=== PATIENT | female | born 1960 | race Caucasian/White ===

== ENCOUNTER → 2017-08-21 09:48 | Outpatient (CLI) | payer BC, SELFPAY ==
[2017-08-21 11:38] LABS: Anion Gap 13.3 mEq/L (5-15); Blood Urea Nitrogen 16 mg/dL (7-18); Carbon Dioxide 28 mmol/L (21.0-32.0); Chloride 107 mmol/L (98-107); Chol/HDL Ratio 2.9 (1-3.5); Cholesterol 149 mg/dL (140-200); Creatinine,Serum 0.76 mg/dL (0.55-1.02); Estimated Glomerular Filt Rate 78 ml/min (>60); Free T4 (Free Thyroxine) 1.05 ng/dl (0.76-1.46); GFR (African American) 95 ML/MIN (>60); Glucose 177 mg/dL (74-106); HDL Cholesterol 51 mg/dL (29-89); LDL Cholesterol 68 mg/dL (0-130); Potassium 4.3 mmoL/L (3.5-5.1); Sodium 144 mmol/L (136-145); Thyroid Stimulating Hormone 2.36 uIU/ml (0.358-3.740); Triglycerides 151 mg/dL (30-200); VLDL Cholesterol 30 mg/dL (0-40)
[2017-08-22 13:27] LABS: Alanine Aminotransferase 22 U/L (12-78); Albumin Level 4.3 gm/dL (3.4-5.0); Albumin/Globulin Ratio 1.3 (1.1-1.8); Alkaline Phosphatase 116 U/L (46-116); Aspartate Amino Transferase 17 U/L (15-37); Bilirubin,Total 0.6 mg/dL (0.2-1.0); Calcium 9.5 mg/dL (8.5-10.1); Globulin 3.4 gm/dl (1.3-3.2); T4 (Thyroxine) 9.4 ug/dl (4.7-13.3); Total Protein,Serum 7.7 gm/dL (6.4-8.2)
== END ==
PROVIDERS: Visit Provider Internal Medicine Endocrinology, Diabetes & Metabolism
DX: E11.65 Type 2 diabetes mellitus with hyperglycemia (principal); E03.8 Other specified hypothyroidism; I10 Essential (primary) hypertension
CPT/HCPCS: 36415; 80048; 80053; 80061; 84436; 84439; 84443

== ENCOUNTER → 2018-08-05 09:36 | Outpatient (CLI) | payer BC, SELFPAY ==
[2018-08-05 13:49] LABS: Basophils % 0.4 % (0.1-2.0); Eosinophils # 0.2 K/mm3 (0.0-0.4); Eosinophils % 2.2 % (0.1-12.0); Hemoglobin 12.9 g/dL (12.2-16.2); Lymphocytes # 1.4 K/mm3 (0.7-4.5); Lymphocytes % 20.2 % (10-50); Mean Corpuscular HGB Conc 33.9 g/dL (31.8-35.4); Mean Corpuscular Hemoglobin 30.5 pg (27.0-31.2); Mean Corpuscular Volume 90.1 fl (81-99); Mean Platelet Volume 9.8 fl (7.4-10.4); Monocytes # 0.4 K/mm3 (0.1-1.0); Monocytes % 5.8 % (1.7-9.3); Neutrophils % 71.6 % (37.0-80.0); Platelet Count 207 K/mm3 (142-424); Red Blood Count 4.22 M/mm3 (4.20-5.40); Red Cell Distribution Width 14.7 % (11.5-17.5); White Blood Count 7.1 K/mm3 (4.8-10.8)
[2018-08-05 14:09] LABS: Alanine Aminotransferase 27 U/L (12-78); Albumin Level 3.8 gm/dL (3.4-5.0); Albumin/Globulin Ratio 1.1 (1.1-1.8); Alkaline Phosphatase 113 U/L (46-116); Anion Gap 15.1 mEq/L (5-15); Aspartate Amino Transferase 19 U/L (15-37); Bilirubin,Total 0.7 mg/dL (0.2-1.0); Blood Urea Nitrogen 16 mg/dL (7-18); Calcium 9.1 mg/dL (8.5-10.1); Carbon Dioxide 27 mmol/L (21.0-32.0); Chloride 105 mmol/L (98-107); Chol/HDL Ratio 2.9 (1-3.5); Cholesterol 167 mg/dL (140-200); Creatinine,Serum 0.75 mg/dL (0.55-1.02); Estimated Glomerular Filt Rate 79 ml/min (>60); Free T4 (Free Thyroxine) 0.97 ng/dl (0.76-1.46); GFR (African American) 96 ML/MIN (>60); Globulin 3.4 gm/dl (1.3-3.2); Glucose 178 mg/dL (74-106); HDL Cholesterol 58 mg/dL (29-89); LDL Cholesterol 70 mg/dL (0-130); Potassium 4.1 mmoL/L (3.5-5.1); Sodium 143 mmol/L (136-145); Thyroid Stimulating Hormone 3.09 uIU/ml (0.358-3.740); Total Protein,Serum 7.2 gm/dL (6.4-8.2); Triglycerides 197 mg/dL (30-200); VLDL Cholesterol 39 mg/dL (0-40)
[2018-08-06 10:28] LABS: Creatinine, Urine 76.7 mg/dL (Not Estab.); Microalbumin, Urine 14.1 ug/mL (Not Estab.)
== END ==
PROVIDERS: PCP Physician Assistant; Visit Provider Internal Medicine Endocrinology, Diabetes & Metabolism
DX: E11.65 Type 2 diabetes mellitus with hyperglycemia (principal); E03.8 Other specified hypothyroidism; E78.00 Pure hypercholesterolemia, unspecified; I10 Essential (primary) hypertension
CPT/HCPCS: 36415; 80053; 80061; 82043; 82570; 84439; 84443; 85025

== ENCOUNTER → 2022-03-19 09:45 | Outpatient (CLI) | payer BC, SELFPAY ==
[2022-03-19 17:54] LABS: Basophils # 0.1 K/mm3 (0-0.2); Basophils % 0.7 % (0.1-2.0); Eosinophils # 0.1 K/mm3 (0.0-0.4); Eosinophils % 1.9 % (0.1-12.0); Hemoglobin 13.2 g/dL (12.2-16.2); Lymphocytes # 1.3 K/mm3 (0.7-4.5); Lymphocytes % 17.2 % (10-50); Mean Corpuscular HGB Conc 32.9 g/dL (31.8-35.4); Mean Corpuscular Hemoglobin 31.5 pg (27.0-31.2); Mean Corpuscular Volume 95.9 fl (81-99); Mean Platelet Volume 10.2 fl (7.4-10.4); Monocytes # 0.4 K/mm3 (0.1-1.0); Monocytes % 4.8 % (1.7-9.3); Neutrophils # 5.8 K/mm3 (1.8-7.8); Neutrophils % 75.4 % (37.0-80.0); Platelet Count 264 K/mm3 (142-424); Red Blood Count 4.18 M/mm3 (4.20-5.40); Red Cell Distribution Width 14.7 % (11.5-17.5); White Blood Count 7.6 K/mm3 (4.8-10.8)
[2022-03-19 17:58] LABS: Alanine Aminotransferase 21 U/L (12-78); Albumin Level 4.4 g/dl (3.5-5.0); Albumin/Globulin Ratio 1.7 (1.1-1.8); Alkaline Phosphatase 164 U/L (38-126); Aspartate Amino Transferase 30 U/L (14-36); Bilirubin,Total 0.9 mg/dl (0.2-1.3); Blood Urea Nitrogen 14 mg/dl (7-17); Calcium 9.4 mg/dl (8.4-10.2); Carbon Dioxide 29 mmol/L (22.0-30.0); Chloride 103 mmol/L (98-107); Chol/HDL Ratio 2.9 (1-3.5); Cholesterol 153 mg/dl (140-200); Estimated Glomerular Filt Rate 101 ml/min (>60); GFR (African American) 122 ML/MIN (>60); Globulin 2.6 g/dL (1.3-3.2); Glucose 155 mg/dl (74-100); HDL Cholesterol 52 mg/dl (40-60); Sodium 143 mmol/L (136-145); Triglycerides 132 mg/dl (30-150); VLDL Cholesterol 26 mg/dL (0-40)
[2022-03-19 18:09] LABS: Direct LDL Cholesterol 63.65 mg/dL (100-129)
[2022-03-19 18:22] LABS: Hemoglobin A1C 6.8 % (4.0-6.0)
[2022-03-19 18:29] LABS: Thyroid Stimulating Hormone 1.57 uIU/mL (0.465-4.68)
[2022-03-19 19:20] LABS: Anion Gap 15.2 mEq/L (5-15); Potassium 4.2 mmoL/L (3.5-5.1)
== END ==
PROVIDERS: PCP Family Medicine; Visit Provider Family Medicine
DX: E03.9 Hypothyroidism, unspecified (principal); E11.9 Type 2 diabetes mellitus without complications; I10 Essential (primary) hypertension; Z00.00 Encounter for general adult medical examination without abnormal findings; Z79.84 Long term (current) use of oral hypoglycemic drugs
CPT/HCPCS: 80053; 80061; 83036; 84443; 85025

== ENCOUNTER → 2023-03-24 17:30 | Outpatient (CLI) | payer BC, SELFPAY ==
[2023-03-24 18:23] LABS: Alanine Aminotransferase 26 U/L (12-78); Albumin Level 4.2 g/dl (3.5-5.0); Albumin/Globulin Ratio 1.4 (1.1-1.8); Alkaline Phosphatase 119 U/L (38-126); Anion Gap 17.6 mEq/L (5-15); Aspartate Amino Transferase 29 U/L (14-36); Bilirubin,Total 0.7 mg/dl (0.2-1.3); Blood Urea Nitrogen 14 mg/dl (7-17); Calcium 8.9 mg/dl (8.4-10.2); Carbon Dioxide 23 mmol/L (22.0-30.0); Chloride 105 mmol/L (98-107); Chol/HDL Ratio 2.7 (1-3.5); Cholesterol 144 mg/dl (140-200); Estimated Glomerular Filt Rate 101 ml/min (>60); GFR (African American) 122 ML/MIN (>60); Glucose 153 mg/dl (74-100); HDL Cholesterol 53 mg/dl (40-60); Potassium 3.6 mmoL/L (3.5-5.1); Sodium 142 mmol/L (136-145); Total Protein,Serum 7.2 g/dl (6.3-8.2); Triglycerides 132 mg/dl (30-150); VLDL Cholesterol 26 mg/dL (0-40)
[2023-03-24 18:34] LABS: Direct LDL Cholesterol 67.31 mg/dL (100-129)
[2023-03-24 18:40] LABS: Free T4 (Free Thyroxine) 1.34 ng/dl (0.78-2.19)
[2023-03-24 18:52] LABS: Thyroid Stimulating Hormone 1.67 uIU/mL (0.465-4.68)
== END ==
PROVIDERS: PCP Internal Medicine Endocrinology, Diabetes & Metabolism; Visit Provider Internal Medicine Endocrinology, Diabetes & Metabolism
DX: E11.65 Type 2 diabetes mellitus with hyperglycemia (principal); E11.59 Type 2 diabetes mellitus with other circulatory complications; E11.69 Type 2 diabetes mellitus with other specified complication; I15.2 Hypertension secondary to endocrine disorders; E78.5 Hyperlipidemia, unspecified; E03.9 Hypothyroidism, unspecified
CPT/HCPCS: 80053; 80061; 82043; 83036; 84439; 84443

== ENCOUNTER 2023-09-21 11:51 | Outpatient (CLI) | payer BC, SELFPAY ==
[2023-09-21 16:36] LABS: Alanine Aminotransferase 19 U/L (12-78); Albumin/Globulin Ratio 1.4 (1.1-1.8); Alkaline Phosphatase 120 U/L (38-126); Aspartate Amino Transferase 27 U/L (14-36); Basophils % 0.5 % (0.1-2.0); Blood Urea Nitrogen 12 mg/dl (7-17); Calcium 9.3 mg/dl (8.4-10.2); Carbon Dioxide 26 mmol/L (22.0-30.0); Chloride 109 mmol/L (98-107); Chol/HDL Ratio 2.6 (1-3.5); Cholesterol 141 mg/dl (140-200); Creatinine,Urine Random 92 mg/dL (Not Estab.); Direct LDL Cholesterol 66.31 mg/dL (100-129); Eosinophils # 0.2 K/mm3 (0.0-0.4); Eosinophils % 2.2 % (0.1-12.0); Estimated Glomerular Filt Rate 101 ml/min (>60); GFR (African American) 122 ML/MIN (>60); Globulin 2.8 g/dL (1.3-3.2); Glucose 133 mg/dl (74-100); HDL Cholesterol 55 mg/dl (40-60); Hematocrit 38.6 % (37.0-47.0); Hemoglobin 12.8 g/dL (12.2-16.2); Lymphocytes # 1.8 K/mm3 (0.7-4.5); Mean Corpuscular HGB Conc 33.2 g/dL (31.8-35.4); Mean Corpuscular Hemoglobin 31.2 pg (27.0-31.2); Mean Platelet Volume 10.6 fl (7.4-10.4); Microalbumin/Creatinine Ratio 12.3; Monocytes # 0.6 K/mm3 (0.1-1.0); Monocytes % 8.6 % (1.7-9.3); Neutrophils # 4.4 K/mm3 (1.8-7.8); Neutrophils % 63.7 % (37.0-80.0); Platelet Count 206 K/mm3 (142-424); Red Blood Count 4.11 M/mm3 (4.20-5.40); Sodium 142 mmol/L (136-145); Total Protein,Serum 6.8 g/dl (6.3-8.2); Triglycerides 124 mg/dl (30-150); VLDL Cholesterol 25 mg/dL (0-40)
[2023-09-21 16:53] LABS: Thyroid Stimulating Hormone 2.31 uIU/mL (0.465-4.68)
[2023-09-21 17:07] LABS: Hemoglobin A1C 6.4 % (4.0-6.0)
== END 2023-09-21 23:59 | disposition home or self-care (01) ==
LOC: LAB.DROPOF 09-22 11:52
PROVIDERS: PCP Family Medicine; Visit Provider Family Medicine
DX: E11.9 Type 2 diabetes mellitus without complications (principal); E03.9 Hypothyroidism, unspecified; E78.5 Hyperlipidemia, unspecified; Z79.84 Long term (current) use of oral hypoglycemic drugs
CPT/HCPCS: 80053; 80061; 82043; 82570; 83036; 84439; 84443; 84481; 85025

== ENCOUNTER 2023-12-04 08:15 | Outpatient (CLI) | payer BC, SELFPAY ==
--- NOTE | 2023-12-04 08:15 | US_ITS ---
PROCEDURE: US TRANSVAGINAL CLINICAL INDICATION: abdominal bloating, swelling COMPARISON: No exams were available for comparison FINDINGS: Transvaginal sonographic images of the pelvis were obtained. UTERUS: 6.3cm x 5cmx 3.4cm midline with a combined endometrial thickness of 7.1mm. There is a 1.5 cm nabothian cyst in the cervix. There is a fibroid in the uterus measuring 2.3 cm x 2.4 cm x 2.5 cm LEFT OVARY: Not visualized RIGHT OVARY: Not visualized There a large mass in the right adnexa that has both solid and cystic components. It measures 14.8 cm x 12.7 cm Both ovaries are not visualized. There is a moderate amount of fluid in the cul-de-sac. IMPRESSION: 1. Midline uterus normal in shape and size. 2. The ovaries were not seen. 3. There is a large multi cystic and solid mass in the right adnexa that measures at least 14.8 cm in size. 4. The computer builder noted that it was a difficult exam secondary to the large amount of fluid in the pelvis. 5. Concerning for ovarian carcinoma with ascites. A CT scan might be able to better delineate the size of this large mass. 6. Suggest a gynecologic oncology consult. Dictated by: Michael Hamilton MD 12/05/2023 10:14 Michael Hamilton MD in [place] 12/05/2023 10:14
--- NOTE | 2023-12-04 08:15 | US_ITS ---
FINAL REPORT CLINICAL HISTORY: possible ascites FINDINGS: US ABDOMINAL COMPLETE There is no focal liver lesion. The gallbladder is unremarkable. Kidneys are normal in size with mild global parenchymal atrophy. There is mild left hydronephrosis. There are no obstructive changes of the right kidney. The spleen is mildly enlarged measuring up to 13.8 cm. There is a small amount of ascites in all quadrants. The aorta and IVC are not visualized. IMPRESSION: 1. No focal hepatic mass. 2. Ascites and splenomegaly may be related to chronic liver disease with portal hypertension. 3. Mild left hydronephrosis. Authenticated and ERN
[2023-12-04 16:55] LABS: Basophils # 0.1 K/mm3 (0-0.2); Eosinophils # 0.2 K/mm3 (0.0-0.4); Eosinophils % 1.6 % (0.1-12.0); Hematocrit 36.3 % (37.0-47.0); Lymphocytes # 1.3 K/mm3 (0.7-4.5); Lymphocytes % 13.7 % (10-50); Mean Corpuscular HGB Conc 32.9 g/dL (31.8-35.4); Mean Corpuscular Hemoglobin 29.5 pg (27.0-31.2); Mean Corpuscular Volume 89.6 fl (81-99); Mean Platelet Volume 8.6 fl (7.4-10.4); Monocytes # 0.7 K/mm3 (0.1-1.0); Neutrophils # 7.5 K/mm3 (1.8-7.8); Neutrophils % 76.7 % (37.0-80.0); Platelet Count 605 K/mm3 (142-424); Red Blood Count 4.06 M/mm3 (4.20-5.40); White Blood Count 9.8 K/mm3 (4.8-10.8)
[2023-12-04 17:02] LABS: Activated Partial Thrombo Time 24.5 seconds (22.8-30.6); INR 0.95 (0.9-1.1); Prothrombin Time 10.7 seconds (10.1-12.5)
[2023-12-04 17:21] LABS: Chloride 109 mmol/L (98-107); Potassium 3.5 mmoL/L (3.5-5.1); Sodium 142 mmol/L (136-145)
[2023-12-04 17:23] LABS: Blood Urea Nitrogen 16 mg/dl (7-17); Estimated Glomerular Filt Rate 72 ml/min (>60); GFR (African American) 87 ML/MIN (>60)
[2023-12-04 17:24] LABS: Alanine Aminotransferase 16 U/L (12-78); Alkaline Phosphatase 166 U/L (38-126); Anion Gap 8.5 mEq/L (5-15); Aspartate Amino Transferase 28 U/L (14-36); Bilirubin,Total 0.4 mg/dl (0.2-1.3); Calcium 8.9 mg/dl (8.4-10.2); Carbon Dioxide 28 mmol/L (22.0-30.0); Globulin 2.9 g/dL (1.3-3.2); Glucose 145 mg/dl (74-100); Total Protein,Serum 5.9 g/dl (6.3-8.2)
== END 2023-12-04 23:59 | disposition home or self-care (01) ==
PROVIDERS: PCP Family Medicine; Visit Provider Family Medicine
DX: R14.0 Abdominal distension (gaseous) (principal); R10.9 Unspecified abdominal pain
CPT/HCPCS: 36415; 76700; 76830; 80053; 85025; 85610; 85730

== ENCOUNTER 2023-12-25 10:29 | Emergency (ER) | payer BC, SELFPAY ==
[2023-12-25] VITALS (9 sets, daily range): BP systolic 100–129; BP diastolic 57–65; PULSE 84–96; RESP 17–18; TEMP 36.7–36.8; O2SAT 93–98; BMI 29.4
--- NOTE | 2023-12-25 10:52 | ED_ITS ---
Discharge Plan Disposition Patient Disposition: Home, Self-Care Prescriptions Prescriptions: No Action sulfacetamide sodium-sulfur 10-5 % (w/w) cleanser 1 applic TOPICAL DIRECTED dapagliflozin propanediol 10 mg tablet 10 mg PO DAILY Patient Comments: TAKE 1 TABLET 1 TIME EACH DAY semaglutide 14 mg tablet 14 mg PO DAILY Patient Comments: TAKE 1 TABLET 1 TIME EACH DAY. carvedilol 12.5 mg tablet 12.5 mg PO BID 30 Days Qty: 60 2RF levothyroxine 50 mcg tablet 50 mcg PO DAILY 30 Days Qty: 30 2RF amlodipine 10 mg tablet 10 mg PO DAILY 30 Days Qty: 30 2RF lisinopril 40 mg tablet See Rx Instructions .ROUTE .COMPLEX Qty: 30 2RF Dose Instruction: TAKE 1 TABLET 1 TIME EACH DAY FOR HIGH BLOOD PRESSURE Rx Instructions: TAKE 1 TABLET 1 TIME EACH DAY FOR HIGH BLOOD PRESSURE atorvastatin 10 mg tablet See Rx Instructions .ROUTE .COMPLEX Qty: 90 0RF Dose Instruction: TAKE 1 TABLET 1 TIME EACH DAY FOR CHOLESTEROL Rx Instructions: TAKE 1 TABLET 1 TIME EACH DAY FOR CHOLESTEROL pantoprazole [Protonix] 40 mg tablet,delayed release (DR/EC) 40 mg PO DAILY Qty: 90 3RF Referrals Follow up/Referrals: Ryan Marques MD [Primary Care Provider] - See instructions Activity Restrictions/Add. Instructions Additional Instructions/Restrictions: Follow-up with your family doctor and oncologist regarding this visit to the emergency department. Call your family doctor to establish care for this visit to the emergency department and schedule follow-up within 48 hours to ensure improvement. If you have any worsening of your condition or any other concerning signs or symptoms, return to the emergency department or your primary care doctor for further evaluation. Clinical Impressions Clinical Impression: Malignant ascites, Abdominal distension Print Language Print Language: Polish Discharge ED Provider: Marlon Gutierrez General Adult HPI General Chief complaint: PAIN Stated complaint: drain fluid from stomach Time Seen by Provider: 12/25/23 10:41 History of Present Illness HPI narrative: Please note that above description of symptoms, in this electronic medical record under categorization of recalled from ER triage doctor by RN are reflective of an initial nursing assessment, however, is not reflective of my full history and physical exam that was personally taken and clarified. Consequentially, this preceding description of symptoms, which may include the patient's categorized chief complaint in the EMR, do not reflect my personal clinical impression, and the ultimate description of history of present illness and patient stated complaints should be deferred to this section of the note. Unless stated otherwise or congruent with this section of the note, additional signs, symptoms, or incongruence should be interpreted as inaccurate with my clinical impression. Related Data Home Medications ?Medication ?Instructions ?Recorded ?Confirmed sulfacetamide sodium-sulfur 10 %-5 1 applic topical DIRECTED 09/11/20 12/25/23 % (w/w) topical cleanser dapagliflozin propanediol 10 mg 10 mg PO DAILY Diabetes 03/19/22 12/25/23 tablet semaglutide 14 mg tablet 14 mg PO DAILY 03/19/22 12/25/23 Previous Rx's ?Medication ?Instructions ?Recorded levothyroxine 50 mcg tablet 50 mcg PO DAILY Hypothyroidism 30 03/30/23 days #30 tabs carvedilol 12.5 mg tablet 12.5 mg PO BID HTN 30 days #60 tabs 04/06/23 amlodipine 10 mg tablet 10 mg PO DAILY HTN 30 days #30 tabs 10/13/23 lisinopril 40 mg tablet See Rx Instructions .Route 11/10/23 .COMPLEX #30 tabs atorvastatin 10 mg tablet See Rx Instructions .Route 12/22/23 .COMPLEX #90 tabs pantoprazole 40 mg tablet,delayed 40 mg PO DAILY #90 tabs 12/24/23 release (Protonix) Allergies Allergy/AdvReac Type Severity Reaction Status Date / Time No Known Allergies Allergy Verified 12/07/23 12:03 [facility] Disclaimer: The information contained in this section may have been updated after the patient was seen, as this information can be updated by other users. Medical History Hyperlipidemia Hypertension Overweight with body mass index (BMI) of 28 to 28.9 in adult Onychodystrophy Onychomycosis Surgical History No history of previous surgery Family History Mother Diabetes Social History Smoking Status: Never smoker alcohol intake: never substance use type: denies use current occupational status: retired Travel in the last 8 weeks: None household members: none housing: house ROS Obtained: Yes All systems reviewed & no additional complaints except as documented Physical Exam General General appearance: alert Head Head exam: atraumatic and normocephalic Eye Eye exam: Present normal appearance, PERRL and EOMI Neck Neck exam: Present normal inspection, full ROM and trachea midline Respiratory Respiratory exam: Absent respiratory distress, wheezes, stridor, accessory muscle use or prolonged expiratory phase Cardiovascular Cardiovascular exam: Present regular rate, normal rhythm and other (Pulses equal symmetric in upper and lower extremities) Abdominal Exam Abdominal exam: Present soft and distention; Absent tenderness or pulsatile mass Extremities Exam Extremities exam: Absent edema Neurological Exam Neurological exam: Present alert, oriented X3 and CN II-XII intact; Absent motor sensory deficit Skin Skin exam: Present warm and dry; Absent diaphoresis or erythema Medical Decision Making Medical Records Medical records reviewed: Yes I reviewed the patient's medical records. Martín Inquiry Pt receiving controlled substance: No Martín was queried for this patient: No Vital Signs: 12/25/23 10:30 12/25/23 10:36 12/25/23 11:00 Temperature 98.3 F Temperature Source Oral Pulse Rate 91 H 84 Pulse Rate [Right] 91 H Respiratory Rate 17 Blood Pressure 120/65 100/57 L Blood Pressure [Right Arm] 120/65 Blood Pressure Mean Blood Pressure Mean [Right Arm] 83 Blood Pressure Source Blood Pressure Source [Right Arm] Automatic Cuff Blood Pressure Position 02 Sat by Pulse Oximetry 98 95 93 L Oxygen Delivery Method Room Air 12/25/23 11:02 12/25/23 11:30 12/25/23 12:00 Temperature Temperature Source Pulse Rate 87 85 Pulse Rate [Right] Respiratory Rate Blood Pressure 109/64 L 117/63 116/59 L Blood Pressure [Right Arm] Blood Pressure Mean 79 Blood Pressure Mean [Right Arm] Blood Pressure Source Blood Pressure Source [Right Arm] Blood Pressure Position 02 Sat by Pulse Oximetry 94 L 95 Oxygen Delivery Method 12/25/23 12:08 12/25/23 12:32 12/25/23 13:10 Temperature 98.0 F Temperature Source Oral Pulse Rate 96 H 85 Pulse Rate [Right] Respiratory Rate 18 Blood Pressure 120/65 118/59 L 129/63 Blood Pressure [Right Arm] Blood Pressure Mean 76 Blood Pressure Mean [Right Arm] Blood Pressure Source Automatic Cuff Blood Pressure Source [Right Arm] Blood Pressure Position Sitting 02 Sat by Pulse Oximetry 97 Oxygen Delivery Method Room Air Lab Data Lab Results 12/25/23 10:53: WBC 13.7 H, RBC 3.74 L, Hgb 10.6 L, Hct 34.6 L, MCV 92.4, MCH 28.5, MCHC 30.8 L, RDW 15.2, Plt Count 621 H, MPV 7.5, Neut % (Auto) 83.3 H, L ymph % (Auto) 7.7 L, Ingham % (Auto) 7.9, Eos % (Auto) 0.8, Baso % (Auto) 0.3, N eut # (Auto) 11.5 H, Lymph # (Auto) 1.1, Ing[place] # (Auto) 1.1 H, Eos # (Auto) 0.1, Baso # (Auto) 0.0, Sodium 132 L, Potassium 4.4, Chloride 102, Carbon Dioxide 30, Anion Gap 4.4 L, BUN 25 H, Creatinine 1.00, Estimated Creat Clear 83, Estimated GFR 56 L, Est GFR ( Amer) 68, Glucose 117 H, Calcium 7.9 L, Total Bilirubin 1.0, AST 102 H, ALT 65, Alkaline Phosphatase 548 H, Total Protein 5.8 L, Albumin 2.7 L, Globulin 3.1, Albumin/Globulin Ratio 0.9 L 12/25/23 10:53 12/25/23 10:53 Orders (Tests/Meds): ED MEDICATIONS Discontinued Medications Generic Name Dose Route Start Last Admin Trade Name Freq PRN Reason Stop Dose Admin Lidocaine HCl 20 ml 12/25/23 11:00 12/25/23 11:06 Lidocaine 1% 20ml Mdv SQ 12/25/23 11:01 20 ml ONCE ONE Administration ORDERS Category Date Time Status US RUQ [US abdomen limited] Stat Exams 12/25/23 12:22 Completed CBC w/Auto Diff [Complete Blood Count Auto Diff] Stat Lab 12/25/23 10:53 Completed CMP [Comprehensive Metabolic Panel] Stat Lab 12/25/23 10:53 Completed Medical Decision Narrative: 63-year-old female history of ascites of unknown origin, likely malignant with concurrent ovarian mass as well as stomach mass presenting with distention. Patient states that she has been feeling tired and distended for the past couple of days, came in today because she has no appetite due to the abdominal distention. No other complaints on full review of systems. Contacted her oncologist who recommended she come to the emergency department for paracentesis for resolution of symptoms.. History was obtained via conversation with patient and family. On arrival, patient hemodynamically stable, alert, oriented x4, appropriate, GCS 15, moving all extremities spontaneously, pupils equal and reactive to light. Full physical exam performed and significant for well- appearing female in no acute distress. Oxygen 94 to 95% on room air, abdomen is soft, but distended, nontender. No overlying skin changes. No flank changes or tenderness. Differential includes ascites reaccumulation, liver failure, progression of disease, among others. Patient placed on continuous cardiac monitoring and continuous pulse ox with initial blood pressure 129/63, heart rate 85, saturation 97% on room air. Patient was given lidocaine infiltration for symptomatic management and correction of underlying abnormalities. Paracentesis performed. Workup independently interpreted and significant for leukocytosis 13.7. Hemoglobin 10.6 down from 12 about 3 weeks prior. Patient's alkaline phosphatase also elevated as compared to previous and mildly elevated AST. Bedside [id number] ultrasound was performed for ultrasound-guided drainage. Paracentesis performed, 3 L of red-tinged straw-colored fluid removed. Patient's oncologist was contacted and case was discussed, right upper quadrant ultrasound was ordered given new LFT findings. On independent interpretation of ultrasound, patient has mild portal vein dilation, which could explain some of the lab abnormalities. No other acute abnormality. On reevaluation, patient resting comfortably, oxygen saturation is 98 to 100%, feeling much better. Given patient presentation, workup, history, this most likely represents restrictive lung extrusion in the setting of abdominal distention as well as early satiety in the setting of ascites accumulation. Because patient at baseline without signs or symptoms of clinical decompensation, deemed appropriate for discharge. Results were relayed to patient who voiced understanding and were agreeable to outpatient management and follow up. I discussed my clinical impression with patient and answered all questions. At this time, the evidence for any other entities in the differential is insufficient to warrant any further testing or ED observation. This was explained as well. Advisory was given that persistent or worsening symptoms require further evaluation. I confirmed the understanding of this discussion. Pharmacognosy Teacher disclaimer Much of this encounter note is an electronic instrument person spoken language to printed text. Electronic instrument person of the spoken language may permit errors. Although I have reviewed the note, some errors may still exist. Critical Care Critical Care Time Critical Care Time: No
[2023-12-25 11:06] LABS: Albumin Level 2.7 g/dl (3.5-5.0); Chloride 102 mmol/L (98-107); Potassium 4.4 mmoL/L (3.5-5.1); Sodium 132 mmol/L (136-145)
[2023-12-25] MEDS: LIDOCAINE 1% 20ML MDV 20 ML SQ (11:06)
[2023-12-25 11:08] LABS: Basophils % 0.3 % (0.1-2.0); Eosinophils # 0.1 K/mm3 (0.0-0.4); Eosinophils % 0.8 % (0.1-12.0); Hematocrit 34.6 % (37.0-47.0); Hemoglobin 10.6 g/dL (12.2-16.2); Lymphocytes # 1.1 K/mm3 (0.7-4.5); Lymphocytes % 7.7 % (10-50); Mean Corpuscular HGB Conc 30.8 g/dL (31.8-35.4); Mean Corpuscular Hemoglobin 28.5 pg (27.0-31.2); Mean Corpuscular Volume 92.4 fl (81-99); Mean Platelet Volume 7.5 fl (7.4-10.4); Monocytes # 1.1 K/mm3 (0.1-1.0); Monocytes % 7.9 % (1.7-9.3); Neutrophils # 11.5 K/mm3 (1.8-7.8); Neutrophils % 83.3 % (37.0-80.0); Platelet Count 621 K/mm3 (142-424); Red Blood Count 3.74 M/mm3 (4.20-5.40); Red Cell Distribution Width 15.2 % (11.5-17.5); White Blood Count 13.7 K/mm3 (4.8-10.8)
[2023-12-25 11:09] LABS: Alanine Aminotransferase 65 U/L (12-78); Albumin/Globulin Ratio 0.9 (1.1-1.8); Alkaline Phosphatase 548 U/L (38-126); Anion Gap 4.4 mEq/L (5-15); Aspartate Amino Transferase 102 U/L (14-36); Blood Urea Nitrogen 25 mg/dl (7-17); Calcium 7.9 mg/dl (8.4-10.2); Carbon Dioxide 30 mmol/L (22.0-30.0); Creatinine Clearance Estimated 83 mL/min (50-200); Estimated Glomerular Filt Rate 56 ml/min (>60); GFR (African American) 68 ML/MIN (>60); Globulin 3.1 g/dL (1.3-3.2); Glucose 117 mg/dl (74-100); Total Protein,Serum 5.8 g/dl (6.3-8.2)
--- NOTE | 2023-12-25 11:36 | PC.NURSE ---
Dr. Gutierrez at bedside for procedure: abdominalcentesis d/t malignant ascities. Family at bedside. Pt completed procedure consent and is on monitoring devices.
--- NOTE | 2023-12-25 12:22 | US_ITS ---
FINAL REPORT CLINICAL HISTORY: elevated LFT, cancer FINDINGS: RIGHT UPPER QUADRANT ULTRASOUND Sonographic images of the right upper quadrant were obtained. The pancreas is obscured. There is mild fatty infiltration of the liver. The portal vein is borderline dilated measuring 13 mm but with proper directional flow. The gallbladder wall is mildly thickened measuring 3-4 mm. The common duct measures 5 mm. Limited images of the right kidney are normal. IMPRESSION: Fatty liver. Borderline dilated portal vein but with proper directional flow. Mildly thickened gallbladder wall. Reviewed, Interpreted and Dictated by Cb Nair III, MD Transcribed by Michelle Garcias Authenticated and [facility]
--- NOTE | 2023-12-25 12:48 | PC.NURSE ---
RAD at BS for U/S
--- NOTE | 2023-12-25 13:04 | PC.NURSE ---
DR HARDEN AT BEDSIDE TO UPDATE PT AND FAMILY
== END 2023-12-25 13:10 | disposition home or self-care (01) ==
PROVIDERS: Emergency Provider Emergency Medicine; PCP Family Medicine
DX: R18.0 Malignant ascites (principal); R14.0 Abdominal distension (gaseous); E87.1 Hypo-osmolality and hyponatremia; R53.81 Other malaise; R94.5 Abnormal results of liver function studies; I10 Essential (primary) hypertension; E78.5 Hyperlipidemia, unspecified
CPT/HCPCS: 49082; 76705; 80053; 85025; 99284

== ENCOUNTER 2024-01-14 20:24 | Outpatient (CLI) | payer BC, SELFPAY ==
[2024-01-14 21:34] LABS: Basophils % 0.3 % (0.1-2.0); Eosinophils % 0.5 % (0.1-12.0); Hematocrit 33.2 % (37.0-47.0); Hemoglobin 10.5 g/dL (12.2-16.2); Lymphocytes # 0.6 K/mm3 (0.7-4.5); Mean Corpuscular HGB Conc 31.8 g/dL (31.8-35.4); Mean Corpuscular Hemoglobin 27.2 pg (27.0-31.2); Mean Corpuscular Volume 85.6 fl (81-99); Mean Platelet Volume 9.8 fl (7.4-10.4); Monocytes # 0.2 K/mm3 (0.1-1.0); Monocytes % 2.2 % (1.7-9.3); Neutrophils # 7.1 K/mm3 (1.8-7.8); Neutrophils % 90.1 % (37.0-80.0); Platelet Count 430 K/mm3 (142-424); Red Blood Count 3.88 M/mm3 (4.20-5.40); Red Cell Distribution Width 16.9 % (11.5-17.5); White Blood Count 7.9 K/mm3 (4.8-10.8)
[2024-01-14 21:39] LABS: MANUAL DIFFERENTIAL MANUAL DIFFERENTIAL (MANUAL DIFF)
[2024-01-14 21:57] LABS: Anion Gap 8.2 mEq/L (5-15); Aspartate Amino Transferase 43 U/L (14-36); Bilirubin,Total 0.5 mg/dl (0.2-1.3); Blood Urea Nitrogen 22 mg/dl (7-17); Calcium 7.8 mg/dl (8.4-10.2); Carbon Dioxide 27 mmol/L (22.0-30.0); Chloride 96 mmol/L (98-107); Estimated Glomerular Filt Rate 101 ml/min (>60); GFR (African American) 122 ML/MIN (>60); Glucose 178 mg/dl (74-100); Potassium 4.2 mmoL/L (3.5-5.1); Sodium 127 mmol/L (136-145)
[2024-01-14 21:58] LABS: Alanine Aminotransferase 26 U/L (12-78); Albumin Level 2.4 g/dl (3.5-5.0); Alkaline Phosphatase 201 U/L (38-126); Globulin 2.5 g/dL (1.3-3.2); Total Protein,Serum 4.9 g/dl (6.3-8.2)
[2024-01-14 23:44] LABS: Eosinophils % 1 % (0-3); Lymphocytes % 6 % (10-50); Neutrophils % 93 % (42-76); RBC Morphology Normal; Total Cells Counted 100
== END 2024-01-14 23:59 | disposition home or self-care (01) ==
LOC: LAB.DROPOF 20:26
PROVIDERS: PCP Nurse Practitioner Family; Visit Provider Nurse Practitioner Family
DX: N83.8 Other noninflammatory disorders of ovary, fallopian tube and broad ligament (principal)
CPT/HCPCS: 80053; 85007; 85025; 85027

== ENCOUNTER 2024-01-21 13:20 | Outpatient (CLI) | payer BC, SELFPAY ==
[2024-01-21 17:03] LABS: Basophils % 0.3 % (0.1-2.0); Eosinophils % 1.1 % (0.1-12.0); Hemoglobin 8.6 g/dL (12.2-16.2); Lymphocytes # 0.6 K/mm3 (0.7-4.5); Mean Corpuscular HGB Conc 32.3 g/dL (31.8-35.4); Mean Corpuscular Hemoglobin 27.5 pg (27.0-31.2); Mean Corpuscular Volume 85.1 fl (81-99); Mean Platelet Volume 8.8 fl (7.4-10.4); Monocytes # 0.2 K/mm3 (0.1-1.0); Monocytes % 8.7 % (1.7-9.3); Neutrophils # 1.9 K/mm3 (1.8-7.8); Neutrophils % 68.8 % (37.0-80.0); Platelet Count 155 K/mm3 (142-424); Red Blood Count 3.14 M/mm3 (4.20-5.40); Red Cell Distribution Width 18.7 % (11.5-17.5); White Blood Count 2.7 K/mm3 (4.8-10.8)
[2024-01-21 17:13] LABS: Hematocrit 26.8 % (37.0-47.0)
[2024-01-21 17:27] LABS: Alanine Aminotransferase 21 U/L (12-78); Albumin Level 2.5 g/dl (3.5-5.0); Albumin/Globulin Ratio 0.9 (1.1-1.8); Alkaline Phosphatase 150 U/L (38-126); Anion Gap 2.8 mEq/L (5-15); Aspartate Amino Transferase 31 U/L (14-36); Bilirubin,Total 0.7 mg/dl (0.2-1.3); Blood Urea Nitrogen 10 mg/dl (7-17); Calcium 7.3 mg/dl (8.4-10.2); Carbon Dioxide 34 mmol/L (22.0-30.0); Chloride 99 mmol/L (98-107); Estimated Glomerular Filt Rate 161 ml/min (>60); GFR (African American) 194 ML/MIN (>60); Globulin 2.7 g/dL (1.3-3.2); Glucose 142 mg/dl (74-100); Sodium 133 mmol/L (136-145); Total Protein,Serum 5.2 g/dl (6.3-8.2)
[2024-01-21 18:05] LABS: Potassium 2.8 mmoL/L (3.5-5.1)
== END 2024-01-21 23:59 | disposition home or self-care (01) ==
LOC: LAB.DROPOF 01-22 13:20
PROVIDERS: PCP Family Medicine; Visit Provider Family Medicine
DX: N83.8 Other noninflammatory disorders of ovary, fallopian tube and broad ligament (principal); E11.9 Type 2 diabetes mellitus without complications; Z79.899 Other long term (current) drug therapy
CPT/HCPCS: 80053; 85025

== ENCOUNTER 2024-01-22 11:45 | Outpatient (CLI) | payer BC, SELFPAY ==
[2024-01-22 13:20] LABS: Alanine Aminotransferase 23 U/L (12-78); Albumin Level 2.5 g/dl (3.5-5.0); Albumin/Globulin Ratio 0.9 (1.1-1.8); Alkaline Phosphatase 142 U/L (38-126); Anion Gap 3.5 mEq/L (5-15); Aspartate Amino Transferase 30 U/L (14-36); Bilirubin,Total 0.6 mg/dl (0.2-1.3); Blood Urea Nitrogen 9 mg/dl (7-17); Calcium 7.3 mg/dl (8.4-10.2); Carbon Dioxide 33 mmol/L (22.0-30.0); Chloride 99 mmol/L (98-107); Estimated Glomerular Filt Rate 161 ml/min (>60); GFR (African American) 194 ML/MIN (>60); Globulin 2.8 g/dL (1.3-3.2); Glucose 178 mg/dl (74-100); Potassium 3.5 mmoL/L (3.5-5.1); Sodium 132 mmol/L (136-145); Total Protein,Serum 5.3 g/dl (6.3-8.2)
== END 2024-01-22 23:59 | disposition home or self-care (01) ==
LOC: LAB 11:46
PROVIDERS: PCP Family Medicine; Visit Provider Family Medicine
DX: N83.8 Other noninflammatory disorders of ovary, fallopian tube and broad ligament (principal)
CPT/HCPCS: 36415; 80053

== ENCOUNTER 2024-01-29 13:25 | Outpatient (CLI) | payer BC, SELFPAY ==
[2024-01-29 16:49] LABS: Basophils % 0.8 % (0.1-2.0); Eosinophils # 0.1 K/mm3 (0.0-0.4); Eosinophils % 1.5 % (0.1-12.0); Hemoglobin 8.7 g/dL (12.2-16.2); Lymphocytes # 2.1 K/mm3 (0.7-4.5); Lymphocytes % 36.6 % (10-50); Mean Corpuscular Hemoglobin 27.7 pg (27.0-31.2); Mean Corpuscular Volume 89.4 fl (81-99); Mean Platelet Volume 8.9 fl (7.4-10.4); Monocytes # 0.4 K/mm3 (0.1-1.0); Monocytes % 7.9 % (1.7-9.3); Neutrophils % 53.2 % (37.0-80.0); Platelet Count 689 K/mm3 (142-424); Red Blood Count 3.15 M/mm3 (4.20-5.40); Red Cell Distribution Width 21.4 % (11.5-17.5); White Blood Count 5.6 K/mm3 (4.8-10.8)
[2024-01-29 16:59] LABS: Hematocrit 28.2 % (37.0-47.0)
[2024-01-29 17:25] LABS: Chloride 103 mmol/L (98-107)
[2024-01-29 17:26] LABS: Albumin Level 2.9 g/dl (3.5-5.0); Potassium 4.9 mmoL/L (3.5-5.1); Sodium 137 mmol/L (136-145)
[2024-01-29 17:28] LABS: Blood Urea Nitrogen 10 mg/dl (7-17); Estimated Glomerular Filt Rate 100 ml/min (>60); GFR (African American) 121 ML/MIN (>60)
[2024-01-29 17:29] LABS: Alanine Aminotransferase 20 U/L (12-78); Alkaline Phosphatase 157 U/L (38-126); Anion Gap 9.9 mEq/L (5-15); Aspartate Amino Transferase 23 U/L (14-36); Bilirubin,Total 0.5 mg/dl (0.2-1.3); Calcium 7.9 mg/dl (8.4-10.2); Carbon Dioxide 29 mmol/L (22.0-30.0); Glucose 174 mg/dl (74-100); Total Protein,Serum 5.9 g/dl (6.3-8.2)
== END 2024-01-29 23:59 | disposition home or self-care (01) ==
LOC: LAB.DROPOF 02-01 12:51
PROVIDERS: PCP Family Medicine; Visit Provider Family Medicine
DX: N83.8 Other noninflammatory disorders of ovary, fallopian tube and broad ligament (principal)
CPT/HCPCS: 80053; 85025

== ENCOUNTER 2024-02-05 18:57 | Inpatient (IN) | payer MEDICARE, BC, SELFPAY ==
[2024-02-05] VITALS (23 sets, daily range): BP systolic 84–185; BP diastolic 49–108; PULSE 100–138; RESP 13–34; TEMP 36.6–37.4; O2SAT 81–100; BMI 25.1; BMI 25.7
--- NOTE | 2024-02-05 18:54 | ECG_ITS ---
APPROVED REPORT Exam: Resting ECG HR:137 bpm ECG Measurements Heart Rate 137 AXES NM 163 P 33 QRSd 94 QRS 39 QT 371 T 80 QTc 451 Conclusion SINUS TACHYCARDIA NONSPECIFIC ST & T-WAVE ABNORMALITY ABNORMAL RHYTHM ECG UNCONFIRMED REPORT Electronically signed by : Candace Mckeon, 02/05/2024 20:39:17
--- NOTE | 2024-02-05 18:56 | PC.NURSE ---
LUZ MARIA SHABAZZ at
--- NOTE | 2024-02-05 18:58 | XR_ITS ---
PROCEDURE INFORMATION: Exam: XR Chest Exam date and time: 02/05/2024 6:57 PM Age: 64 years old Clinical indication: Shortness of breath; Patient HX: PT got 2nd dose of chemo today for ovarian cancer; Additional info: SOA, dyspnea, stat. TECHNIQUE: Imaging protocol: Radiologic exam of the chest. Views: 1 view. Total images: 1 COMPARISON: No relevant prior studies available. FINDINGS: Tubes, catheters and devices: EKG leads are present. Lungs: Considerable diffuse bilateral mixed interstitial and airspace opacification. Pleural spaces: Small left pleural effusion. No pneumothorax. Heart/Mediastinum: Prominent cardiac silhouette. No mediastinal widening. Vasculature: Atherosclerotic aortic arch. Bones/joints: Osteopenia. Partially visualized mild degenerative changes thoracic spine. Soft tissues: Breast attenuation artifact. IMPRESSION: 1. Considerable diffuse bilateral mixed interstitial and airspace opacification concerning for pulmonary edema. 2. Cannot exclude superimposed or coexisting bilateral pneumonia. 3. Small left pleural effusion.
--- NOTE | 2024-02-05 18:58 | PC.NURSE ---
called rad for stat portable xray
--- NOTE | 2024-02-05 18:59 | PC.NURSE ---
STAT portable chest xray has been called to radiology
--- NOTE | 2024-02-05 19:01 | PC.NURSE ---
pt placed on bipap noted at 99%
--- NOTE | 2024-02-05 19:02 | PC.NURSE ---
portable xray at bedside
--- NOTE | 2024-02-05 19:03 | PC.NURSE ---
respiratory was at BS at patients arrival; pt has now been placed on BIPAP
--- NOTE | 2024-02-05 19:04 | PC.NURSE ---
Family at BS
--- NOTE | 2024-02-05 19:06 | HMH.EDCP ---
Discharge Plan Disposition Patient Disposition: Admitted Condition: Critical Prescriptions Prescriptions: No Action sulfacetamide sodium-sulfur 10-5 % (w/w) cleanser 1 applic TOPICAL DIRECTED dapagliflozin propanediol 10 mg tablet 10 mg PO DAILY Patient Comments: TAKE 1 TABLET 1 TIME EACH DAY semaglutide 14 mg tablet 14 mg PO DAILY Patient Comments: TAKE 1 TABLET 1 TIME EACH DAY. carvedilol 12.5 mg tablet 12.5 mg PO BID 30 Days Qty: 60 2RF levothyroxine 50 mcg tablet 50 mcg PO DAILY 30 Days Qty: 30 2RF amlodipine 10 mg tablet 10 mg PO DAILY 30 Days Qty: 30 2RF lisinopril 40 mg tablet See Rx Instructions .ROUTE .COMPLEX Qty: 30 2RF Dose Instruction: TAKE 1 TABLET 1 TIME EACH DAY FOR HIGH BLOOD PRESSURE Rx Instructions: TAKE 1 TABLET 1 TIME EACH DAY FOR HIGH BLOOD PRESSURE atorvastatin 10 mg tablet See Rx Instructions .ROUTE .COMPLEX Qty: 90 0RF Dose Instruction: TAKE 1 TABLET 1 TIME EACH DAY FOR CHOLESTEROL Rx Instructions: TAKE 1 TABLET 1 TIME EACH DAY FOR CHOLESTEROL pantoprazole [Protonix] 40 mg tablet,delayed release (DR/EC) 40 mg PO DAILY Qty: 90 3RF venlafaxine [Effexor XR] 37.5 mg capsule,extended release 24hr 37.5 mg PO DAILY Qty: 30 2RF tramadol 50 mg tablet 50 mg PO Q6H PRN (Reason: pain) Qty: 60 1RF ondansetron 4 mg tablet,disintegrating 4 - 8 mg PO TID PRN (Reason: nausea and vomiting) Qty: 60 2RF Referrals Follow up/Referrals: Ryan Marques MD [Primary Care Provider] - See instructions Print Language Print Language: Romansh Discharge ED Provider: Candace Mckeon General Chief Complaint: Shortness of Breath/Dyspnea Stated Complaint: SOA, dyspnea, FS 576, Chemo today Time Seen by Provider: 02/05/24 18:57 Mode of Arrival: EMS Source of Information: Relative and EMS Limitations: No Limitations Description of Symptoms (Recalled from ER Triage Doc. by RN): pt brought into er by [facility] ems for respiratory distress, daughter states pt was sitting at the table eating supper when she back short of breath and very hot, struggling to breath, pt had her 2nd dose of chemo today at [facility], had low mag and received mag there, otherwise labs were good and pt has felt great all day per daughter, has ovarian cancer, doesn't wear o2 History of Present Illness HPI narrative: Jennie Lezama is a 64 y.o female presenting with significant shortness of breath. Patient has a history of ovarian cancer without metastasis and received her chemotherapy infusion today at [facility]. Patient has had these medications once prior and had no significant reaction to it. Patient's evaluation today at her infusion appointment was otherwise unremarkable. Patient had no evidence of shortness of breath while at [facility]. While at home, per patient's daughter at bedside, patient had acute onset severe respiratory distress. Patient does not wear oxygen at home and has no pre-existing lung disease or heart failure. Patient is not on blood thinners. Related Data Home Medications ?Medication ?Instructions ?Recorded ?Confirmed sulfacetamide sodium-sulfur 10 %-5 1 applic topical DIRECTED 09/11/20 12/25/23 % (w/w) topical cleanser dapagliflozin propanediol 10 mg 10 mg PO DAILY Diabetes 03/19/22 12/25/23 tablet semaglutide 14 mg tablet 14 mg PO DAILY 03/19/22 12/25/23 Previous Rx's ?Medication ?Instructions ?Recorded levothyroxine 50 mcg tablet 50 mcg PO DAILY Hypothyroidism 30 03/30/23 days #30 tabs carvedilol 12.5 mg tablet 12.5 mg PO BID HTN 30 days #60 tabs 04/06/23 amlodipine 10 mg tablet 10 mg PO DAILY HTN 30 days #30 tabs 10/13/23 lisinopril 40 mg tablet See Rx Instructions .Route 11/10/23 .COMPLEX #30 tabs atorvastatin 10 mg tablet See Rx Instructions .Route 12/22/23 .COMPLEX #90 tabs pantoprazole 40 mg tablet,delayed 40 mg PO DAILY #90 tabs 12/24/23 release (Protonix) venlafaxine 37.5 mg 37.5 mg PO DAILY #30 caps 01/04/24 capsule,extended release 24 hr (Effexor XR) ondansetron 4 mg disintegrating 4 - 8 mg (1 - 2 x 4 mg) PO TID PRN 01/15/24 tablet nausea and vomiting #60 tabs tramadol 50 mg tablet 50 mg PO Q6H PRN pain #60 tabs 01/15/24 Allergies Allergy/AdvReac Type Severity Reaction Status Date / Time No Known Allergies Allergy Verified 12/07/23 12:03 [facility] Disclaimer: The information contained in this section may have been updated after the patient was seen, as this information can be updated by other users. Medical History Hyperlipidemia Hypertension Overweight with body mass index (BMI) of 28 to 28.9 in adult Onychodystrophy Onychomycosis Surgical History No history of previous surgery Family History Mother Diabetes Social History Smoking Status: Never smoker alcohol intake: never substance use type: denies use current occupational status: retired Travel in the last 8 weeks: None household members: none housing: house ROS Obtained: Yes All systems reviewed & no additional complaints except as documented Physical Exam General General appearance: lethargic and in distress Eye Eye exam: Present EOMI; Absent scleral icterus Respiratory Respiratory exam: Present accessory muscle use Expanded Respiratory Exam Location: Left: rales, Right: rales, Upper: rales and Lower: rales Cardiovascular Cardiovascular exam: Present regular rate and normal rhythm Abdominal Exam Abdominal exam: Present soft and distention; Absent tenderness Extremities Exam Extremities exam: Present full ROM and edema (bilateral lower extremities, baseline per family); Absent tenderness Neurological Exam Neurological exam: Present oriented X3 Skin Skin exam: Present warm and dry HEART Score HEART Score HEART Score assessment performed?: No Procedures Intubation Time out performed: Yes sedative: Etomidate paralytic: Succinylcholine Laryngoscope: Rashmi ET Tube Size: 7 ET Tube Uncuffed: No Tube Secured Depth (cm): 23 Tube Secured Location: teeth Tube Placement Confirmation: visualized tube passing through cords and equal breath sounds bilaterally Patient Tolerated Procedure: no complications Intubation Complications: none Central Line Placement Right IJ: Time Out Performed: Yes Patient Placed on Monitor/Pulse Ox: Yes MD Prep: mask, gown and gloves Central Line Prep: Chlorhexidine scrub Ultrasound Used for Placement: Yes Central Line Lumen Inserted: triple Post Procedure: sutured in place, good blood return, all ports aspirated, flushed, capped and sterile dressing applied Post Procedure X-Ray: tip of catheter in good position Patient Tolerated Procedure: no complications Critical Care Critical Care Time Critical Care Time: Yes Attestation: On , the high probability of a clinically significant, sudden or life threatening deterioration of the following system(s) required my full and direct attention, intervention and personal management. The time I documented below is in addition to time spent performing reported procedures but includes the following listed in this critical care notation. Total Time Total Critical Care Time: 45 Medical Decision Making Martín Inquiry Pt receiving controlled substance: No Vital Signs Vital Signs: 02/05/24 18:56 02/05/24 19:00 02/05/24 19:00 Temperature 97.9 F Temperature Source Axillary Pulse Rate 137 H Pulse Rate [Left Radial] 137 H Respiratory Rate 34 H 22 Blood Pressure 185/103 H Blood Pressure [Right Arm] 174/108 H Blood Pressure Mean [Right Arm] 130 Blood Pressure Source [Right Arm] Automatic Cuff Blood Pressure Position [Right Arm] Sitting 02 Sat by Pulse Oximetry 85 L 81 L 94 L Oxygen Delivery Method Nasal Cannula BiPAP Oxygen Flow Rate (LPM) 15 02/05/24 19:15 02/05/24 19:31 02/05/24 19:45 Temperature Temperature Source Pulse Rate 138 H 134 H 127 H Pulse Rate [Left Radial] Respiratory Rate 21 13 17 Blood Pressure 172/105 H 165/92 H 179/101 H Blood Pressure [Right Arm] Blood Pressure Mean [Right Arm] Blood Pressure Source [Right Arm] Blood Pressure Position [Right Arm] 02 Sat by Pulse Oximetry 95 91 L 93 L Oxygen Delivery Method Oxygen Flow Rate (LPM) 02/05/24 19:45 02/05/24 19:45 02/05/24 20:01 Temperature Temperature Source Pulse Rate 131 H Pulse Rate [Left Radial] Respiratory Rate 20 22 Blood Pressure 142/78 H Blood Pressure [Right Arm] Blood Pressure Mean [Right Arm] Blood Pressure Source [Right Arm] Blood Pressure Position [Right Arm] 02 Sat by Pulse Oximetry 93 L 92 L 91 L Oxygen Delivery Method Mechanical Ventilation Oxygen Flow Rate (LPM) 02/05/24 20:10 02/05/24 20:15 02/05/24 20:30 Temperature 98.2 F 99.1 F Temperature Source Pulse Rate 124 H 124 H 121 H Pulse Rate [Left Radial] Respiratory Rate 20 21 20 Blood Pressure 133/73 120/65 Blood Pressure [Right Arm] Blood Pressure Mean [Right Arm] Blood Pressure Source [Right Arm] Blood Pressure Position [Right Arm] 02 Sat by Pulse Oximetry 90 L 91 L Oxygen Delivery Method Oxygen Flow Rate (LPM) 02/05/24 20:35 02/05/24 20:45 02/05/24 21:00 Temperature 99.1 F 99.3 F 99.3 F Temperature Source Pulse Rate 119 H 118 H 122 H Pulse Rate [Left Radial] Respiratory Rate 19 19 16 Blood Pressure 112/61 100/65 L 126/71 Blood Pressure [Right Arm] Blood Pressure Mean [Right Arm] Blood Pressure Source [Right Arm] Blood Pressure Position [Right Arm] 02 Sat by Pulse Oximetry 93 L 96 99 Oxygen Delivery Method Oxygen Flow Rate (LPM) 02/05/24 21:15 02/05/24 21:30 Temperature 98.1 F 99.3 F Temperature Source Pulse Rate 129 H 118 H Pulse Rate [Left Radial] Respiratory Rate 20 14 Blood Pressure 162/91 H 110/69 Blood Pressure [Right Arm] Blood Pressure Mean [Right Arm] Blood Pressure Source [Right Arm] Blood Pressure Position [Right Arm] 02 Sat by Pulse Oximetry 99 99 Oxygen Delivery Method Oxygen Flow Rate (LPM) Lab Data Labs: Lab Results 02/05/24 18:55: WBC 29.5 H*, RBC 3.79 L, Hgb 10.6 L, Hct 37.5, MCV 98.9, MCH 27.8, MCHC 28.1 L, RDW 22.0 H, Plt Count 947 H*, MPV 8.0, Neut % (Auto) 52.0, Lymph % (Auto) 44.5, Hill % (Auto) 1.4 L, Eos % (Auto) 0.8, Baso % (Auto) 1.2, Neut # (Auto) 15.3 H, Lymph # (Auto) 13.1 H, Hill # (Auto) 0.4, Eos # (Auto) 0.2, Baso # (Auto) 0.4 H, Total Counted 100, Neutrophils % (Manual) 51, Lymphocytes % (Manual) 42, Atypical Lymphs % 3.0, Monocytes % (Manual) 4, Platelet Estimate Marked increase, Hypochromasia 2+, Sodium 136, Potassium 4.2, Chloride 107, Carbon Dioxide 17 L, Anion Gap 16.2 H, BUN 12, Creatinine 0.90, Estimated Creat Clear 70, Estimated GFR 63, Est GFR ( Amer) 76, Glucose 563 H*, Lactate 7.7 H, Calcium 8.2 L, Total Bilirubin 0.6, AST 93 H, ALT 52, Alkaline Phosphatase 234 H, NT-Pro-B Natriuret Pep 5620 H, Total Protein 6.7, Albumin 3.4 L, Globulin 3.3 H, Albumin/Globulin Ratio 1.0 L, Acetone Level None detected 02/05/24 18:59: VBG pH 7.01 L, VBG pCO2 64.6 H, VBG pO2 68.1 H, VBG HCO3 15.9 L, VBG Total CO2 17.9 L, VBG O2 Saturation 82.0 H, VBG Base Excess -15.2 L, VBG Lactic Acid 9.0 H 02/05/24 20:33: VBG pH 7.23 L, VBG pCO2 42.6, VBG pO2 75.5 H, VBG HCO3 17.5 L, VBG Total CO2 18.8 L, VBG O2 Saturation 92.0 H, VBG Base Excess -10.0 L, VBG Lactic Acid 4.7 H 02/05/24 18:55 02/05/24 18:55 Response Orders (Tests/Meds): ED MEDICATIONS Generic Name Dose Route Start Last Admin Trade Name Freq PRN Reason Stop Dose Admin Heparin Sodium (Porcine) 5,000 unit 02/05/24 20:45 Heparin Sodium 5,000 Unit/Ml Vial SQ 03/06/24 20:44 Q8H [facility] Fentanyl Citrate 1,000 mcg/ 100 mls @ 1 mls/hr 02/05/24 19:58 02/05/24 21:15 Sodium Chloride IV 03/06/24 19:57 100 mcg/hr .Q24H ANNA 10 mls/hr Titration Protocol 10 MCG/HR Cefepime HCl 2 gm/ Sodium 100 mls @ 200 mls/hr 02/05/24 21:00 Chloride IV 02/15/24 20:59 Q8H ANNA Midazolam/Sodium Chloride 50 mg in 50 mls @ 1.588 mls/hr 02/05/24 21:15 Midazolam 50 Mg/50 Ml-0.9%Nacl IV 03/06/24 21:14 .Q24H [facility] Protocol 0.02 MG/KG/HR Insulin Human Lispro 0 unit 02/05/24 21:00 Humalog 100 Units/Ml 10ml Vial (Ssi) SQ 03/06/24 20:59 ACHS [facility] Protocol Miscellaneous 1 each 02/05/24 21:00 Vancomycin Consult Request NOTAPPLIC 03/06/24 20:59 CONSULT PHARMACY [facility] Sodium Chloride 3 ml 02/05/24 20:25 Sodium Chloride 3% 15ml Neb IH 03/06/24 20:24 ONCE PRN INDUCE SPUTUM COLLECTION Discontinued Medications Generic Name Dose Route Start Last Admin Trade Name Freq PRN Reason Stop Dose Admin Furosemide 60 mg 02/05/24 20:46 Furosemide 40mg/4ml Vial IV 02/05/24 20:47 ONCE ONE Piperacillin Sod/Tazobactam 100 mls @ 200 mls/hr 02/05/24 19:41 Sod 4.5 gm/ Sodium Chloride IV 02/05/24 20:10 ONCE ONE Vancomycin HCl 2,000 mg/ 250 mls @ 125 mls/hr 02/05/24 19:42 Sodium Chloride IV 02/05/24 19:43 ONCE ONE Insulin Human Lispro 10 unit 02/05/24 20:48 Humalog 100 Units/Ml 10ml Vial (Ssi) SQ 02/05/24 20:49 ONCE ONE ORDERS Category Date Time Status Consult to Cardiology [CONS] Routine Cons 02/05/24 20:45 Active CXR --portable [XR chest portable] Stat Exams 02/05/24 18:58 Completed Chest XR -- portable [XR chest portable] Stat Exams 02/05/24 19:34 Completed Acetone, Serum (Rapid) Stat Lab 02/05/24 18:55 Completed BNP [NT Pro Brain Natriuretic Pep.] Stat Lab 02/05/24 18:55 Completed Basic Metabolic Panel AMLAB Lab 02/06/24 06:00 Ordered Basic Metabolic Panel AMLAB Lab 02/07/24 06:00 Ordered Basic Metabolic Panel AMLAB Lab 02/08/24 06:00 Ordered Complete Blood Count Auto Diff Stat Lab 02/05/24 18:55 Completed Comprehensive Metabolic Panel AMLAB Lab 02/06/24 06:00 Ordered Comprehensive Metabolic Panel AMLAB Lab 02/07/24 06:00 Ordered Comprehensive Metabolic Panel AMLAB Lab 02/08/24 06:00 Ordered Comprehensive Metabolic Panel Stat Lab 02/05/24 18:55 Completed HIV (1&2) Antibody Rapid Stat Lab 02/05/24 18:55 Received Hep C Ab with Reflex to RNA Stat Lab 02/05/24 18:55 Received Lactic Acid Stat Lab 02/05/24 18:55 Completed Magnesium AMLAB Lab 02/06/24 06:00 Ordered Magnesium AMLAB Lab 02/07/24 06:00 Ordered Magnesium AMLAB Lab 02/08/24 06:00 Ordered Blood Culture Stat Micro 02/05/24 20:25 Received Sputum Culture & Gram Stain Stat Micro 02/05/24 20:10 Received VBG [Venous Blood Gas] Stat RT 02/05/24 20:33 Completed Venous Blood Gas Stat RT 02/05/24 18:59 Completed MDM Narrative Medical Decision Narrative: Patient is a 64-year-old female currently receiving chemotherapy for ovarian cancer at [facility]. Patient had acute onset of severe respiratory distress this evening after receiving an infusion today. Patient's evaluation at [facility] was overall unremarkable aside from slight hypomagnesemia. Differential diagnosis includes was not limited to, sepsis, flash pulmonary edema, chemotherapy side effect, CHF exacerbation, COPD exacerbation, among others. Patient has no known history of lung disease or heart failure which makes these diagnoses less likely. At this time, given patient's treatment with chemotherapy agents today, flash pulmonary edema is at the top of my differential. Bedside ultrasound performed which demonstrated diffuse B-lines and no acute consolidations. Patient did not have a pericardial effusion. CXR was obtained quickly after patient's arrival and evaluated by me which demonstrated diffuse pulmonary edema and possible left pleural effusion. Patient was saturating in the upper 80s while on a nonrebreather at 15 L. Patient also profoundly tachycardic in the 130s. Patient belly breathing with decreased mental status however appropriate enough for BiPAP trial. After VBG was obtained and demonstrated significant acidosis and lactic acid >9, discussion was had with the family at bedside with regards to intubating the patient for further management. They were in agreement with this plan. Patient was intubated with RSI using etomidate and succinylcholine and sedated with propofol. During intubation, patient had significant bubbling liquid coming from the vocal cords requiring suction. Patient had no desaturations during intubation process. Patient also given IV fluids for the lactic acidosis. Additional patient laboratory values significant for profound leukocytosis which could be reactive versus infectious. Given this finding in addition to patient's current symptoms and imaging, blood cultures drawn and broad-spectrum antibiotics given with vancomycin and Zosyn. Patient's heart rate and blood pressure improved significantly after intubation. CVC placed in RIJ for additional access and multiple medications. At this time, [facility] ICU contacted for admission.
[2024-02-05 19:08] LABS: VBG Base Excess -15.2 mmol/L (-2.4-2.3); VBG HCO3 15.9 mmol/L (23-30); VBG PO2 68.1 mmol/L (28-40); VBG Total CO2 17.9 mmol/L (23-27)
[2024-02-05 19:10] LABS: Albumin Level 3.4 g/dl (3.5-5.0); Basophils # 0.4 K/mm3 (0-0.2); Basophils % 1.2 % (0.1-2.0); Chloride 107 mmol/L (98-107); Eosinophils # 0.2 K/mm3 (0.0-0.4); Eosinophils % 0.8 % (0.1-12.0); Hematocrit 37.5 % (37.0-47.0); Hemoglobin 10.6 g/dL (12.2-16.2); Lymphocytes # 13.1 K/mm3 (0.7-4.5); Lymphocytes % 44.5 % (10-50); Mean Corpuscular HGB Conc 28.1 g/dL (31.8-35.4); Mean Corpuscular Hemoglobin 27.8 pg (27.0-31.2); Mean Corpuscular Volume 98.9 fl (81-99); Monocytes # 0.4 K/mm3 (0.1-1.0); Monocytes % 1.4 % (1.7-9.3); Neutrophils # 15.3 K/mm3 (1.8-7.8); Platelet Count 947 K/mm3 (142-424); Potassium 4.2 mmoL/L (3.5-5.1); Red Blood Count 3.79 M/mm3 (4.20-5.40); Sodium 136 mmol/L (136-145); White Blood Count 29.5 K/mm3 (4.8-10.8)
--- NOTE | 2024-02-05 19:10 | PC.NURSE ---
Upon shift change checked on pt status pt on bipap vital signs unstable see vital signs chart Verbal ordered obtained from Dr Mckeon to obtain supplies for pt intubation Dr at bedside updating on plan of care and confirming code status Supplies gathered for intubation
[2024-02-05 19:13] LABS: Alanine Aminotransferase 52 U/L (12-78); Alkaline Phosphatase 234 U/L (38-126); Anion Gap 16.2 mEq/L (5-15); Aspartate Amino Transferase 93 U/L (14-36); Bilirubin,Total 0.6 mg/dl (0.2-1.3); Blood Urea Nitrogen 12 mg/dl (7-17); Carbon Dioxide 17 mmol/L (22.0-30.0); Creatinine Clearance Estimated 70 mL/min (50-200); Estimated Glomerular Filt Rate 63 ml/min (>60); GFR (African American) 76 ML/MIN (>60); Globulin 3.3 g/dL (1.3-3.2); MANUAL DIFFERENTIAL MANUAL DIFFERENTIAL (MANUAL DIFF); Total Protein,Serum 6.7 g/dl (6.3-8.2)
[2024-02-05 19:14] LABS: Calcium 8.2 mg/dl (8.4-10.2)
[2024-02-05 19:22] LABS: NT Pro Brain Natriuretic Pep. 5620 pg/mL (0-125)
--- NOTE | 2024-02-05 19:29 | PC.NURSE ---
1928: time out performed per staff and MD. Discussion involves suspected flash pulmonary edema 1929: VS: 178/109, HR 140, 94%, RR 28; etom 30 given via Left AC access. Patient remains on monitor. 1930: succ 100 given left ac access. patient remains on monitor. VSS: 194/110, HR 138, RR 25. 1932: INTUBATED at this time via MD, utilizing 7.0 ETT, 23 at lip. cuff inflated per RT. + colormetric change, bilateral breath sounds. Frothy sputum present in tube. 1934: propofol began at 5. VSS: 165/92, HR 129, oxygenation 91 %. 1937: 157/93, hr: 118, 91% RR 27. Vent settings as follows: FI02: 100%,PEEP 5, TV 420 ML, RR 18. Skin w/d, pink.
[2024-02-05] MEDS: propofoL 100 ML 4.89 MG IV (19:30)
[2024-02-05] MEDS: SUCCINYLCHOLINE 20MG/ML 10 ML MDV 100 MG IV (19:30)
[2024-02-05] MEDS: ETOMIDATE 40MG/20ML VIAL 30 MG IV (19:31)
--- NOTE | 2024-02-05 19:34 | XR_ITS ---
PROCEDURE INFORMATION: Exam: XR Chest Exam date and time: 02/05/2024 7:33 PM Age: 64 years old Clinical indication: Device placement; Ett placement (vent status); Additional info: Tube placement TECHNIQUE: Imaging protocol: Radiologic exam of the chest. Views: 1 view. Total images: 2 COMPARISON: CR XR CHEST PORTABLE 02/05/2024 6:57 PM FINDINGS: Tubes, catheters and devices: Endotracheal tube 4.8 cm above the angelito. NG tube extends to the stomach and beyond field of view. EKG leads are present. Lungs: Considerable confluent perihilar opacification has worsened from the prior study implying progressive pulmonary edema. Considerable diffuse bilateral mixed interstitial and airspace opacification throughout the major both lungs. Pleural spaces: Small left pleural effusion. No pneumothorax. Heart/Mediastinum: Unremarkable. No cardiomegaly. No mediastinal widening or hilar enlargement. Bones/joints: Stable osseous structures. Soft tissues: Breast attenuation artifact. IMPRESSION: 1. Endotracheal tube 4.8 cm above the angelito. 2. NG tube extends to the stomach and beyond field of view. 3. Interval worsening confluent bilateral perihilar consolidation likely reflecting pulmonary edema.
[2024-02-05 19:40] LABS: Glucose 563 mg/dl (74-100)
[2024-02-05 19:42] LABS: Lymphocytes % 42 % (10-50); Monocytes % 4 % (2-9); Neutrophils % 51 % (42-76); Total Cells Counted 100
[2024-02-05 19:43] LABS: Platelet Estimate Marked Increase
[2024-02-05 19:44] LABS: Hypochromasia 2+
--- NOTE | 2024-02-05 19:45 | PC.NURSE ---
Pt currently on vent with respiratory staff at bedside Pt not tolerating current sedation level. Increased sedation see MAR Right AC IV became dislodged and was removed Pt currently with 1 IV 20 gauge in left AC Multiple attempts to obtain second line unsucessful MD aware of only access available verbal orders to obtain supplies for central line kit
[2024-02-05 19:50] LABS: Lactic Acid 7.7 mmol/L (0.7-2.1)
[2024-02-05 20:04] LABS: Acetone, Serum (Rapid) None Detected (None Detect)
[2024-02-05] MEDS: FENTANYL CITRATE/PF 1,000 MCG in 0.9 % SODIUM CHLORIDE 80 ML 1 MCG IV (20:05)
[2024-02-05 20:34] LABS: VBG PCO2 64.6 mmol/L (35-51); VBG PH 7.01 mmol/L (7.31-7.41)
[2024-02-05 20:37] LABS: VBG HCO3 17.5 mmol/L (23-30); VBG PCO2 42.6 mmol/L (35-51); VBG PH 7.23 mmol/L (7.31-7.41); VBG PO2 75.5 mmol/L (28-40); VBG Total CO2 18.8 mmol/L (23-27)
[2024-02-05 20:40] LABS: Lactate Venous 4.7 mmol/L (0.4-2.0)
--- NOTE | 2024-02-05 20:45 | PC.NURSE ---
Family at bedside Respiratory at bedside Nurse at bedside answering questions from family
--- NOTE | 2024-02-05 21:10 | PC.NURSE ---
Nurse at bedside during assessment noted pt was requiring extensive sedation Pt still able to follow commands and open eyes informed of increase sedation New orders to change propofol to versed see MAR
[2024-02-05] MEDS: MIDAZOLAM HCL IN 0.9 % NACL/PF 50 MG/50 ML PLAST..BAG IV (21:15)
--- NOTE | 2024-02-05 21:30 | PC.NURSE ---
at bedside for central line insertion procedure Nurse at bedside to assist with procedure Pt resting comfortably at this time Pt tolerating vent and sedation at this time
[2024-02-05] MEDS: PIPERACILLIN/TAZO 4.5 GM in 0.9 % SODIUM CHLORIDE 100 ML IV (21:56)
--- NOTE | 2024-02-05 22:05 | PC.NURSE ---
Report called to Jude CABRERA
--- NOTE | 2024-02-05 22:13 | PC.NURSE ---
Blood sugar 375
[2024-02-05] MEDS: humaLOG 100 UNITS/ML 10ML VIAL (SSI) 10 UNIT SQ (22:14)
--- NOTE | 2024-02-05 22:15 | PC.NURSE ---
Jude RN at bedside in ER Respiratory at bedside Pt transported to floor room 216 and tolerated transport Family informed of pt transport to floor and updated on plan of care
--- NOTE | 2024-02-05 22:24 | PC.NURSE ---
pt arrived to floor at this time
--- NOTE | 2024-02-05 22:29 | EXP.HP ---
History of Present Illness *Admission Date: 02/05/24 *Reason for visit:: SOB *History of present illness: Patient is a 64-year-old female with past medical history of diabetes mellitus hypertension, ovarian cancer on chemotherapy, hyperlipidemia who presents to the hospital in respiratory distress. Reportedly patient had sudden onset shortness of breath at home while eating, was brought to the hospital, in the hospital patient was noted to be in respiratory distress with hypoxia. Patient was also found to have high blood pressures in ED. Patient chest x-ray was positive for signs of pulmonary edema. Patient was intubated and sedated. Most of the history is from patient's chart, patient is intubated and sedated At time of my evaluation. [facility] Disclaimer: The information contained in this section may have been updated after the patient was seen, as this information can be updated by other users. Medical History Hyperlipidemia Hypertension Overweight with body mass index (BMI) of 28 to 28.9 in adult Onychodystrophy Onychomycosis Surgical History No history of previous surgery Family History Mother Diabetes Social History Smoking Status: Never smoker alcohol intake: never substance use type: denies use current occupational status: retired Travel in the last 8 weeks: None household members: none housing: house Review of Systems Review of Systems Review of systems:: pertinent systems reviewed and negative unless documented below Meds Home Medications and Allergies Home Medications ?Medication ?Instructions ?Recorded ?Confirmed ?Type aluminum-mag hydroxide-simethicone 5 ml PO QIDP PRN Thrush 02/06/24 02/06/24 History 400 mg-400 mg-40 mg/5 mL oral susp (Antacid Anti-Gas) amlodipine 10 mg tablet 10 mg PO DAILY 02/06/24 02/06/24 History atorvastatin 10 mg tablet 10 mg PO HS 02/06/24 02/06/24 History carvedilol 12.5 mg tablet 12.5 mg PO BID 02/06/24 02/06/24 History dapagliflozin propanediol 10 mg 10 mg PO DAILY 02/06/24 02/06/24 History tablet (Farxiga) glimepiride 4 mg tablet 4 mg PO DAILY 02/06/24 02/06/24 History levothyroxine 50 mcg tablet 50 mcg PO DAILY 02/06/24 02/06/24 History lisinopril 40 mg tablet 40 mg PO DAILY 02/06/24 02/06/24 History pantoprazole 40 mg tablet,delayed 40 mg PO DAILY 02/06/24 02/06/24 History release potassium chloride 20 mEq 20 meq PO DAILY 02/06/24 02/06/24 History tablet,extended release(part/cryst) semaglutide 14 mg tablet (Rybelsus) 14 mg PO DAILY 02/06/24 02/06/24 History tramadol 50 mg tablet 50 mg PO Q6HP PRN Pain 02/06/24 02/06/24 History venlafaxine 37.5 mg 37.5 mg PO DAILY 02/06/24 02/06/24 History capsule,extended release 24 hr New Prescriptions to Start Prescriptions: Allergies Allergy/AdvReac Type Severity Reaction Status Date / Time No Known Allergies Allergy Verified 12/07/23 12:03 Exam Data for Last 24 hours Vital signs and Labs for Last 24 Hours: Temp Pulse Resp BP Pulse Ox O2 Del Method O2 Flow Rate 99.3 F 118 H 14 110/69 99 Mechanical Ventilation 15 02/05/24 21:30 02/05/24 21:30 02/05/24 21:30 02/05/24 21:30 02/05/24 21:30 02/05/24 19:45 02/05/24 18:56 FiO2 100 02/05/24 19:45 Laboratory Results - last 24 hr 02/05/24 18:55: WBC 29.5 H*, RBC 3.79 L, Hgb 10.6 L, Hct 37.5, MCV 98.9, MCH 27.8, MCHC 28.1 L, RDW 22.0 H, Plt Count 947 H*, MPV 8.0, Neut % (Auto) 52.0, Lymph % (Auto) 44.5, [place] % (Auto) 1.4 L, Eos % (Auto) 0.8, Baso % (Auto) 1.2, Neut # (Auto) 15.3 H, Lymph # (Auto) 13.1 H, [place] # (Auto) 0.4, Eos # (Auto) 0.2, Baso # (Auto) 0.4 H, Total Counted 100, Neutrophils % (Manual) 51, Lymphocytes % (Manual) 42, Atypical Lymphs % 3.0, Monocytes % (Manual) 4, Platelet Estimate Marked increase, Hypochromasia 2+, Sodium 136, Potassium 4.2, Chloride 107, Carbon Dioxide 17 L, Anion Gap 16.2 H, BUN 12, Creatinine 0.90, Estimated Creat Clear 70, Estimated GFR 63, Est GFR ( Amer) 76, Glucose 563 H*, Lactate 7.7 H, Calcium 8.2 L, Total Bilirubin 0.6, AST 93 H, ALT 52, Alkaline Phosphatase 234 H, NT-Pro-B Natriuret Pep 5620 H, Total Protein 6.7, Albumin 3.4 L, Globulin 3.3 H, Albumin/Globulin Ratio 1.0 L, Acetone Level None detected 02/05/24 18:59: VBG pH 7.01 L, VBG pCO2 64.6 H, VBG pO2 68.1 H, VBG HCO3 15.9 L, VBG Total CO2 17.9 L, VBG O2 Saturation 82.0 H, VBG Base Excess -15.2 L, VBG Lactic Acid 9.0 H 02/05/24 20:33: VBG pH 7.23 L, VBG pCO2 42.6, VBG pO2 75.5 H, VBG HCO3 17.5 L, VBG Total CO2 18.8 L, VBG O2 Saturation 92.0 H, VBG Base Excess -10.0 L, VBG Lactic Acid 4.7 H I & O for Last 24 hours: Intake & Output 02/02/24 02/03/24 02/04/24 02/05/24 23:59 23:59 23:59 23:59 Intake Total 5.500 / 5.500 Balance 5.500 / 5.500 Weight 79.379 kg Constitutional Comments: intubated and sedated *Routine HEENT Exam Head: Present normocephalic Eye: Present EOMI and PERRL ENT: Present mucous membranes moist *Routine Neck Exam Neck: Present supple; Absent lymphadenopathy *Routine Respiratory Exam Respiratory: Present decreased breath sounds and crackles *Routine Cardiovascular Exam Cardiovascular: Present RRR *Routine Abdominal Exam Abdominal: Present soft and normoactive bowel sounds; Absent tenderness *Routine Rectal Exam Rectal:: deferred *Routine Genitalia Exam Genitalia:: deferred *Routine Extremities Exam Extremities: Absent cyanosis, clubbing or edema *Routine Skin Exam Skin: Present warm; Absent rash *Routine Neurological Exam Comments: intubated and sedated Additional Findings:: intubated and sedated Assessment and Plan *Assessment and plan (1) Acute hypoxemic respiratory failure: Status: Acute Category: Medical Code(s): J96.01 - Acute respiratory failure with hypoxia (2) Diabetes mellitus: Status: Acute Qualifiers: Diabetes mellitus type: type 2 Diabetes mellitus custodial insulin use: without keno terminal operator use Diabetes mellitus complication status: without complication Qualified Code(s): E11.9 - Type 2 diabetes mellitus without complications Category: Medical Code(s): E11.9 - Type 2 diabetes mellitus without complications (3) Hyperlipidemia: Status: Acute Category: Medical Code(s): E78.5 - Hyperlipidemia, unspecified (4) Hypertension: Status: Acute Category: Medical Code(s): I10 - Essential (primary) hypertension (5) Overweight with body mass index (BMI) of 28 to 28.9 in adult: Status: Acute Category: Medical Code(s): E66.3 - Overweight; Z68.28 - Body mass index [BMI] 28.0-28.9, adult (6) Acute CHF (congestive heart failure): Status: Acute Category: Medical Code(s): I50.9 - Heart failure, unspecified Plan Patient is a 64-year-old female with past medical history of diabetes mellitus hypertension, ovarian cancer on chemotherapy, hyperlipidemia who presents to the hospital in respiratory distress. Reportedly patient had sudden onset shortness of breath at home while eating, was brought to the hospital, in the hospital patient was noted to be in respiratory distress with hypoxia. Patient was also found to have high blood pressures in ED. Patient chest x-ray was positive for signs of pulmonary edema. Patient was intubated and sedated. Most of the history is from patient's chart, patient is intubated and sedated At time of my evaluation. Assessment and plan Acute hypoxic respiratory failure secondary to 90% on room air Acute pulmonary edema Acute onset CHF Cardiogenic shock Patient is intubated and sedated Chest x-ray positive for bilateral perihilar consolidation suggestive of pulmonary edema proBNP significantly elevated Started on empirical vancomycin, cefepime, check procalcitonin, check blood cultures Patient is currently hypotensive after intubation, will start Lasix when able to tolerate diuresis Started on IV Levophed Consult cardiology Consult pulmonary check echocardiogram Sedated with fentanyl, Versed Hyperglycemia due to uncontrolled diabetes mellitus Started on insulin sliding scale Patient is status post short acting insulin Blood glucose on arrival 567, repeat Leukocytosis likely reactive Continue empirical antibiotics for now Lactic acidosis Monitor lactic acid DVT prophylaxis-heparin subcutaneously
[2024-02-05 23:02] LABS: Reflex Lactic Add Lactic Reflex
[2024-02-05] MEDS: CEFEPIME HCL 2 GM in 0.9 % SODIUM CHLORIDE 100 ML IV (23:07)
[2024-02-05] MEDS: HEPARIN SODIUM 5,000 UNIT/ML VIAL 5000 UNIT SQ (23:08)
[2024-02-05] MEDS: VANCOMYCIN CONSULT REQUEST 1 EACH NOTAPPLIC (23:09)
[2024-02-05] MEDS: VANCOMYCIN HCL 2,000 MG in 0.9 % SODIUM CHLORIDE 250 ML 125 MG IV (23:17)
[2024-02-05] MEDS: NOREPINEPHRINE BITARTRATE/D5W 8 MG/250 ML PLAST..BAG 3.75 MG IV (23:40)
[2024-02-05] MEDS: FUROSEMIDE 40MG/4ML VIAL 60 MG IV (23:44)
[2024-02-05 23:47] LABS: Lactic Acid Follow Up (RFLX 1) 2.6 mmol/L (0.7-2.1)
[2024-02-06] VITALS (43 sets, daily range): BP systolic 86–154; BP diastolic 49–89; PULSE 82–130; RESP 14–24; TEMP 36.8–37.2; O2SAT 93–100; BMI 25.7
--- NOTE | 2024-02-06 00:22 | PC.NURSE ---
Attending notified at 2300 that patient is hypotensive. Attending states he will place an order for Norepi to begin.
[2024-02-06 01:20] LABS: Reflex Lactic (2 hrs) Add Lactic Reflex
[2024-02-06 02:04] LABS: Lactic Acid Follow up (RFLX 2) 1.7 mmol/L (0.7-2.1)
[2024-02-06] MEDS: MIDAZOLAM HCL IN 0.9 % NACL/PF 50 MG/50 ML PLAST..BAG IV (02:11)
[2024-02-06 04:24] LABS: POC Glucose,Bedside 218 (70-110)
[2024-02-06] MEDS: CEFEPIME HCL 2 GM in 0.9 % SODIUM CHLORIDE 100 ML IV ×3 (04:25→20:03)
[2024-02-06] MEDS: HEPARIN SODIUM 5,000 UNIT/ML VIAL 5000 UNIT SQ ×2 (04:25→11:44)
[2024-02-06] MEDS: FENTANYL CITRATE/PF 1,000 MCG in 0.9 % SODIUM CHLORIDE 80 ML 10 MCG IV (05:04)
[2024-02-06] MEDS: humaLOG 100 UNITS/ML 10ML VIAL (SSI) SQ ×4 (05:30→20:03)
[2024-02-06 05:34] LABS: POC Glucose,Bedside 224 (70-110)
[2024-02-06 06:01] LABS: Alanine Aminotransferase 43 U/L (12-78); Albumin Level 3.2 g/dl (3.5-5.0); Alkaline Phosphatase 191 U/L (38-126); Anion Gap 4.9 mEq/L (5-15); Aspartate Amino Transferase 66 U/L (14-36); Bilirubin,Total 0.4 mg/dl (0.2-1.3); Blood Urea Nitrogen 21 mg/dl (7-17); Calcium 7.8 mg/dl (8.4-10.2); Carbon Dioxide 27 mmol/L (22.0-30.0); Chloride 110 mmol/L (98-107); Creatinine Clearance Estimated 72 mL/min (50-200); Estimated Glomerular Filt Rate 72 ml/min (>60); GFR (African American) 87 ML/MIN (>60); Globulin 3.1 g/dL (1.3-3.2); Glucose 224 mg/dl (74-100); Magnesium 2.1 mg/dl (1.6-2.3); Potassium 3.9 mmoL/L (3.5-5.1); Sodium 138 mmol/L (136-145); Total Protein,Serum 6.3 g/dl (6.3-8.2)
[2024-02-06 06:18] LABS: Procalcitonin 4.79 ng/mL (0.0-2.0)
[2024-02-06 06:56] LABS: ABG Base Excess -1.9 mmol/L (-2.4-2.3); ABG HCO3 23.3 mmhg (22.0-26.0); ABG Oxygen Saturation 97 % (90-100); ABG PCO2 40.8 mmhg (35.0-45.0); ABG PH 7.38 mmol/L (7.35-7.45); ABG PO2 89.3 mmhg (80-100); ABG TCO2 24.6 mmhg (23-27)
--- NOTE | 2024-02-06 08:14 | P.CONPHA_ITS ---
Pharmacy Consult Date: 02/06/24 Time: 08:16 Referring provider: DR DUVAL Reason for Consult:: VANCOMYCIN DOSING CONSULT Allergies Allergy/AdvReac Type Severity Reaction Status Date / Time No Known Allergies Allergy Verified 12/07/23 12:03 Home Medications ?Medication ?Instructions ?Recorded ?Confirmed ?Type aluminum-mag hydroxide-simethicone 5 ml PO QIDP PRN Thrush 02/06/24 02/06/24 History 400 mg-400 mg-40 mg/5 mL oral susp (Antacid Anti-Gas) amlodipine 10 mg tablet 10 mg PO DAILY 02/06/24 02/06/24 History atorvastatin 10 mg tablet 10 mg PO HS 02/06/24 02/06/24 History carvedilol 12.5 mg tablet 12.5 mg PO BID 02/06/24 02/06/24 History dapagliflozin propanediol 10 mg 10 mg PO DAILY 02/06/24 02/06/24 History tablet (Farxiga) glimepiride 4 mg tablet 4 mg PO DAILY 02/06/24 02/06/24 History levothyroxine 50 mcg tablet 50 mcg PO DAILY 02/06/24 02/06/24 History lisinopril 40 mg tablet 40 mg PO DAILY 02/06/24 02/06/24 History pantoprazole 40 mg tablet,delayed 40 mg PO DAILY 02/06/24 02/06/24 History release potassium chloride 20 mEq 20 meq PO DAILY 02/06/24 02/06/24 History tablet,extended release(part/cryst) semaglutide 14 mg tablet (Rybelsus) 14 mg PO DAILY 02/06/24 02/06/24 History tramadol 50 mg tablet 50 mg PO Q6HP PRN Pain 02/06/24 02/06/24 History venlafaxine 37.5 mg 37.5 mg PO DAILY 02/06/24 02/06/24 History capsule,extended release 24 hr New Prescriptions to Start Prescriptions: Height: 1.78 m Weight: 81.465 kg Laboratory Results:: Laboratory Results - last 24 hr 02/05/24 18:55: WBC 29.5 H*, RBC 3.79 L, Hgb 10.6 L, Hct 37.5, MCV 98.9, MCH 27.8, MCHC 28.1 L, RDW 22.0 H, Plt Count 947 H*, MPV 8.0, Neut % (Auto) 52.0, Lymph % (Auto) 44.5, [place] % (Auto) 1.4 L, Eos % (Auto) 0.8, Baso % (Auto) 1.2, Neut # (Auto) 15.3 H, Lymph # (Auto) 13.1 H, [place] # (Auto) 0.4, Eos # (Auto) 0.2, Baso # (Auto) 0.4 H, Total Counted 100, Neutrophils % (Manual) 51, Lymphocytes % (Manual) 42, Atypical Lymphs % 3.0, Monocytes % (Manual) 4, Platelet Estimate Marked increase, Hypochromasia 2+, Sodium 136, Potassium 4.2, Chloride 107, Carbon Dioxide 17 L, Anion Gap 16.2 H, BUN 12, Creatinine 0.90, Estimated Creat Clear 70, Estimated GFR 63, Est GFR ( Amer) 76, Glucose 563 H*, Lactate 7.7 H, Calcium 8.2 L, Total Bilirubin 0.6, AST 93 H, ALT 52, Alkaline Phosphatase 234 H, NT-Pro-B Natriuret Pep 5620 H, Total Protein 6.7, Albumin 3.4 L, Globulin 3.3 H, Albumin/Globulin Ratio 1.0 L, Acetone Level None detected 02/05/24 18:59: VBG pH 7.01 L, VBG pCO2 64.6 H, VBG pO2 68.1 H, VBG HCO3 15.9 L, VBG Total CO2 17.9 L, VBG O2 Saturation 82.0 H, VBG Base Excess -15.2 L, VBG Lactic Acid 9.0 H 02/05/24 20:33: VBG pH 7.23 L, VBG pCO2 42.6, VBG pO2 75.5 H, VBG HCO3 17.5 L, VBG Total CO2 18.8 L, VBG O2 Saturation 92.0 H, VBG Base Excess -10.0 L, VBG Lactic Acid 4.7 H 02/05/24 23:15: Lactate 2.6 H 02/06/24 01:40: Lactate 1.7 02/06/24 04:17: POC Glucose 218 H 02/06/24 05:20: POC Glucose 224 H 02/06/24 05:37: Sodium 138, Potassium 3.9, Chloride 110 H, Carbon Dioxide 27, Anion Gap 4.9 L, BUN 21 H D, Creatinine 0.80, Estimated Creat Clear 72, Estim ated GFR 72, Est GFR ( Amer) 87, Glucose 224 H D, Calcium 7.8 L, Magnesium 2.1, Total Bilirubin 0.4, AST 66 H D, ALT 43, Alkaline Phosphatase 191 H, Total Protein 6.3, Albumin 3.2 L, Globulin 3.1, Albumin/Globulin Ratio 1.0 L, Procalcitonin 4.79 H 02/06/24 06:00: ABG pH 7.38, ABG pCO2 40.8, ABG pO2 89.3, ABG HCO3 23.3, ABG Total CO2 24.6, ABG O2 Saturation 97, ABG Base Excess -1.9 Medical History: Medical History (Updated 02/06/24 @ 04:18 by Kera Duval MD) Hyperlipidemia Hypertension Overweight with body mass index (BMI) of 28 to 28.9 in adult Onychodystrophy Onychomycosis Assessment and Plan Assessment and plan all Dx Assessment and Plan for all problems:: Pharmacokinetic dosing service Objective: Age: 64 yo Serum creatinine: 0.8 mg/dL Height: 70.0 Inches Weight (kg): 81.465 Diagnosis: SEPSIS Assessment: IBW (kg): 68.50 Dosing wt(kg): 81.465 Estimated Creatinine clearance (ml/min): 75.8 CRCL method: Cockcroft and Gault using ibw(default). Drug selected: Vancomycin Loading dose (mg): 2000 MG Vd (liters): 57.0 (factor used: 0.7 L/kg) [place] (hr-1): 0.067 Half life (hrs): 10.35 CLvanco=?? 3.819 L/hr Recommended dose: 1500 mg Interval: 18 hrs Infusion time (hrs): 2.0 Predicted peak (mcg/mL): 35.2 Predicted trough (mcg/mL): 12.05 Total body weight is being used for vancomycin dosing. Recommendations: Give Vancomycin 1500 mg q 18 hrs with an expected Cpeak of 35.2 mcg/ml and an expected Ctrough of 12.05 mcg/m TO START 02/06/24 AT 17:00. PATIENT RECEIVED ONE TIME LOADING DOSE OF VANCOMYCIN 2000 MG IV IN THE ED 02/05/24 AT 23:17 AUC 0-24 /NAVI Data: NAVI 0.5 mcg/mL:?? AUC/NAVI:? 1047.4 NAVI 1.0 mcg/mL:?? AUC/NAVI:? 523.7 --------- NAVI 1.5 mcg/mL:?? AUC/NAVI:? 349.1 NAVI 2.0 mcg/mL:?? AUC/NAVI:? 261.8 Thank you for the consult
--- NOTE | 2024-02-06 08:17 | XR_ITS ---
PROCEDURE INFORMATION: Exam: XR Chest Exam date and time: 02/06/2024 9:12 AM Age: 64 years old Clinical indication: Other: N; Additional info: Flash pulmonary edema TECHNIQUE: Imaging protocol: Radiologic exam of the chest. Views: 1 view. COMPARISON: CR XR CHEST PORTABLE 02/05/2024 7:33 PM FINDINGS: Tubes, catheters and devices: Central line terminates in the right atrium and can be withdrawn 9 cm.. Endotracheal tube terminates 6 cm above the angelito. Enteric tube is seen within the stomach Lungs: Patchy left perihilar and left basilar opacities may represent atelectasis or pneumonia.. Pleural spaces: Mild to moderate left pleural effusion.. Heart/Mediastinum: Unremarkable. No cardiomegaly. Bones/joints: Unremarkable. IMPRESSION: 1. Central line terminates in the right atrium and can be withdrawn 9 cm.. 2. Patchy left perihilar and left basilar opacities may represent atelectasis or pneumonia.. 3. Mild to moderate left pleural effusion..
[2024-02-06 08:24] LABS: HIV (1&2) Antibody Rapid NONREACTIVE (NONREACTIVE)
--- NOTE | 2024-02-06 09:16 | HMH.PHAINT1 ---
Pharmacy Intervention Comments: MEDICATION RECONCILIATION COMPLETE USING EXTERNAL PHARMACY FILL HISTORY, NOTE FROM MOST RECENT MD OFFICE VISIT (11/2023) AND SIS REPORT.
--- NOTE | 2024-02-06 09:50 | ECG_ITS ---
APPROVED REPORT Exam: Resting ECG HR:122 bpm ECG Measurements Heart Rate 122 AXES OR 104 P 4 QRSd 95 QRS 4 QT 337 T 128 QTc 410 Conclusion SINUS TACHYCARDIA WITH SHORT OR INTERVAL MODERATE T-WAVE ABNORMALITY, CONSIDER LATERAL ISCHEMIA [-0.1+ mV T-WAVE IN I/aVL/V5/V6] ABNORMAL ECG UNCONFIRMED REPORT Electronically signed by : Rommel Weathers MD 02/07/2024 16:02:31
[2024-02-06 09:52] LABS: Basophils # 0.1 K/mm3 (0-0.2); Basophils % 0.3 % (0.1-2.0); Eosinophils # 0.3 K/mm3 (0.0-0.4); Hematocrit 31.4 % (37.0-47.0); Lymphocytes # 1.4 K/mm3 (0.7-4.5); Lymphocytes % 5.7 % (10-50); Mean Corpuscular HGB Conc 29.8 g/dL (31.8-35.4); Mean Corpuscular Hemoglobin 28.2 pg (27.0-31.2); Mean Corpuscular Volume 94.4 fl (81-99); Mean Platelet Volume 8.9 fl (7.4-10.4); Monocytes # 0.9 K/mm3 (0.1-1.0); Monocytes % 3.5 % (1.7-9.3); Neutrophils # 22.6 K/mm3 (1.8-7.8); Neutrophils % 89.5 % (37.0-80.0); Platelet Count 652 K/mm3 (142-424); Red Blood Count 3.33 M/mm3 (4.20-5.40); Red Cell Distribution Width 22.5 % (11.5-17.5); White Blood Count 25.2 K/mm3 (4.8-10.8)
[2024-02-06 09:56] LABS: MANUAL DIFFERENTIAL MANUAL DIFFERENTIAL (MANUAL DIFF)
[2024-02-06 09:58] LABS: Hemoglobin 9.4 g/dL (12.2-16.2)
[2024-02-06 10:48] LABS: Hypochromasia 1+; Lymphocytes % 19 % (10-50); Monocytes % 2 % (2-9); Neutrophils % 79 % (42-76); Nucleated Red Blood Cells 1; Platelet Estimate Moderate Increase; Total Cells Counted 100
[2024-02-06] MEDS: FUROSEMIDE 40MG/4ML VIAL 40 MG IV ×2 (11:18→15:08)
--- NOTE | 2024-02-06 11:59 | PC.NURSE ---
Pt. extubated at 1155 am to 3lpm nc. Per
[2024-02-06] MEDS: CARVEDILOL 12.5MG TABLET 12.5 MG PO ×2 (15:09→20:03)
[2024-02-06] MEDS: AMLODIPINE 10MG TABLET 10 MG PO (15:09)
[2024-02-06] MEDS: VANCOMYCIN/WATER FOR INJ (PEG) 1.5 GM/300 ML PIGGYBACK IV (16:23)
[2024-02-06 16:41] LABS: POC Glucose,Bedside 175 (70-110)
[2024-02-06] MEDS: DEXAMETHASONE 4MG TABLET 8 MG PO (17:16)
--- NOTE | 2024-02-06 17:52 | PC.NURSE ---
VS stable, patient tolerating po medications and clear liquids. Speech eval ordered per protocol. Patient able to sit up in chair for most of shift. Diuresed close to 3L this shift with lasix IV. No productive cough noted, Lung sounds clear but slightly diminished. Patient alert and oriented times 4.
--- NOTE | 2024-02-06 18:26 | CT_ITS ---
PROCEDURE INFORMATION: Exam: CTA Chest With Contrast Exam date and time: 02/06/2024 7:03 PM Age: 64 years old Clinical indication: Other: Evaluate pneumonia, rule out pe, has malignancy TECHNIQUE: Imaging protocol: Computed tomographic angiography of the chest with contrast. Exam focused on the arteries. 3D rendering (Not supervised by radiologist): MIP and/or 3D reconstructed images were created by the technologist. Radiation optimization: All CT scans at this facility use at least one of these dose optimization techniques: automated exposure control; mA and/or kV adjustment per patient size (includes targeted exams where dose is matched to clinical indication); or iterative reconstruction. Contrast material: ISOVUE; Contrast volume: 70 ml; Contrast route: INTRAVENOUS (IV); COMPARISON: 1. CR XR CHEST PORTABLE 02/06/2024 9:12 AM 2. CR XR CHEST PORTABLE 02/05/2024 7:33 PM 3. CR XR CHEST PORTABLE 02/05/2024 6:57 PM FINDINGS: Pulmonary arteries: There is a segmental right lower lobe pulmonary embolus (image 62 series 9) as well as a subsegmental right upper lobe pulmonary embolus (image 46 series 9). Aorta: Unremarkable. No aortic aneurysm. No aortic dissection. Lungs: There is parenchymal collapse of the left lower lobe with underlying infection not excluded. Pleural spaces: There is a moderate to large left pleural effusion. Heart: Unremarkable. No cardiomegaly. No pericardial effusion. Heart RV/LV ratio: RV to LV ratio is 0.5. Lymph nodes: Unremarkable. No enlarged lymph nodes. Intraperitoneal space: Small volume upper abdominal ascites is partially imaged. Bones/joints: There is exaggeration of the spinal curvature. Soft tissues: Unremarkable. Other findings: Multifocal parenchymal opacity which could reflect edema, infarction, or infection. Motion artifact mildly limits evaluation. IMPRESSION: 1. There is a segmental right lower lobe pulmonary embolus (image 62 series 9) as well as a subsegmental right upper lobe pulmonary embolus (image 46 series 9). No evidence for right heart strain by imaging. 2. There is a moderate to large left pleural effusion. 3. Multifocal parenchymal opacity which could reflect edema, infarction, or infection.
--- NOTE | 2024-02-06 18:36 | P.HP_ITS ---
History of Present Illness *Admission Date: 02/05/24 *History of present illness: Patient is a 64-year-old female with past medical history of diabetes mellitus hypertension, ovarian cancer on chemotherapy, hyperlipidemia who presents to the hospital in respiratory distress. Reportedly patient had sudden onset shortness of breath at home while eating, was brought to the hospital, in the hospital patient was noted to be in respiratory distress with hypoxia. Patient was also found to have high blood pressures in ED. Patient chest x-ray was positive for signs of pulmonary edema. Patient was intubated and sedated. Most of the history is from patient's chart, patient is intubated and sedated At time of my evaluation. [facility] Disclaimer: The information contained in this section may have been updated after the patient was seen, as this information can be updated by other users. Medical History Hyperlipidemia Hypertension Overweight with body mass index (BMI) of 28 to 28.9 in adult Onychodystrophy Onychomycosis Surgical History No history of previous surgery Family History Mother Diabetes Social History Smoking Status: Never smoker alcohol intake: never substance use type: denies use current occupational status: retired Travel in the last 8 weeks: None household members: none housing: house Meds Home Medications and Allergies Home Medications ?Medication ?Instructions ?Recorded ?Confirmed ?Type aluminum-mag hydroxide-simethicone 5 ml PO QIDP PRN Thrush 02/06/24 02/06/24 History 400 mg-400 mg-40 mg/5 mL oral susp (Antacid Anti-Gas) amlodipine 10 mg tablet 10 mg PO DAILY 02/06/24 02/06/24 History atorvastatin 10 mg tablet 10 mg PO HS 02/06/24 02/06/24 History carvedilol 12.5 mg tablet 12.5 mg PO BID 02/06/24 02/06/24 History dapagliflozin propanediol 10 mg 10 mg PO DAILY 02/06/24 02/06/24 History tablet (Farxiga) dexamethasone 4 mg tablet 4 mg PO DAILY 02/06/24 02/06/24 History glimepiride 4 mg tablet 4 mg PO DAILY 02/06/24 02/06/24 History levothyroxine 50 mcg tablet 50 mcg PO DAILYDM 02/06/24 02/06/24 History lisinopril 40 mg tablet 40 mg PO DAILY 02/06/24 02/06/24 History pantoprazole 40 mg tablet,delayed 40 mg PO HS 02/06/24 02/06/24 History release potassium chloride 20 mEq 20 meq PO DAILY 02/06/24 02/06/24 History tablet,extended release(part/cryst) prochlorperazine maleate 10 mg 5 mg PO Q6H PRN nausea 02/06/24 02/06/24 History tablet (Compazine) semaglutide 14 mg tablet (Rybelsus) 14 mg PO DAILY 02/06/24 02/06/24 History tramadol 50 mg tablet 50 mg PO Q6HP PRN Moderate Pain 02/06/24 02/06/24 History (Scale Score 5-6) venlafaxine 37.5 mg 37.5 mg PO DAILY 02/06/24 02/06/24 History capsule,extended release 24 hr New Prescriptions to Start Prescriptions: Allergies Allergy/AdvReac Type Severity Reaction Status Date / Time No Known Allergies Allergy Verified 12/07/23 12:03 Exam Data for Last 24 hours Vital signs and Labs for Last 24 Hours: Temp Pulse Resp BP Pulse Ox O2 Del Method O2 Flow Rate 99.0 F 108 H 22 138/78 100 Nasal Cannula 2 02/06/24 08:00 02/06/24 18:00 02/06/24 18:00 02/06/24 18:00 02/06/24 18:00 02/06/24 18:00 02/06/24 18:00 FiO2 30 02/06/24 10:02 Laboratory Results - last 24 hr 02/05/24 18:55: WBC 29.5 H*, RBC 3.79 L, Hgb 10.6 L, Hct 37.5, MCV 98.9, MCH 27.8, MCHC 28.1 L, RDW 22.0 H, Plt Count 947 H*, MPV 8.0, Neut % (Auto) 52.0, Lymph % (Auto) 44.5, [place] % (Auto) 1.4 L, Eos % (Auto) 0.8, Baso % (Auto) 1.2, Neut # (Auto) 15.3 H, Lymph # (Auto) 13.1 H, [place] # (Auto) 0.4, Eos # (Auto) 0.2, Baso # (Auto) 0.4 H, Total Counted 100, Neutrophils % (Manual) 51, Lymphocytes % (Manual) 42, Atypical Lymphs % 3.0, Monocytes % (Manual) 4, Platelet Estimate Marked increase, Hypochromasia 2+, Sodium 136, Potassium 4.2, Chloride 107, Carbon Dioxide 17 L, Anion Gap 16.2 H, BUN 12, Creatinine 0.90, Estimated Creat Clear 70, Estimated GFR 63, Est GFR ( Amer) 76, Glucose 563 H*, Lactate 7.7 H, Calcium 8.2 L, Total Bilirubin 0.6, AST 93 H, ALT 52, Alkaline Phosphatase 234 H, NT-Pro-B Natriuret Pep 5620 H, Total Protein 6.7, Albumin 3.4 L, Globulin 3.3 H, Albumin/Globulin Ratio 1.0 L, Acetone Level None detected, HIV 1&2 Antibody Rapid Nonreactive 02/05/24 18:59: VBG pH 7.01 L, VBG pCO2 64.6 H, VBG pO2 68.1 H, VBG HCO3 15.9 L, VBG Total CO2 17.9 L, VBG O2 Saturation 82.0 H, VBG Base Excess -15.2 L, VBG Lactic Acid 9.0 H 02/05/24 20:33: VBG pH 7.23 L, VBG pCO2 42.6, VBG pO2 75.5 H, VBG HCO3 17.5 L, VBG Total CO2 18.8 L, VBG O2 Saturation 92.0 H, VBG Base Excess -10.0 L, VBG Lactic Acid 4.7 H 02/05/24 23:15: Lactate 2.6 H 02/06/24 01:40: Lactate 1.7 02/06/24 04:17: POC Glucose 218 H 02/06/24 05:20: POC Glucose 224 H 02/06/24 05:37: WBC 25.2 H*, RBC 3.33 L, Hgb 9.4 L D, Hct 31.4 L, MCV 94.4, MCH 28.2, MCHC 29.8 L, RDW 22.5 H, Plt Count 652 H D, MPV 8.9, Neut % (Auto) 89.5 H, Lymph % (Auto) 5.7 L, [place] % (Auto) 3.5, Eos % (Auto) 1.0, Baso % (Auto) 0.3, Neut # (Auto) 22.6 H, Lymph # (Auto) 1.4, [place] # (Auto) 0.9, Eos # (Auto) 0.3, Baso # (Auto) 0.1, Total Counted 100, Neutrophils % (Manual) 79 H, Lymphocytes % (Manual) 19, Monocytes % (Manual) 2, Nucleated RBCs 1, Platelet Estimate Moderate increase, RBC Morphology Not Reportable, Hypochromasia 1+, Sodium 138, Potassium 3.9, Chloride 110 H, Carbon Dioxide 27, Anion Gap 4.9 L, BUN 21 H D, Creatinine 0.80, Estimated Creat Clear 72, Estimated GFR 72, Est GFR ( Amer) 87, Glucose 224 H D, Calcium 7.8 L, Magnesium 2.1, Total Bilirubin 0.4, AST 66 H D, ALT 43, Alkaline Phosphatase 191 H, Total Protein 6.3, Albumin 3.2 L , Globulin 3.1, Albumin/Globulin Ratio 1.0 L, Procalcitonin 4.79 H 02/06/24 06:00: ABG pH 7.38, ABG pCO2 40.8, ABG pO2 89.3, ABG HCO3 23.3, ABG Total CO2 24.6, ABG O2 Saturation 97, ABG Base Excess -1.9 02/06/24 16:26: POC Glucose 175 H I & O for Last 24 hours: Intake & Output 02/03/24 02/04/24 02/05/24 02/06/24 23:59 23:59 23:59 23:59 Intake Total 490.074 / 490.074 330.276 / 330.276 Output Total 355 / 555 4080 / 4080 Balance 135.074 / -64.926 -3749.724 / -3749.724 Weight 81.465 kg 81.465 kg Microbiology Reports for the Last 24 Hours: Microbiology 02/05/24 20:10 Sputum - Endotracheal Tube Aspirate Gram Stain - Final
--- NOTE | 2024-02-06 18:37 | EXP.PN ---
Subjective *Date: 02/06/24 *Time: 18:51 Exam Data for Last 24 hours Vital signs and Labs for Last 24 Hours: Temp Pulse Resp BP Pulse Ox O2 Del Method O2 Flow Rate 99.0 F 108 H 22 138/78 100 Nasal Cannula 2 02/06/24 08:00 02/06/24 18:00 02/06/24 18:00 02/06/24 18:00 02/06/24 18:00 02/06/24 18:00 02/06/24 18:00 FiO2 30 02/06/24 10:02 Laboratory Results - last 24 hr 02/05/24 18:55: WBC 29.5 H*, RBC 3.79 L, Hgb 10.6 L, Hct 37.5, MCV 98.9, MCH 27.8, MCHC 28.1 L, RDW 22.0 H, Plt Count 947 H*, MPV 8.0, Neut % (Auto) 52.0, Lymph % (Auto) 44.5, [place] % (Auto) 1.4 L, Eos % (Auto) 0.8, Baso % (Auto) 1.2, Neut # (Auto) 15.3 H, Lymph # (Auto) 13.1 H, [place] # (Auto) 0.4, Eos # (Auto) 0.2, Baso # (Auto) 0.4 H, Total Counted 100, Neutrophils % (Manual) 51, Lymphocytes % (Manual) 42, Atypical Lymphs % 3.0, Monocytes % (Manual) 4, Platelet Estimate Marked increase, Hypochromasia 2+, Sodium 136, Potassium 4.2, Chloride 107, Carbon Dioxide 17 L, Anion Gap 16.2 H, BUN 12, Creatinine 0.90, Estimated Creat Clear 70, Estimated GFR 63, Est GFR ( Amer) 76, Glucose 563 H*, Lactate 7.7 H, Calcium 8.2 L, Total Bilirubin 0.6, AST 93 H, ALT 52, Alkaline Phosphatase 234 H, NT-Pro-B Natriuret Pep 5620 H, Total Protein 6.7, Albumin 3.4 L, Globulin 3.3 H, Albumin/Globulin Ratio 1.0 L, Acetone Level None detected, HIV 1&2 Antibody Rapid Nonreactive 02/05/24 18:59: VBG pH 7.01 L, VBG pCO2 64.6 H, VBG pO2 68.1 H, VBG HCO3 15.9 L, VBG Total CO2 17.9 L, VBG O2 Saturation 82.0 H, VBG Base Excess -15.2 L, VBG Lactic Acid 9.0 H 02/05/24 20:33: VBG pH 7.23 L, VBG pCO2 42.6, VBG pO2 75.5 H, VBG HCO3 17.5 L, VBG Total CO2 18.8 L, VBG O2 Saturation 92.0 H, VBG Base Excess -10.0 L, VBG Lactic Acid 4.7 H 02/05/24 23:15: Lactate 2.6 H 02/06/24 01:40: Lactate 1.7 02/06/24 04:17: POC Glucose 218 H 02/06/24 05:20: POC Glucose 224 H 02/06/24 05:37: WBC 25.2 H*, RBC 3.33 L, Hgb 9.4 L D, Hct 31.4 L, MCV 94.4, MCH 28.2, MCHC 29.8 L, RDW 22.5 H, Plt Count 652 H D, MPV 8.9, Neut % (Auto) 89.5 H, Lymph % (Auto) 5.7 L, [place] % (Auto) 3.5, Eos % (Auto) 1.0, Baso % (Auto) 0.3, Neut # (Auto) 22.6 H, Lymph # (Auto) 1.4, [place] # (Auto) 0.9, Eos # (Auto) 0.3, Baso # (Auto) 0.1, Total Counted 100, Neutrophils % (Manual) 79 H, Lymphocytes % (Manual) 19, Monocytes % (Manual) 2, Nucleated RBCs 1, Platelet Estimate Moderate increase, RBC Morphology Not Reportable, Hypochromasia 1+, Sodium 138, Potassium 3.9, Chloride 110 H, Carbon Dioxide 27, Anion Gap 4.9 L, BUN 21 H D, Creatinine 0.80, Estimated Creat Clear 72, Estimated GFR 72, Est GFR ( Amer) 87, Glucose 224 H D, Calcium 7.8 L, Magnesium 2.1, Total Bilirubin 0.4, AST 66 H D, ALT 43, Alkaline Phosphatase 191 H, Total Protein 6.3, Albumin 3.2 L, Globulin 3.1, Albumin/Globulin Ratio 1.0 L, Procalcitonin 4.79 H 02/06/24 06:00: ABG pH 7.38, ABG pCO2 40.8, ABG pO2 89.3, ABG HCO3 23.3, ABG Total CO2 24.6, ABG O2 Saturation 97, ABG Base Excess -1.9 02/06/24 16:26: POC Glucose 175 H I & O for Last 24 hours: Intake & Output 02/03/24 02/04/24 02/05/24 02/06/24 23:59 23:59 23:59 23:59 Intake Total 490.074 / 490.074 330.276 / 330.276 Output Total 355 / 555 4080 / 4080 Balance 135.074 / -64.926 -3749.724 / -3749.724 Weight 81.465 kg 81.465 kg Microbiology Reports for the Last 24 Hours: Microbiology 02/05/24 20:10 Sputum - Endotracheal Tube Aspirate Gram Stain - Final *Routine HEENT Exam Head: Present normocephalic Eye: Present EOMI and PERRL ENT: Present mucous membranes moist *Routine Neck Exam Neck: Present supple; Absent lymphadenopathy *Routine Respiratory Exam Comments: Intubated and sedated. Bilateral pulmonary crackles. *Routine Cardiovascular Exam Cardiovascular: Present RRR *Routine Abdominal Exam Abdominal: Present soft and normoactive bowel sounds; Absent tenderness *Routine Extremities Exam Extremities: Absent cyanosis, clubbing or edema *Routine Skin Exam Skin: Present warm; Absent rash *Routine Neurological Exam Comments: Intubated and sedated per Assessment and Plan *Assessment and plan (1) Acute CHF (congestive heart failure): Status: Acute Category: Medical Code(s): I50.9 - Heart failure, unspecified (2) Acute hypoxemic respiratory failure: Status: Acute Category: Medical Code(s): J96.01 - Acute respiratory failure with hypoxia (3) Pneumonia: Status: Acute Category: Medical Code(s): J18.9 - Pneumonia, unspecified organism (4) Sepsis: Status: Acute Category: Medical Code(s): A41.9 - Sepsis, unspecified organism Plan Patient is a 64-year-old female with past medical history of diabetes mellitus hypertension, ovarian cancer on chemotherapy, hyperlipidemia who presents to the hospital in respiratory distress. Reportedly patient had sudden onset shortness of breath at home while eating, was brought to the hospital, in the hospital patient was noted to be in respiratory distress with hypoxia. Patient was also found to have high blood pressures in ED. Patient chest x-ray was positive for signs of pulmonary edema. Patient was intubated and sedated. Case discussed with ED attending and decision was made to admit patient for acute hypoxic respiratory failure secondary to new onset heart failure, pneumonia, pulmonary edema #Acute hypoxic respiratory failure #Acute bilateral pulmonary edema #New onset heart failure, unknown type ?Intubated and sedated this morning. Patient successfully extubated at 11:55 PM. On 3 L nasal cannula. Alert and oriented. ? Chest x-ray positive for bilateral perihilar consolidation suggestive of pulmonary edema ? proBNP significantly elevated 5620. No history of cardiac disease, CVA. Does have hypertension. ? Patient does get chemotherapy infusions of paclitaxel and docetaxel for ovarian cancer. Docetaxel has been associated with cardiotoxicity, heart failure. Presentation is not consistent with anaphylaxis. ? Heart failure likely exacerbated by underlying pneumonia. ? IV Lasix 40 mg twice daily. ? Strict MARSHALL's, fluid/salt restriction, bed elevation. ? Follow-up ECHO. ? Cardiology consulted, appreciate recommendations recommendations. #Sepsis #Pneumonia ? CXR, procalcitonin, leukocytosis consistent with pneumonia. ? WBC improving this morning to 25. ? Continue IV vancomycin, cefepime. ? Follow-up respiratory cultures, blood cultures. ? Weaned off Levophed this afternoon. ? Pulmonology consulted, appreciate recommendations. ? Follow-up CTA to further evaluate pneumonia, and rule out pulmonary embolism in the setting of malignancy. #Diabetes ? LDSSI, ACHS glucose checks. ? Start basal insulin as needed based on SSI needs. #Hypertension ? Continue home amlodipine CODE STATUS: Full code DVT prophylaxis: Lovenox Diet: Diabetic
[2024-02-06] MEDS: SODIUM CHLORIDE 0.9% 10ML SYR (RAD ONLY) 10 ML IV (19:09)
[2024-02-06] MEDS: IOPAMIDOL-370 (76%);100ML BOTTLE 70 ML IV (19:09)
[2024-02-06] MEDS: 0.9 % SODIUM CHLORIDE 50 ML VIAL IV (19:09)
[2024-02-06] MEDS: PANTOPRAZOLE 40MG TABLET 40 MG PO (20:03)
[2024-02-06] MEDS: ATORVASTATIN 10MG TABLET 10 MG PO (20:03)
[2024-02-06 20:24] LABS: POC Glucose,Bedside 239 (70-110)
--- NOTE | 2024-02-06 20:31 | PC.NURSE ---
Called Dr. Li regarding patient's CT results and the medication changes that he has placed. Provider unwilling to come to bedside at this time to speak with family. He did not advise an eta to come to bedside. Will contact back
[2024-02-06] MEDS: APIXABAN 5MG TABLET 5 MG PO (21:02)
[2024-02-06] MEDS: VENLAFAXINE 37.5MG TABLET 37.5 MG PO (21:54)
--- NOTE | 2024-02-06 21:58 | PC.NURSE ---
Spoke to Oscar Bae to change patient's Venlafaxine to start tonight. Patient takes this at bedtime
[2024-02-07] VITALS (13 sets, daily range): BP systolic 108–135; BP diastolic 59–75; PULSE 99–103; RESP 14–19; TEMP 36.6–37.1; O2SAT 95–97; BMI 25.7; BMI 25.6
[2024-02-07 03:38] LABS: POC Glucose,Bedside 219 (70-110)
[2024-02-07] MEDS: CEFEPIME HCL 2 GM in 0.9 % SODIUM CHLORIDE 100 ML IV ×3 (05:27→21:42)
[2024-02-07 05:48] LABS: Basophils % 0.1 % (0.1-2.0); Eosinophils # 0.1 K/mm3 (0.0-0.4); Eosinophils % 0.7 % (0.1-12.0); Hematocrit 25.6 % (37.0-47.0); Lymphocytes # 0.8 K/mm3 (0.7-4.5); Lymphocytes % 7.3 % (10-50); Mean Corpuscular HGB Conc 30.6 g/dL (31.8-35.4); Mean Corpuscular Hemoglobin 28.1 pg (27.0-31.2); Mean Corpuscular Volume 91.9 fl (81-99); Mean Platelet Volume 8.2 fl (7.4-10.4); Monocytes # 0.2 K/mm3 (0.1-1.0); Monocytes % 1.7 % (1.7-9.3); Neutrophils # 9.8 K/mm3 (1.8-7.8); Neutrophils % 90.1 % (37.0-80.0); Platelet Count 379 K/mm3 (142-424); Red Blood Count 2.78 M/mm3 (4.20-5.40); Red Cell Distribution Width 22.1 % (11.5-17.5); White Blood Count 10.9 K/mm3 (4.8-10.8)
[2024-02-07 05:54] LABS: Alanine Aminotransferase 33 U/L (12-78); Albumin Level 3.2 g/dl (3.5-5.0); Albumin/Globulin Ratio 1.1 (1.1-1.8); Alkaline Phosphatase 144 U/L (38-126); Anion Gap 6.5 mEq/L (5-15); Aspartate Amino Transferase 36 U/L (14-36); Bilirubin,Total 0.6 mg/dl (0.2-1.3); Blood Urea Nitrogen 23 mg/dl (7-17); Calcium 8.4 mg/dl (8.4-10.2); Carbon Dioxide 28 mmol/L (22.0-30.0); Chloride 102 mmol/L (98-107); Creatinine Clearance Estimated 72 mL/min (50-200); Estimated Glomerular Filt Rate 100 ml/min (>60); GFR (African American) 121 ML/MIN (>60); Glucose 227 mg/dl (74-100); Magnesium 1.8 mg/dl (1.6-2.3); Potassium 3.5 mmoL/L (3.5-5.1); Sodium 133 mmol/L (136-145); Total Protein,Serum 6.2 g/dl (6.3-8.2)
[2024-02-07] MEDS: LEVOTHYROXINE 50MCG (0.05MG) TAB 50 MCG PO (06:03)
[2024-02-07] MEDS: humaLOG 100 UNITS/ML 10ML VIAL (SSI) SQ ×4 (06:03→21:42)
[2024-02-07 06:09] LABS: MANUAL DIFFERENTIAL MANUAL DIFFERENTIAL (MANUAL DIFF)
[2024-02-07] MEDS: DAPAGLIFLOZIN PROPANEDIOL 10 MG TABLET PO (09:03)
[2024-02-07] MEDS: CARVEDILOL 12.5MG TABLET 12.5 MG PO ×2 (09:03→21:42)
[2024-02-07] MEDS: AMLODIPINE 10MG TABLET 10 MG PO (09:03)
[2024-02-07] MEDS: DEXAMETHASONE 4MG TABLET 8 MG PO (09:04)
[2024-02-07] MEDS: POTASSIUM CHLORIDE 20MEQ TAB 20 MEQ PO (09:04)
[2024-02-07] MEDS: FUROSEMIDE 40MG/4ML VIAL 40 MG IV ×2 (09:05→15:54)
[2024-02-07] MEDS: APIXABAN 5MG TABLET 10 MG PO ×2 (09:05→21:41)
[2024-02-07 09:30] LABS: Hypochromasia 2+; Lymphocytes % 4 % (10-50); Neutrophils % 96 % (42-76); Total Cells Counted 100
[2024-02-07 09:31] LABS: Anisocytosis 1+; Platelet Estimate Normal
[2024-02-07 09:53] LABS: Hemoglobin 7.8 g/dL (12.2-16.2)
[2024-02-07 11:11] LABS: HCV Ab Non Reactive (Non Reactive)
[2024-02-07] MEDS: VANCOMYCIN/WATER FOR INJ (PEG) 1.5 GM/300 ML PIGGYBACK IV (11:29)
[2024-02-07 11:42] LABS: POC Glucose,Bedside 287 (70-110)
[2024-02-07] MEDS: LOPERAMIDE 2MG CAPSULE 2 MG PO ×2 (13:36→15:54)
--- NOTE | 2024-02-07 15:08 | PC.NURSE ---
Patient able to void well after catheter d/c'd. 2 unmeasured voids noted. VS stable. Oxygen saturations 95% on room air and patient able to sit in chair for most of shift. Diarrhea noted and imodium ordered. Lung sounds clear.
--- NOTE | 2024-02-07 16:21 | EXP.PN ---
Subjective *Date: 02/07/24 *Time: 16:21 Interval history: Patient was comfortably sitting in bedside chair this morning without acute distress. She states she feels well today. Has not ambulated much. Tolerating p.o. intake. Denies chest pain, shortness of breath. On room air. Exam Data for Last 24 hours Vital signs and Labs for Last 24 Hours: Temp Pulse Resp BP Pulse Ox O2 Del Method O2 Flow Rate 98.6 F 99 H 19 121/69 95 Room Air 1 02/07/24 12:00 02/07/24 12:00 02/07/24 12:00 02/07/24 12:00 02/07/24 12:00 02/07/24 15:00 02/07/24 08:00 FiO2 30 02/06/24 10:02 Laboratory Results - last 24 hr 02/05/24 18:55: Hepatitis C Antibody Non reactive, Hep C Ab Comment Comment 02/06/24 11:30: POC Glucose 219 H 02/06/24 16:26: POC Glucose 175 H 02/06/24 19:58: POC Glucose 239 H 02/07/24 05:33: WBC 10.9 H D, RBC 2.78 L, Hgb 7.8 L D, Hct 25.6 L, MCV 91.9, MCH 28.1, MCHC 30.6 L, RDW 22.1 H, Plt Count 379 D, MPV 8.2, Neut % (Auto) 90.1 H, Lymph % (Auto) 7.3 L, [place] % (Auto) 1.7, Eos % (Auto) 0.7, Baso % (Auto) 0.1, Neut # (Auto) 9.8 H, Lymph # (Auto) 0.8, [place] # (Auto) 0.2, Eos # (Auto) 0.1, Baso # (Auto) 0.0, Total Counted 100, Neutrophils % (Manual) 96 H, Lymphocytes % (Manual) 4 L, Platelet Estimate Normal, Hypochromasia 2+, Anisocytosis 1+, Sodium 133 L, Potassium 3.5, Chloride 102, Carbon Dioxide 28, Anion Gap 6.5, BUN 23 H, Creatinine 0.60 D, Estimated Creat Clear 72, Estimated GFR 100, Est GFR ( Amer) 121 D, Glucose 227 H, Calcium 8.4, Magnesium 1.8 D, Total Bilirubin 0.6, AST 36 D, ALT 33, Alkaline Phosphatase 144 H, C-Reactive Protein 40.0 H, Total Protein 6.2 L, Albumin 3.2 L, Globulin 3.0, Albumin/Globulin Ratio 1.1, Procalcitonin 3.50 H 02/07/24 11:22: POC Glucose 287 H I & O for Last 24 hours: Intake & Output 02/04/24 02/05/24 02/06/24 02/07/24 23:59 23:59 23:59 23:59 Intake Total 490.074 / 399.755 1937.276 / 3432.952 0798 / 1340 Output Total 355 / 555 4905 / 4965 1600 / 1600 Balance 135.074 / -64.926 -3724.724 / -3784.724 -260 / -260 Weight 81.465 kg 81.465 kg 81.148 kg Microbiology Reports for the Last 24 Hours: Microbiology 02/05/24 20:10 Sputum - Endotracheal Tube Aspirate Gram Stain - Final 02/05/24 20:10 Sputum - Endotracheal Tube Aspirate Sputum Culture - Preliminary 02/05/24 20:25 Blood Blood Culture - Preliminary NO GROWTH AFTER 24 HOURS 02/05/24 18:55 Blood Blood Culture - Preliminary NO GROWTH AFTER 24 HOURS *Routine HEENT Exam Head: Present normocephalic Eye: Present EOMI and PERRL ENT: Present mucous membranes moist *Routine Neck Exam Neck: Present supple; Absent lymphadenopathy *Routine Respiratory Exam Comments: Mild bilateral pulmonary crackles *Routine Cardiovascular Exam Cardiovascular: Present RRR *Routine Abdominal Exam Abdominal: Present soft and normoactive bowel sounds; Absent tenderness *Routine Extremities Exam Extremities: Absent cyanosis, clubbing or edema *Routine Skin Exam Skin: Present warm; Absent rash *Routine Neurological Exam Comments: Intubated and sedated per Assessment and Plan *Assessment and plan (1) Acute CHF (congestive heart failure): Status: Acute Category: Medical Code(s): I50.9 - Heart failure, unspecified (2) Acute hypoxemic respiratory failure: Status: Acute Category: Medical Code(s): J96.01 - Acute respiratory failure with hypoxia (3) Pneumonia: Status: Acute Category: Medical Code(s): J18.9 - Pneumonia, unspecified organism (4) Sepsis: Status: Acute Category: Medical Code(s): A41.9 - Sepsis, unspecified organism Plan Patient is a 64-year-old female with past medical history of diabetes mellitus hypertension, ovarian cancer on chemotherapy, hyperlipidemia who presents to the hospital in respiratory distress. Reportedly patient had sudden onset shortness of breath at home while eating, was brought to the hospital, in the hospital patient was noted to be in respiratory distress with hypoxia. Patient was also found to have high blood pressures in ED. Patient chest x-ray was positive for signs of pulmonary edema. Patient was intubated and sedated. Case discussed with ED attending and decision was made to admit patient for acute hypoxic respiratory failure secondary to new onset heart failure, pneumonia, pulmonary edema #Acute hypoxic respiratory failure, resolved #Acute bilateral pulmonary edema #Moderate to large left pleural effusion #New onset heart failure, unknown type ? Patient successfully extubated on 02/06/2024. Currently on room air, comfortable. Patient states she feels well this morning. ? Initial chest x-ray positive for bilateral perihilar consolidation suggestive of pulmonary edema ? Initial proBNP significantly elevated 5620. No history of cardiac disease, CVA. Does have hypertension. ? Patient does get chemotherapy infusions of paclitaxel and docetaxel for ovarian cancer. Docetaxel has been associated with cardiotoxicity, heart failure. Presentation was not consistent with anaphylaxis. ? Heart failure likely exacerbated by underlying pneumonia. ? IV Lasix 40 mg twice daily, patient making good urine output -4.4 L in the last 24 hours. ? Strict MARSHALL's, fluid/salt restriction, bed elevation. ? Follow-up ECHO tomorrow. ? Cardiology consulted, appreciate recommendations recommendations. ? Pulmonology consulted, appreciate recommendations. Pending recommendations on left moderate to large pleural effusion. ? PT/OT consulted, pending recommendations. Encouraged patient to try to ambulate today. ? If patient continues to feel well tomorrow, ambulates and tolerates p.o. intake, anticipate discharge tomorrow with close follow-up with cardiology, oncology. #Right upper, lower lobe pulmonary emboli ? CTA chest revealed segmental right lower lobe pulmonary embolus and subsegmental right upper lobe pulmonary embolus. No evidence of right heart strain. ? Eliquis 10 mg twice daily for 10 days, then 5 mg twice daily. #Sepsis, resolved # Multifocal pneumonia ? CXR, procalcitonin, leukocytosis consistent with pneumonia. ? WBC improving this morning to 10.9. ? Continue IV vancomycin, cefepime. ? Follow-up MRSA PCR. Discontinue vancomycin if negative. ? Follow-up respiratory cultures, blood cultures. ? Pulmonology consulted, appreciate recommendations. #Nonmetastatic ovarian cancer ? Receives chemotherapy with paclitaxel, docetaxel at [facility]. Will need close follow-up upon discharge. #Acute on chronic chronic normocytic anemia ? Hemoglobin 7.8, down from 10.6 on admission. ? No evidence of bleed at this time. ? Continue to monitor hemoglobin #Diabetes ? LDSSI, ACHS glucose checks. ? basal insulin as needed based on SSI needs. #Hypertension ? Continue home amlodipine CODE STATUS: Full code DVT prophylaxis: Lovenox Diet: Diabetic
[2024-02-07] MEDS: PROCHLORPERAZINE MALEATE 5MG TABLET 5 MG PO (17:41)
[2024-02-07 20:52] LABS: POC Glucose,Bedside 275 (70-110)
[2024-02-07] MEDS: ATORVASTATIN 10MG TABLET 10 MG PO (21:41)
[2024-02-07] MEDS: VENLAFAXINE 37.5MG TABLET 37.5 MG PO (21:41)
[2024-02-07] MEDS: PANTOPRAZOLE 40MG TABLET 40 MG PO (21:42)
[2024-02-07] MEDS: INSULIN GLARGINE 100 UNITS/ML 3ML FLEXPEN 15 UNIT SQ (21:44)
[2024-02-08] VITALS: BP 90/64; PULSE 90; PULSE 96; RESP 14; TEMP 36.7; O2SAT 96
[2024-02-08] MEDS: PROCHLORPERAZINE MALEATE 5MG TABLET 5 MG PO ×4 (00:08→19:33)
[2024-02-08 04:00] VITALS: BP 128/66; PULSE 90; RESP 14; TEMP 36.7; O2SAT 96; BMI 24.0
--- NOTE | 2024-02-08 04:14 | CA_ITS ---
APPROVED REPORT EXAM: Comprehensive 2D, Doppler, and color-flow Echocardiogram Convention Services Director: Erica Leos CRT Ht: 5 ft 10 in Wt: 179lbs BSA: 1.99 BP: 110/69 mmHg Indications: pul edema, 2nd dose of chemo on [id number] ovarian ca, intubated later that night, extubated 02/06/24 Diabetes, Hyperlipidemia, Hypertension/HDD 2D Dimensions LA Volume 75.20 mL LA Volume Index 36.90 mL/m2 (M/F) 16-34 M-Mode Dimensions RVDd 1.93 cm (0.9-2.6) LA Diam 3.83 cm (1.9-4.0) LVDd 5.98 cm (3.5-5.7) LVDs 5.24 cm (3.5-5.7) IVSd 1.23 cm (0.6-1.1) PWd 0.64 cm (0.6-1.1) EF (Teich) 26.20% FS 12.40% EDV (Teich) 178.60 mL TAPSE 1.87 (<1.7) ESV (Teich) 131.80 mL LV Diastology E Decel Time 217 (160-240 msec) E/A Ratio 1.06 MED A' 9.80 cm/s LAT A' 7.20 cm/s Aortic Valve AO Peak GR. 8.10 mmHg Mitral Valve MV E Max Raza. 79.0 (40-130 cm/s) MV A Velocity 75.0 (40-130 cm/s) E/A Ratio 1.06 MV PHT 63.0 ms Pulmonary Valve PV Peak Velocity 103.0 (50-150 cm/s) Tricuspid Valve TR P. Velocity 262.00 cm/s RAP Estimate 10.00 mmHg RVSP 37.40 mmHg Left Ventricle The left ventricle is normal size. Left ventricular systolic function is severely decreased. There is normal left ventricular wall thickness. Severe global hypokinesis is present. The septal, inferoseptal, and anteroseptal LV babcock are nearly akinetic. Diastolic function is indeterminate. LVEF is 25%. Right Ventricle The right ventricle is normal size. The right ventricular systolic function is normal. Atria The left atrium size is normal. The right atrium size is normal. There is no Doppler evidence of interatrial shunt. Aortic Valve The aortic valve is mildly thickened. Trace aortic regurgitation. There is no aortic valvular stenosis. Mitral Valve Mild mitral annular calcification. The mitral valve leaflets are mildly thickened. Moderate mitral regurgitation. No evidence of mitral valve stenosis. Tricuspid Valve The tricuspid valve leaflets are thin and pliable. Trace tricuspid regurgitation. There is insufficient TR jet to estimate RVSP. Pulmonic Valve The pulmonary valve is normal in structure. Trace pulmonic regurgitation. Great Vessels The aortic root is normal in size. The ascending aorta is not well-visualized. IVC is normal in size and collapses >50% with inspiration. Pericardium There is no pericardial effusion. Other Information Study Quality: Fair Conclusion Severe reduction in LV systolic function (LVEF 25%). The septal, inferoseptal, and anteroseptal LV babcock are nearly akinetic. Moderate MR. Electronically signed by : Frances Rutherford MD 02/08/2024 09:32:15
--- NOTE | 2024-02-08 04:37 | PC.NURSE ---
Patient has had a good shift. She has been able to rest and sleep. Has been nausea from her chemo, but says that is normal for her and her medication helps with that. She has family at the bedside that has helped her to the bathroom. she has not complained of pain or SOB just nausea. no other issues this shift.
[2024-02-08] MEDS: CEFEPIME HCL 2 GM in 0.9 % SODIUM CHLORIDE 100 ML IV ×3 (04:49→20:32)
[2024-02-08 05:19] LABS: Alanine Aminotransferase 28 U/L (12-78); Albumin Level 3.4 g/dl (3.5-5.0); Albumin/Globulin Ratio 1.1 (1.1-1.8); Alkaline Phosphatase 134 U/L (38-126); Anion Gap 5.4 mEq/L (5-15); Aspartate Amino Transferase 28 U/L (14-36); Bilirubin,Total 0.5 mg/dl (0.2-1.3); Blood Urea Nitrogen 32 mg/dl (7-17); Calcium 8.8 mg/dl (8.4-10.2); Carbon Dioxide 29 mmol/L (22.0-30.0); Chloride 101 mmol/L (98-107); Creatinine Clearance Estimated 72 mL/min (50-200); Estimated Glomerular Filt Rate 100 ml/min (>60); GFR (African American) 121 ML/MIN (>60); Globulin 3.2 g/dL (1.3-3.2); Glucose 169 mg/dl (74-100); Magnesium 1.9 mg/dl (1.6-2.3); Potassium 3.4 mmoL/L (3.5-5.1); Sodium 132 mmol/L (136-145); Total Protein,Serum 6.6 g/dl (6.3-8.2)
[2024-02-08] MEDS: VANCOMYCIN/WATER FOR INJ (PEG) 1.5 GM/300 ML PIGGYBACK IV (05:27)
[2024-02-08] MEDS: PHA TO NURSING INSTRUCTION 1 EACH NOTAPPLIC (05:28)
[2024-02-08 05:39] LABS: POC Glucose,Bedside 189 (70-110)
[2024-02-08] MEDS: humaLOG 100 UNITS/ML 10ML VIAL (SSI) SQ ×4 (06:03→20:36)
[2024-02-08] MEDS: LEVOTHYROXINE 50MCG (0.05MG) TAB 50 MCG PO (06:03)
[2024-02-08 06:40] LABS: Basophils % 0.2 % (0.1-2.0); Eosinophils % 0.2 % (0.1-12.0); Hematocrit 26.2 % (37.0-47.0); Hemoglobin 8.3 g/dL (12.2-16.2); Mean Corpuscular HGB Conc 31.5 g/dL (31.8-35.4); Mean Corpuscular Hemoglobin 28.6 pg (27.0-31.2); Mean Corpuscular Volume 90.7 fl (81-99); Mean Platelet Volume 8.9 fl (7.4-10.4); Monocytes # 0.3 K/mm3 (0.1-1.0); Monocytes % 3.7 % (1.7-9.3); Neutrophils # 5.6 K/mm3 (1.8-7.8); Platelet Count 389 K/mm3 (142-424); Red Blood Count 2.89 M/mm3 (4.20-5.40); Red Cell Distribution Width 22.5 % (11.5-17.5); White Blood Count 6.9 K/mm3 (4.8-10.8)
[2024-02-08 07:01] LABS: Chloride 102 mmol/L (98-107); Potassium 3.3 mmoL/L (3.5-5.1); Sodium 134 mmol/L (136-145)
[2024-02-08 07:04] LABS: Anion Gap 7.3 mEq/L (5-15); Blood Urea Nitrogen 30 mg/dl (7-17); Carbon Dioxide 28 mmol/L (22.0-30.0); Creatinine Clearance Estimated 68 mL/min (50-200); Estimated Glomerular Filt Rate 100 ml/min (>60); GFR (African American) 121 ML/MIN (>60)
[2024-02-08 07:05] LABS: Calcium 8.9 mg/dl (8.4-10.2); Glucose 170 mg/dl (74-100)
--- NOTE | 2024-02-08 07:27 | PC.NURSE ---
notified that there is no one here to do her thoracentesis.
[2024-02-08 08:00] VITALS: BP 120/67; PULSE 100; PULSE 92; RESP 18; TEMP 36.6; O2SAT 97
--- NOTE | 2024-02-08 08:58 | P.PN_ITS ---
Subjective *Date: 02/08/24 *Time: 08:58 Medical Exam Vital signs and Labs for Last 24 Hours: Vital Signs Temp Pulse Pulse Resp BP Pulse Ox O2 Del Method 02/08/24 06:50 Room Air 02/08/24 05:00 Room Air 02/08/24 04:00 98.0 F 90 14 128/66 96 Room Air 02/08/24 04:00 90 02/08/24 03:00 Room Air 02/08/24 01:00 Room Air 02/08/24 00:00 90 02/08/24 00:00 98.1 F 96 H 14 90/64 L 96 Room Air 02/07/24 23:00 Room Air 02/07/24 21:00 Room Air 02/07/24 20:00 100 H 02/07/24 20:00 Room Air 02/07/24 20:00 98.8 F 101 H 14 135/75 97 Room Air 02/07/24 18:31 Room Air 02/07/24 17:00 Room Air 02/07/24 16:00 100 H 02/07/24 16:00 97.9 F 101 H 19 123/72 96 Room Air 02/07/24 15:00 Room Air 02/07/24 13:00 Room Air 02/07/24 12:00 100 H 02/07/24 12:00 98.6 F 99 H 19 121/69 95 02/07/24 11:00 Room Air 02/07/24 09:00 Room Air 02/07/24 09:00 101 H 18 119/63 95 Room Air Intake and Output 02/07/24 02/08/24 02/08/24 23:59 07:59 15:59 Intake Total 340 / 1830 250 / 250 Output Total 1500 / 3100 0 / 0 Balance -1160 / -1270 250 / 250 Intake: Intake, Oral Amount 240 / 1230 150 / 150 Intake, Total IV Amount 100 / 600 100 / 100 Cefepime HCl 2 gm In 0.9 % 100 / 300 100 / 100 Sodium Chloride 100 ml @ 200 mls/hr IV Q8H [facility] Rx#:[id number] Output: Output, Urine Amount 1500 / 1900 0 / 0 Other: Number of Unmeasured Voids 1 1 Weight 81.148 kg 76.385 kg Patient Weight 02/08/24 23:59 Weight 76.385 kg Laboratory Results - last 24 hr 02/05/24 18:55: Hepatitis C Antibody Non reactive, Hep C Ab Comment Comment 02/07/24 05:33: Hgb 7.8 L D, Total Counted 100, Neutrophils % (Manual) 96 H, Lymphocytes % (Manual) 4 L, Platelet Estimate Normal, Hypochromasia 2+, Anisocytosis 1+ 02/07/24 11:22: POC Glucose 287 H 02/07/24 20:36: POC Glucose 275 H 02/08/24 04:48: Sodium 132 L, Potassium 3.4 L, Chloride 101, Carbon Dioxide 29, Anion Gap 5.4, BUN 32 H D, Creatinine 0.60, Estimated Creat Clear 72, Estimated GFR 100, Est GFR ( Amer) 121, Glucose 169 H D, Calcium 8.8, Magnesium 1 .9, Total Bilirubin 0.5, AST 28, ALT 28, Alkaline Phosphatase 134 H, Total Protein 6.6, Albumin 3.4 L, Globulin 3.2, Albumin/Globulin Ratio 1.1 02/08/24 05:32: POC Glucose 189 H 02/08/24 05:56: WBC 6.9 D, RBC 2.89 L, Hgb 8.3 L, Hct 26.2 L, MCV 90.7, MCH 28.6, MCHC 31.5 L, RDW 22.5 H, Plt Count 389, MPV 8.9, Neut % (Auto) 81.0 H, Lymph % (Auto) 15.0, [place] % (Auto) 3.7, Eos % (Auto) 0.2, Baso % (Auto) 0.2, Neut # (Auto) 5.6, Lymph # (Auto) 1.0, [place] # (Auto) 0.3, Eos # (Auto) 0.0, Baso # (Auto) 0.0, Sodium 134 L, Potassium 3.3 L, Chloride 102, Carbon Dioxide 28, Anion Gap 7.3, BUN 30 H, Creatinine 0.60, Estimated Creat Clear 68, Estimated GFR 100, Est GFR ( Amer) 121, Glucose 170 H, Calcium 8.9 I & O for Labs for Last 24 Hours: Intake & Output 02/05/24 02/06/24 02/07/24 02/08/24 23:59 23:59 23:59 23:59 Intake Total 490.074 / 325.632 0151.276 / 5997.070 5162 / 1830 250 / 250 Output Total 355 / 555 4905 / 4965 3100 / 3100 0 / 0 Balance 135.074 / -64.926 -3724.724 / -3784.724 -1420 / -1270 250 / 250 Weight 81.465 kg 81.465 kg 81.148 kg 76.385 kg Microbiology Reports for the Last 24 Hours: Microbiology 02/06/24 21:00 Nose MRSA Culture - Final Negative 02/05/24 20:10 Sputum - Endotracheal Tube Aspirate Gram Stain - Final 02/05/24 20:10 Sputum - Endotracheal Tube Aspirate Sputum Culture - Preliminary Gram Positive Cocci 02/05/24 20:25 Blood Blood Culture - Preliminary NO GROWTH AFTER 48 HOURS 02/05/24 18:55 Blood Blood Culture - Preliminary NO GROWTH AFTER 48 HOURS 02/06/24 12:21 Sputum - Expectorated Sputum Gram Stain - Final 02/06/24 17:55 Blood Blood Culture - Preliminary NO GROWTH AFTER 24 HOURS 02/06/24 17:55 Blood Blood Culture - Preliminary NO GROWTH AFTER 24 HOURS The patient's infection will respond to the chosen ABx?: Yes (SPUTUM CX PENDING, BLOOD CX NO GROWTH, AFEBRILE OVER 24 HR.) Is the patient receiving the right drug, dose, and route?: Yes Could a more targeted ABx be ordered?: No
[2024-02-08] MEDS: CARVEDILOL 12.5MG TABLET 12.5 MG PO ×2 (09:41→20:34)
[2024-02-08] MEDS: POTASSIUM CHLORIDE 20MEQ TAB 20 MEQ PO (09:41)
[2024-02-08] MEDS: AMLODIPINE 10MG TABLET 10 MG PO (09:41)
[2024-02-08] MEDS: DAPAGLIFLOZIN PROPANEDIOL 10 MG TABLET PO (09:41)
[2024-02-08] MEDS: APIXABAN 5MG TABLET 10 MG PO (09:42)
[2024-02-08] MEDS: FUROSEMIDE 40MG/4ML VIAL 40 MG IV ×2 (09:42→16:37)
--- NOTE | 2024-02-08 09:46 | HMH.SLDYSPHA ---
Speech & Language Evaluation Speech/Language Dysphagia Evaluation Start: 02/08/24 09:38 Freq: ONCE Status: Active Protocol: Document 02/08/24 09:39 SOCORRO (Rec: 02/08/24 09:45 [facility]) Dysphagia Assess/Goals/Plan Assessment Date of Evaluation: 02/08/24 Evaluation Type Initial Certification Assessment/Problems post-extubation protocol Does Patient Qualify for Service No Qualify/Failure Comment Based on clinical observations made throughout CSE, pt's mastication/manipulation of bolus and swallowing appear to be WFL at the bedside. No further skilled speech therapy services are warranted at this time. Recommendations PHYSICIAN CERTIFICATION: The specified therapy services are required, authorized, and reviewed every 30 days. Diet Recommendations Normal Liquid Type Recommendations Normal/Thin SL Swallow Guidelines Standard Aspiration Prec. Dysphagia Swallow Precautions/Strategies Small Bites and Sips,Alternate Liquids/Solids Plan Pt/Guardian verbally ack understanding Yes of dx/prognosis/goals G -code Required No Education Instructions provided Discussed CSE results, aspiration precautions, and diet recommendations with pt and family, as well as care management all of which expressed understanding. Pt/Caregiver able to recall information Able to recall/restate Reinforcement needed No Speech & Language HPI History Present Illness Description of Patient Problem Jennie Lezama is a 64 y.o female presenting with significant shortness of breath. Patient has a history of ovarian cancer without metastasis and received her chemotherapy infusion on 02/05/24 at [facility] [place]. Patient has had these medications once prior and had no significant reaction to it . Patient's evaluation today at her infusion appointment was otherwise unremarkable. Patient had no evidence of shortness of breath while at [facility] [place]. While at home, per patient's daughter at bedside, patient had acute onset severe respiratory distress. Patient does not wear oxygen at home and has no pre- existing lung disease or heart failure. Patient is not on blood thinners. Pt intubated , extubated 02/05. CXR shows pleural effusion and pna . Pt/Caregiver Concerns No reported concerns of swallowing. Rehab Services Assessed Speech therapy Is this evaluation r/t stroke? No Language Primary Language Czech General Information General Current Food Consistancy Regular,Thin Liquids Dentition Good Dentition Oxygen Status Room Air Patient Orientation Person,Place,Time,Situation Ability to Follow Directions Excellent Communication Ability No Impairment Dysphagia:Food Presentation Evaluation Food Type Pureed,Mechanical Soft,Regular ,Liquid,Pudding Dysphagia Evaluation Summary Pt was seen sitting upright in bed with family present at bedside this morning for CSE. Pt and family report no concerns with any textures or consistencies stating she is tolerating PO (e.g. this morning's breakfast) following pt and family interview. Pt was administered all bolus consistencies trialed x3 to assess for consistency and/or fatigue. O2 sats remained between 97-99 throughout evaluation and no overt s/sxs of aspiration were noted. She was administered the following consistencies: thin liquid ( open cup/straw sip, two consecutive sips from straw/ open cup), pudding, puree( applesauce), mechanical soft ( nutrigrain bar), and regular ( taylor cracker.) Based on observations made throughout clinical bedside swallow evaluation mastication and manipulation of the bolus and swallowing appear to be WFL and no further skilled speech therapy services are warranted at this time. It is recommended pt continue regular/thin diet. Stroke Dysphagia Assessment PHYSICIAN CERTIFICATION: I certify the specified therapy services for Jennie Lezama are required, authorized, and reviewed every 30 days.
--- NOTE | 2024-02-08 10:02 | P.CONS_ITS ---
History of Present Illness History of present illness: Ms. Lezama is a 64-year-old female history of diabetes mellitus hypertension ovarian cancer on chemotherapy dyslipidemia presented with sudden onset worsening respiratory's is concerning for pulmonary edema needing intubation mechanical ventilatory supplement pulmonary was called for further evaluation and management. Patient denies any significant smoking history denies any prior respiratory complaints. Not using inhalers at baseline. [facility] Disclaimer: The information contained in this section may have been updated after the patient was seen, as this information can be updated by other users. Medical History Hyperlipidemia Hypertension Overweight with body mass index (BMI) of 28 to 28.9 in adult Onychodystrophy Onychomycosis Surgical History No history of previous surgery Family History Mother Diabetes Social History Smoking Status: Never smoker alcohol intake: never substance use type: denies use current occupational status: retired Travel in the last 8 weeks: None household members: none housing: house Review of Systems Constitutional Constitutional: Reports anorexia, Reports body ache(s) and Reports fatigue Eyes Eyes: Denies eye discharge, Denies dry eyes, Denies irritation and Denies itchy eyes ENT Ears, Nose, Mouth, and Throat: Denies epistaxis, Denies facial pain, Denies lip swelling and Denies throat swelling *Cardiovascular Cardiovascular: Reports dyspnea, Reports dyspnea on exertion, Denies leg edema and Reports orthopnea *Respiratory Respiratory: Denies change in phlegm color, Reports chest congestion, Reports cough, Reports dyspnea, Reports dyspnea on exertion, Denies excessive phlegm production and Denies wheezing *Gastrointestinal Gastrointestinal: Denies abdominal pain, Denies belching and Denies cramping *Musculoskeletal Musculoskeletal: Reports back pain, Reports myalgias and Reports other (No small joint swelling or Pain) Psychiatric Psychiatric: Denies homicidal ideation and Denies suicidal ideation Endocrine Endocrine: Reports fatigue and Denies heat intolerance Hematologic/Lymphatic Hematologic/Lymphatic: Denies easy bleeding and Denies lymphadenopathy Allergic/Immunologic Allergic/Immunologic: Denies itchy eyes, Denies lip swelling, Denies throat swelling and Denies wheezing Pulmonology Exam Inpatient Vital signs and Labs for Last 24 Hours: Temp Pulse Resp BP Pulse Ox O2 Del Method O2 Flow Rate 97.9 F 92 H 18 120/67 97 Room Air 1 02/08/24 08:00 02/08/24 08:00 02/08/24 08:00 02/08/24 08:00 02/08/24 08:00 02/08/24 09:39 02/07/24 08:00 FiO2 30 02/06/24 10:02 Laboratory Results - last 24 hr 02/05/24 18:55: Hepatitis C Antibody Non reactive, Hep C Ab Comment Comment 02/07/24 11:22: POC Glucose 287 H 02/07/24 20:36: POC Glucose 275 H 02/08/24 04:48: Sodium 132 L, Potassium 3.4 L, Chloride 101, Carbon Dioxide 29, Anion Gap 5.4, BUN 32 H D, Creatinine 0.60, Estimated Creat Clear 72, Estimated GFR 100, Est GFR ( Amer) 121, Glucose 169 H D, Calcium 8.8, Magnesium 1.9, Total Bilirubin 0.5, AST 28, ALT 28, Alkaline Phosphatase 134 H, Total Protein 6.6, Albumin 3.4 L, Globulin 3.2, Albumin/Globulin Ratio 1.1 02/08/24 05:32: POC Glucose 189 H 02/08/24 05:56: WBC 6.9 D, RBC 2.89 L, Hgb 8.3 L, Hct 26.2 L, MCV 90.7, MCH 28.6, MCHC 31.5 L, RDW 22.5 H, Plt Count 389, MPV 8.9, Neut % (Auto) 81.0 H, Lymph % (Auto) 15.0, [place] % (Auto) 3.7, Eos % (Auto) 0.2, Baso % (Auto) 0.2, Neut # (Auto) 5.6, Lymph # (Auto) 1.0, [place] # (Auto) 0.3, Eos # (Auto) 0.0, Baso # (Auto) 0.0, Sodium 134 L, Potassium 3.3 L, Chloride 102, Carbon Dioxide 28, Anion Gap 7.3, BUN 30 H, Creatinine 0.60, Estimated Creat Clear 68, Estimated GFR 100, Est GFR ( Amer) 121, Glucose 170 H, Calcium 8.9 I & O for Labs for Last 24 Hours: Intake & Output 02/05/24 02/06/24 02/07/24 02/08/24 23:59 23:59 23:59 23:59 Intake Total 490.074 / 458.224 3561.276 / 2849.198 5453 / 1830 250 / 250 Output Total 355 / 555 4905 / 4965 3100 / 3100 0 / 0 Balance 135.074 / -64.926 -3724.724 / -3784.724 -1420 / -1270 250 / 250 Weight 179 lb 9.6 oz 179 lb 9.6 oz 178 lb 14.411 oz 168 lb 6.4 oz Microbiology Reports for the Last 24 Hours: Microbiology 02/06/24 21:00 Nose MRSA Culture - Final Negative 02/05/24 20:10 Sputum - Endotracheal Tube Aspirate Gram Stain - Final 02/05/24 20:10 Sputum - Endotracheal Tube Aspirate Sputum Culture - Preliminary Gram Positive Cocci 02/05/24 20:25 Blood Blood Culture - Preliminary NO GROWTH AFTER 48 HOURS 02/05/24 18:55 Blood Blood Culture - Preliminary NO GROWTH AFTER 48 HOURS 02/06/24 12:21 Sputum - Expectorated Sputum Gram Stain - Final 02/06/24 17:55 Blood Blood Culture - Preliminary NO GROWTH AFTER 24 HOURS 02/06/24 17:55 Blood Blood Culture - Preliminary NO GROWTH AFTER 24 HOURS Constitutional: Present moderate distress Head: Present normocephalic and atraumatic ENT: Present normal exam, normal oropharynx and mucous membranes moist Neck: Present normal inspection and full ROM Respiratory: Present rhonchi, crackles, diminished air movement and able to speak in complete sentences; Absent respiratory distress or wheezes Cardiac: Present S1/S2, Tachycardia and radial pulses present GI: Present soft and distention; Absent tenderness or guarding Rectal (female): Present deferred (female): Present deferred Skin: Present intact; Absent cyanosis or jaundice Neuro: Present alert, awake and oriented x 3 Extremities: Present normal inspection; Absent clubbing or cyanosis Psychiatric: Present normal affect and cooperative Meds Home Medications and Allergies Home Medications ?Medication ?Instructions ?Recorded ?Confirmed ?Type aluminum-mag hydroxide-simethicone 5 ml PO QIDP PRN Thrush 02/06/24 02/06/24 History 400 mg-400 mg-40 mg/5 mL oral susp (Antacid Anti-Gas) amlodipine 10 mg tablet 10 mg PO DAILY 02/06/24 02/06/24 History atorvastatin 10 mg tablet 10 mg PO HS 02/06/24 02/06/24 History carvedilol 12.5 mg tablet 12.5 mg PO BID 02/06/24 02/06/24 History dapagliflozin propanediol 10 mg 10 mg PO DAILY 02/06/24 02/06/24 History tablet (Farxiga) dexamethasone 4 mg tablet 4 mg PO DAILY 02/06/24 02/06/24 History glimepiride 4 mg tablet 4 mg PO DAILY 02/06/24 02/06/24 History levothyroxine 50 mcg tablet 50 mcg PO DAILYDM 02/06/24 02/06/24 History lisinopril 40 mg tablet 40 mg PO DAILY 02/06/24 02/06/24 History pantoprazole 40 mg tablet,delayed 40 mg PO HS 02/06/24 02/06/24 History release potassium chloride 20 mEq 20 meq PO DAILY 02/06/24 02/06/24 History tablet,extended release(part/cryst) prochlorperazine maleate 10 mg 5 mg PO Q6H PRN nausea 02/06/24 02/06/24 History tablet (Compazine) semaglutide 14 mg tablet (Rybelsus) 14 mg PO DAILY 02/06/24 02/06/24 History tramadol 50 mg tablet 50 mg PO Q6HP PRN Moderate Pain 02/06/24 02/06/24 History (Scale Score 5-6) venlafaxine 37.5 mg 37.5 mg PO DAILY 02/06/24 02/06/24 History capsule,extended release 24 hr New Prescriptions to Start Prescriptions: Allergies Allergy/AdvReac Type Severity Reaction Status Date / Time No Known Allergies Allergy Verified 12/07/23 12:03 Results Laboratory Findings 02/08/24 05:56 02/08/24 05:56 ABG ABG pH 7.38 mmol/L (7.35-7.45) 02/06/24 06:00 ABG pCO2 40.8 mmhg (35.0-45.0) 02/06/24 06:00 ABG pO2 89.3 mmhg (80-100) 02/06/24 06:00 ABG O2 Saturation 97 % (90-100) 02/06/24 06:00 Abnormal lab findings: Abnormal Labs 02/05/24 02/05/24 02/05/24 18:55 18:59 20:33 WBC 29.5 H* RBC 3.79 L Hgb 10.6 L Hct MCHC 28.1 L RDW 22.0 H Plt Count 947 H* Neut % (Auto) Lymph % (Auto) [place] % (Auto) 1.4 L Neut # (Auto) 15.3 H Lymph # (Auto) 13.1 H Baso # (Auto) 0.4 H Neutrophils % (Manual) Lymphocytes % (Manual) VBG pH 7.01 L 7.23 L VBG pCO2 64.6 H VBG pO2 68.1 H 75.5 H VBG HCO3 15.9 L 17.5 L VBG Total CO2 17.9 L 18.8 L VBG O2 Saturation 82.0 H 92.0 H VBG Base Excess -15.2 L -10.0 L VBG Lactic Acid 9.0 H 4.7 H Sodium Potassium Chloride Carbon Dioxide 17 L Anion Gap 16.2 H BUN Glucose 563 H* POC Glucose Lactate 7.7 H Calcium 8.2 L AST 93 H Alkaline Phosphatase 234 H C-Reactive Protein NT-Pro-B Natriuret Pep 5620 H Total Protein Albumin 3.4 L Globulin 3.3 H Albumin/Globulin Ratio 1.0 L Procalcitonin 02/05/24 02/06/24 02/06/24 23:15 04:17 05:20 WBC RBC Hgb Hct MCHC RDW Plt Count Neut % (Auto) Lymph % (Auto) [place] % (Auto) Neut # (Auto) Lymph # (Auto) Baso # (Auto) Neutrophils % (Manual) Lymphocytes % (Manual) VBG pH VBG pCO2 VBG pO2 VBG HCO3 VBG Total CO2 VBG O2 Saturation VBG Base Excess VBG Lactic Acid Sodium Potassium Chloride Carbon Dioxide Anion Gap BUN Glucose POC Glucose 218 H 224 H Lactate 2.6 H Calcium AST Alkaline Phosphatase C-Reactive Protein NT-Pro-B Natriuret Pep Total Protein Albumin Globulin Albumin/Globulin Ratio Procalcitonin 02/06/24 02/06/24 02/06/24 05:37 11:30 16:26 WBC 25.2 H* RBC 3.33 L Hgb 9.4 L D Hct 31.4 L MCHC 29.8 L RDW 22.5 H Plt Count 652 H D Neut % (Auto) 89.5 H Lymph % (Auto) 5.7 L [place] % (Auto) Neut # (Auto) 22.6 H Lymph # (Auto) Baso # (Auto) Neutrophils % (Manual) 79 H Lymphocytes % (Manual) VBG pH VBG pCO2 VBG pO2 VBG HCO3 VBG Total CO2 VBG O2 Saturation VBG Base Excess VBG Lactic Acid Sodium Potassium Chloride 110 H Carbon Dioxide Anion Gap 4.9 L BUN 21 H D Glucose 224 H D POC Glucose 219 H 175 H Lactate Calcium 7.8 L AST 66 H D Alkaline Phosphatase 191 H C-Reactive Protein NT-Pro-B Natriuret Pep Total Protein Albumin 3.2 L Globulin Albumin/Globulin Ratio 1.0 L Procalcitonin 4.79 H 02/06/24 02/07/24 02/07/24 19:58 05:33 11:22 WBC 10.9 H D RBC 2.78 L Hgb 7.8 L D Hct 25.6 L MCHC 30.6 L RDW 22.1 H Plt Count Neut % (Auto) 90.1 H Lymph % (Auto) 7.3 L [place] % (Auto) Neut # (Auto) 9.8 H Lymph # (Auto) Baso # (Auto) Neutrophils % (Manual) 96 H Lymphocytes % (Manual) 4 L VBG pH VBG pCO2 VBG pO2 VBG HCO3 VBG Total CO2 VBG O2 Saturation VBG Base Excess VBG Lactic Acid Sodium 133 L Potassium Chloride Carbon Dioxide Anion Gap BUN 23 H Glucose 227 H POC Glucose 239 H 287 H Lactate Calcium AST Alkaline Phosphatase 144 H C-Reactive Protein 40.0 H NT-Pro-B Natriuret Pep Total Protein 6.2 L Albumin 3.2 L Globulin Albumin/Globulin Ratio Procalcitonin 3.50 H 02/07/24 02/08/24 02/08/24 20:36 04:48 05:32 WBC RBC Hgb Hct MCHC RDW Plt Count Neut % (Auto) Lymph % (Auto) [place] % (Auto) Neut # (Auto) Lymph # (Auto) Baso # (Auto) Neutrophils % (Manual) Lymphocytes % (Manual) VBG pH VBG pCO2 VBG pO2 VBG HCO3 VBG Total CO2 VBG O2 Saturation VBG Base Excess VBG Lactic Acid Sodium 132 L Potassium 3.4 L Chloride Carbon Dioxide Anion Gap BUN 32 H D Glucose 169 H D POC Glucose 275 H 189 H Lactate Calcium AST Alkaline Phosphatase 134 H C-Reactive Protein NT-Pro-B Natriuret Pep Total Protein Albumin 3.4 L Globulin Albumin/Globulin Ratio Procalcitonin 02/08/24 05:56 WBC RBC 2.89 L Hgb 8.3 L Hct 26.2 L MCHC 31.5 L RDW 22.5 H Plt Count Neut % (Auto) 81.0 H Lymph % (Auto) [place] % (Auto) Neut # (Auto) Lymph # (Auto) Baso # (Auto) Neutrophils % (Manual) Lymphocytes % (Manual) VBG pH VBG pCO2 VBG pO2 VBG HCO3 VBG Total CO2 VBG O2 Saturation VBG Base Excess VBG Lactic Acid Sodium 134 L Potassium 3.3 L Chloride Carbon Dioxide Anion Gap BUN 30 H Glucose 170 H POC Glucose Lactate Calcium AST Alkaline Phosphatase C-Reactive Protein NT-Pro-B Natriuret Pep Total Protein Albumin Globulin Albumin/Globulin Ratio Procalcitonin Assessment and Plan *Assessment and plan (1) Pulmonary embolism: Status: Acute Category: Medical Code(s): I26.99 - Other pulmonary embolism without acute cor pulmonale (2) Pleural effusion: Status: Acute Category: Medical Code(s): J90 - Pleural effusion, not elsewhere classified (3) Sepsis: Status: Acute Category: Medical Code(s): A41.9 - Sepsis, unspecified organism (4) Pneumonia: Status: Acute Category: Medical Code(s): J18.9 - Pneumonia, unspecified organism Plan Ms. Lezama is a 64-year-old female history of diabetes mellitus hypertension ovarian cancer on chemotherapy dyslipidemia presented with sudden onset worsening respiratory's is concerning for pulmonary edema needing intubation mechanical ventilatory supplement pulmonary was called for further evaluation and management. Patient denies any significant smoking history denies any prior respiratory complaints. Not using inhalers at baseline. Patient was followed remotely over the weekend, successfully performed spontaneous breathing trial and was extubated to, weaned to room air. Significant neutrophilic predominant leukocytosis upon admission. CT upon admission bilateral diffuse groundglass opacities, left lower lobe effusion and adjacent dense lobar consolidative changes along with right lower lobe consolidative changes. Segmental right lower lobe pulmonary embolism also noted with no evidence of right heart strain. Echo : EF 25% SputumGm +ve cocci moderate growth. Patient currently receiving vancomycin and cefepime. Nasal MRSA PCR negative. Blood cultures no growth 24 hours. Plan: Discontinue vancomycin. Continue cefepime pending culture results. DuoNebs every 6 hours on as-needed basis Continue Eliquis for pulm embolism. Likely need indefinite anticoagulation in setting of malignancy Will follow the concerning left-sided pleural effusion as an outpatient basis. Will hold off on performing thoracentesis at this point of time. # Thank you for involving pulmonary in this patient care. Will continue to follow.
[2024-02-08] MEDS: DEXAMETHASONE 4MG TABLET 8 MG PO (10:20)
--- NOTE | 2024-02-08 10:51 | EXP.CARD.CON ---
History of Present Illness History of Present Illness Consult date: 02/08/24 Requesting physician: Trevor Whitehead Consult reason: shortness of breath Chief complaint: soa History of present illness: This is a 64-year-old white female with past medical history of diabetes mellitus, hypertension and right-sided ovarian cancer without metastasis currently receiving chemotherapy at [facility] [[email or web address] who presented to emergency department with complaints of sudden onset of shortness of breath while eating dinner. Upon presentation to emergency department patient was in respiratory distress with hypoxia. A stat chest x-ray was performed which was positive for signs of pulmonary edema. She was started on BiPAP but was unable to maintain oxygen saturations so patient was intubated and sedated. Patient was ultimately admitted for hypoxic respiratory failure. Patient was extubated on Thursday. Patient underwent a CTA of her chest which showed a segmental right lower lobe PE and a subsegmental right upper lobe PE with a moderate to large left sided pleural effusion and a multifocal parenchymal opacity which could be edema, infarction or infection. Initial BNP was over 5000. Patient has been diuresed with Lasix 40 mg IV twice daily and is making good urine output and is -4 L. Patient is maintaining oxygen saturation on room air. A preliminary echo shows an ejection fraction of 25%, official read is pending. Patient has been started on Eliquis 10 mg p.o. twice daily for pulmonary embolism. [facility] Disclaimer: The information contained in this section may have been updated after the patient was seen, as this information can be updated by other users. Medical History Hyperlipidemia Hypertension Overweight with body mass index (BMI) of 28 to 28.9 in adult Onychodystrophy Onychomycosis Surgical History No history of previous surgery Family History Mother Diabetes Social History Smoking Status: Never smoker alcohol intake: never substance use type: denies use current occupational status: retired Travel in the last 8 weeks: None household members: none housing: house Review of Systems *Cardiovascular Cardiovascular: Reports dyspnea *Respiratory Respiratory: Reports dyspnea Exam Data for Last 24 hours Vital signs and Labs for Last 24 Hours: Temp Pulse Resp BP Pulse Ox O2 Del Method O2 Flow Rate 97.9 F 92 H 18 120/67 97 Room Air 1 02/08/24 08:00 02/08/24 08:00 02/08/24 08:00 02/08/24 08:00 02/08/24 08:00 02/08/24 09:39 02/07/24 08:00 FiO2 30 02/06/24 10:02 Laboratory Results - last 24 hr 02/05/24 18:55: Hepatitis C Antibody Non reactive, Hep C Ab Comment Comment 02/07/24 11:22: POC Glucose 287 H 02/07/24 20:36: POC Glucose 275 H 02/08/24 04:48: Sodium 132 L, Potassium 3.4 L, Chloride 101, Carbon Dioxide 29, Anion Gap 5.4, BUN 32 H D, Creatinine 0.60, Estimated Creat Clear 72, Estimated GFR 100, Est GFR ( Amer) 121, Glucose 169 H D, Calcium 8.8, Magnesium 1.9, Total Bilirubin 0.5, AST 28, ALT 28, Alkaline Phosphatase 134 H, Total Protein 6.6, Albumin 3.4 L, Globulin 3.2, Albumin/Globulin Ratio 1.1 02/08/24 05:32: POC Glucose 189 H 02/08/24 05:56: WBC 6.9 D, RBC 2.89 L, Hgb 8.3 L, Hct 26.2 L, MCV 90.7, MCH 28.6, MCHC 31.5 L, RDW 22.5 H, Plt Count 389, MPV 8.9, Neut % (Auto) 81.0 H, Lymph % (Auto) 15.0, [place] % (Auto) 3.7, Eos % (Auto) 0.2, Baso % (Auto) 0.2, Neut # (Auto) 5.6, Lymph # (Auto) 1.0, [place] # (Auto) 0.3, Eos # (Auto) 0.0, Baso # (Auto) 0.0, Sodium 134 L, Potassium 3.3 L, Chloride 102, Carbon Dioxide 28, Anion Gap 7.3, BUN 30 H, Creatinine 0.60, Estimated Creat Clear 68, Estimated GFR 100, Est GFR ( Amer) 121, Glucose 170 H, Calcium 8.9 I & O for Last 24 hours: Intake & Output 02/05/24 02/06/24 02/07/24 02/08/24 23:59 23:59 23:59 23:59 Intake Total 490.074 / 172.576 9030.276 / 1470.744 3845 / 1830 520 / 520 Output Total 355 / 555 4905 / 4965 3100 / 3100 0 / 0 Balance 135.074 / -64.926 -3724.724 / -3784.724 -1420 / -1270 520 / 520 Weight 179 lb 9.6 oz 179 lb 9.6 oz 178 lb 14.411 oz 168 lb 6.4 oz Microbiology Reports for the Last 24 Hours: Microbiology 02/06/24 21:00 Nose MRSA Culture - Final Negative 02/05/24 20:10 Sputum - Endotracheal Tube Aspirate Gram Stain - Final 02/05/24 20:10 Sputum - Endotracheal Tube Aspirate Sputum Culture - Preliminary Gram Positive Cocci 02/05/24 20:25 Blood Blood Culture - Preliminary NO GROWTH AFTER 48 HOURS 02/05/24 18:55 Blood Blood Culture - Preliminary NO GROWTH AFTER 48 HOURS 02/06/24 12:21 Sputum - Expectorated Sputum Gram Stain - Final 02/06/24 17:55 Blood Blood Culture - Preliminary NO GROWTH AFTER 24 HOURS 02/06/24 17:55 Blood Blood Culture - Preliminary NO GROWTH AFTER 24 HOURS Constitutional Constitutional: no acute distress *Routine Respiratory Exam Respiratory: Present rhonchi and symmetric chest movement *Routine Cardiovascular Exam Cardiovascular: Present RRR, Normal S1 and Normal S2 *Routine Abdominal Exam Abdominal: Present soft and normoactive bowel sounds; Absent tenderness *Routine Extremities Exam Extremities: Present full ROM and normal capillary refill; Absent edema *Routine Skin Exam Skin: Present intact, dry and warm Detailed Neck Exam: Thyroids Thyroid: Absent bruit Meds Home Medications and Allergies Home Medications ?Medication ?Instructions ?Recorded ?Confirmed ?Type aluminum-mag hydroxide-simethicone 5 ml PO QIDP PRN Thrush 02/06/24 02/06/24 History 400 mg-400 mg-40 mg/5 mL oral susp (Antacid Anti-Gas) amlodipine 10 mg tablet 10 mg PO DAILY 02/06/24 02/06/24 History atorvastatin 10 mg tablet 10 mg PO HS 02/06/24 02/06/24 History carvedilol 12.5 mg tablet 12.5 mg PO BID 02/06/24 02/06/24 History dapagliflozin propanediol 10 mg 10 mg PO DAILY 02/06/24 02/06/24 History tablet (Farxiga) dexamethasone 4 mg tablet 4 mg PO DAILY 02/06/24 02/06/24 History glimepiride 4 mg tablet 4 mg PO DAILY 02/06/24 02/06/24 History levothyroxine 50 mcg tablet 50 mcg PO DAILYDM 02/06/24 02/06/24 History lisinopril 40 mg tablet 40 mg PO DAILY 02/06/24 02/06/24 History pantoprazole 40 mg tablet,delayed 40 mg PO HS 02/06/24 02/06/24 History release potassium chloride 20 mEq 20 meq PO DAILY 02/06/24 02/06/24 History tablet,extended release(part/cryst) prochlorperazine maleate 10 mg 5 mg PO Q6H PRN nausea 02/06/24 02/06/24 History tablet (Compazine) semaglutide 14 mg tablet (Rybelsus) 14 mg PO DAILY 02/06/24 02/06/24 History tramadol 50 mg tablet 50 mg PO Q6HP PRN Moderate Pain 02/06/24 02/06/24 History (Scale Score 5-6) venlafaxine 37.5 mg 37.5 mg PO DAILY 02/06/24 02/06/24 History capsule,extended release 24 hr New Prescriptions to Start Prescriptions: Allergies Allergy/AdvReac Type Severity Reaction Status Date / Time No Known Allergies Allergy Verified 12/07/23 12:03 Assessment and Plan *Assessment and plan (1) Acute hypoxemic respiratory failure: Status: Acute Category: Medical Code(s): J96.01 - Acute respiratory failure with hypoxia (2) Heart failure with reduced ejection fraction: Status: Acute Category: Medical Code(s): I50.20 - Unspecified systolic (congestive) heart failure (3) Sepsis: Status: Acute Category: Medical Code(s): A41.9 - Sepsis, unspecified organism (4) Pneumonia: Status: Acute Category: Medical Code(s): J18.9 - Pneumonia, unspecified organism (5) Pleural effusion: Status: Acute Category: Medical Code(s): J90 - Pleural effusion, not elsewhere classified (6) Pulmonary embolism: Status: Acute Category: Medical Code(s): I26.99 - Other pulmonary embolism without acute cor pulmonale Plan Acute hypoxic respiratory failure-resolved Acute moderate to large left-sided pleural effusion Acute HFrEF Extubated 02/06/2024 and maintaining oxygen saturation on room air Initial proBNP greater than 5000 Patient is currently receiving chemotherapy infusions of paclitaxel and docetaxel for ovarian cancer Echocardiogram 02/08/2024: Severe reduction in LV systolic function estimated EF 25%. The septal, inferior septal and anterior septal LV babcock are nearly akinetic. Moderate MR. Continue Lasix 40 mg IV twice daily Patient will need LifeVest prior to discharge Continue Coreg 12.5 mg p.o. twice daily and Jardiance 10 mg p.o. daily. Will consider addition of Entresto and Aldactone once fully diuresed as blood pressures are soft. Will proceed with left heart catheterization to evaluate new onset of heart failure with reduced ejection fraction of 20%. Discussed risk versus benefits with patient she is agreeable to proceed. Will proceed with left heart catheterization tomorrow. Right-sided pulmonary embolism Patient has been started on Eliquis 10 mg p.o. twice daily x 10 days then 5 mg p.o. twice daily Will switch to Hep drip this evening for upcoming procedure Sepsis, resolved Multifocal pneumonia Defer to primary service and pulmonology Non-metastatic ovarian cancer Defer to primary service and [facility] Anemia Hemoglobin 8.3 Denies bleeding Continue to monitor CV summary 02/08/2024: Ejection fraction is 25%. Left heart catheterization planned for tomorrow to further evaluate for ischemic cardiomyopathy. Will switch Eliquis to Hep drip for [facility] tomorrow. Patient will need fitted for LifeVest prior to discharge home. Continue to diurese patient with Lasix 40 mg IV twice daily. Will consider starting Entresto and Aldactone once patient has been fully diuresed. CV meds Amlodipine 10 mg p.o. daily Eliquis 10 mg p.o. twice daily Atorvastatin 10 mg daily Coreg 12.5 mg p.o. twice daily Jardiance 10 mg p.o. daily Lasix 40 mg IV twice daily Hep drip
[2024-02-08] MEDS: MAGIC MOUTHWASH 300ML BOTTLE PO ×2 (11:49→20:33)
[2024-02-08 12:00] VITALS: BP 122/63; PULSE 100; PULSE 80; RESP 18; TEMP 36.8; O2SAT 97
[2024-02-08 12:14] LABS: POC Glucose,Bedside 242 (70-110)
[2024-02-08 14:17] LABS: PTT Heparin (inpatient only) 26.2 Seconds (50-75)
[2024-02-08 14:27] LABS: Basophils % 0.1 % (0.1-2.0); Eosinophils % 0.1 % (0.1-12.0); Hematocrit 28.2 % (37.0-47.0); Hemoglobin 8.7 g/dL (12.2-16.2); Lymphocytes # 0.5 K/mm3 (0.7-4.5); Lymphocytes % 6.8 % (10-50); Mean Corpuscular HGB Conc 30.9 g/dL (31.8-35.4); Mean Corpuscular Hemoglobin 28.7 pg (27.0-31.2); Mean Corpuscular Volume 92.9 fl (81-99); Mean Platelet Volume 9.5 fl (7.4-10.4); Monocytes # 0.2 K/mm3 (0.1-1.0); Monocytes % 2.2 % (1.7-9.3); Neutrophils % 90.8 % (37.0-80.0); Platelet Count 424 K/mm3 (142-424); Red Blood Count 3.04 M/mm3 (4.20-5.40); Red Cell Distribution Width 22.6 % (11.5-17.5); White Blood Count 7.7 K/mm3 (4.8-10.8)
[2024-02-08 14:31] LABS: MANUAL DIFFERENTIAL MANUAL DIFFERENTIAL (MANUAL DIFF)
[2024-02-08 14:40] LABS: Chloride 100 mmol/L (98-107); Potassium 3.6 mmoL/L (3.5-5.1); Sodium 133 mmol/L (136-145)
[2024-02-08 14:43] LABS: Blood Urea Nitrogen 30 mg/dl (7-17); Creatinine Clearance Estimated 68 mL/min (50-200); Estimated Glomerular Filt Rate 100 ml/min (>60); GFR (African American) 121 ML/MIN (>60)
[2024-02-08 14:44] LABS: Anion Gap 9.6 mEq/L (5-15); Calcium 9.1 mg/dl (8.4-10.2); Carbon Dioxide 27 mmol/L (22.0-30.0); Glucose 221 mg/dl (74-100)
--- NOTE | 2024-02-08 14:48 | SW/DCPLANNER ---
I spoke w/ patient regarding plans once medically stable for discharge. PT/OT stated that patient could return home w/ home health services if wanted. Patient expressed that she is not interested in home health services at this time. I will continue to follow up w/ this patient until medically stable for discharge. Discharge date is unknown at this time.
--- NOTE | 2024-02-08 15:04 | HMH.PTEV ---
Physical Therapy Evaluation Rehab PT IP Evaluation Start: 02/07/24 09:36 Freq: ONCE Status: Active Protocol: Document 02/08/24 13:54 DEEDEE (Rec: 02/08/24 15:03 DEEDEE [id number]) Subjective/History History History This is the initial inpatient evaluation for Jennie Lezama a 64 yowf that was admitted into [facility] for respiratory failure. This patient has a PMH of ovarian cancer on chemotherapy , hyperlipidemia, hypertension , onychodystrophy, onychomycosis. Subjective Subjective Patient stated that she lives at home with her boyfriend at this time and has kids that live nearby that are around quite a bit. Patient lives in a home that has 3 steps to get into the home but no steps when inside. Patient denied using a walker or other AD before being admitted into [facility] at this time. Patient stated that I have a shower chair but other than that I am fine with bathing. Patient stated she is independent with most ADLs at this time. Patient stated that I have gotten up several times to use the restroom on my own while I've been here. Patient stated that before she got admitted she was having problems with feeling out of breath, but did not feel out of breath at this time. New diagnosis of cancer in past 12 Yes months? Rehab PT IP Eval Objective Appearance Patient Behavior Appropriate,Cooperative Patient Orientation Person,Place,Time,Situation Difficulty following instructions none Speech Pattern Clear,Appropriate Ambulation Patient Able to Ambulate Yes Ambulation Observation IP General Gait Pattern Observation No Deviations/Normal Ambulation Distance (feet) 50 Ambulation Assistive Device None Ambulation Ability Supervision/Stand by Balance Ability to Arise Able, uses arms to help Standing Balance Narrow stance w/o support Dynamic Sitting Balance Ability Normal Dynamic Standing Balance Ability Normal Transfers Chair Transfer Ability Independent Sit to Stand Chair Transfer Ability Independent Rehab PT IP prob,goals,plan Problems Date of Evaluation: 02/08/24 Discharge Plan PT Discharge Plan Patient is most appropriate to discharge to home. Skilled therapy not required while admitted to [facility] as patient is independent with walking, transfers, and bed mobility at this time. Eval Complexity Eval Charge Codes 12417 - High Complexity PHYSICIAN CERTIFICATION: I certify the specified therapy services for Jennie K Ring are required, authorized, and reviewed every 30 days.
--- NOTE | 2024-02-08 15:08 | PC.NURSE ---
Home Medications Jennie Lezama ?Medication ?Instructions ?Recorded ?Confirmed aluminum-mag hydroxide-simethicone 5 ml PO QIDP PRN Thrush 02/06/24 02/06/24 400 mg-400 mg-40 mg/5 mL oral susp (Antacid Anti-Gas) amlodipine 10 mg tablet 10 mg PO DAILY 02/06/24 02/06/24 atorvastatin 10 mg tablet 10 mg PO HS 02/06/24 02/06/24 carvedilol 12.5 mg tablet 12.5 mg PO BID 02/06/24 02/06/24 dapagliflozin propanediol 10 mg 10 mg PO DAILY 02/06/24 02/06/24 tablet (Farxiga) dexamethasone 4 mg tablet 4 mg PO DAILY 02/06/24 02/06/24 glimepiride 4 mg tablet 4 mg PO DAILY 02/06/24 02/06/24 levothyroxine 50 mcg tablet 50 mcg PO DAILYDM 02/06/24 02/06/24 lisinopril 40 mg tablet 40 mg PO DAILY 02/06/24 02/06/24 pantoprazole 40 mg tablet,delayed 40 mg PO HS 02/06/24 02/06/24 release potassium chloride 20 mEq 20 meq PO DAILY 02/06/24 02/06/24 tablet,extended release(part/cryst) prochlorperazine maleate 10 mg 5 mg PO Q6H PRN nausea 02/06/24 02/06/24 tablet (Compazine) semaglutide 14 mg tablet (Rybelsus) 14 mg PO DAILY 02/06/24 02/06/24 tramadol 50 mg tablet 50 mg PO Q6HP PRN Moderate Pain 02/06/24 02/06/24 (Scale Score 5-6) venlafaxine 37.5 mg 37.5 mg PO DAILY 02/06/24 02/06/24 capsule,extended release 24 hr
[2024-02-08 15:38] LABS: Lymphocytes % 11 % (10-50); Monocytes % 2 % (2-9); Neutrophils % 87 % (42-76); Platelet Estimate Normal; RBC Morphology Normal; Total Cells Counted 100
[2024-02-08 16:00] VITALS: BP 118/60; PULSE 90; PULSE 92; RESP 20; TEMP 36.9; O2SAT 98
--- NOTE | 2024-02-08 16:02 | P.CONPHA_ITS ---
[facility] Pharmacy Heparin Dosing Demographic Data Admission date:: 02/05/24 Date: 02/08/24 Time: 16:02 Allergies Allergy/AdvReac Type Severity Reaction Status Date / Time No Known Allergies Allergy Verified 12/07/23 12:03 Height: 1.78 m Weight: 76.385 kg Indication Medication therapy:: Heparin Current Indications:: HIGH DOSE PROTOCOL - PATIENT HAS A PE, CARDIOLOGY WANTS ANTICOAGULATION FOR RIGHT HEART CATH PROCEDURE TOMORROW. Current Active Problems (Updated 02/08/24 @ 10:59 by Celestina Lucas, DEMETRI) Pulmonary embolism (Acute) Pleural effusion (Acute) Heart failure with reduced ejection fraction (Acute) Sepsis (Acute) Pneumonia (Acute) Acute CHF (congestive heart failure) (Acute) Acute hypoxemic respiratory failure (Acute) Malignant ascites (Acute) Overweight with body mass index (BMI) of 28 to 28.9 in adult (Acute) Hypothyroid (Acute) Hyperlipidemia (Acute) Hypertension (Acute) Diabetes mellitus (Acute) CVA?: No Bleeding problem?: No Kidney disease?: No HI?: No Additional History:: HEART FAILURE WITH REDUCED EJECTION FRACTION, OVERWEIGHT, HYPERLIPIDEMIA, HYPERTENSION, DIABETES Desired PTT range:: 50-75 seconds Comments:: BASELINE PTT: Labs Anticoagulation Lab Results:: 02/08/24 02/08/24 05:56 14:14 Hgb 8.3 L 8.7 L Hct 26.2 L 28.2 L Plt Count 389 424 Monitoring Dose Monitor 1: Date: 02/08/24 Time: 21:00 PTT Result:: BASELINE PTT: 25.5 SECONDS Infusion Rate:: RECOMMEND INITIATING HEPARIN DRIP AT 1400 UNITS/HOUR = 28 ML/HOUR AND BOLUSING 6100 UNITS HEPARIN IV ONCE. Comment:: DRIP TO START AT 21:00 PER CARDIOLOGY, OBTAINING BASELINE PTT AT 20:00 Dose Monitor 2: Date: 02/08/24 Time: 22:15 PTT Result:: 115.9 SECONDS Infusion Rate:: RECOMMEND CONTINUING HEPARIN DRIP AT 1400 UNITS/HOUR = 28 ML/HOUR. Dose Monitor 3: Date: 02/08/24 Time: 00:14 PTT Result:: 66.9 SECONDS Infusion Rate:: RECOMMEND CONTINUING HEPARIN DRIP AT 1400 UNITS/HOUR = 28 ML/HOUR. Dose Monitor 4: Date: 02/09/24 Time: 02:15 PTT Result:: 56.8 SECONDS Infusion Rate:: RECOMMEND CONTINUING HEPARIN DRIP AT 1400 UNITS/HOUR = 28 ML/HOUR. Dose Monitor 5: Date: 02/09/24 Time: 08:00 PTT Result:: RECOMMEND INCREASING HEPARIN DRIP RATE TO 1600 UNITS/HOUR = 32 ML/HOUR Comment:: PLATELET COUNT = 424,000 Dose Monitor 6: Date: 02/09/24 Time: 14:00 PTT Result:: DRIP STOPPED AND PATIENT STARTED ON ELIQUIS 10 MG BID. Core Measures Is INR > or = 2 at discharge?: No Most Recent Labs:: Laboratory Results - last 24 hr 02/07/24 17:09: POC Glucose 242 H 02/07/24 20:36: POC Glucose 275 H 02/08/24 04:48: Sodium 132 L, Potassium 3.4 L, Chloride 101, Carbon Dioxide 29, Anion Gap 5.4, BUN 32 H D, Creatinine 0.60, Estimated Creat Clear 72, Estimated GFR 100, Est GFR ( Amer) 121, Glucose 169 H D, Calcium 8.8, Magnesium 1.9, Total Bilirubin 0.5, AST 28, ALT 28, Alkaline Phosphatase 134 H, Total Protein 6.6, Albumin 3.4 L, Globulin 3.2, Albumin/Globulin Ratio 1.1 02/08/24 05:32: POC Glucose 189 H 02/08/24 05:56: WBC 6.9 D, RBC 2.89 L, Hgb 8.3 L, Hct 26.2 L, MCV 90.7, MCH 28.6, MCHC 31.5 L, RDW 22.5 H, Plt Count 389, MPV 8.9, Neut % (Auto) 81.0 H, Lymph % (Auto) 15.0, [place] % (Auto) 3.7, Eos % (Auto) 0.2, Baso % (Auto) 0.2, Neut # (Auto) 5.6, Lymph # (Auto) 1.0, [place] # (Auto) 0.3, Eos # (Auto) 0.0, Baso # (Auto) 0.0, Sodium 134 L, Potassium 3.3 L, Chloride 102, Carbon Dioxide 28, Anion Gap 7.3, BUN 30 H, Creatinine 0.60, Estimated Creat Clear 68, Estimated GFR 100, Est GFR ( Amer) 121, Glucose 170 H, Calcium 8.9 02/08/24 13:00: APTT 26.2 L 02/08/24 14:14: WBC 7.7, RBC 3.04 L, Hgb 8.7 L, Hct 28.2 L, MCV 92.9, MCH 28.7, MCHC 30.9 L, RDW 22.6 H, Plt Count 424, MPV 9.5, Neut % (Auto) 90.8 H, Lymph % (Auto) 6.8 L, [place] % (Auto) 2.2, Eos % (Auto) 0.1, Baso % (Auto) 0.1, Neut # (Auto) 7.0, Lymph # (Auto) 0.5 L, [place] # (Auto) 0.2, Eos # (Auto) 0.0, Baso # (Auto) 0.0, Total Counted 100, Neutrophils % (Manual) 87 H, Lymphocytes % (Manual) 11, Monocytes % (Manual) 2, Platelet Estimate Normal, RBC Morphology Normal, Sodium 133 L, Potassium 3.6, Chloride 100, Carbon Dioxide 27, Anion Gap 9.6, BUN 30 H, Creatinine 0.60, Estimated Creat Clear 68, Estimated GFR 100, Est GFR ( Amer) 121, Glucose 221 H D, Calcium 9.1 If INR was < than 2.0 why was therapy stopped?: PATIENT STARTED ON ELIQUIS Were Heparin and Warfarin started on the same day?: No If not, why?: PATIENT STARTED ON ELIQUIS
[2024-02-08] MEDS: HEPARIN DRIP CONSULT 1 EACH NOTAPPLIC (16:22)
--- NOTE | 2024-02-08 17:07 | P.PN_ITS ---
Subjective *Date: 02/08/24 *Time: 17:07 Interval history: Patient states she feels well today, better than yesterday. Ambulating, tolerating p.o. intake well. Denies shortness of breath, on room air. No chest pains. Exam Data for Last 24 hours Vital signs and Labs for Last 24 Hours: Temp Pulse Resp BP Pulse Ox O2 Del Method O2 Flow Rate 98.3 F 80 18 122/63 97 Room Air 1 02/08/24 12:00 02/08/24 12:00 02/08/24 12:00 02/08/24 12:00 02/08/24 12:00 02/08/24 15:00 02/07/24 08:00 FiO2 30 02/06/24 10:02 Laboratory Results - last 24 hr 02/07/24 17:09: POC Glucose 242 H 02/07/24 20:36: POC Glucose 275 H 02/08/24 04:48: Sodium 132 L, Potassium 3.4 L, Chloride 101, Carbon Dioxide 29, Anion Gap 5.4, BUN 32 H D, Creatinine 0.60, Estimated Creat Clear 72, Estimated GFR 100, Est GFR ( Amer) 121, Glucose 169 H D, Calcium 8.8, Magnesium 1.9, Total Bilirubin 0.5, AST 28, ALT 28, Alkaline Phosphatase 134 H, Total Protein 6.6, Albumin 3.4 L, Globulin 3.2, Albumin/Globulin Ratio 1.1 02/08/24 05:32: POC Glucose 189 H 02/08/24 05:56: WBC 6.9 D, RBC 2.89 L, Hgb 8.3 L, Hct 26.2 L, MCV 90.7, MCH 28.6, MCHC 31.5 L, RDW 22.5 H, Plt Count 389, MPV 8.9, Neut % (Auto) 81.0 H, Lymph % (Auto) 15.0, [place] % (Auto) 3.7, Eos % (Auto) 0.2, Baso % (Auto) 0.2, Neut # (Auto) 5.6, Lymph # (Auto) 1.0, [place] # (Auto) 0.3, Eos # (Auto) 0.0, Baso # (Auto) 0.0, Sodium 134 L, Potassium 3.3 L, Chloride 102, Carbon Dioxide 28, Anion Gap 7.3, BUN 30 H, Creatinine 0.60, Estimated Creat Clear 68, Estimated GFR 100, Est GFR ( Amer) 121, Glucose 170 H, Calcium 8.9 02/08/24 13:00: APTT 26.2 L 02/08/24 14:14: WBC 7.7, RBC 3.04 L, Hgb 8.7 L, Hct 28.2 L, MCV 92.9, MCH 28.7, MCHC 30.9 L, RDW 22.6 H, Plt Count 424, MPV 9.5, Neut % (Auto) 90.8 H, Lymph % (Auto) 6.8 L, [place] % (Auto) 2.2, Eos % (Auto) 0.1, Baso % (Auto) 0.1, Neut # (Auto) 7.0, Lymph # (Auto) 0.5 L, [place] # (Auto) 0.2, Eos # (Auto) 0.0, Baso # (Auto) 0.0, Total Counted 100, Neutrophils % (Manual) 87 H, Lymphocytes % (Manual) 11, Monocytes % (Manual) 2, Platelet Estimate Normal, RBC Morphology Normal, Sodium 133 L, Potassium 3.6, Chloride 100, Carbon Dioxide 27, Anion Gap 9.6, BUN 30 H, Creatinine 0.60, Estimated Creat Clear 68, Estimated GFR 100, Est GFR ( Amer) 121, Glucose 221 H D, Calcium 9.1 I & O for Last 24 hours: Intake & Output 02/05/24 02/06/24 02/07/24 02/08/24 23:59 23:59 23:59 23:59 Intake Total 490.074 / 435.983 7446.276 / 2291.543 8151 / 1830 790 / 790 Output Total 355 / 555 4905 / 4965 3100 / 3100 800 / 800 Balance 135.074 / -64.926 -3724.724 / -3784.724 -1420 / -1270 -10 / -10 Weight 81.465 kg 81.465 kg 81.148 kg 76.385 kg Microbiology Reports for the Last 24 Hours: Microbiology 02/06/24 21:00 Nose MRSA Culture - Final Negative 02/05/24 20:10 Sputum - Endotracheal Tube Aspirate Gram Stain - Final 02/05/24 20:10 Sputum - Endotracheal Tube Aspirate Sputum Culture - Preliminary Gram Positive Cocci 02/05/24 20:25 Blood Blood Culture - Preliminary NO GROWTH AFTER 48 HOURS 02/05/24 18:55 Blood Blood Culture - Preliminary NO GROWTH AFTER 48 HOURS 02/06/24 12:21 Sputum - Expectorated Sputum Gram Stain - Final 02/06/24 17:55 Blood Blood Culture - Preliminary NO GROWTH AFTER 24 HOURS 02/06/24 17:55 Blood Blood Culture - Preliminary NO GROWTH AFTER 24 HOURS *Routine HEENT Exam Head: Present normocephalic Eye: Present EOMI and PERRL ENT: Present mucous membranes moist *Routine Neck Exam Neck: Present supple; Absent lymphadenopathy *Routine Respiratory Exam Comments: Mild bilateral pulmonary crackles *Routine Cardiovascular Exam Cardiovascular: Present RRR *Routine Abdominal Exam Abdominal: Present soft and normoactive bowel sounds; Absent tenderness *Routine Extremities Exam Extremities: Absent cyanosis, clubbing or edema *Routine Skin Exam Skin: Present warm; Absent rash *Routine Neurological Exam Comments: Intubated and sedated per Assessment and Plan *Assessment and plan (1) Acute CHF (congestive heart failure): Status: Acute Category: Medical Code(s): I50.9 - Heart failure, unspecified (2) Acute hypoxemic respiratory failure: Status: Acute Category: Medical Code(s): J96.01 - Acute respiratory failure with hypoxia (3) Pneumonia: Status: Acute Category: Medical Code(s): J18.9 - Pneumonia, unspecified organism (4) Sepsis: Status: Acute Category: Medical Code(s): A41.9 - Sepsis, unspecified organism Plan Patient is a 64-year-old female with past medical history of diabetes mellitus hypertension, ovarian cancer on chemotherapy, hyperlipidemia who presents to the hospital in respiratory distress. Reportedly patient had sudden onset shortness of breath at home while eating, was brought to the hospital, in the hospital patient was noted to be in respiratory distress with hypoxia. Patient was also found to have high blood pressures in ED. Patient chest x-ray was positive for signs of pulmonary edema. Patient was intubated and sedated. Case discussed with ED attending and decision was made to admit patient for acute hypoxic respiratory failure secondary to new onset heart failure, pneumonia, pulmonary edema #Acute hypoxic respiratory failure, resolved #Acute bilateral pulmonary edema #Moderate to large left pleural effusion # New onset HFrEF with exacerbation ? Patient successfully extubated on 02/06/2024. Currently on room air, comfortable. Patient states she feels well this morning, better than yesterday. ? Initial chest x-ray positive for bilateral perihilar consolidation suggestive of pulmonary edema ? Initial proBNP significantly elevated 5620. No history of cardiac disease, CVA. Does have hypertension. ? Patient does get chemotherapy infusions of paclitaxel and docetaxel for ovarian cancer. Docetaxel has been associated with cardiotoxicity, heart failure. Presentation was not consistent with anaphylaxis. ? Heart failure likely exacerbated by underlying pneumonia. ? ECHO on 02/08/2024 shows LVEF 25%, with septal, inferior septal, anteroseptal LV babcock nearly akinetic. Cardiology plans for [facility] tomorrow. N.p.o. at midnight. ? Follow-up A1c, lipid panel, TSH in the morning for restratification. ? Started aspirin, atorvastatin, Farxiga, carvedilol. Consider full GDMT as BP tolerates. ? IV Lasix 40 mg twice daily, patient making good urine output. Lungs sound less edematous. ? Strict MARSHALL's, fluid/salt restriction, bed elevation. ? Cardiology consulted, appreciate recommendations recommendations. ? Pulmonology consulted, appreciate recommendations. Plan to do thoracentesis outpatient. ? PT/OT consulted, pending recommendations. Encouraged patient to try to ambulate today. ? If patient continues to feel well tomorrow, ambulates and tolerates p.o. intake, anticipate discharge tomorrow with close follow-up with cardiology, oncology. #Right upper, lower lobe pulmonary emboli ? CTA chest revealed segmental right lower lobe pulmonary embolus and subsegmental right upper lobe pulmonary embolus. No evidence of right heart strain. ? Eliquis 10 mg twice daily for 10 days, then 5 mg twice daily. Held and transitioned to heparin drip pending [facility] tomorrow. #Sepsis, resolved # Multifocal pneumonia ? CXR, procalcitonin, leukocytosis consistent with pneumonia. ? WBC improving this morning to 7.7. Initial 29.5. ? Continue IV cefepime pending cultures. Discontinue vancomycin on 02/08/2024 as MRSA negative. ? Follow-up respiratory cultures, blood cultures NGTD 24 hours. ? Pulmonology consulted, appreciate recommendations. #Nonmetastatic ovarian cancer ? Receives chemotherapy with paclitaxel, docetaxel at [facility]. Will need close follow-up upon discharge. #Acute on chronic chronic normocytic anemia ? Hemoglobin 8.7, down from 10.6 on admission. ? No evidence of bleed at this time. ? Continue to monitor hemoglobin #Diabetes ? LDSSI, ACHS glucose checks. ? basal insulin as needed based on SSI needs. #Hypertension ? Continue home amlodipine CODE STATUS: Full code DVT prophylaxis: Heparin drip Diet: Diabetic
--- NOTE | 2024-02-08 18:23 | PC.NURSE ---
pt has done well this shift. states that she feels better and is eager to go home. No c.o pain or shortness of breath this shift. vss.
[2024-02-08 20:00] VITALS: BP 122/64; PULSE 87; PULSE 90; RESP 14; TEMP 36.7; O2SAT 97
[2024-02-08 20:17] LABS: POC Glucose,Bedside 245 (70-110)
[2024-02-08] MEDS: HEPARIN 25,000 UNITS/D5W 500 ML 28 UNIT IV (20:32)
[2024-02-08] MEDS: TRAMADOL 50MG TABLET 50 MG PO (20:34)
[2024-02-08] MEDS: ATORVASTATIN 10MG TABLET 10 MG PO (20:34)
[2024-02-08] MEDS: VENLAFAXINE 37.5MG TABLET 37.5 MG PO (20:34)
[2024-02-08] MEDS: PANTOPRAZOLE 40MG TABLET 40 MG PO (20:35)
[2024-02-08] MEDS: HEPARIN SODIUM 5,000 UNIT/ML VIAL 6100 UNIT IV (20:35)
[2024-02-08] MEDS: INSULIN GLARGINE 100 UNITS/ML 3ML FLEXPEN 15 UNIT SQ (20:36)
[2024-02-08] MEDS: ATORVASTATIN 40MG TABLET 40 MG PO (20:36)
[2024-02-08 20:44] LABS: PTT Heparin (inpatient only) 25.5 Seconds (50-75)
[2024-02-08 23:24] LABS: PTT Heparin (inpatient only) 115.9 Seconds (50-75)
[2024-02-09] VITALS (23 sets, daily range): BP systolic 89–151; BP diastolic 56–84; PULSE 70–153; RESP 16–20; TEMP 36.5–37.4; O2SAT 96–100; BMI 24.0
[2024-02-09 00:32] LABS: PTT Heparin (inpatient only) 66.9 Seconds (50-75)
[2024-02-09 02:34] LABS: PTT Heparin (inpatient only) 56.8 Seconds (50-75)
[2024-02-09] MEDS: CEFEPIME HCL 2 GM in 0.9 % SODIUM CHLORIDE 100 ML IV ×3 (05:53→20:42)
[2024-02-09] MEDS: humaLOG 100 UNITS/ML 10ML VIAL (SSI) SQ ×3 (05:53→20:36)
[2024-02-09] MEDS: LEVOTHYROXINE 50MCG (0.05MG) TAB 50 MCG PO (06:00)
[2024-02-09 06:12] LABS: POC Glucose,Bedside 163 (70-110)
[2024-02-09 06:14] LABS: Basophils % 0.2 % (0.1-2.0); Eosinophils % 0.1 % (0.1-12.0); Hematocrit 27.8 % (37.0-47.0); Hemoglobin 8.9 g/dL (12.2-16.2); Lymphocytes # 1.5 K/mm3 (0.7-4.5); Mean Corpuscular HGB Conc 31.9 g/dL (31.8-35.4); Mean Corpuscular Hemoglobin 28.7 pg (27.0-31.2); Mean Platelet Volume 8.9 fl (7.4-10.4); Monocytes # 0.2 K/mm3 (0.1-1.0); Monocytes % 2.8 % (1.7-9.3); Neutrophils # 3.8 K/mm3 (1.8-7.8); Neutrophils % 69.8 % (37.0-80.0); Platelet Count 424 K/mm3 (142-424); Red Blood Count 3.09 M/mm3 (4.20-5.40); Red Cell Distribution Width 22.6 % (11.5-17.5); White Blood Count 5.5 K/mm3 (4.8-10.8)
[2024-02-09 06:21] LABS: Anion Gap 10.4 mEq/L (5-15); Blood Urea Nitrogen 35 mg/dl (7-17); Calcium 9.2 mg/dl (8.4-10.2); Carbon Dioxide 28 mmol/L (22.0-30.0); Chloride 98 mmol/L (98-107); Creatinine Clearance Estimated 68 mL/min (50-200); Estimated Glomerular Filt Rate 100 ml/min (>60); GFR (African American) 121 ML/MIN (>60); Glucose 154 mg/dl (74-100); Potassium 3.4 mmoL/L (3.5-5.1); Sodium 133 mmol/L (136-145)
[2024-02-09 06:40] LABS: Chol/HDL Ratio 2.4 (1-3.5); Cholesterol 184 mg/dl (140-200); HDL Cholesterol 77 mg/dl (40-60); Triglycerides 124 mg/dl (30-150); VLDL Cholesterol 25 mg/dL (0-40)
[2024-02-09 06:51] LABS: Thyroid Stimulating Hormone 3.78 uIU/mL (0.465-4.68)
[2024-02-09 07:02] LABS: Direct LDL Cholesterol 72.15 mg/dL (100-129)
--- NOTE | 2024-02-09 07:24 | IR_ITS ---
APPROVED REPORT Patient Location: Inpatient PROCEDURES 1. Left heart catheterization 2. Selective coronary arteriography 3. Left ventriculography 4. PTCA/stent of the right coronary artery INDICATION 1. Angina pectoris, 2. Cardiomyopathy SCAI INDICATION Patient is 64-year-old white female who presented with cardiomyopathy. Being treated for ovarian carcinoma. Ejection fraction noted to be severely decreased at 20 to 25%. Abnormal EKG. Secondary to this referred for left heart catheterization Informed consent was obtained prior to the procedure. COMPLICATIONS NONE Estimated Blood Loss: LESS THAN 10 ML TECHNIQUE One percent lidocaine used to anesthetize the right anterior aspect of the wrist. The right radial artery was accessed via the Seldinger technique. A 6 Slovak sheath was placed in the right radial artery. 2.5 mg of Verapamil, 800 mcg of nitroglycerin, 1mg Lidocaine and 5000 U Heparin were given through the arterial sheath. The papa catheter was also used to perform left heart catheterization, left ventriculogram and selective coronary angiogram. At the end of the procedure the sheath was removed good hemostasis was achieved using Traclet band, patient was transferred to the postop holding area in stable condition. ANGIOGRAPHIC RESULTS The left main artery Angiographically normal The left anterior descending artery Had smooth 30% proximal and smooth 30% mid stenosis. Mild calcification The circumflex artery Was moderate in size. There was a high first obtuse marginal branch/ramus which was large in size. That vessel had mild luminal irregularities. The true circumflex itself came off at a 90 degree angle from that OM/ramus. Just after the takeoff of the true circumflex itself in its midportion patient had an eccentric 80 to 85% stenosis. The vessel was small at this area. Normal MARLEEN-3 flow to the distal vessel The right coronary artery Was very large in size and dominant. Diffuse 85 to 90% mid stenosis with mild to moderate calcification at that level The ANTHONY ventriculogram reveals Mild global reduction in left ventricular systolic function at 40 to 45% The left ventricular end-diastolic pressure Elevated at 27 After diagnostic cardiac catheterization and after I had engaged the right coronary artery I went ahead and gave extra heparin. ACT was greater than 300. Crossed with a Choice PT wire into the distal right coronary artery. I tried to primarily stent with a 2.75 x 38 mm drug-eluting stent. The stent would not cross the calcific stenosis in the mid vessel. I had to predilate with a 2.0 x 15 balloon. I predilated in 3 separate locations. I still had some difficulty getting the 2.75 x 38 across but was able to finally get across to what I felt like was a good section in the mid vessel. It did completely occlude flow down the right coronary artery. I took that up to 14 [place] for 10 seconds. Resulted in 0% residual stenosis at that area with no compromise of any branch. There was still some stenosis just past the stent. I placed 1 more 2.75 x 12 mm drug-eluting stent at that location overlapping the distal portion of my first stent. I also took that up to 14 garland for 10 seconds. I then measured at 16 garland for 5 seconds. Resulted in 0% residual stenosis with brisk MARLEEN-3 flow down the right coronary artery and into the large posterior descending artery and posterolateral branches I did not reengage the left main coronary artery to get a better look at that circumflex stenoses. I tried to wire just to see if I could get a wire across and around the bend. Was unsuccessful with multiple wires and multiple attempts to get the wire around the 90 degree bend after the OM/ramus came off. Secondary to this and the size of the vessel itself I decided to leave that alone and treat that medically IMPRESSION 1. Critical stenosis noted throughout the mid large dominant right coronary artery 2. Severe stenosis noted in the small true circumflex in its midportion 3. Mild global reduction in left ventricular systolic function 4. Elevated left ventricular end-diastolic pressure 5. Successful angioplasty and stenting of the mid large dominant right coronary artery with drug-eluting stents resulting in 0% residual stenosis 6. Successful placement of a radial band on the right radial artery PLAN 1. Patient will continue with aggressive medical therapy. Patient is on Eliquis for pulmonary embolus. We will place her on Plavix 600 mg x 1 now then 75 mg daily. Aggressive medical therapy. The right coronary artery had an excellent result with stenting. Excellent MARLEEN-3 flow into the large posterior descending artery and posterior lateral branches. We did attempt to wire the true circumflex itself. That vessel was coming off at a greater than 90 degree angle. Given the small size of the vessel we decided best to treat that medically. If she has further symptoms we can bring her back for a further attempt on that true circumflex but given the size, I favor medical therapy. She is now on Eliquis and Plavix. Aggressive risk factor modification. It looks like her ejection fraction has already improved to 40 to 45%. End-diastolic pressure is elevated. Diuretics as needed. Treatment for cardiomyopathy. Follow-up in cardiology clinic 1 to 2 weeks after discharge Electronically signed by : Froylan Harry MD 02/09/2024 14:08:07
[2024-02-09 08:55] LABS: POC Glucose,Bedside 338 (70-110)
[2024-02-09 08:55] LABS: POC Glucose,Bedside 219 (70-110)
[2024-02-09 08:57] LABS: Hemoglobin A1C 5.6 % (4.0-6.0)
[2024-02-09] MEDS: AMLODIPINE 10MG TABLET 10 MG PO (09:03)
[2024-02-09] MEDS: DAPAGLIFLOZIN PROPANEDIOL 10 MG TABLET PO (09:03)
[2024-02-09] MEDS: FUROSEMIDE 40MG/4ML VIAL 40 MG IV (09:04)
[2024-02-09] MEDS: ASPIRIN EC 81MG TABLET 81 MG PO (09:04)
[2024-02-09] MEDS: CARVEDILOL 12.5MG TABLET 12.5 MG PO ×2 (09:04→20:35)
[2024-02-09] MEDS: POTASSIUM CHLORIDE 20MEQ TAB 20 MEQ PO (09:04)
[2024-02-09] MEDS: MAGIC MOUTHWASH 300ML BOTTLE PO ×2 (09:21→19:17)
--- NOTE | 2024-02-09 10:11 | P.PN_ITS ---
Subjective *Date: 02/09/24 *Time: 12:07 Interval history: No acute respiratory vents overnight. Patient denies any new respiratory complaints. Pulmonology Exam Inpatient Vital signs and Labs for Last 24 Hours: Temp Pulse Resp BP Pulse Ox O2 Del Method O2 Flow Rate 98.0 F 81 18 147/80 H 98 Room Air 1 02/09/24 08:00 02/09/24 08:00 02/09/24 08:00 02/09/24 08:00 02/09/24 08:00 02/09/24 08:00 02/07/24 08:00 FiO2 30 02/06/24 10:02 Laboratory Results - last 24 hr 02/07/24 17:09: POC Glucose 242 H 02/08/24 11:53: POC Glucose 219 H 02/08/24 13:00: APTT 26.2 L 02/08/24 14:14: WBC 7.7, RBC 3.04 L, Hgb 8.7 L, Hct 28.2 L, MCV 92.9, MCH 28.7, MCHC 30.9 L, RDW 22.6 H, Plt Count 424, MPV 9.5, Neut % (Auto) 90.8 H, Lymph % (Auto) 6.8 L, [place] % (Auto) 2.2, Eos % (Auto) 0.1, Baso % (Auto) 0.1, Neut # (Auto) 7.0, Lymph # (Auto) 0.5 L, [place] # (Auto) 0.2, Eos # (Auto) 0.0, Baso # (Auto) 0.0, Total Counted 100, Neutrophils % (Manual) 87 H, Lymphocytes % (Manual) 11, Monocytes % (Manual) 2, Platelet Estimate Normal, RBC Morphology Normal, Sodium 133 L, Potassium 3.6, Chloride 100, Carbon Dioxide 27, Anion Gap 9.6, BUN 30 H, Creatinine 0.60, Estimated Creat Clear 68, Estimated GFR 100, Est GFR ( Amer) 121, Glucose 221 H D, Calcium 9.1 02/08/24 16:30: POC Glucose 338 H* 02/08/24 20:00: APTT 25.5 L 02/08/24 20:06: POC Glucose 245 H 02/08/24 22:15: APTT 115.9 H* 02/09/24 00:14: APTT 66.9 02/09/24 02:15: APTT 56.8 02/09/24 05:40: POC Glucose 163 H 02/09/24 05:41: WBC 5.5 D, RBC 3.09 L, Hgb 8.9 L, Hct 27.8 L, MCV 90.0, MCH 28.7, MCHC 31.9, RDW 22.6 H, Plt Count 424, MPV 8.9, Neut % (Auto) 69.8, Lymph % (Auto) 27.0, [place] % (Auto) 2.8, Eos % (Auto) 0.1, Baso % (Auto) 0.2, Neut # (Auto) 3.8, Lymph # (Auto) 1.5, [place] # (Auto) 0.2, Eos # (Auto) 0.0, Baso # (Auto) 0.0, Sodium 133 L, Potassium 3.4 L, Chloride 98, Carbon Dioxide 28, Anion Gap 10.4, BUN 35 H, Creatinine 0.60, Estimated Creat Clear 68, Estimated GFR 100, Est GFR ( Amer) 121, Glucose 154 H D, Hemoglobin A1c 5.6, Calcium 9.2, Triglycerides 124, Cholesterol 184, LDL Cholesterol Direct 72.15 L, VLDL Cholesterol 25, HDL Cholesterol 77 H, Cholesterol/HDL Ratio 2.4, TSH 3.78 02/09/24 08:00: APTT 47.0 L Temp Pulse Resp BP Pulse Ox O2 Del Method O2 Flow Rate 97.9 F 92 H 18 120/67 97 Room Air 1 02/08/24 08:00 02/08/24 08:00 02/08/24 08:00 02/08/24 08:00 02/08/24 08:00 02/08/24 09:39 02/07/24 08:00 FiO2 30 02/06/24 10:02 Laboratory Results - last 24 hr 02/05/24 18:55: Hepatitis C Antibody Non reactive, Hep C Ab Comment Comment 02/07/24 11:22: POC Glucose 287 H 02/07/24 20:36: POC Glucose 275 H 02/08/24 04:48: Sodium 132 L, Potassium 3.4 L, Chloride 101, Carbon Dioxide 29, Anion Gap 5.4, BUN 32 H D, Creatinine 0.60, Estimated Creat Clear 72, Estimated GFR 100, Est GFR ( Amer) 121, Glucose 169 H D, Calcium 8.8, Magnesium 1.9, Total Bilirubin 0.5, AST 28, ALT 28, Alkaline Phosphatase 134 H, Total Protein 6.6, Albumin 3.4 L, Globulin 3.2, Albumin/Globulin Ratio 1.1 02/08/24 05:32: POC Glucose 189 H 02/08/24 05:56: WBC 6.9 D, RBC 2.89 L, Hgb 8.3 L, Hct 26.2 L, MCV 90.7, MCH 28.6, MCHC 31.5 L, RDW 22.5 H, Plt Count 389, MPV 8.9, Neut % (Auto) 81.0 H, Lymph % (Auto) 15.0, [place] % (Auto) 3.7, Eos % (Auto) 0.2, Baso % (Auto) 0.2, Neut # (Auto) 5.6, Lymph # (Auto) 1.0, [place] # (Auto) 0.3, Eos # (Auto) 0.0, Baso # (Auto) 0.0, Sodium 134 L, Potassium 3.3 L, Chloride 102, Carbon Dioxide 28, Anion Gap 7.3, BUN 30 H, Creatinine 0.60, Estimated Creat Clear 68, Estimated GFR 100, Est GFR ( Amer) 121, Glucose 170 H, Calcium 8.9 I & O for Labs for Last 24 Hours: Intake & Output 02/06/24 02/07/24 02/08/24 02/09/24 23:59 23:59 23:59 23:59 Intake Total 1180.276 / 3560.355 7007 / 1830 1160 / 1260 715 / 715 Output Total 4905 / 4965 3100 / 3100 1999 / 1999 Balance -3724.724 / -3784.724 -1420 / -1270 -840 / -740 715 / 715 Weight 179 lb 9.6 oz 178 lb 14.411 oz 168 lb 6.401 oz 168 lb 6.401 oz Intake & Output 02/05/24 02/06/24 02/07/24 02/08/24 23:59 23:59 23:59 23:59 Intake Total 490.074 / 742.100 4504.276 / 3117.472 2522 / 1830 250 / 250 Output Total 355 / 555 4905 / 4965 3100 / 3100 0 / 0 Balance 135.074 / -64.926 -3724.724 / -3784.724 -1420 / -1270 250 / 250 Weight 179 lb 9.6 oz 179 lb 9.6 oz 178 lb 14.411 oz 168 lb 6.4 oz Microbiology Reports for the Last 24 Hours: Microbiology 02/06/24 12:21 Sputum - Expectorated Sputum Gram Stain - Final 02/06/24 12:21 Sputum - Expectorated Sputum Sputum Culture - Final 02/05/24 20:10 Sputum - Endotracheal Tube Aspirate Gram Stain - Final 02/05/24 20:10 Sputum - Endotracheal Tube Aspirate Sputum Culture - Final Strep agalactiae - (group b) 02/06/24 17:55 Blood Blood Culture - Preliminary NO GROWTH AFTER 48 HOURS 02/06/24 17:55 Blood Blood Culture - Preliminary NO GROWTH AFTER 48 HOURS 02/06/24 21:00 Nose MRSA Culture - Final Negative Microbiology 02/06/24 21:00 Nose MRSA Culture - Final Negative 02/05/24 20:10 Sputum - Endotracheal Tube Aspirate Gram Stain - Final 02/05/24 20:10 Sputum - Endotracheal Tube Aspirate Sputum Culture - Preliminary Gram Positive Cocci 02/05/24 20:25 Blood Blood Culture - Preliminary NO GROWTH AFTER 48 HOURS 02/05/24 18:55 Blood Blood Culture - Preliminary NO GROWTH AFTER 48 HOURS 02/06/24 12:21 Sputum - Expectorated Sputum Gram Stain - Final 02/06/24 17:55 Blood Blood Culture - Preliminary NO GROWTH AFTER 24 HOURS 02/06/24 17:55 Blood Blood Culture - Preliminary NO GROWTH AFTER 24 HOURS Constitutional: Present moderate distress Head: Present normocephalic and atraumatic ENT: Present normal exam, normal oropharynx and mucous membranes moist Neck: Present normal inspection and full ROM Respiratory: Present rhonchi, crackles and able to speak in complete sentences; Absent respiratory distress or wheezes Cardiac: Present S1/S2, Tachycardia and radial pulses present GI: Present soft and distention; Absent tenderness or guarding Rectal (female): Present deferred (female): Present deferred Skin: Present intact; Absent cyanosis or jaundice Neuro: Present alert, awake and oriented x 3 Extremities: Present normal inspection; Absent clubbing or cyanosis Psychiatric: Present normal affect and cooperative Assessment and Plan *Assessment and plan (1) Pulmonary embolism: Status: Acute Category: Medical Code(s): I26.99 - Other pulmonary embolism without acute cor pulmonale (2) Pleural effusion: Status: Acute Category: Medical Code(s): J90 - Pleural effusion, not elsewhere classified (3) Sepsis: Status: Acute Category: Medical Code(s): A41.9 - Sepsis, unspecified organism (4) Pneumonia: Status: Acute Category: Medical Code(s): J18.9 - Pneumonia, unspecified organism Plan Ms. Lezama is a 64-year-old female history of diabetes mellitus hypertension ovarian cancer on chemotherapy dyslipidemia presented with sudden onset worsening respiratory's is concerning for pulmonary edema needing intubation mechanical ventilatory supplement pulmonary was called for further evaluation and management. Patient denies any significant smoking history denies any prior respiratory complaints. Not using inhalers at baseline. Patient was followed remotely over the weekend, successfully performed spontaneous breathing trial and was extubated to, weaned to room air. Significant neutrophilic predominant leukocytosis upon admission. CT upon admission bilateral diffuse groundglass opacities, left lower lobe effusion and adjacent dense lobar consolidative changes along with right lower lobe consolidative changes. Segmental right lower lobe pulmonary embolism also noted with no evidence of right heart strain. Echo : EF 25% Interval update: No acute respiratory vents overnight. Continue to remain on room air. Vancomycin discontinued yesterday. Afebrile. Hemodynamically stable. Sputum growing strep atelectatic, antibiotics can be weaned to levofloxacin to complete a total of 5-day course. Plan: Wean antibiotics to levofloxacin to complete a total of 7 day course from pulmonary standpoint. DuoNebs every 6 hours on as-needed basis Continue Eliquis for pulm embolism. Likely need indefinite anticoagulation in setting of malignancy Will follow the concerning left-sided pleural effusion as an outpatient basis. Will hold off on performing thoracentesis at this point of time. # Thank you for involving pulmonary in this patient care. Will continue to follow.
--- NOTE | 2024-02-09 10:32 | P.PN_ITS ---
Subjective Subjective Date: 02/09/24 Time: 08:00 Principal diagnosis: Right-sided pulmonary embolism, acute hypoxic respiratory failure, new [place] Interval history: Patient doing well this morning. Continues to diurese well. Denies chest pain or shortness of breath. Maintaining oxygen saturation on room air. Morning labs reviewed and stable. Left heart catheterization is pending for today. Exam Data for Last 24 hours Vital signs and Labs for Last 24 Hours: Temp Pulse Resp BP Pulse Ox O2 Del Method O2 Flow Rate 98.0 F 81 18 147/80 H 98 Room Air 1 02/09/24 08:00 02/09/24 08:00 02/09/24 08:00 02/09/24 08:00 02/09/24 08:00 02/09/24 08:00 02/07/24 08:00 FiO2 30 02/06/24 10:02 Laboratory Results - last 24 hr 02/07/24 17:09: POC Glucose 242 H 02/08/24 11:53: POC Glucose 219 H 02/08/24 13:00: APTT 26.2 L 02/08/24 14:14: WBC 7.7, RBC 3.04 L, Hgb 8.7 L, Hct 28.2 L, MCV 92.9, MCH 28.7, MCHC 30.9 L, RDW 22.6 H, Plt Count 424, MPV 9.5, Neut % (Auto) 90.8 H, Lymph % (Auto) 6.8 L, [place] % (Auto) 2.2, Eos % (Auto) 0.1, Baso % (Auto) 0.1, Neut # (Auto) 7.0, Lymph # (Auto) 0.5 L, [place] # (Auto) 0.2, Eos # (Auto) 0.0, Baso # (Auto) 0.0, Total Counted 100, Neutrophils % (Manual) 87 H, Lymphocytes % (Manual) 11, Monocytes % (Manual) 2, Platelet Estimate Normal, RBC Morphology Normal, Sodium 133 L, Potassium 3.6, Chloride 100, Carbon Dioxide 27, Anion Gap 9.6, BUN 30 H, Creatinine 0.60, Estimated Creat Clear 68, Estimated GFR 100, Est GFR ( Amer) 121, Glucose 221 H D, Calcium 9.1 02/08/24 16:30: POC Glucose 338 H* 02/08/24 20:00: APTT 25.5 L 02/08/24 20:06: POC Glucose 245 H 02/08/24 22:15: APTT 115.9 H* 02/09/24 00:14: APTT 66.9 02/09/24 02:15: APTT 56.8 02/09/24 05:40: POC Glucose 163 H 02/09/24 05:41: WBC 5.5 D, RBC 3.09 L, Hgb 8.9 L, Hct 27.8 L, MCV 90.0, MCH 28.7, MCHC 31.9, RDW 22.6 H, Plt Count 424, MPV 8.9, Neut % (Auto) 69.8, Lymph % (Auto) 27.0, [place] % (Auto) 2.8, Eos % (Auto) 0.1, Baso % (Auto) 0.2, Neut # (Auto) 3.8, Lymph # (Auto) 1.5, [place] # (Auto) 0.2, Eos # (Auto) 0.0, Baso # (Auto) 0.0, Sodium 133 L, Potassium 3.4 L, Chloride 98, Carbon Dioxide 28, Anion Gap 10.4, BUN 35 H, Creatinine 0.60, Estimated Creat Clear 68, Estimated GFR 100, Est GFR ( Amer) 121, Glucose 154 H D, Hemoglobin A1c 5.6, Calcium 9.2, Triglycerides 124, Cholesterol 184, LDL Cholesterol Direct 72.15 L, VLDL Cholesterol 25, HDL Cholesterol 77 H, Cholesterol/HDL Ratio 2.4, TSH 3.78 02/09/24 08:00: APTT 47.0 L I & O for Last 24 hours: Intake & Output 02/06/24 02/07/24 02/08/24 02/09/24 23:59 23:59 23:59 23:59 Intake Total 1180.276 / 1702.338 8355 / 1830 1160 / 1260 715 / 715 Output Total 4905 / 4965 3100 / 3100 1999 Balance -3724.724 / -3784.724 -1420 / -1270 -840 / -740 715 / 715 Weight 179 lb 9.6 oz 178 lb 14.411 oz 168 lb 6.401 oz 168 lb 6.401 oz Microbiology Reports for the Last 24 Hours: Microbiology 02/06/24 12:21 Sputum - Expectorated Sputum Gram Stain - Final 02/06/24 12:21 Sputum - Expectorated Sputum Sputum Culture - Final 02/05/24 20:10 Sputum - Endotracheal Tube Aspirate Gram Stain - Final 02/05/24 20:10 Sputum - Endotracheal Tube Aspirate Sputum Culture - Final Strep agalactiae - (group b) 02/06/24 17:55 Blood Blood Culture - Preliminary NO GROWTH AFTER 48 HOURS 02/06/24 17:55 Blood Blood Culture - Preliminary NO GROWTH AFTER 48 HOURS 02/06/24 21:00 Nose MRSA Culture - Final Negative Constitutional Constitutional: no acute distress *Routine Respiratory Exam Respiratory: Present CTA bilaterally and symmetric chest movement *Routine Cardiovascular Exam Cardiovascular: Present RRR, Normal S1 and Normal S2 *Routine Abdominal Exam Abdominal: Present soft and normoactive bowel sounds; Absent tenderness *Routine Extremities Exam Extremities: Present full ROM and normal capillary refill; Absent edema *Routine Skin Exam Skin: Present intact, dry and warm Detailed Neck Exam: Thyroids Thyroid: Absent bruit Progress Note: A&P Assessment and plan (1) Pulmonary embolism: Status: Acute (2) Pleural effusion: Status: Acute (3) Sepsis: Status: Acute (4) Pneumonia: Status: Acute Assessment and Plan Assessment and Plan for All Diagnoses:: Acute hypoxic respiratory failure-resolved Acute moderate to large left-sided pleural effusion Acute HFrEF Extubated 02/06/2024 and maintaining oxygen saturation on room air Initial proBNP greater than 5000 Patient is currently receiving chemotherapy infusions of paclitaxel and docetaxel for ovarian cancer Echocardiogram 02/08/2024: Severe reduction in LV systolic function estimated EF 25%. The septal, inferior septal and anterior septal LV babcock are nearly akinetic. Moderate MR. Switch Lasix to 40mg po daily Lifevest placement pending Continue Coreg 12.5 mg p.o. twice daily and Jardiance 10 mg p.o. daily. Add Entresto and Aldactone today. Coronary artery disease Left heart cath 02/09/2024:Successful angioplasty and stenting of the mid large dominant RCA with IVY. Severe stenosis noted in the small circumflex in its midportion-medical management Patient will need triple therapy for 1 week with aspirin, Plavix and Eliquis for PE. Aspirin should be dropped next Thursday Continue high-dose statin and beta-heron A-flutter Episode after stenting, rates up to 140. 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 On eliquis Right-sided pulmonary embolism Resume Eliquis 10 mg p.o. twice daily x 10 days then 5 mg p.o. twice daily after left heart catheterization today. Sepsis, resolved Multifocal pneumonia Defer to primary service and pulmonology Non-metastatic ovarian cancer Defer to primary service and [facility] Anemia Hemoglobin 8.9 Denies bleeding Continue to monitor CV summary 02/09/2024: Ejection fraction is 25%. S/p [facility]-received a drug-eluting stent to RCA. Patient had episode of a flutter after stenting with heart rate in the 140s. Additional dose of metoprolol was given with improvement. Will repeat limited echo to check ejection fraction status post stenting. Continue to monitor closely. Resume Eliquis. CV meds: Aspirin 81 mg p.o. daily Plavix 75 mg p.o. daily Entresto 24/26 mg p.o. twice daily Aldactone 25 mg p.o. daily Amlodipine 40 mg p.o. daily Eliquis 10 mg p.o. twice daily Atorvastatin 40 mg daily Coreg 12.5 mg p.o. twice daily Jardiance 10 mg p.o. daily Lasix 40 mg p.o. daily
[2024-02-09] MEDS: PROCHLORPERAZINE MALEATE 5MG TABLET 5 MG PO ×2 (10:59→19:18)
[2024-02-09] MEDS: SPIRONOLACTONE 25MG TABLET 25 MG PO (10:59)
[2024-02-09] MEDS: SACUBITRIL/VALSARTAN 24-26MG TABLET 1 EACH PO ×2 (10:59→22:11)
[2024-02-09 11:13] LABS: POC Glucose,Bedside 156 (70-110)
[2024-02-09] MEDS: HEPARIN 1,000 UNITS/ML 10ML VIAL (CATH LAB) 10000 UNIT IV (13:09)
[2024-02-09] MEDS: VERAPAMIL 2.5MG/ML 2ML VIAL 2.5 MG IV (13:09)
[2024-02-09] MEDS: diphenhydrAMINE 50MG/ML VIAL 50 MG IV (13:09)
[2024-02-09] MEDS: HEPARIN 1,000 UNITS/500ML NS (CATH LAB) 3000 UNIT IV (13:10)
[2024-02-09] MEDS: NITROGLYCERIN 800MCG/8ML SYR (CATH LAB) 800 MCG IA (13:10)
[2024-02-09] MEDS: LIDOCAINE 1% 10ML MDV 20 ML IJ (13:11)
[2024-02-09] MEDS: MIDAZOLAM HCL 1MG/1ML 5ML VIAL 1 MG IV (13:11)
[2024-02-09] MEDS: 0.9 % SODIUM CHLORIDE 500 ML 25 ML IV (13:11)
[2024-02-09] MEDS: FENTANYL 100MCG/2ML VIAL 50 MCG IV (13:12)
--- NOTE | 2024-02-09 14:07 | ECG_ITS ---
APPROVED REPORT Exam: Resting ECG HR:143 bpm ECG Measurements Heart Rate 143 AXES QRSd 105 QRS -19 QT 302 T 140 QTc 385 Conclusion ATRIAL FLUTTER/TACHYCARDIA WITH RAPID VENTRICULAR RESPONSE LEFT VENTRICULAR HYPERTROPHY AND ST-T CHANGE [VOLTAGE CRITERIA PLUS ST/T ABNORMALITY] ABNORMAL ECG UNCONFIRMED REPORT Electronically signed by : Rommel Weathers MD 02/10/2024 07:33:44
--- NOTE | 2024-02-09 14:09 | PC.NURSE ---
Dr Harry notified of pt HR
[2024-02-09] MEDS: CLOPIDOGREL 300MG TABLET 600 MG PO (14:12)
--- NOTE | 2024-02-09 14:13 | SUR.PHASEII ---
Celestina notified of pt going into aflutter
--- NOTE | 2024-02-09 14:16 | CA_ITS ---
APPROVED REPORT EXAM: Limited 2D Echocardiogram Utility Clerk: Erica Leos CRT Ht: 5 ft 10 in Wt: 168lbs BSA: 1.94 BP: 147/80 mmHg Indications: post cath, ef check M-Mode Dimensions RVDd 2.14 cm (0.9-2.6) LVDd 6.22 cm (3.5-5.7) LVDs 4.89 cm (3.5-5.7) IVSd 1.04 cm (0.6-1.1) PWd 0.96 cm (0.6-1.1) EF (Teich) 42.50% FS 21.40% EDV (Teich) 195.40 mL ESV (Teich) 112.30 mL Other Information Study Quality: Fair Conclusion This is a limited TTE to evaluate for LVEF in the setting of post revascularization. Limited windows were obtained. The left ventricle is normal in size. There is increased LV wall thickness. There is severe global hypokinesis present. There is near akinesis of the septal, anteroseptal and inferoseptal LV babcock. LVEF is 25%. Compared to recent study from 2 days prior, the LVEF is unchanged. Electronically signed by : Frances Rutherford MD 02/10/2024 01:06:31
[2024-02-09] MEDS: METOPROLOL TARTRATE 5MG/5ML VIAL 5 MG IV (14:17)
[2024-02-09 15:47] LABS: POC Glucose,Bedside 222 (70-110)
[2024-02-09] MEDS: IOPAMIDOL-370 (76%);100ML BOTTLE 110 ML IV (16:06)
[2024-02-09 16:14] LABS: CATHL Activated Clotting Time 318 SEC (74-125)
--- NOTE | 2024-02-09 17:38 | PC.NURSE ---
PT IS RESTING IN BED WITH FAMILY AT BEDSIDE. ALERT AND ORIENTED X4. PT HAS AMBULATED TO THE BATHROOM WITH 1 ASSIST. EATING AND DRINKING WELL. NSR ON TELEMETRY. LUNG SOUNDS DIMINISHED WITH FINE CRACKLES (BASE). ABDOMEN SOFT/NON TENDER WITH ACTIVE BOWEL SOUNDS. MEDICATED PER MAR FOR NAUSEA THIS SHIFT. WILL CONTINUE TO MONITOR.
[2024-02-09] MEDS: INSULIN GLARGINE 100 UNITS/ML 3ML FLEXPEN 15 UNIT SQ (20:34)
[2024-02-09] MEDS: APIXABAN 5MG TABLET 10 MG PO (20:35)
[2024-02-09] MEDS: ATORVASTATIN 40MG TABLET 40 MG PO (20:35)
[2024-02-09] MEDS: VENLAFAXINE 37.5MG TABLET 37.5 MG PO (20:35)
[2024-02-09] MEDS: PANTOPRAZOLE 40MG TABLET 40 MG PO (20:35)
[2024-02-09 20:42] LABS: POC Glucose,Bedside 172 (70-110)
[2024-02-09] MEDS: TRAMADOL 50MG TABLET 50 MG PO (22:10)
--- NOTE | 2024-02-09 23:18 | EXP.ACUTE.PN ---
Subjective *Date: 02/09/24 *Time: 13:18 Interval history: Plan for left heart cath today. Stable on room air. Denies any chest pain. Family at bedside. Tolerating p.o. intake. No nausea or vomiting. Medical Exam Vital signs and Labs for Last 24 Hours: Vital Signs Temp Pulse Pulse Resp BP Pulse Ox O2 Del Method 02/09/24 22:55 Room Air 02/09/24 21:45 80 18 118/60 99 Room Air 02/09/24 21:00 Room Air 02/09/24 20:45 78 18 124/64 98 Room Air 02/09/24 20:34 99.3 F 78 18 124/64 98 Room Air 02/09/24 20:00 98 Room Air 02/09/24 19:45 82 18 118/60 98 Room Air 02/09/24 18:32 Room Air 02/09/24 18:15 82 16 103/59 L 98 Room Air 02/09/24 17:15 77 20 102/60 L 99 Room Air 02/09/24 16:58 Room Air 02/09/24 16:45 81 16 108/66 L 99 Room Air 02/09/24 16:15 84 18 113/64 100 Room Air 02/09/24 16:00 80 02/09/24 15:45 84 16 103/66 L 97 Room Air 02/09/24 15:15 87 20 89/58 L 98 Room Air 02/09/24 15:00 83 16 100/58 L 97 Room Air 02/09/24 14:48 Room Air 02/09/24 14:45 85 16 103/61 L 96 Room Air 02/09/24 14:30 84 18 111/63 97 Room Air 02/09/24 14:15 128 H 18 132/72 97 02/09/24 14:10 129 H 18 144/84 H 98 Room Air 02/09/24 14:05 153 H 20 146/71 H 98 Room Air 02/09/24 14:01 97 H 99 H 19 151/75 H 99 02/09/24 12:00 97.7 F 77 18 94/56 L 97 Room Air 02/09/24 12:00 70 02/09/24 11:00 Room Air 02/09/24 08:00 Room Air 02/09/24 08:00 98.0 F 81 18 147/80 H 98 Room Air 02/09/24 08:00 80 02/09/24 06:42 Room Air 02/09/24 05:00 Room Air 02/09/24 04:00 80 02/09/24 04:00 98.0 F 86 16 134/80 97 Room Air 02/09/24 03:00 Room Air 02/09/24 01:00 Room Air 02/09/24 00:00 90 02/09/24 00:00 97.9 F 90 18 141/78 H 99 Room Air Intake and Output 02/09/24 02/09/24 02/09/24 07:59 15:59 23:59 Intake Total 715 / 955 240 / 955 Output Total 900 / 900 Balance 715 / 55 -900 / 55 240 / 55 Intake: Intake, Oral Amount 240 / 480 240 / 480 Intake, Total IV Amount 475 / 475 Cefepime HCl 2 gm In 0.9 % 200 / 200 Sodium Chloride 100 ml @ 200 mls/hr IV Q8H ANNA Rx#:[id number] Heparin Sodium,Porcine/D5w 500 275 / 275 ml @ 1,400 UNITS/HR 28 mls/hr IV .[id number] ANNA Rx#:[id number] Output: Output, Urine Amount 900 / 900 Other: Weight 76.385 kg Patient Weight 02/09/24 23:59 Weight 76.385 kg Laboratory Results - last 24 hr 02/08/24 11:53: POC Glucose 219 H 02/08/24 16:30: POC Glucose 338 H* 02/08/24 22:15: APTT 115.9 H* 02/09/24 00:14: APTT 66.9 02/09/24 02:15: APTT 56.8 02/09/24 05:40: POC Glucose 163 H 02/09/24 05:41: WBC 5.5 D, RBC 3.09 L, Hgb 8.9 L, Hct 27.8 L, MCV 90.0, MCH 28.7, MCHC 31.9, RDW 22.6 H, Plt Count 424, MPV 8.9, Neut % (Auto) 69.8, Lymph % (Auto) 27.0, [place] % (Auto) 2.8, Eos % (Auto) 0.1, Baso % (Auto) 0.2, Neut # (Auto) 3.8, Lymph # (Auto) 1.5, [place] # (Auto) 0.2, Eos # (Auto) 0.0, Baso # (Auto) 0.0, Sodium 133 L, Potassium 3.4 L, Chloride 98, Carbon Dioxide 28, Anion Gap 10.4, BUN 35 H, Creatinine 0.60, Estimated Creat Clear 68, Estimated GFR 100, Est GFR ( Amer) 121, Glucose 154 H D, Hemoglobin A1c 5.6, Calcium 9.2, Triglycerides 124, Cholesterol 184, LDL Cholesterol Direct 72.15 L, VLDL Cholesterol 25, HDL Cholesterol 77 H, Cholesterol/HDL Ratio 2.4, TSH 3.78 02/09/24 08:00: APTT 47.0 L 02/09/24 11:04: POC Glucose 156 H 02/09/24 13:16: Activated Clotting Time 318 H* 02/09/24 15:38: POC Glucose 222 H 02/09/24 20:24: POC Glucose 172 H I & O for Labs for Last 24 Hours: Intake & Output 02/06/24 02/07/24 02/08/24 02/09/24 23:59 23:59 23:59 23:59 Intake Total 1180.276 / 7981.294 7169 / 1830 1160 / 1260 955 / 955 Output Total 4905 / 4965 3100 / 3100 1999 / 1999 900 / 900 Balance -3724.724 / -3784.724 -1420 / -1270 -840 / -740 55 / 55 Weight 81.465 kg 81.148 kg 76.385 kg 76.385 kg Microbiology Reports for the Last 24 Hours: Microbiology 02/05/24 20:25 Blood Blood Culture - Preliminary NO GROWTH AFTER 4 DAYS 02/05/24 18:55 Blood Blood Culture - Preliminary NO GROWTH AFTER 4 DAYS 02/06/24 12:21 Sputum - Expectorated Sputum Gram Stain - Final 02/06/24 12:21 Sputum - Expectorated Sputum Sputum Culture - Final 02/05/24 20:10 Sputum - Endotracheal Tube Aspirate Gram Stain - Final 02/05/24 20:10 Sputum - Endotracheal Tube Aspirate Sputum Culture - Final Strep agalactiae - (group b) Constitutional: Present no acute distress, average body habitus, chronically ill appearing and cooperative Head: Present atraumatic and normocephalic Respiratory: Present crackles (Posterior bases.) and normal respiratory effort; Absent rhonchi or wheezes Cardiac: Present Reg Rate and Rhythm GI: Present normal bowel sounds; Absent tenderness Extremities: Present normal inspection and full ROM Skin: Present intact; Absent erythema Neuro: Present Grossly Intact, alert, awake, oriented x 3 and moves all extremities Assessment and Plan *Assessment and plan (1) Acute CHF (congestive heart failure): Status: Acute Category: Medical Code(s): I50.9 - Heart failure, unspecified (2) Acute hypoxemic respiratory failure: Status: Acute Category: Medical Code(s): J96.01 - Acute respiratory failure with hypoxia (3) Pneumonia: Status: Acute Category: Medical Code(s): J18.9 - Pneumonia, unspecified organism (4) Sepsis: Status: Acute Category: Medical Code(s): A41.9 - Sepsis, unspecified organism (5) Malignant ascites: Status: Acute Category: Medical Code(s): R18.0 - Malignant ascites (6) Pleural effusion: Status: Acute Category: Medical Code(s): J90 - Pleural effusion, not elsewhere classified (7) Pulmonary embolism: Status: Acute Category: Medical Code(s): I26.99 - Other pulmonary embolism without acute cor pulmonale (8) Diabetes mellitus: Status: Acute Qualifiers: Diabetes mellitus type: type 2 Diabetes mellitus [facility] insulin use: without manager intermediate use Diabetes mellitus complication status: without complication Qualified Code(s): E11.9 - Type 2 diabetes mellitus without complications Category: Medical Code(s): E11.9 - Type 2 diabetes mellitus without complications (9) Hypothyroid: Status: Acute Category: Medical Code(s): E03.9 - Hypothyroidism, unspecified Plan Patient is a 64-year-old female with past medical history of diabetes mellitus hypertension, ovarian cancer on chemotherapy, hyperlipidemia who presents to the hospital in respiratory distress. Reportedly patient had sudden onset shortness of breath at home while eating, was brought to the hospital, in the hospital patient was noted to be in respiratory distress with hypoxia. Patient was also found to have high blood pressures in ED. Patient chest x-ray was positive for signs of pulmonary edema. Patient was intubated and sedated. Case discussed with ED attending and decision was made to admit patient for acute hypoxic respiratory failure secondary to new onset heart failure, pneumonia, pulmonary edema. #Acute hypoxic respiratory failure, resolved #Acute bilateral pulmonary edema #Moderate to large left pleural effusion # New onset HFrEF with exacerbation ? Patient successfully extubated on 02/06/2024. Currently on room air, comfortable. Patient states she feels well this morning, better than yesterday. - Discussed case with pulmonology, recommends the following: Antibiotics weaned to Levaquin to complete 7 days total of therapy. Continue DuoNebs every 6 hours as needed. Continue Eliquis for pulmonary emboli. Will need indefinite anticoagulation. In the setting of malignancy. Will follow-up as an outpatient with pulmonology for further management of left-sided pleural effusion. Hold on intervention at this time. - Patient does get chemotherapy infusions of paclitaxel and docetaxel for ovarian cancer. Docetaxel has been associated with cardiotoxicity, heart failure. Presentation was not consistent with anaphylaxis. ? Heart failure likely exacerbated by underlying pneumonia. ? ECHO on 02/08/2024 shows LVEF 25%, with septal, inferior septal, anteroseptal LV babcock nearly akinetic. ?A1c 5.6. -Taken for left heart cath today. Stent placed to RCA. Continue aspirin, Lipitor, Farxiga, carvedilol. Will need LifeVest at discharge given ejection fraction 25%. ? IV Lasix 40 mg twice daily, patient making good urine output. Lungs sound less edematous. -Discussed case with cardiology, goal-directed therapy. Recommended heart cath today. Results as above. ? If patient continues to feel well tomorrow, ambulates and tolerates p.o. intake, anticipate discharge tomorrow with close follow-up with cardiology, oncology. #Right upper, lower lobe pulmonary emboli ? CTA chest revealed segmental right lower lobe pulmonary embolus and subsegmental right upper lobe pulmonary embolus. No evidence of right heart strain. ? Eliquis 10 mg twice daily for 10 days, then 5 mg twice daily. #Sepsis, resolved # Multifocal pneumonia ? White count normal at 5.5. Hemoglobin 8.9. Repeat CBC, CMP, magnesium ordered for the morning. Electrolytes stable with sodium 133, potassium 3.4. Creatinine 0.6. TSH normal at 3.78. -Antibiotics as above. Oxygen as needed for goal sats greater 90%. Remains on room air today. #Nonmetastatic ovarian cancer ? Receives chemotherapy with paclitaxel, docetaxel at [facility]. Will need close follow-up upon discharge. #Acute on chronic chronic normocytic anemia ? Hemoglobin 8.9, down from 10.6 on admission. ? No evidence of bleed at this time. ? Continue to monitor hemoglobin #Diabetes ? LDSSI, ACHS glucose checks. ? basal insulin as needed based on SSI needs. #Hypertension ? Continue home amlodipine CODE STATUS: Full code DVT prophylaxis: eliquis Diet: Diabetic
[2024-02-10] VITALS (7 sets, daily range): BP systolic 115–120; BP diastolic 49–68; PULSE 78–109; RESP 16–18; TEMP 36.6–36.8; O2SAT 97–99; BMI 24.3
[2024-02-10] MEDS: PROCHLORPERAZINE MALEATE 5MG TABLET 5 MG PO ×2 (00:55→09:43)
--- NOTE | 2024-02-10 04:29 | PC.NURSE ---
64 yo fe pt remains A/O X 4. Site dressing from heart cath C/D/I. Pt has been in NSR per telemetry. She is tolerating diet. Pt medicated with Tramadol X 1 this shift due to discomfort in her legs. She was also medicated with Compazine at pts request to prevent nausea that she typically has on day 4 after chemo. VS have been WNL for pt and 02 sats maintained on RA. FSBS at 172 at 9 pm covered with insulin per MAR
[2024-02-10] MEDS: CEFEPIME HCL 2 GM in 0.9 % SODIUM CHLORIDE 100 ML IV (05:04)
[2024-02-10] MEDS: LEVOTHYROXINE 50MCG (0.05MG) TAB 50 MCG PO (06:18)
[2024-02-10 07:04] LABS: Anion Gap 8.7 mEq/L (5-15); Blood Urea Nitrogen 35 mg/dl (7-17); Calcium 8.8 mg/dl (8.4-10.2); Carbon Dioxide 27 mmol/L (22.0-30.0); Chloride 102 mmol/L (98-107); Creatinine Clearance Estimated 68 mL/min (50-200); Estimated Glomerular Filt Rate 100 ml/min (>60); GFR (African American) 121 ML/MIN (>60); Glucose 110 mg/dl (74-100); Potassium 3.7 mmoL/L (3.5-5.1); Sodium 134 mmol/L (136-145)
[2024-02-10 07:11] LABS: Basophils % 0.2 % (0.1-2.0); Eosinophils # 0.1 K/mm3 (0.0-0.4); Eosinophils % 2.1 % (0.1-12.0); Hematocrit 26.9 % (37.0-47.0); Hemoglobin 8.5 g/dL (12.2-16.2); Lymphocytes # 1.5 K/mm3 (0.7-4.5); Lymphocytes % 26.4 % (10-50); Mean Corpuscular HGB Conc 31.5 g/dL (31.8-35.4); Mean Corpuscular Hemoglobin 28.7 pg (27.0-31.2); Mean Corpuscular Volume 90.9 fl (81-99); Mean Platelet Volume 8.3 fl (7.4-10.4); Monocytes # 0.1 K/mm3 (0.1-1.0); Monocytes % 1.8 % (1.7-9.3); Neutrophils % 69.7 % (37.0-80.0); Platelet Count 353 K/mm3 (142-424); Red Blood Count 2.95 M/mm3 (4.20-5.40); Red Cell Distribution Width 22.1 % (11.5-17.5); White Blood Count 5.7 K/mm3 (4.8-10.8)
--- NOTE | 2024-02-10 07:38 | P.DS_ITS ---
General Admission date:: 02/05/24 Discharge date: 02/10/24 HPI HPI HPI: Patient is a 64-year-old female with past medical history of diabetes mellitus hypertension, ovarian cancer on chemotherapy, hyperlipidemia who presents to the hospital in respiratory distress. Reportedly patient had sudden onset shortness of breath at home while eating, was brought to the hospital, in the hospital patient was noted to be in respiratory distress with hypoxia. Patient was also found to have high blood pressures in ED. Patient chest x-ray was positive for signs of pulmonary edema. Patient was intubated and sedated. Most of the history is from patient's chart, patient is intubated and sedated At time of my evaluation. Hospital Course Hospital Course Hospital Course: Patient is a 64-year-old female with past medical history of diabetes mellitus hypertension, ovarian cancer on chemotherapy, hyperlipidemia who presents to the hospital in respiratory distress. Reportedly patient had sudden onset shortness of breath at home while eating, was brought to the hospital, in the hospital patient was noted to be in respiratory distress with hypoxia. Patient was also found to have high blood pressures in ED. Patient chest x-ray was positive for signs of pulmonary edema. Patient was intubated and sedated. Case discussed with ED attending and decision was made to admit patient for acute hypoxic respiratory failure secondary to new onset heart failure, pneumonia, pulmonary edema. Patient responded well to antibiotics and diuresis. Able to extubate by 02/05. Cardiology and pulmonology assisted with care. Showed gradual improvement in her condition. Found to have new onset heart failure with reduced ejection fraction, pleural effusions, pulmonary edema. Complete antibiotics for pneumonia. On goal-directed therapy for heart failure. Follow- up with specialist as an outpatient. Stable to discharge home. Problems addressed as follows: #Acute hypoxic respiratory failure, resolved #Acute bilateral pulmonary edema #Moderate to large left pleural effusion # New onset HFrEF with exacerbation ? Patient presented with respiratory failure. Intubated in the ER. Gradually showed improvement with diuresis and antibiotics. Patient successfully extubated on 02/06/2024. Weaned to room air and stable on room air by discharge. Pulmonology assisted with care during admission. Antibiotics gradually weaned to levofloxacin to complete 7 days of therapy total. Needs 1 more day after discharge. Recommend continuing Eliquis for pulmonary emboli identified on admission. Will need indefinite anticoagulation in the setting of malignancy. Will follow-up with pulmonology as an outpatient for further management of her effusion. Decision made not to tap effusion during admission given improvement with diuresis. Patient does get chemotherapy infusions of paclitaxel and d ocetaxel for ovarian cancer. Docetaxel has been associated with cardiotoxicity, heart failure. Presentation was not consistent with anaphylaxis. Heart failure likely exacerbated by underlying pneumonia. ECHO on 02/08/2024 shows LVEF 25%, with septal, inferior septal, anteroseptal LV babcock nearly akinetic. Taken for left heart cath day before discharge where she received stent to the RCA. Will continue goal-directed therapy with aspirin, Plavix, Lipitor, Farxiga, carvedilol. Will need LifeVest at discharge given ejection fraction 25%, provided on day of discharge. Continue diuresis. Proven lung exam during admission. Given clinical stability, discharge home with follow-up with pulmonology and cardiology as an outpatient. #Right upper, lower lobe pulmonary emboli ? CTA chest revealed segmental right lower lobe pulmonary embolus and subsegmental right upper lobe pulmonary embolus. No evidence of right heart strain. Eliquis 10 mg twice daily for 10 days, then 5 mg twice daily. #Sepsis, resolved # Multifocal pneumonia ? White count normal at 5.5. Hemoglobin 8.9. Electrolytes stable with sodium 133, potassium 3.4. Creatinine 0.6. TSH normal at 3.78. A1c normal at 5.6. Antibiotics as above. On room air for over 48 hours prior to discharge home. #Nonmetastatic ovarian cancer ? Receives chemotherapy with paclitaxel, docetaxel at [facility]. Will need close follow-up upon discharge. #Acute on chronic chronic normocytic anemia ? Hemoglobin 8.9, down from 10.6 on admission. No evidence of bleed at this time. Recommend repeat CBC, CMP a week after discharge for close monitoring. No transfusion during admission. Diabetes: Well-controlled with A1c of 5.6. Continue oral semaglutide 14 mg daily, Farxiga 10 mg daily. #Hypertension: Continue home amlodipine, goal-directed therapy for heart failure at discharge including carvedilol 0.5 Marleny to daily, Entresto 24/26 mg 1 tablet twice daily Total time spent on discharge 39 minutes in counseling, documentation, chart review, and direct care with patient. Exam Data for Last 24 hours Vital signs and Labs for Last 24 Hours: Temp Pulse Resp BP Pulse Ox O2 Del Method O2 Flow Rate 98.2 F 78 18 120/49 L 99 Room Air 1 02/10/24 05:34 02/10/24 05:34 02/10/24 05:34 02/10/24 05:34 02/10/24 05:34 02/10/24 06:49 02/07/24 08:00 FiO2 30 02/06/24 10:02 Laboratory Results - last 24 hr 02/08/24 11:53: POC Glucose 219 H 02/08/24 16:30: POC Glucose 338 H* 02/09/24 05:41: Hemoglobin A1c 5.6 02/09/24 08:00: APTT 47.0 L 02/09/24 11:04: POC Glucose 156 H 02/09/24 13:16: Activated Clotting Time 318 H* 02/09/24 15:38: POC Glucose 222 H 02/09/24 20:24: POC Glucose 172 H 02/10/24 06:27: WBC 5.7, RBC 2.95 L, Hgb 8.5 L, Hct 26.9 L, MCV 90.9, MCH 28.7, MCHC 31.5 L, RDW 22.1 H, Plt Count 353, MPV 8.3, Neut % (Auto) 69.7, Lymph % (Auto) 26.4, [place] % (Auto) 1.8, Eos % (Auto) 2.1, Baso % (Auto) 0.2, Neut # (Auto) 4.0, Lymph # (Auto) 1.5, [place] # (Auto) 0.1, Eos # (Auto) 0.1, Baso # (Auto) 0.0, Sodium 134 L, Potassium 3.7, Chloride 102, Carbon Dioxide 27, Anion Gap 8.7, BUN 35 H, Creatinine 0.60, Estimated Creat Clear 68, Estimated GFR 100, Est GFR ( Amer) 121, Glucose 110 H, Calcium 8.8 I & O for Last 24 hours: Intake & Output 02/07/24 02/08/24 02/09/24 02/10/24 23:59 23:59 23:59 23:59 Intake Total 1680 / 1830 1160 / 1260 955 / 1055 100 / 100 Output Total 3100 / 3100 1999 / 1999 900 / 900 Balance -1420 / -1270 -840 / -740 55 / 155 100 / 100 Weight 81.148 kg 76.385 kg 76.385 kg 77.201 kg Microbiology Reports for the Last 24 Hours: Microbiology 02/05/24 20:25 Blood Blood Culture - Preliminary NO GROWTH AFTER 4 DAYS 02/05/24 18:55 Blood Blood Culture - Preliminary NO GROWTH AFTER 4 DAYS 02/06/24 12:21 Sputum - Expectorated Sputum Gram Stain - Final 02/06/24 12:21 Sputum - Expectorated Sputum Sputum Culture - Final 02/05/24 20:10 Sputum - Endotracheal Tube Aspirate Gram Stain - Final 02/05/24 20:10 Sputum - Endotracheal Tube Aspirate Sputum Culture - Final Strep agalactiae - (group b) Constitutional Constitutional: no acute distress, average body habitus, chronically ill appearing and cooperative *Routine HEENT Exam Head: Present normocephalic Eye: Present EOMI and PERRL ENT: Present mucous membranes moist *Routine Neck Exam Neck: Present supple; Absent lymphadenopathy *Routine Respiratory Exam Respiratory: Present crackles (Crackles posterior lung base) and normal respiratory effort; Absent accessory muscle use, rhonchi or wheezes *Routine Cardiovascular Exam Cardiovascular: Present RRR *Routine Abdominal Exam Abdominal: Present soft, normoactive bowel sounds and distended; Absent tenderness *Routine Rectal Exam Patient deferred: visual exam *Routine Exam Patient deferred: external exam *Routine Extremities Exam Extremities: Absent cyanosis, clubbing or edema *Routine Skin Exam Skin: Present intact and warm; Absent rash *Routine Neurological Exam Neurological: Present alert, oriented X3 and moving all extremities; Absent altered mental status Results Data Completed and Pending Labs on day of discharge: Labs from last 24 hours 02/10/24 02/09/24 02/09/24 06:27 20:24 15:38 WBC 5.7 RBC 2.95 L Hgb 8.5 L Hct 26.9 L MCV 90.9 MCH 28.7 MCHC 31.5 L RDW 22.1 H Plt Count 353 MPV 8.3 Neut % (Auto) 69.7 Lymph % (Auto) 26.4 [place] % (Auto) 1.8 Eos % (Auto) 2.1 Baso % (Auto) 0.2 Neut # (Auto) 4.0 Lymph # (Auto) 1.5 [place] # (Auto) 0.1 Eos # (Auto) 0.1 Baso # (Auto) 0.0 APTT Activated Clotting Time Sodium 134 L Potassium 3.7 Chloride 102 Carbon Dioxide 27 Anion Gap 8.7 BUN 35 H Creatinine 0.60 Estimated Creat Clear 68 Estimated GFR 100 Est GFR ( Amer) 121 Glucose 110 H POC Glucose 172 H 222 H Hemoglobin A1c Calcium 8.8 02/09/24 02/09/24 02/09/24 13:16 11:04 08:00 WBC RBC Hgb Hct MCV MCH MCHC RDW Plt Count MPV Neut % (Auto) Lymph % (Auto) [place] % (Auto) Eos % (Auto) Baso % (Auto) Neut # (Auto) Lymph # (Auto) [place] # (Auto) Eos # (Auto) Baso # (Auto) APTT 47.0 L Activated Clotting Time 318 H* Sodium Potassium Chloride Carbon Dioxide Anion Gap BUN Creatinine Estimated Creat Clear Estimated GFR Est GFR ( Amer) Glucose POC Glucose 156 H Hemoglobin A1c Calcium 02/09/24 02/08/24 02/08/24 05:41 16:30 11:53 WBC RBC Hgb Hct MCV MCH MCHC RDW Plt Count MPV Neut % (Auto) Lymph % (Auto) [place] % (Auto) Eos % (Auto) Baso % (Auto) Neut # (Auto) Lymph # (Auto) [place] # (Auto) Eos # (Auto) Baso # (Auto) APTT Activated Clotting Time Sodium Potassium Chloride Carbon Dioxide Anion Gap BUN Creatinine Estimated Creat Clear Estimated GFR Est GFR ( Amer) Glucose POC Glucose 338 H* 219 H Hemoglobin A1c 5.6 Calcium Preliminary micro results at discharge 02/05/24 20:25 Blood Culture - Preliminary Blood NO GROWTH AFTER 4 DAYS 02/05/24 18:55 Blood Culture - Preliminary Blood NO GROWTH AFTER 4 DAYS 02/06/24 17:55 Blood Culture - Preliminary Blood NO GROWTH AFTER 48 HOURS 02/06/24 17:55 Blood Culture - Preliminary Blood NO GROWTH AFTER 48 HOURS DS: Diagnosis Discharge Diagnosis (1) Acute CHF (congestive heart failure): Status: Acute Code(s): I50.9 - Heart failure, unspecified (2) Acute hypoxemic respiratory failure: Status: Acute Code(s): J96.01 - Acute respiratory failure with hypoxia (3) Pneumonia: Status: Acute Code(s): J18.9 - Pneumonia, unspecified organism (4) Sepsis: Status: Acute Code(s): A41.9 - Sepsis, unspecified organism (5) Malignant ascites: Status: Acute Code(s): R18.0 - Malignant ascites (6) Pleural effusion: Status: Acute Code(s): J90 - Pleural effusion, not elsewhere classified (7) Pulmonary embolism: Status: Acute Code(s): I26.99 - Other pulmonary embolism without acute cor pulmonale (8) Diabetes mellitus: Status: Acute Code(s): E11.9 - Type 2 diabetes mellitus without complications Qualifiers: Diabetes mellitus complication status: without complication Diabetes mellitus longterm insulin use: without long term care social worker use Diabetes mellitus type: type 2 Qualified Code(s): E11.9 - Type 2 diabetes mellitus without complications (9) Hypothyroid: Status: Acute Code(s): E03.9 - Hypothyroidism, unspecified Meds Home Medications and Allergies Home Medications ?Medication ?Instructions ?Recorded ?Confirmed ?Type aluminum-mag hydroxide-simethicone 5 ml PO QIDP PRN Thrush 02/06/24 02/06/24 History 400 mg-400 mg-40 mg/5 mL oral susp (Antacid Anti-Gas) amlodipine 10 mg tablet 10 mg PO DAILY 02/06/24 02/06/24 History carvedilol 12.5 mg tablet 12.5 mg PO BID 02/06/24 02/06/24 History dapagliflozin propanediol 10 mg 10 mg PO DAILY 02/06/24 02/06/24 History tablet (Farxiga) levothyroxine 50 mcg tablet 50 mcg PO DAILYDM 02/06/24 02/06/24 History pantoprazole 40 mg tablet,delayed 40 mg PO HS 02/06/24 02/06/24 History release potassium chloride 20 mEq 20 meq PO DAILY 02/06/24 02/06/24 History tablet,extended release(part/cryst) prochlorperazine maleate 10 mg 5 mg PO Q6H PRN nausea 02/06/24 02/06/24 History tablet (Compazine) semaglutide 14 mg tablet (Rybelsus) 14 mg PO DAILY 02/06/24 02/06/24 History tramadol 50 mg tablet 50 mg PO Q6HP PRN Moderate Pain 02/06/24 02/06/24 History (Scale Score 5-6) venlafaxine 37.5 mg 37.5 mg PO DAILY 02/06/24 02/06/24 History capsule,extended release 24 hr apixaban 5 mg tablet (Eliquis) See Rx Instructions .Route 02/10/24 Rx .COMPLEX #84 tabs aspirin 81 mg tablet,delayed 81 mg PO DAILY 30 days #30 tabs 02/10/24 Rx release atorvastatin 40 mg tablet 40 mg PO HS 30 days #30 tabs 02/10/24 Rx clopidogrel 75 mg tablet 75 mg PO DAILY 30 days #30 tabs 02/10/24 Rx furosemide 40 mg tablet 40 mg PO DAILY 30 days #30 tabs 02/10/24 Rx levofloxacin 750 mg tablet 750 mg PO DAILY 1 day #1 tab 02/10/24 Rx sacubitril 24 mg-valsartan 26 mg 1 tab PO BID 30 days #60 tabs 02/10/24 Rx tablet (Entresto) spironolactone 25 mg tablet 25 mg PO DAILY 30 days #30 tabs 02/10/24 Rx New Prescriptions to Start Prescriptions: apixaban [Eliquis] Lynsey,Brian aspirin Lynsey,Brian atorvastatin Lynsey,Brian clopidogrel Lynsey,Brian furosemide Lynsey,Brian levofloxacin Lynsey,Brian sacubitril-valsartan [Entresto] Lynsey,Brian spironolactone Lynsey,Brian Allergies Allergy/AdvReac Type Severity Reaction Status Date / Time No Known Allergies Allergy Verified 12/07/23 12:03 Discharge Plan Disposition Patient Disposition: Home, Self-Care Condition: Fair Discharge Order Discharge Orders: Discharge Order (Routine); Ordered 02/10/24 Ordered By: Brian Menon Follow up Plan Follow up with: Celestina Lucas APRN [Nurse Practitioner] - 02/16/24 10:15 am Ryan Marques MD [Primary Care Provider] - 02/18/24 2:30 pm Sophie Menchaca MD [Physician] - 02/17/24 1:00 pm Prescriptions/Medication Reconciliation: New furosemide 40 mg Tablet 40 mg PO DAILY 30 Days Qty: 30 0RF atorvastatin 40 mg Tablet 40 mg PO HS 30 Days Qty: 30 0RF clopidogrel 75 mg Tablet 75 mg PO DAILY 30 Days Qty: 30 0RF aspirin 81 mg Tablet,Delayed Release (Dr/Ec) 81 mg PO DAILY 30 Days Qty: 30 0RF Entresto 24-26 mg Tablet 1 tab PO BID 30 Days Qty: 60 0RF spironolactone 25 mg Tablet 25 mg PO DAILY 30 Days Qty: 30 0RF Eliquis 5 mg Tablet See Rx Instructions .ROUTE .COMPLEX Qty: 84 0RF Rx Instructions: 10 mg twice daily until morning dose of 02/15. Then 5 mg twice daily thereafter starting the evening of 02/15. levofloxacin 750 mg tablet 750 mg PO DAILY 1 Days Qty: 1 0RF Rx Instructions: take on 02/11/24 Continued venlafaxine 37.5 mg capsule,extended release 24hr 37.5 mg PO DAILY Patient Comments: TAKE 1 CAPSULE 1 TIME EACH DAY carvedilol 12.5 mg tablet 12.5 mg PO BID Patient Comments: TAKE 1 TABLET 2 TIMES EACH DAY tramadol 50 mg tablet 50 mg PO Q6HP PRN (Reason: Moderate Pain (Scale Score 5-6)) Patient Comments: TAKE 1 TABLET EVERY 6 HOURS NEEDED FOR PAIN potassium chloride 20 mEq tablet,ER particles/crystals 20 meq PO DAILY Patient Comments: TAKE 2 TABLETS BY MOUTH TODAY, THEN TAKE THREE TABLETS TOMORROW, THEN ONE TABLET ONCE DAILY THEREAFTER amlodipine 10 mg tablet 10 mg PO DAILY Patient Comments: TAKE 1 TABLET 1 TIME EACH DAY FOR HIGH BLOOD PRESSURE levothyroxine 50 mcg tablet 50 mcg PO DAILYDM Patient Comments: TAKE 1 TABLET ONCE A DAY IN THE MORNING ON AN EMPTY STOMACH pantoprazole 40 mg tablet,delayed release (DR/EC) 40 mg PO HS Patient Comments: TAKE 1 TABLET 1 TIME EACH DAY alum-mag hydroxide-simeth [Antacid Anti-Gas] 400-400-40 mg/5 mL suspension 5 ml PO QIDP PRN (Reason: Thrush) Patient Comments: MIX WITH LIDOCAINE AND DYPHENHYDRAMINE. THEN, SWISH 5 ML FOR 30 SECONDS AND SPIT OUT 4 TIMES EACH DAY Rx Instructions: MIX WITH LIDOCAINE AND DYPHENHYDRAMINE. THEN, SWISH 5 ML FOR 30 SECONDS AND SPIT OUT 4 TIMES EACH DAY dapagliflozin propanediol [Farxiga] 10 mg tablet 10 mg PO DAILY Patient Comments: TAKE 1 TABLET 1 TIME EACH DAY Rybelsus 14 mg tablet 14 mg PO DAILY Patient Comments: TAKE 1 TABLET BY MOUTH ONCE DAILY prochlorperazine maleate [Compazine] 10 mg Tablet 5 mg PO Q6H PRN (Reason: nausea) Discontinued atorvastatin 10 mg tablet 10 mg PO HS Patient Comments: TAKE 1 TABLET 1 TIME EACH DAY FOR CHOLESTEROL glimepiride 4 mg tablet 4 mg PO DAILY Patient Comments: TAKE 1 TABLET 1 TIME EACH DAY lisinopril 40 mg tablet 40 mg PO DAILY Patient Comments: TAKE 1 TABLET 1 TIME EACH DAY FOR HIGH BLOOD PRESSURE dexamethasone 4 mg Tablet 4 mg PO DAILY Rx Instructions: take 2 tablets by mouth once a day starting day after chemo for 3 days Other Ambulatory Orders: Basic Metabolic Panel (Routine) Timeframe: 20240216 Facility: [facility] - Location: Laboratory Ordered By: Adalid Ambrocio XR chest 2V (Routine) Timeframe: 1 Week Facility: [facility] - Location: Radiology Ordered By: Sophie Menchaca Hemoglobin and Hematocrit (Timed) Timeframe: 20240216 Facility: [facility] - Location: Laboratory Ordered By: Adalid Ambrocio Problem Reconciliation Problems Reviewed?: Yes Patient Discharge Instructions ACTIVITY: Continue current activity and Ambulate as tolerated DIET: continue same diet Patient Instructions: DI for Cardiac Catheterization, DI for Surgical Site Infection, Central Line-Associated Bloodstream Infections, Ventilator-Associated Pneumonia, DI for Respiratory Failure, DI for Heart Failure Exacerbations, Catheter-Associated Urinary Tract Infection Print Language: Luxembourgish Providers Primary Care Provider: Ryan Marques Admit Provider: Trevor Whitehead Attending Provider: Trevor Whitehead
[2024-02-10] MEDS: FUROSEMIDE 40 MG TABLET PO (08:57)
[2024-02-10] MEDS: POTASSIUM CHLORIDE 20MEQ TAB 20 MEQ PO (08:57)
[2024-02-10] MEDS: CLOPIDOGREL 75MG TAB 75 MG PO (08:58)
[2024-02-10] MEDS: AMLODIPINE 10MG TABLET 10 MG PO (08:59)
[2024-02-10] MEDS: ASPIRIN EC 81MG TABLET 81 MG PO (08:59)
[2024-02-10] MEDS: SPIRONOLACTONE 25MG TABLET 25 MG PO (08:59)
[2024-02-10] MEDS: APIXABAN 5MG TABLET 10 MG PO (08:59)
[2024-02-10] MEDS: DAPAGLIFLOZIN PROPANEDIOL 10 MG TABLET PO (08:59)
[2024-02-10] MEDS: CARVEDILOL 12.5MG TABLET 12.5 MG PO (08:59)
[2024-02-10] MEDS: SACUBITRIL/VALSARTAN 24-26MG TABLET 1 EACH PO (08:59)
--- NOTE | 2024-02-10 09:51 | EXP.CARD.PN ---
Subjective Subjective Date: 02/10/24 Time: 08:00 Principal diagnosis: Right-sided pulmonary embolism, acute hypoxic respiratory failure, new onse Interval history: Doing well this morning, s/p cath with stenting yesterday, morning labs reviewed. No complaints. Exam Data for Last 24 hours Vital signs and Labs for Last 24 Hours: Temp Pulse Resp BP Pulse Ox O2 Del Method O2 Flow Rate 97.8 F 80 16 117/62 98 Room Air 1 02/10/24 08:00 02/10/24 08:00 02/10/24 08:00 02/10/24 08:00 02/10/24 08:00 02/10/24 06:49 02/07/24 08:00 FiO2 30 02/06/24 10:02 Laboratory Results - last 24 hr 02/09/24 11:04: POC Glucose 156 H 02/09/24 13:16: Activated Clotting Time 318 H* 02/09/24 15:38: POC Glucose 222 H 02/09/24 20:24: POC Glucose 172 H 02/10/24 06:27: WBC 5.7, RBC 2.95 L, Hgb 8.5 L, Hct 26.9 L, MCV 90.9, MCH 28.7, MCHC 31.5 L, RDW 22.1 H, Plt Count 353, MPV 8.3, Neut % (Auto) 69.7, Lymph % (Auto) 26.4, [place] % (Auto) 1.8, Eos % (Auto) 2.1, Baso % (Auto) 0.2, Neut # (Auto) 4.0, Lymph # (Auto) 1.5, [place] # (Auto) 0.1, Eos # (Auto) 0.1, Baso # (Auto) 0.0, Sodium 134 L, Potassium 3.7, Chloride 102, Carbon Dioxide 27, Anion Gap 8.7, BUN 35 H, Creatinine 0.60, Estimated Creat Clear 68, Estimated GFR 100, Est GFR ( Amer) 121, Glucose 110 H, Calcium 8.8 I & O for Last 24 hours: Intake & Output 02/07/24 02/08/24 02/09/24 02/10/24 23:59 23:59 23:59 23:59 Intake Total 1680 / 1830 1160 / 1260 955 / 1055 100 / 100 Output Total 3100 / 3100 1999 / 1999 900 / 900 Balance -1420 / -1270 -840 / -740 55 / 155 100 / 100 Weight 178 lb 14.411 oz 168 lb 6.401 oz 168 lb 6.401 oz 170 lb 3.2 oz Microbiology Reports for the Last 24 Hours: Microbiology 02/05/24 20:25 Blood Blood Culture - Preliminary NO GROWTH AFTER 4 DAYS 02/05/24 18:55 Blood Blood Culture - Preliminary NO GROWTH AFTER 4 DAYS 02/06/24 12:21 Sputum - Expectorated Sputum Gram Stain - Final 02/06/24 12:21 Sputum - Expectorated Sputum Sputum Culture - Final 02/05/24 20:10 Sputum - Endotracheal Tube Aspirate Gram Stain - Final 02/05/24 20:10 Sputum - Endotracheal Tube Aspirate Sputum Culture - Final Strep agalactiae - (group b) Constitutional Constitutional: no acute distress *Routine Respiratory Exam Respiratory: Present CTA bilaterally and symmetric chest movement *Routine Cardiovascular Exam Cardiovascular: Present RRR, Normal S1 and Normal S2 *Routine Abdominal Exam Abdominal: Present soft and normoactive bowel sounds; Absent tenderness *Routine Extremities Exam Extremities: Present full ROM and normal capillary refill; Absent edema *Routine Skin Exam Skin: Present intact, dry and warm Detailed Neck Exam: Thyroids Thyroid: Absent bruit Progress Note: A&P Assessment and plan (1) Acute CHF (congestive heart failure): Status: Acute (2) Acute hypoxemic respiratory failure: Status: Acute (3) Pneumonia: Status: Acute (4) Sepsis: Status: Acute (5) Malignant ascites: Status: Acute (6) Pleural effusion: Status: Acute (7) Pulmonary embolism: Status: Acute (8) Diabetes mellitus: Status: Acute (9) Hypothyroid: Status: Acute Assessment and Plan Assessment and Plan for All Diagnoses:: Acute hypoxic respiratory failure-resolved Acute moderate to large left-sided pleural effusion Acute HFrEF Extubated 02/06/2024 and maintaining oxygen saturation on room air Initial proBNP greater than 5000 Patient is currently receiving chemotherapy infusions of paclitaxel and docetaxel for ovarian cancer Echocardiogram 02/08/2024: Severe reduction in LV systolic function estimated EF 25%. The septal, inferior septal and anterior septal LV babcock are nearly akinetic. Moderate MR. Continue Lasix to 40mg po daily On GDMT for HFrEF, see below LifeVest placement pending for this afternoon Pleural effusion being followed by pulmonology, will follow on an outpatient basis Coronary artery disease Left heart cath 02/09/2024:Successful angioplasty and stenting of the mid large dominant RCA with IVY. Severe stenosis noted in the small circumflex in its midportion-medical management Patient will need triple therapy for 1 week with aspirin, Plavix and Eliquis for PE. Aspirin should be dropped next Thursday Continue high-dose statin and beta-heron A-flutter Episode after stenting, rates up to 140. 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 Currently normal sinus rhythm On eliquis Right-sided pulmonary embolism Resume Eliquis 10 mg p.o. twice daily x 10 days then 5 mg p.o. twice daily after left heart catheterization today. Patient will need indefinite anticoagulation in the setting of malignancy Sepsis, resolved Multifocal pneumonia Defer to primary service and pulmonology Non-metastatic ovarian cancer Defer to primary service and [facility] Anemia Hemoglobin 8.5 Denies bleeding Continue to monitor CV summary 02/10/2024: Ejection fraction is 25%. S/p [facility]-received a drug-eluting stent to RCA. Patient had episode of a flutter after stenting with heart rate in the 140s but has since converted back to normal sinus rhythm. At this time patient is CV stable for discharge home. LifeVest should be placed this afternoon and then patient can go home. Patient is to continue triple therapy with Eliquis, Plavix and aspirin until next Thursday in which aspirin should be dropped. Please have patient follow up in cardiology clinic next Thursday for recheck. Labs prior to visit, I have placed order for outpatient labs on Thursday. CV meds: Aspirin 81 mg p.o. daily Plavix 75 mg p.o. daily Entresto 24/26 mg p.o. twice daily Aldactone 25 mg p.o. daily Amlodipine 40 mg p.o. daily Eliquis 10 mg p.o. twice daily Atorvastatin 40 mg daily Coreg 12.5 mg p.o. twice daily Jardiance 10 mg p.o. daily Lasix 40 mg p.o. daily
--- NOTE | 2024-02-10 09:55 | P.PN_ITS ---
Subjective *Date: 02/10/24 *Time: 12:01 Interval history: No acute respiratory vents overnight. Patient continued to remain on room air. No new respiratory complaints Pulmonology Exam Inpatient Vital signs and Labs for Last 24 Hours: Temp Pulse Resp BP Pulse Ox O2 Del Method O2 Flow Rate 97.8 F 80 16 117/62 98 Room Air 1 02/10/24 08:00 02/10/24 08:00 02/10/24 08:00 02/10/24 08:00 02/10/24 08:00 02/10/24 06:49 02/07/24 08:00 FiO2 30 02/06/24 10:02 Laboratory Results - last 24 hr 02/09/24 11:04: POC Glucose 156 H 02/09/24 13:16: Activated Clotting Time 318 H* 02/09/24 15:38: POC Glucose 222 H 02/09/24 20:24: POC Glucose 172 H 02/10/24 06:27: WBC 5.7, RBC 2.95 L, Hgb 8.5 L, Hct 26.9 L, MCV 90.9, MCH 28.7, MCHC 31.5 L, RDW 22.1 H, Plt Count 353, MPV 8.3, Neut % (Auto) 69.7, Lymph % (Auto) 26.4, [place] % (Auto) 1.8, Eos % (Auto) 2.1, Baso % (Auto) 0.2, Neut # (Auto) 4.0, Lymph # (Auto) 1.5, [place] # (Auto) 0.1, Eos # (Auto) 0.1, Baso # (Auto) 0.0, Sodium 134 L, Potassium 3.7, Chloride 102, Carbon Dioxide 27, Anion Gap 8.7, BUN 35 H, Creatinine 0.60, Estimated Creat Clear 68, Estimated GFR 100, Est GFR ( Amer) 121, Glucose 110 H, Calcium 8.8 Temp Pulse Resp BP Pulse Ox O2 Del Method O2 Flow Rate 97.9 F 92 H 18 120/67 97 Room Air 1 02/08/24 08:00 02/08/24 08:00 02/08/24 08:00 02/08/24 08:00 02/08/24 08:00 02/08/24 09:39 02/07/24 08:00 FiO2 30 02/06/24 10:02 Laboratory Results - last 24 hr 02/05/24 18:55: Hepatitis C Antibody Non reactive, Hep C Ab Comment Comment 02/07/24 11:22: POC Glucose 287 H 02/07/24 20:36: POC Glucose 275 H 02/08/24 04:48: Sodium 132 L, Potassium 3.4 L, Chloride 101, Carbon Dioxide 29, Anion Gap 5.4, BUN 32 H D, Creatinine 0.60, Estimated Creat Clear 72, Estimated GFR 100, Est GFR ( Amer) 121, Glucose 169 H D, Calcium 8.8, Magnesium 1.9, Total Bilirubin 0.5, AST 28, ALT 28, Alkaline Phosphatase 134 H, Total Protein 6.6, Albumin 3.4 L, Globulin 3.2, Albumin/Globulin Ratio 1.1 02/08/24 05:32: POC Glucose 189 H 02/08/24 05:56: WBC 6.9 D, RBC 2.89 L, Hgb 8.3 L, Hct 26.2 L, MCV 90.7, MCH 28.6, MCHC 31.5 L, RDW 22.5 H, Plt Count 389, MPV 8.9, Neut % (Auto) 81.0 H, Lymph % (Auto) 15.0, Independence % (Auto) 3.7, Eos % (Auto) 0.2, Baso % (Auto) 0.2, Neut # (Auto) 5.6, Lymph # (Auto) 1.0, Independence # (Auto) 0.3, Eos # (Auto) 0.0, Baso # (Auto) 0.0, Sodium 134 L, Potassium 3.3 L, Chloride 102, Carbon Dioxide 28, Anion Gap 7.3, BUN 30 H, Creatinine 0.60, Estimated Creat Clear 68, Estimated GFR 100, Est GFR ( Amer) 121, Glucose 170 H, Calcium 8.9 I & O for Labs for Last 24 Hours: Intake & Output 02/07/24 02/08/24 02/09/24 02/10/24 23:59 23:59 23:59 23:59 Intake Total 1680 / 1830 1160 / 1260 955 / 1055 100 / 100 Output Total 3100 / 3100 1999 / 1999 900 / 900 Balance -1420 / -1270 -840 / -740 55 / 155 100 / 100 Weight 178 lb 14.411 oz 168 lb 6.401 oz 168 lb 6.401 oz 170 lb 3.2 oz Intake & Output 02/05/24 02/06/24 02/07/24 02/08/24 23:59 23:59 23:59 23:59 Intake Total 490.074 / 740.210 6750.276 / 2259.821 6293 / 1830 250 / 250 Output Total 355 / 555 4905 / 4965 3100 / 3100 0 / 0 Balance 135.074 / -64.926 -3724.724 / -3784.724 -1420 / -1270 250 / 250 Weight 179 lb 9.6 oz 179 lb 9.6 oz 178 lb 14.411 oz 168 lb 6.4 oz Microbiology Reports for the Last 24 Hours: Microbiology 02/05/24 20:25 Blood Blood Culture - Preliminary NO GROWTH AFTER 4 DAYS 02/05/24 18:55 Blood Blood Culture - Preliminary NO GROWTH AFTER 4 DAYS 02/06/24 12:21 Sputum - Expectorated Sputum Gram Stain - Final 02/06/24 12:21 Sputum - Expectorated Sputum Sputum Culture - Final 02/05/24 20:10 Sputum - Endotracheal Tube Aspirate Gram Stain - Final 02/05/24 20:10 Sputum - Endotracheal Tube Aspirate Sputum Culture - Final Strep agalactiae - (group b) Microbiology 02/06/24 21:00 Nose MRSA Culture - Final Negative 02/05/24 20:10 Sputum - Endotracheal Tube Aspirate Gram Stain - Final 02/05/24 20:10 Sputum - Endotracheal Tube Aspirate Sputum Culture - Preliminary Gram Positive Cocci 02/05/24 20:25 Blood Blood Culture - Preliminary NO GROWTH AFTER 48 HOURS 02/05/24 18:55 Blood Blood Culture - Preliminary NO GROWTH AFTER 48 HOURS 02/06/24 12:21 Sputum - Expectorated Sputum Gram Stain - Final 02/06/24 17:55 Blood Blood Culture - Preliminary NO GROWTH AFTER 24 HOURS 02/06/24 17:55 Blood Blood Culture - Preliminary NO GROWTH AFTER 24 HOURS Constitutional: Present moderate distress Head: Present normocephalic and atraumatic ENT: Present normal exam, normal oropharynx and mucous membranes moist Neck: Present normal inspection and full ROM Respiratory: Present rhonchi, crackles and able to speak in complete sentences; Absent respiratory distress or wheezes Cardiac: Present S1/S2, Tachycardia and radial pulses present GI: Present soft and distention; Absent tenderness or guarding Rectal (female): Present deferred (female): Present deferred Skin: Present intact; Absent cyanosis or jaundice Neuro: Present alert, awake and oriented x 3 Extremities: Present normal inspection; Absent clubbing or cyanosis Psychiatric: Present normal affect and cooperative Assessment and Plan *Assessment and plan (1) Pulmonary embolism: Status: Acute Category: Medical Code(s): I26.99 - Other pulmonary embolism without acute cor pulmonale (2) Pleural effusion: Status: Acute Category: Medical Code(s): J90 - Pleural effusion, not elsewhere classified (3) Sepsis: Status: Acute Category: Medical Code(s): A41.9 - Sepsis, unspecified organism (4) Pneumonia: Status: Acute Category: Medical Code(s): J18.9 - Pneumonia, unspecified organism Plan Ms. Lezama is a 64-year-old female history of diabetes mellitus hypertension ovarian cancer on chemotherapy dyslipidemia presented with sudden onset worsening respiratory's is concerning for pulmonary edema needing intubation mechanical ventilatory supplement pulmonary was called for further evaluation and management. Patient denies any significant smoking history denies any prior respiratory complaints. Not using inhalers at baseline. Patient was followed remotely over the weekend, successfully performed spontaneous breathing trial and was extubated to, weaned to room air. Significant neutrophilic predominant leukocytosis upon admission. CT upon admission bilateral diffuse groundglass opacities, left lower lobe effusion and adjacent dense lobar consolidative changes along with right lower lobe consolidative changes. Segmental right lower lobe pulmonary embolism also noted with no evidence of right heart strain. Echo : EF 25% Sputum growing strep atelectatic. Interval update: No acute respiratory vents overnight. Afebrile. Hemodynamically stable. No evidence of leukocytosis. Continue to remain on room air. Plan: Continue Levofloxacin to complete a total of 7 day course from pulmonary standpoint. DuoNebs every 6 hours on as-needed basis Continue Eliquis for pulm embolism. Likely need indefinite anticoagulation in setting of malignancy Will follow the concerning left-sided pleural effusion as an outpatient basis. Will hold off on performing thoracentesis at this point of time. # Thank you for involving pulmonary in this patient care. Will follow the patient in pulmonary clinic 7 to 10 days with a chest x-ray PA lateral prior to clinic visit
[2024-02-10] MEDS: LOPERAMIDE 2MG CAPSULE 2 MG PO ×2 (10:31→12:20)
[2024-02-10] MEDS: humaLOG 100 UNITS/ML 10ML VIAL (SSI) SQ (11:45)
[2024-02-10 11:46] LABS: POC Glucose,Bedside 316 (70-110)
[2024-02-10] MEDS: levoFLOXacin 750 MG TABLET PO (12:20)
--- NOTE | 2024-02-10 14:00 | PC.NURSE ---
Addendum entered by Venecia Leija RN 02/10/24 14:29: Patient had been educated to use call light and to not ambulate alone and patient did not call out for assistance to restroom prior to this event. Original Note: Patient called out from the bath room, she was going to the restroom and had missed the commode when going to sit down. Patient denies hitting head, denies pain and states that she just hurt her pride . Patient a&ox4 and VS are as follows BP 117/68 P 109 o2 98% on room air and R 16. Patient denies dizziness upon standing. No bruising or scrapes/ discoloration noted on buttocks or back. Notified Dr. Lynsey RN told him about all of the findings and he was ok to continue with discharge still at this time without waiting an amount of time. Patient states feeling ok with continuing with discharge as well. Patient restated not having any pain.
[2024-02-11 02:37] LABS: POC Glucose,Bedside 113 (70-110)
--- NOTE | 2024-02-11 10:01 | CARE MANAGER ---
Contacted patient related to hospital discharge. She states she is feeling better. She has all her medications and is aware of follow up appointments as well as obtaining Xray and lab work prior to follow up appointments. Denies any questions or concerns. RICK Daniels
== END 2024-02-10 14:09 | disposition home or self-care (01) | DRG 981 ==
LOC: ER 20:43 → 2ND 22:07
PROVIDERS: Family Medicine; Internal Medicine; Internal Medicine Cardiovascular Disease; Internal Medicine Pulmonary Disease; Nurse Practitioner; Admitting Provider Student in an Organized Health Care Education/Training Program; Emergency Provider Student in an Organized Health Care Education/Training Program; PCP Family Medicine; Visit Provider Student in an Organized Health Care Education/Training Program
PROC: 027034Z Dilation of Coronary Artery, One Artery with Drug-eluting Intraluminal Device, Percutaneous Approach (ICD-10-PCS; principal; 2024-02-09 09:55)
DX: J96.01 Acute respiratory failure with hypoxia (principal); I26.99 Other pulmonary embolism without acute cor pulmonale; I50.21 Acute systolic (congestive) heart failure; J18.9 Pneumonia, unspecified organism; B37.0 Candidal stomatitis; C56.9 Malignant neoplasm of unspecified ovary; I42.9 Cardiomyopathy, unspecified; Z79.899 Other long term (current) drug therapy; I77.1 Stricture of artery; I11.0 Hypertensive heart disease with heart failure; E78.5 Hyperlipidemia, unspecified; D64.9 Anemia, unspecified; E11.65 Type 2 diabetes mellitus with hyperglycemia; E03.9 Hypothyroidism, unspecified
CPT/HCPCS: 36415; 71045; 71275; 80048; 80053; 80061; 82009; 82803; 82962; 83036; 83605; 83735; 83880; 84145; 84443; 85007; 85025; 85027; 85347; 85730; 86140; 86803; 87040; 87070; 87077; 87081; 87186; 87205; 87389; 92610; 92928; 93005; 93306; 93308; 93458; 94003; 97163; 99152; 99153; 99291; C1725; C1751; C1769; C1874; C9600; J0330; J1200; J1644; J1940; J2250; J2543; J2704; J3010; J3370; J8540; Q9967

== ENCOUNTER 2024-02-16 09:04 | Outpatient (CLI) | payer BC, SELFPAY ==
--- NOTE | 2024-02-16 09:16 | XR_ITS ---
FINAL REPORT TECHNIQUE: Chest PA & Lateral CLINICAL HISTORY: Pneumonia/Left Effusion COMPARISON: 02/06/2024 FINDINGS: 2 views of the chest were performed. The patient has been extubated. The heart size is normal. The mediastinum is within normal limits. The previously noted infiltrates have resolved. No pleural effusion is present. There is no pneumothorax. The bony thorax appears intact. IMPRESSION: Resolution of the previously noted infiltrates. Reviewed, Interpreted and Dictated by Hussain Richardson MD Transcribed by Elvie Hirsch Authenticated and . [facility]
[2024-02-16 10:09] LABS: Basophils % 0.8 % (0.1-2.0); Hematocrit 28.3 % (37.0-47.0); Hemoglobin 9.3 g/dL (12.2-16.2); Lymphocytes # 1.5 K/mm3 (0.7-4.5); Mean Corpuscular HGB Conc 32.7 g/dL (31.8-35.4); Mean Corpuscular Hemoglobin 30.2 pg (27.0-31.2); Mean Corpuscular Volume 92.2 fl (81-99); Mean Platelet Volume 8.7 fl (7.4-10.4); Monocytes # 0.5 K/mm3 (0.1-1.0); Monocytes % 15.8 % (1.7-9.3); Neutrophils # 1.1 K/mm3 (1.8-7.8); Neutrophils % 35.4 % (37.0-80.0); Platelet Count 255 K/mm3 (142-424); Red Blood Count 3.07 M/mm3 (4.20-5.40); Red Cell Distribution Width 23.9 % (11.5-17.5); White Blood Count 3.2 K/mm3 (4.8-10.8)
[2024-02-16 11:50] LABS: Anion Gap 13.1 mEq/L (5-15); Blood Urea Nitrogen 15 mg/dl (7-17); Calcium 9.4 mg/dl (8.4-10.2); Carbon Dioxide 25 mmol/L (22.0-30.0); Chloride 102 mmol/L (98-107); Estimated Glomerular Filt Rate 124 ml/min (>60); GFR (African American) 150 ML/MIN (>60); Glucose 203 mg/dl (74-100); Potassium 4.1 mmoL/L (3.5-5.1); Sodium 136 mmol/L (136-145)
== END 2024-02-16 23:59 | disposition home or self-care (01) ==
LOC: RAD 09:09
PROVIDERS: Physician Assistant; PCP Family Medicine; Visit Provider Nurse Practitioner
DX: J90 Pleural effusion, not elsewhere classified (principal); J18.9 Pneumonia, unspecified organism; I50.20 Unspecified systolic (congestive) heart failure; D64.9 Anemia, unspecified
CPT/HCPCS: 36415; 71046; 80048; 85025

== ENCOUNTER 2024-02-23 14:32 | Outpatient (CLI) | payer BC, SELFPAY ==
[2024-02-23 15:08] LABS: Basophils % 0.6 % (0.1-2.0); Eosinophils % 0.8 % (0.1-12.0); Hematocrit 26.4 % (37.0-47.0); Hemoglobin 9.3 g/dL (12.2-16.2); Lymphocytes # 1.7 K/mm3 (0.7-4.5); Lymphocytes % 32.8 % (10-50); Mean Corpuscular HGB Conc 35.4 g/dL (31.8-35.4); Mean Corpuscular Hemoglobin 31.2 pg (27.0-31.2); Mean Corpuscular Volume 88.2 fl (81-99); Mean Platelet Volume 7.7 fl (7.4-10.4); Monocytes # 0.3 K/mm3 (0.1-1.0); Monocytes % 6.4 % (1.7-9.3); Neutrophils # 3.1 K/mm3 (1.8-7.8); Neutrophils % 59.5 % (37.0-80.0); Platelet Count 275 K/mm3 (142-424); Red Blood Count 2.99 M/mm3 (4.20-5.40); Red Cell Distribution Width 24.5 % (11.5-17.5); White Blood Count 5.2 K/mm3 (4.8-10.8)
[2024-02-23 15:45] LABS: Anion Gap 11.4 mEq/L (5-15); Blood Urea Nitrogen 12 mg/dl (7-17); Calcium 9.4 mg/dl (8.4-10.2); Carbon Dioxide 26 mmol/L (22.0-30.0); Chloride 101 mmol/L (98-107); Estimated Glomerular Filt Rate 124 ml/min (>60); GFR (African American) 150 ML/MIN (>60); Glucose 161 mg/dl (74-100); Potassium 4.4 mmoL/L (3.5-5.1); Sodium 134 mmol/L (136-145)
[2024-02-23 16:01] LABS: Free T4 (Free Thyroxine) 1.38 ng/dl (0.78-2.19)
[2024-02-23 16:16] LABS: Thyroid Stimulating Hormone 1.78 uIU/mL (0.465-4.68)
== END 2024-02-23 23:59 | disposition home or self-care (01) ==
LOC: LAB 14:33
PROVIDERS: PCP Family Medicine; Visit Provider Internal Medicine
DX: I25.10 Atherosclerotic heart disease of native coronary artery without angina pectoris (principal); I26.99 Other pulmonary embolism without acute cor pulmonale; J90 Pleural effusion, not elsewhere classified; I50.20 Unspecified systolic (congestive) heart failure; I50.21 Acute systolic (congestive) heart failure; R00.0 Tachycardia, unspecified; R06.00 Dyspnea, unspecified; K21.9 Gastro-esophageal reflux disease without esophagitis
CPT/HCPCS: 36415; 80048; 84439; 84443; 85025

== ENCOUNTER 2024-02-24 14:04 | Outpatient (CLI) | payer BC, SELFPAY ==
--- NOTE | 2024-02-24 14:10 | CA_ITS ---
APPROVED REPORT EXAM: Comprehensive 2D, Doppler, and color-flow Echocardiogram Real Estate Clerk: CRISELDA Calderon, RVS Ht: 5 ft 10 in Wt: 168lbs BSA: 1.94 BP: 108/75 mmHg Indications: CHF, Chemotherapy-EF25% -02/05/24, currently in lifevest, CAD 2D Dimensions LVDd 5.26 cm F: 3.9 - 5.3 LVEF (Visual) 24.60 % LVDs 4.66 cm F: 2.2 - 3.5 LVEF (Keith's) 43.70 % F: 54 - 74 LV Volume 126.40 mL F: 46 - 106 LV Volume Index 65.222846 mL/m2 F: 29 - 61 EF AP4 42.70 % EF AP2 48.0 % EF BP 43.7 % GL Strain -14.5 % M-Mode Dimensions RVDd 1.35 cm (0.9-2.6) LA Diam 3.51 cm (1.9-4.0) LVDd 5.92 cm (3.5-5.7) LVDs 5.01 cm (3.5-5.7) IVSd 0.89 cm (0.6-1.1) PWd 1.04 cm (0.6-1.1) EF (Teich) 32.00% EPSs 2.82 cm FS 15.40% EDV (Teich) 174.60 mL ESV (Teich) 118.80 mL Other Information Study Quality: Fair Conclusion This is a limited TTE to evaluate for LVEF. Limited windows were obtained. The left ventricle is normal in size. There is increased LV wall thickness. There is mild global hypokinesis present. There is near akinesis of the septal and anteroseptal LV babcock. LVEF is 40-45%. Compared to prior recent TTE from 02/08/2024, the LVEF is now improved, but remains mildly reduced. Electronically signed by : Frances Rutherford MD 02/24/2024 16:07:01
== END 2024-02-24 23:59 | disposition home or self-care (01) ==
LOC: RT 14:07
PROVIDERS: PCP Family Medicine; Visit Provider Internal Medicine
DX: I25.10 Atherosclerotic heart disease of native coronary artery without angina pectoris (principal); I50.21 Acute systolic (congestive) heart failure; I26.99 Other pulmonary embolism without acute cor pulmonale; R00.0 Tachycardia, unspecified; J90 Pleural effusion, not elsewhere classified
CPT/HCPCS: 93308

== ENCOUNTER 2024-03-21 12:36 | Outpatient (CLI) | payer BC, SELFPAY ==
[2024-03-21 16:24] LABS: Basophils % 0.5 % (0.1-2.0); Eosinophils % 0.3 % (0.1-12.0); Hematocrit 26.2 % (37.0-47.0); Hemoglobin 9.1 g/dL (12.2-16.2); Lymphocytes # 1.5 K/mm3 (0.7-4.5); Lymphocytes % 37.7 % (10-50); Mean Corpuscular HGB Conc 34.5 g/dL (31.8-35.4); Mean Corpuscular Hemoglobin 33.1 pg (27.0-31.2); Mean Corpuscular Volume 95.9 fl (81-99); Mean Platelet Volume 8.6 fl (7.4-10.4); Monocytes # 0.4 K/mm3 (0.1-1.0); Monocytes % 8.9 % (1.7-9.3); Neutrophils # 2.1 K/mm3 (1.8-7.8); Neutrophils % 52.7 % (37.0-80.0); Platelet Count 147 K/mm3 (142-424); Red Blood Count 2.73 M/mm3 (4.20-5.40); Red Cell Distribution Width 20.1 % (11.5-17.5); White Blood Count 4.1 K/mm3 (4.8-10.8)
[2024-03-21 16:52] LABS: Alanine Aminotransferase 20 U/L (12-78); Albumin Level 3.7 g/dl (3.5-5.0); Albumin/Globulin Ratio 1.5 (1.1-1.8); Alkaline Phosphatase 125 U/L (38-126); Anion Gap 10.4 mEq/L (5-15); Aspartate Amino Transferase 19 U/L (14-36); Bilirubin,Total 0.4 mg/dl (0.2-1.3); Blood Urea Nitrogen 22 mg/dl (7-17); Calcium 8.5 mg/dl (8.4-10.2); Carbon Dioxide 22 mmol/L (22.0-30.0); Chloride 103 mmol/L (98-107); Estimated Glomerular Filt Rate 100 ml/min (>60); GFR (African American) 121 ML/MIN (>60); Globulin 2.4 g/dL (1.3-3.2); Glucose 292 mg/dl (74-100); Potassium 4.4 mmoL/L (3.5-5.1); Sodium 131 mmol/L (136-145); Total Protein,Serum 6.1 g/dl (6.3-8.2)
[2024-03-22 10:28] LABS: Hemoglobin A1C 6.7 % (4.0-6.0)
== END 2024-03-21 23:59 | disposition home or self-care (01) ==
LOC: LAB.DROPOF 03-22 12:37
PROVIDERS: PCP Family Medicine; Visit Provider Family Medicine
DX: N83.8 Other noninflammatory disorders of ovary, fallopian tube and broad ligament (principal); E11.9 Type 2 diabetes mellitus without complications; Z79.4 Long term (current) use of insulin
CPT/HCPCS: 80053; 83036; 85025

== ENCOUNTER 2024-03-28 09:25 | Outpatient (CLI) | payer BC, SELFPAY ==
[2024-03-28 16:22] LABS: Basophils % 0.3 % (0.1-2.0); Eosinophils % 0.2 % (0.1-12.0); Hematocrit 27.5 % (37.0-47.0); Hemoglobin 9.5 g/dL (12.2-16.2); Lymphocytes # 1.7 K/mm3 (0.7-4.5); Lymphocytes % 52.1 % (10-50); Mean Corpuscular HGB Conc 34.5 g/dL (31.8-35.4); Mean Corpuscular Volume 98.7 fl (81-99); Mean Platelet Volume 10.4 fl (7.4-10.4); Monocytes # 0.3 K/mm3 (0.1-1.0); Monocytes % 9.5 % (1.7-9.3); Neutrophils # 1.2 K/mm3 (1.8-7.8); Neutrophils % 37.8 % (37.0-80.0); Platelet Count 114 K/mm3 (142-424); Red Blood Count 2.78 M/mm3 (4.20-5.40); Red Cell Distribution Width 19.8 % (11.5-17.5); White Blood Count 3.2 K/mm3 (4.8-10.8)
[2024-03-28 16:23] LABS: MANUAL DIFFERENTIAL MANUAL DIFFERENTIAL (MANUAL DIFF)
[2024-03-28 16:39] LABS: Lymphocytes % 50 % (10-50); Monocytes % 5 % (2-9); Neutrophils % 45 % (42-76); Total Cells Counted 100
[2024-03-28 16:40] LABS: Anisocytosis 2+; Hypochromasia 2+; Macrocytosis 2+; Microcytosis 2+; Platelet Estimate Normal
[2024-03-28 16:45] LABS: Creatinine,Urine Random 69 mg/dL (Not Estab.)
[2024-03-28 16:46] LABS: Microalbumin/Creatinine Ratio 33.1
[2024-03-28 16:59] LABS: Alanine Aminotransferase 20 U/L (12-78); Albumin Level 4.1 g/dl (3.5-5.0); Albumin/Globulin Ratio 1.6 (1.1-1.8); Alkaline Phosphatase 138 U/L (38-126); Anion Gap 16.9 mEq/L (5-15); Aspartate Amino Transferase 20 U/L (14-36); Bilirubin,Total 0.6 mg/dl (0.2-1.3); Blood Urea Nitrogen 16 mg/dl (7-17); Carbon Dioxide 22 mmol/L (22.0-30.0); Chloride 105 mmol/L (98-107); Chol/HDL Ratio 3.1 (1-3.5); Cholesterol 160 mg/dl (140-200); Estimated Glomerular Filt Rate 100 ml/min (>60); GFR (African American) 121 ML/MIN (>60); Globulin 2.5 g/dL (1.3-3.2); Glucose 206 mg/dl (74-100); HDL Cholesterol 51 mg/dl (40-60); Potassium 4.9 mmoL/L (3.5-5.1); Sodium 139 mmol/L (136-145); Total Protein,Serum 6.6 g/dl (6.3-8.2); Triglycerides 217 mg/dl (30-150); VLDL Cholesterol 43 mg/dL (0-40)
[2024-03-28 17:04] LABS: Hemoglobin A1C 7.5 % (4.0-6.0)
[2024-03-28 17:29] LABS: Thyroid Stimulating Hormone 2.61 uIU/mL (0.465-4.68)
[2024-03-29 12:29] LABS: Triiodothyronine (T3) Free 2.9 pg/mL (2.0-4.4)
== END 2024-03-28 23:59 | disposition home or self-care (01) ==
LOC: LAB.DROPOF 03-29 07:41
PROVIDERS: PCP Family Medicine; Visit Provider Family Medicine
DX: E78.49 Other hyperlipidemia (principal); E11.9 Type 2 diabetes mellitus without complications; E03.9 Hypothyroidism, unspecified
CPT/HCPCS: 80050; 80053; 80061; 82043; 82570; 83036; 84439; 84443; 84481; 85007; 85025

== ENCOUNTER 2024-03-29 10:15 | Outpatient (CLI) | payer BC, SELFPAY ==
--- NOTE | 2024-03-29 | CA_ITS ---
APPROVED REPORT EXAM: Limited 2D Echocardiogram with contrast Flanging Operator: Ashely Colindres RT(R) Ht: 5 ft 10 in Wt: 170lbs BSA: 1.95 BP: 124/69 mmHg Indications: Ordered as a limited study with Definity, EF 40-45% on echo 02/24/24, breast cancer receiving chemo, CHF, HTN, DM, hyperlipidemia, HFrEF. Echo Enhancing Agent Indication: Endocardial border delineation Agent(s) / Amount(s) Used: Definity 2 cc M-Mode Dimensions RVDd 1.79 cm (0.9-2.6) LVDd 5.73 cm (3.5-5.7) LVDs 4.46 cm (3.5-5.7) IVSd 0.84 cm (0.6-1.1) PWd 0.98 cm (0.6-1.1) EF (Teich) 44.10% FS 22.20% EDV (Teich) 162.00 mL ESV (Teich) 90.50 mL Other Information Study Quality: Fair Conclusion This is a limited TTE to evaluate for LV systolic function. Limited windows were obtained. Ultrasound enhancing agent was administered. The left ventricle is normal in size. There is increased LV wall thickness. There is mild reduction in global LV systolic function. The septal and anteroseptal LV babcock are severely hypokinetic. LVEF is 45%. Compared to prior recent TTE from 02/24/2024, there are overall no significant changes. The LVEF is mildly reduced, but stable from prior. Electronically signed by : Frances Rutherford MD 03/30/2024 00:10:07
== END 2024-03-29 23:59 | disposition home or self-care (01) ==
LOC: RT 10:16
PROVIDERS: PCP Family Medicine; Visit Provider Internal Medicine
DX: I50.20 Unspecified systolic (congestive) heart failure (principal)
CPT/HCPCS: 93308

== ENCOUNTER 2024-04-07 14:00 | Outpatient (CLI) | payer BC, SELFPAY ==
[2024-04-07 16:14] LABS: Basophils % 0.4 % (0.1-2.0); Eosinophils % 0.3 % (0.1-12.0); Hemoglobin 9.7 g/dL (12.2-16.2); Lymphocytes # 1.8 K/mm3 (0.7-4.5); Lymphocytes % 25.5 % (10-50); Mean Corpuscular HGB Conc 36.1 g/dL (31.8-35.4); Mean Corpuscular Hemoglobin 35.2 pg (27.0-31.2); Mean Corpuscular Volume 97.6 fl (81-99); Mean Platelet Volume 8.4 fl (7.4-10.4); Monocytes # 0.3 K/mm3 (0.1-1.0); Monocytes % 4.4 % (1.7-9.3); Neutrophils # 4.9 K/mm3 (1.8-7.8); Neutrophils % 69.3 % (37.0-80.0); Platelet Count 476 K/mm3 (142-424); Red Blood Count 2.76 M/mm3 (4.20-5.40); Red Cell Distribution Width 19.1 % (11.5-17.5); White Blood Count 7.1 K/mm3 (4.8-10.8)
[2024-04-07 16:40] LABS: Albumin Level 3.9 g/dl (3.5-5.0); Chloride 103 mmol/L (98-107); Potassium 5.1 mmoL/L (3.5-5.1); Sodium 134 mmol/L (136-145)
[2024-04-07 16:43] LABS: Alanine Aminotransferase 22 U/L (12-78); Albumin/Globulin Ratio 1.6 (1.1-1.8); Alkaline Phosphatase 121 U/L (38-126); Anion Gap 15.1 mEq/L (5-15); Aspartate Amino Transferase 28 U/L (14-36); Bilirubin,Total 0.5 mg/dl (0.2-1.3); Blood Urea Nitrogen 29 mg/dl (7-17); Carbon Dioxide 21 mmol/L (22.0-30.0); Estimated Glomerular Filt Rate 100 ml/min (>60); GFR (African American) 121 ML/MIN (>60); Globulin 2.5 g/dL (1.3-3.2); Total Protein,Serum 6.4 g/dl (6.3-8.2)
[2024-04-07 16:44] LABS: Calcium 8.9 mg/dl (8.4-10.2); Glucose 275 mg/dl (74-100)
== END 2024-04-07 23:59 | disposition home or self-care (01) ==
LOC: LAB.DROPOF 04-08 07:40
PROVIDERS: PCP Family Medicine; Visit Provider Family Medicine
DX: C56.9 Malignant neoplasm of unspecified ovary (principal)
CPT/HCPCS: 80053; 85025

== ENCOUNTER 2024-04-18 21:31 | Outpatient (CLI) | payer BC, SELFPAY ==
[2024-04-18 21:52] LABS: Basophils % 0.4 % (0.1-2.0); Eosinophils % 0.1 % (0.1-12.0); Hematocrit 25.2 % (37.0-47.0); Hemoglobin 8.5 g/dL (12.2-16.2); Lymphocytes # 1.2 K/mm3 (0.7-4.5); Lymphocytes % 41.3 % (10-50); Mean Corpuscular HGB Conc 33.7 g/dL (31.8-35.4); Mean Corpuscular Hemoglobin 35.4 pg (27.0-31.2); Mean Corpuscular Volume 105.3 fl (81-99); Mean Platelet Volume 11.2 fl (7.4-10.4); Monocytes # 0.2 K/mm3 (0.1-1.0); Monocytes % 8.4 % (1.7-9.3); Neutrophils # 1.4 K/mm3 (1.8-7.8); Neutrophils % 49.9 % (37.0-80.0); Platelet Count 117 K/mm3 (142-424); Red Cell Distribution Width 19.5 % (11.5-17.5); White Blood Count 2.9 K/mm3 (4.8-10.8)
[2024-04-18 23:04] LABS: Chloride 107 mmol/L (98-107); Potassium 4.7 mmoL/L (3.5-5.1); Sodium 142 mmol/L (136-145)
[2024-04-18 23:07] LABS: Alanine Aminotransferase 21 U/L (12-78); Albumin/Globulin Ratio 1.7 (1.1-1.8); Alkaline Phosphatase 129 U/L (38-126); Anion Gap 14.7 mEq/L (5-15); Aspartate Amino Transferase 25 U/L (14-36); Bilirubin,Total 0.5 mg/dl (0.2-1.3); Blood Urea Nitrogen 11 mg/dl (7-17); Carbon Dioxide 25 mmol/L (22.0-30.0); Estimated Glomerular Filt Rate 100 ml/min (>60); GFR (African American) 121 ML/MIN (>60); Globulin 2.3 g/dL (1.3-3.2); Total Protein,Serum 6.3 g/dl (6.3-8.2)
[2024-04-18 23:08] LABS: Glucose 167 mg/dl (74-100)
== END 2024-04-18 23:59 | disposition home or self-care (01) ==
LOC: LAB 21:32
PROVIDERS: PCP Family Medicine; Visit Provider Family Medicine
DX: C56.9 Malignant neoplasm of unspecified ovary (principal)
CPT/HCPCS: 80053; 85025

== ENCOUNTER 2024-05-02 13:30 | Outpatient (CLI) | payer BC, SELFPAY ==
[2024-05-02 16:19] LABS: Basophils % 0.4 % (0.1-2.0); Eosinophils % 0.1 % (0.1-12.0); Hematocrit 24.8 % (37.0-47.0); Hemoglobin 8.5 g/dL (12.2-16.2); Lymphocytes # 1.1 K/mm3 (0.7-4.5); Lymphocytes % 26.6 % (10-50); Mean Corpuscular HGB Conc 34.3 g/dL (31.8-35.4); Mean Corpuscular Hemoglobin 36.2 pg (27.0-31.2); Mean Corpuscular Volume 105.5 fl (81-99); Mean Platelet Volume 8.7 fl (7.4-10.4); Monocytes # 0.4 K/mm3 (0.1-1.0); Neutrophils # 2.7 K/mm3 (1.8-7.8); Platelet Count 222 K/mm3 (142-424); Red Blood Count 2.35 M/mm3 (4.20-5.40); Red Cell Distribution Width 19.5 % (11.5-17.5); White Blood Count 4.2 K/mm3 (4.8-10.8)
[2024-05-02 16:31] LABS: Albumin Level 4.1 g/dl (3.5-5.0); Chloride 106 mmol/L (98-107); Potassium 4.6 mmoL/L (3.5-5.1); Sodium 131 mmol/L (136-145)
[2024-05-02 16:34] LABS: Alanine Aminotransferase 25 U/L (12-78); Albumin/Globulin Ratio 1.7 (1.1-1.8); Alkaline Phosphatase 118 U/L (38-126); Anion Gap 8.6 mEq/L (5-15); Aspartate Amino Transferase 29 U/L (14-36); Bilirubin,Total 0.4 mg/dl (0.2-1.3); Blood Urea Nitrogen 29 mg/dl (7-17); Calcium 9.2 mg/dl (8.4-10.2); Carbon Dioxide 21 mmol/L (22.0-30.0); Estimated Glomerular Filt Rate 84 ml/min (>60); GFR (African American) 102 ML/MIN (>60); Globulin 2.4 g/dL (1.3-3.2); Glucose 234 mg/dl (74-100); Total Protein,Serum 6.5 g/dl (6.3-8.2)
== END 2024-05-02 23:59 | disposition home or self-care (01) ==
LOC: LAB.DROPOF 05-03 12:34
PROVIDERS: PCP Family Medicine; Visit Provider Family Medicine
DX: C56.9 Malignant neoplasm of unspecified ovary (principal)
CPT/HCPCS: 80053; 85025

== ENCOUNTER 2024-05-09 10:00 | Outpatient (CLI) | payer BC, SELFPAY ==
[2024-05-09 16:48] LABS: Hematocrit 21.7 % (37.0-47.0); Hemoglobin 7.2 g/dL (12.2-16.2); Lymphocytes % 49.8 % (10-50); Mean Corpuscular HGB Conc 33.2 g/dL (31.8-35.4); Mean Corpuscular Volume 108.5 fl (81-99); Mean Platelet Volume 11.8 fl (7.4-10.4); Monocytes % 10.8 % (1.7-9.3); Neutrophils % 39.4 % (37.0-80.0); Platelet Count 100 K/mm3 (142-424); Red Cell Distribution Width 19.1 % (11.5-17.5); White Blood Count 2.9 K/mm3 (4.8-10.8)
[2024-05-09 16:49] LABS: Lymphocytes # 1.4 K/mm3 (0.7-4.5); Monocytes # 0.3 K/mm3 (0.1-1.0); Neutrophils # 1.1 K/mm3 (1.8-7.8)
[2024-05-09 17:11] LABS: Alanine Aminotransferase 18 U/L (12-78); Albumin Level 3.8 g/dl (3.5-5.0); Albumin/Globulin Ratio 1.7 (1.1-1.8); Alkaline Phosphatase 120 U/L (38-126); Aspartate Amino Transferase 22 U/L (14-36); Bilirubin,Total 0.5 mg/dl (0.2-1.3); Blood Urea Nitrogen 13 mg/dl (7-17); Calcium 9.1 mg/dl (8.4-10.2); Carbon Dioxide 27 mmol/L (22.0-30.0); Chloride 109 mmol/L (98-107); Estimated Glomerular Filt Rate 84 ml/min (>60); GFR (African American) 102 ML/MIN (>60); Globulin 2.3 g/dL (1.3-3.2); Glucose 177 mg/dl (74-100); Sodium 141 mmol/L (136-145); Total Protein,Serum 6.1 g/dl (6.3-8.2)
[2024-05-09 17:22] LABS: Anion Gap 9.4 mEq/L (5-15); Potassium 4.4 mmoL/L (3.5-5.1)
== END 2024-05-09 23:59 | disposition home or self-care (01) ==
LOC: LAB.DROPOF 05-10 10:00
PROVIDERS: PCP Family Medicine; Visit Provider Family Medicine
DX: C56.9 Malignant neoplasm of unspecified ovary (principal)
CPT/HCPCS: 80053; 85025

== ENCOUNTER 2024-05-13 08:50 | Outpatient (CLI) | payer BC, SELFPAY ==
[2024-05-13] VITALS (11 sets, daily range): BP systolic 113–128; BP diastolic 51–67; PULSE 70–78; RESP 17–18; TEMP 36.3–36.6; O2SAT 98–100; BMI 26.2
[2024-05-13 09:15] LABS: Hematocrit 22.8 % (37.0-47.0); Hemoglobin 7.6 g/dL (12.2-16.2)
[2024-05-13] MEDS: ACETAMINOPHEN 325MG TAB 650 MG PO (10:34)
[2024-05-13] MEDS: diphenhydrAMINE 50MG CAPSULE 50 MG PO (10:35)
[2024-05-13] MEDS: 0.9 % SODIUM CHLORIDE 250 ML 25 ML IV (10:50)
== END 2024-05-13 14:13 | disposition home or self-care (01) ==
LOC: INF 08:50
PROVIDERS: PCP Family Medicine; Visit Provider Obstetrics & Gynecology
DX: I25.10 Atherosclerotic heart disease of native coronary artery without angina pectoris (principal)
CPT/HCPCS: 36430; 85014; 85018; 86850; P9016

== ENCOUNTER 2024-07-12 14:03 | Outpatient (CLI) | payer BC, SELFPAY ==
[2024-07-12 14:45] LABS: Basophils % 0.5 % (0.1-2.0); Eosinophils # 0.2 K/mm3 (0.0-0.4); Eosinophils % 3.2 % (0.1-12.0); Hemoglobin 10.7 g/dL (12.2-16.2); Lymphocytes # 1.8 K/mm3 (0.7-4.5); Lymphocytes % 28.2 % (10-50); Mean Corpuscular HGB Conc 33.4 g/dL (31.8-35.4); Mean Corpuscular Hemoglobin 33.2 pg (27.0-31.2); Mean Corpuscular Volume 99.4 fl (81-99); Mean Platelet Volume 10.7 fl (7.4-10.4); Monocytes # 0.6 K/mm3 (0.1-1.0); Monocytes % 9.2 % (1.7-9.3); Neutrophils # 3.6 K/mm3 (1.8-7.8); Neutrophils % 58.4 % (37.0-80.0); Platelet Count 183 K/mm3 (142-424); Red Blood Count 3.22 M/mm3 (4.20-5.40); Red Cell Distribution Width 14.2 % (11.5-17.5); White Blood Count 6.2 K/mm3 (4.8-10.8)
[2024-07-12 15:14] LABS: Albumin Level 4.5 g/dl (3.5-5.0); Chloride 105 mmol/L (98-107); Potassium 4.4 mmoL/L (3.5-5.1); Sodium 141 mmol/L (136-145)
[2024-07-12 15:16] LABS: Blood Urea Nitrogen 15 mg/dl (7-17); Estimated Glomerular Filt Rate 100 ml/min (>60); GFR (African American) 121 ML/MIN (>60)
[2024-07-12 15:17] LABS: Alanine Aminotransferase 18 U/L (12-78); Alkaline Phosphatase 108 U/L (38-126); Anion Gap 15.4 mEq/L (5-15); Aspartate Amino Transferase 23 U/L (14-36); Bilirubin,Direct 0.1 mg/dl (0.0-0.4); Bilirubin,Indirect 0.4 mg/dL (0.0-0.9); Bilirubin,Total 0.5 mg/dl (0.2-1.3); Bilirubin,Unconjugated 0.4 mg/dL (0.0-1.1); Calcium 9.5 mg/dl (8.4-10.2); Carbon Dioxide 25 mmol/L (22.0-30.0); Cholesterol 148 mg/dl (140-200); Glucose 128 mg/dl (74-100); Total Protein,Serum 6.9 g/dl (6.3-8.2); Triglycerides 194 mg/dl (30-150); VLDL Cholesterol 39 mg/dL (0-40)
[2024-07-12 15:18] LABS: Chol/HDL Ratio 2.6 (1-3.5); HDL Cholesterol 56 mg/dl (40-60)
[2024-07-12 15:34] LABS: Free T4 (Free Thyroxine) 1.13 ng/dl (0.78-2.19)
[2024-07-12 15:48] LABS: Thyroid Stimulating Hormone 1.07 uIU/mL (0.465-4.68)
== END 2024-07-12 23:59 | disposition home or self-care (01) ==
LOC: LAB 14:04
PROVIDERS: PCP Family Medicine; Visit Provider Internal Medicine
DX: R42 Dizziness and giddiness (principal); R00.0 Tachycardia, unspecified; I10 Essential (primary) hypertension; I25.10 Atherosclerotic heart disease of native coronary artery without angina pectoris; E78.49 Other hyperlipidemia; E03.9 Hypothyroidism, unspecified; E11.9 Type 2 diabetes mellitus without complications; Z79.4 Long term (current) use of insulin; Z79.84 Long term (current) use of oral hypoglycemic drugs
CPT/HCPCS: 36415; 80048; 80061; 80076; 84439; 84443; 85025

== ENCOUNTER 2024-07-19 00:26 | Outpatient (CLI) | payer BC, SELFPAY ==
[2024-07-19 02:24] LABS: Albumin Level 4.4 g/dl (3.5-5.0); Chloride 106 mmol/L (98-107); Potassium 4.4 mmoL/L (3.5-5.1); Sodium 140 mmol/L (136-145)
[2024-07-19 02:27] LABS: Alanine Aminotransferase 19 U/L (12-78); Albumin/Globulin Ratio 2.1 (1.1-1.8); Alkaline Phosphatase 122 U/L (38-126); Anion Gap 12.4 mEq/L (5-15); Aspartate Amino Transferase 21 U/L (14-36); Bilirubin,Total 0.4 mg/dl (0.2-1.3); Blood Urea Nitrogen 16 mg/dl (7-17); Calcium 9.2 mg/dl (8.4-10.2); Carbon Dioxide 26 mmol/L (22.0-30.0); Cholesterol 151 mg/dl (140-200); Estimated Glomerular Filt Rate 72 ml/min (>60); GFR (African American) 87 ML/MIN (>60); Globulin 2.1 g/dL (1.3-3.2); Glucose 163 mg/dl (74-100); Total Protein,Serum 6.5 g/dl (6.3-8.2); Triglycerides 130 mg/dl (30-150); VLDL Cholesterol 26 mg/dL (0-40)
[2024-07-19 02:28] LABS: Chol/HDL Ratio 2.6 (1-3.5); HDL Cholesterol 57 mg/dl (40-60)
[2024-07-19 02:38] LABS: Direct LDL Cholesterol 60.44 mg/dL (100-129)
[2024-07-19 02:40] LABS: Hemoglobin A1C 5.7 % (4.0-6.0)
[2024-07-19 02:58] LABS: Thyroid Stimulating Hormone 1.38 uIU/mL (0.465-4.68)
[2024-07-19 03:59] LABS: Free T4 (Free Thyroxine) 1.27 ng/dl (0.78-2.19)
[2024-07-19 04:06] LABS: Microalbumin/Creatinine Ratio 24.1
[2024-07-19 05:09] LABS: Creatinine,Urine Random 99 mg/dL (Not Estab.)
== END 2024-07-19 23:59 | disposition home or self-care (01) ==
LOC: LAB.DROPOF 00:28
PROVIDERS: PCP Family Medicine; Visit Provider Internal Medicine Endocrinology, Diabetes & Metabolism
DX: E11.65 Type 2 diabetes mellitus with hyperglycemia (principal); E11.69 Type 2 diabetes mellitus with other specified complication; E78.5 Hyperlipidemia, unspecified; E03.9 Hypothyroidism, unspecified
CPT/HCPCS: 80053; 80061; 82043; 82570; 83036; 84439; 84443; 84481

== ENCOUNTER 2024-08-10 17:58 | Outpatient (CLI) | payer BC, SELFPAY ==
[2024-08-10 18:16] LABS: Basophils % 0.4 % (0.1-2.0); Eosinophils % 0.7 % (0.1-12.0); Hematocrit 33.7 % (37.0-47.0); Hemoglobin 11.2 g/dL (12.2-16.2); Lymphocytes # 1.6 K/mm3 (0.7-4.5); Lymphocytes % 30.3 % (10-50); Mean Corpuscular HGB Conc 33.2 g/dL (31.8-35.4); Mean Corpuscular Hemoglobin 32.7 pg (27.0-31.2); Mean Corpuscular Volume 98.5 fl (81-99); Mean Platelet Volume 10.9 fl (7.4-10.4); Monocytes # 0.4 K/mm3 (0.1-1.0); Neutrophils # 3.2 K/mm3 (1.8-7.8); Neutrophils % 60.2 % (37.0-80.0); Platelet Count 166 K/mm3 (142-424); Red Blood Count 3.42 M/mm3 (4.20-5.40); Red Cell Distribution Width 13.2 % (11.5-17.5); White Blood Count 5.4 K/mm3 (4.8-10.8)
[2024-08-10 19:08] LABS: Alanine Aminotransferase 20 U/L (12-78); Albumin Level 4.2 g/dl (3.5-5.0); Albumin/Globulin Ratio 1.8 (1.1-1.8); Alkaline Phosphatase 105 U/L (38-126); Anion Gap 16.7 mEq/L (5-15); Aspartate Amino Transferase 23 U/L (14-36); Bilirubin,Total 0.6 mg/dl (0.2-1.3); Blood Urea Nitrogen 19 mg/dl (7-17); Calcium 9.4 mg/dl (8.4-10.2); Carbon Dioxide 25 mmol/L (22.0-30.0); Chloride 103 mmol/L (98-107); Estimated Glomerular Filt Rate 50 ml/min (>60); GFR (African American) 60 ML/MIN (>60); Globulin 2.4 g/dL (1.3-3.2); Glucose 157 mg/dl (74-100); Potassium 4.7 mmoL/L (3.5-5.1); Sodium 140 mmol/L (136-145); Total Protein,Serum 6.6 g/dl (6.3-8.2)
== END 2024-08-10 23:59 | disposition home or self-care (01) ==
LOC: LAB.DROPOF 17:58
PROVIDERS: PCP Obstetrics & Gynecology Gynecologic Oncology; Visit Provider Obstetrics & Gynecology Gynecologic Oncology
DX: N83.209 Unspecified ovarian cyst, unspecified side (principal)
CPT/HCPCS: 80053; 85025

== ENCOUNTER 2024-08-17 17:03 | Outpatient (CLI) | payer BC, SELFPAY ==
[2024-08-17 17:31] LABS: Basophils % 0.3 % (0.1-2.0); Eosinophils % 0.3 % (0.1-12.0); Hematocrit 28.7 % (37.0-47.0); Hemoglobin 9.6 g/dL (12.2-16.2); Lymphocytes # 1.3 K/mm3 (0.7-4.5); Lymphocytes % 38.1 % (10-50); Mean Corpuscular HGB Conc 33.4 g/dL (31.8-35.4); Mean Corpuscular Hemoglobin 32.3 pg (27.0-31.2); Mean Corpuscular Volume 96.6 fl (81-99); Mean Platelet Volume 11.5 fl (7.4-10.4); Monocytes # 0.3 K/mm3 (0.1-1.0); Neutrophils # 1.8 K/mm3 (1.8-7.8); Platelet Count 87 K/mm3 (142-424); Red Blood Count 2.97 M/mm3 (4.20-5.40); Red Cell Distribution Width 13.6 % (11.5-17.5); White Blood Count 3.4 K/mm3 (4.8-10.8)
[2024-08-17 20:17] LABS: Albumin Level 3.9 g/dl (3.5-5.0); Chloride 106 mmol/L (98-107); Potassium 4.5 mmoL/L (3.5-5.1); Sodium 142 mmol/L (136-145)
[2024-08-17 20:20] LABS: Alanine Aminotransferase 29 U/L (12-78); Albumin/Globulin Ratio 1.5 (1.1-1.8); Alkaline Phosphatase 169 U/L (38-126); Anion Gap 14.5 mEq/L (5-15); Aspartate Amino Transferase 30 U/L (14-36); Bilirubin,Total 0.5 mg/dl (0.2-1.3); Blood Urea Nitrogen 18 mg/dl (7-17); Calcium 8.9 mg/dl (8.4-10.2); Carbon Dioxide 26 mmol/L (22.0-30.0); Estimated Glomerular Filt Rate 84 ml/min (>60); GFR (African American) 102 ML/MIN (>60); Globulin 2.6 g/dL (1.3-3.2); Glucose 159 mg/dl (74-100); Total Protein,Serum 6.5 g/dl (6.3-8.2)
== END 2024-08-17 23:59 | disposition home or self-care (01) ==
LOC: LAB.DROPOF 17:10
PROVIDERS: Visit Provider Obstetrics & Gynecology Gynecologic Oncology
DX: N83.209 Unspecified ovarian cyst, unspecified side (principal)
CPT/HCPCS: 80053; 85025

== ENCOUNTER 2024-08-23 17:55 | Outpatient (CLI) | payer BC, SELFPAY ==
[2024-08-23 18:35] LABS: Basophils % 0.2 % (0.1-2.0); Eosinophils % 0.2 % (0.1-12.0); Hemoglobin 9.6 g/dL (12.2-16.2); Lymphocytes # 1.6 K/mm3 (0.7-4.5); Lymphocytes % 36.2 % (10-50); Mean Corpuscular HGB Conc 34.4 g/dL (31.8-35.4); Mean Corpuscular Hemoglobin 33.1 pg (27.0-31.2); Mean Corpuscular Volume 96.2 fl (81-99); Mean Platelet Volume 10.8 fl (7.4-10.4); Monocytes # 0.6 K/mm3 (0.1-1.0); Monocytes % 12.8 % (1.7-9.3); Neutrophils # 2.2 K/mm3 (1.8-7.8); Neutrophils % 49.7 % (37.0-80.0); Platelet Count 254 K/mm3 (142-424); Red Cell Distribution Width 14.4 % (11.5-17.5); White Blood Count 4.4 K/mm3 (4.8-10.8)
[2024-08-23 19:09] LABS: Hematocrit 27.9 % (37.0-47.0)
[2024-08-23 19:36] LABS: Alanine Aminotransferase 22 U/L (12-78); Albumin Level 3.9 g/dl (3.5-5.0); Albumin/Globulin Ratio 1.4 (1.1-1.8); Alkaline Phosphatase 138 U/L (38-126); Anion Gap 16.9 mEq/L (5-15); Aspartate Amino Transferase 22 U/L (14-36); Bilirubin,Total 0.5 mg/dl (0.2-1.3); Blood Urea Nitrogen 17 mg/dl (7-17); Calcium 9.1 mg/dl (8.4-10.2); Carbon Dioxide 21 mmol/L (22.0-30.0); Chloride 105 mmol/L (98-107); Estimated Glomerular Filt Rate 84 ml/min (>60); GFR (African American) 102 ML/MIN (>60); Globulin 2.7 g/dL (1.3-3.2); Glucose 149 mg/dl (74-100); Potassium 4.9 mmoL/L (3.5-5.1); Sodium 138 mmol/L (136-145); Total Protein,Serum 6.6 g/dl (6.3-8.2)
== END 2024-08-23 23:59 | disposition home or self-care (01) ==
LOC: LAB.DROPOF 17:56
PROVIDERS: PCP Obstetrics & Gynecology Gynecologic Oncology; Visit Provider Obstetrics & Gynecology Gynecologic Oncology
DX: N83.8 Other noninflammatory disorders of ovary, fallopian tube and broad ligament (principal)
CPT/HCPCS: 80053; 85025

== ENCOUNTER 2024-08-31 13:55 | Outpatient (CLI) | payer BC, SELFPAY ==
[2024-08-31 14:00] LABS: Basophils % 0.1 % (0.1-2.0); Eosinophils % 0.1 % (0.1-12.0); Hematocrit 33.9 % (37.0-47.0); Hemoglobin 11.6 g/dL (12.2-16.2); Lymphocytes # 2.1 K/mm3 (0.7-4.5); Lymphocytes % 28.2 % (10-50); Mean Corpuscular HGB Conc 34.2 g/dL (31.8-35.4); Mean Corpuscular Hemoglobin 32.9 pg (27.0-31.2); Mean Platelet Volume 10.3 fl (7.4-10.4); Monocytes # 0.6 K/mm3 (0.1-1.0); Monocytes % 7.9 % (1.7-9.3); Neutrophils # 4.8 K/mm3 (1.8-7.8); Neutrophils % 63.3 % (37.0-80.0); Nucleated Red Blood Cells # 0 10^3/uL; Nucleated Red Blood Cells % 0 %; Platelet Count 343 K/mm3 (142-424); Red Blood Count 3.53 M/mm3 (4.20-5.40); Red Cell Distribution Width 15.3 % (11.5-17.5); Red Cell Distribution Width-SD 52.9 fL; White Blood Count 7.6 K/mm3 (4.8-10.8)
[2024-08-31 14:51] LABS: Albumin Level 4.4 g/dl (3.5-5.0); Chloride 103 mmol/L (98-107); Sodium 139 mmol/L (136-145)
[2024-08-31 14:52] LABS: Potassium 5.1 mmoL/L (3.5-5.1)
[2024-08-31 14:54] LABS: Alanine Aminotransferase 19 U/L (12-78); Albumin/Globulin Ratio 1.5 (1.1-1.8); Alkaline Phosphatase 117 U/L (38-126); Anion Gap 15.1 mEq/L (5-15); Aspartate Amino Transferase 22 U/L (14-36); Bilirubin,Total 0.8 mg/dl (0.2-1.3); Blood Urea Nitrogen 30 mg/dl (7-17); Carbon Dioxide 26 mmol/L (22.0-30.0); Estimated Glomerular Filt Rate 63 ml/min (>60); GFR (African American) 76 ML/MIN (>60); Globulin 2.9 g/dL (1.3-3.2); Total Protein,Serum 7.3 g/dl (6.3-8.2)
[2024-08-31 14:55] LABS: Calcium 9.2 mg/dl (8.4-10.2); Glucose 168 mg/dl (74-100)
== END 2024-08-31 23:59 | disposition home or self-care (01) ==
LOC: LAB 13:56
PROVIDERS: PCP Obstetrics & Gynecology Gynecologic Oncology; Visit Provider Obstetrics & Gynecology Gynecologic Oncology
DX: N83.8 Other noninflammatory disorders of ovary, fallopian tube and broad ligament (principal)
CPT/HCPCS: 80053; 85025

== ENCOUNTER 2024-09-07 15:05 | Outpatient (CLI) | payer BC, SELFPAY ==
[2024-09-07 16:46] LABS: Basophils % 0.2 % (0.1-2.0); Hematocrit 26.4 % (37.0-47.0); Hemoglobin 9.1 g/dL (12.2-16.2); Lymphocytes # 1.5 K/mm3 (0.7-4.5); Lymphocytes % 35.8 % (10-50); Mean Corpuscular HGB Conc 34.5 g/dL (31.8-35.4); Mean Corpuscular Hemoglobin 33.1 pg (27.0-31.2); Mean Platelet Volume 11.4 fl (7.4-10.4); Monocytes # 0.5 K/mm3 (0.1-1.0); Monocytes % 10.7 % (1.7-9.3); Neutrophils # 2.2 K/mm3 (1.8-7.8); Neutrophils % 53.1 % (37.0-80.0); Nucleated Red Blood Cells # 0 10^3/uL; Nucleated Red Blood Cells % 0 %; Platelet Count 87 K/mm3 (142-424); Red Blood Count 2.75 M/mm3 (4.20-5.40); Red Cell Distribution Width-SD 51.5 fL; White Blood Count 4.2 K/mm3 (4.8-10.8)
[2024-09-07 17:58] LABS: Chloride 110 mmol/L (98-107); Potassium 3.9 mmoL/L (3.5-5.1); Sodium 141 mmol/L (136-145)
[2024-09-07 18:00] LABS: Blood Urea Nitrogen 16 mg/dl (7-17); Estimated Glomerular Filt Rate 84 ml/min (>60); GFR (African American) 102 ML/MIN (>60)
[2024-09-07 18:01] LABS: Alanine Aminotransferase 24 U/L (12-78); Alkaline Phosphatase 133 U/L (38-126); Anion Gap 12.9 mEq/L (5-15); Aspartate Amino Transferase 24 U/L (14-36); Bilirubin,Total 0.3 mg/dl (0.2-1.3); Calcium 8.5 mg/dl (8.4-10.2); Carbon Dioxide 22 mmol/L (22.0-30.0); Glucose 163 mg/dl (74-100); Total Protein,Serum 6.4 g/dl (6.3-8.2)
[2024-09-07 20:02] LABS: Albumin Level 3.9 g/dl (3.5-5.0); Albumin/Globulin Ratio 1.6 (1.1-1.8); Globulin 2.5 g/dL (1.3-3.2)
== END 2024-09-07 23:59 | disposition home or self-care (01) ==
LOC: LAB.DROPOF 09-08 10:56
PROVIDERS: PCP Family Medicine; Visit Provider Family Medicine
DX: Z90.710 Acquired absence of both cervix and uterus (principal)
CPT/HCPCS: 80053; 85025

== ENCOUNTER 2024-09-22 16:55 | Outpatient (CLI) | payer BC, SELFPAY ==
[2024-09-22 17:22] LABS: Basophils % 0.3 % (0.1-2.0); Eosinophils % 0.3 % (0.1-12.0); Hematocrit 29.4 % (37.0-47.0); Hemoglobin 9.8 g/dL (12.2-16.2); Immature Granulocytes # 0.03 10^3uL; Immature Granulocytes % 0.4 %; Lymphocytes # 2.2 K/mm3 (0.7-4.5); Lymphocytes % 31.6 % (10-50); Mean Corpuscular HGB Conc 33.3 g/dL (31.8-35.4); Mean Corpuscular Hemoglobin 33.1 pg (27.0-31.2); Mean Corpuscular Volume 99.3 fl (81-99); Mean Platelet Volume 10.6 fl (7.4-10.4); Monocytes # 0.7 K/mm3 (0.1-1.0); Monocytes % 10.9 % (1.7-9.3); Neutrophils # 3.8 K/mm3 (1.8-7.8); Neutrophils % 56.5 % (37.0-80.0); Nucleated Red Blood Cells # 0 10^3/uL; Nucleated Red Blood Cells % 0 %; Platelet Count 351 K/mm3 (142-424); Red Blood Count 2.96 M/mm3 (4.20-5.40); Red Cell Distribution Width 17.5 % (11.5-17.5); Red Cell Distribution Width-SD 61.4 fL; White Blood Count 6.8 K/mm3 (4.8-10.8)
[2024-09-22 19:09] LABS: Aspartate Amino Transferase 20 U/L (14-36); Bilirubin,Total 0.5 mg/dl (0.2-1.3); Blood Urea Nitrogen 31 mg/dl (7-17); Calcium 9.1 mg/dl (8.4-10.2); Carbon Dioxide 24 mmol/L (22.0-30.0); Chloride 107 mmol/L (98-107); Estimated Glomerular Filt Rate 72 ml/min (>60); GFR (African American) 87 ML/MIN (>60); Glucose 146 mg/dl (74-100); Sodium 136 mmol/L (136-145)
[2024-09-22 19:10] LABS: Alanine Aminotransferase 18 U/L (12-78); Albumin Level 4.4 g/dl (3.5-5.0); Albumin/Globulin Ratio 1.8 (1.1-1.8); Alkaline Phosphatase 120 U/L (38-126); Globulin 2.4 g/dL (1.3-3.2); Total Protein,Serum 6.8 g/dl (6.3-8.2)
== END 2024-09-22 23:59 | disposition home or self-care (01) ==
LOC: LAB.DROPOF 16:56
PROVIDERS: PCP Obstetrics & Gynecology Gynecologic Oncology; Visit Provider Obstetrics & Gynecology Gynecologic Oncology
DX: N83.8 Other noninflammatory disorders of ovary, fallopian tube and broad ligament (principal)
CPT/HCPCS: 80053; 85025

== ENCOUNTER 2024-10-04 17:18 | Outpatient (CLI) | payer BC, SELFPAY ==
[2024-10-04 17:26] LABS: Hematocrit 22.9 % (37.0-47.0); Hemoglobin 7.8 g/dL (12.2-16.2); Immature Granulocytes # 0.01 10^3uL; Immature Granulocytes % 0.2 %; Lymphocytes # 1.5 K/mm3 (0.7-4.5); Lymphocytes % 30.8 % (10-50); Mean Corpuscular HGB Conc 34.1 g/dL (31.8-35.4); Mean Corpuscular Hemoglobin 34.7 pg (27.0-31.2); Mean Corpuscular Volume 101.8 fl (81-99); Mean Platelet Volume 12.2 fl (7.4-10.4); Monocytes # 0.5 K/mm3 (0.1-1.0); Monocytes % 9.6 % (1.7-9.3); Neutrophils # 2.8 K/mm3 (1.8-7.8); Neutrophils % 59.4 % (37.0-80.0); Nucleated Red Blood Cells # 0 10^3/uL; Nucleated Red Blood Cells % 0 %; Platelet Count 67 K/mm3 (142-424); Red Blood Count 2.25 M/mm3 (4.20-5.40); Red Cell Distribution Width 19.1 % (11.5-17.5); Red Cell Distribution Width-SD 67.6 fL; White Blood Count 4.8 K/mm3 (4.8-10.8)
[2024-10-04 17:30] LABS: Alanine Aminotransferase 22 U/L (12-78); Albumin Level 4.2 g/dl (3.5-5.0); Albumin/Globulin Ratio 1.8 (1.1-1.8); Alkaline Phosphatase 128 U/L (38-126); Aspartate Amino Transferase 23 U/L (14-36); Bilirubin,Total 0.5 mg/dl (0.2-1.3); Blood Urea Nitrogen 24 mg/dl (7-17); Calcium 9.1 mg/dl (8.4-10.2); Carbon Dioxide 25 mmol/L (22.0-30.0); Chloride 106 mmol/L (98-107); Estimated Glomerular Filt Rate 84 ml/min (>60); GFR (African American) 102 ML/MIN (>60); Globulin 2.4 g/dL (1.3-3.2); Glucose 163 mg/dl (74-100); Sodium 139 mmol/L (136-145); Total Protein,Serum 6.6 g/dl (6.3-8.2)
== END 2024-10-04 23:59 | disposition home or self-care (01) ==
LOC: LAB.DROPOF 17:19
PROVIDERS: PCP Obstetrics & Gynecology Gynecologic Oncology; Visit Provider Obstetrics & Gynecology Gynecologic Oncology
DX: N83.8 Other noninflammatory disorders of ovary, fallopian tube and broad ligament (principal)
CPT/HCPCS: 80053; 85025

== ENCOUNTER 2024-10-11 15:41 | Outpatient (CLI) | payer BC, SELFPAY ==
[2024-10-11 17:34] LABS: Basophils % 0.2 % (0.1-2.0); Eosinophils % 0.5 % (0.1-12.0); Hemoglobin 8.6 g/dL (12.2-16.2); Immature Granulocytes # 0.04 10^3uL; Immature Granulocytes % 0.9 %; Lymphocytes # 1.5 K/mm3 (0.7-4.5); Lymphocytes % 34.3 % (10-50); Mean Corpuscular Hemoglobin 35.5 pg (27.0-31.2); Mean Corpuscular Volume 107.9 fl (81-99); Mean Platelet Volume 11.2 fl (7.4-10.4); Monocytes # 0.7 K/mm3 (0.1-1.0); Monocytes % 17.4 % (1.7-9.3); Neutrophils % 46.7 % (37.0-80.0); Nucleated Red Blood Cells # 0.02 10^3/uL; Nucleated Red Blood Cells % 0.5 %; Platelet Count 225 K/mm3 (142-424); Red Blood Count 2.42 M/mm3 (4.20-5.40); Red Cell Distribution Width 21.7 % (11.5-17.5); Red Cell Distribution Width-SD 83.8 fL; White Blood Count 4.3 K/mm3 (4.8-10.8)
[2024-10-11 17:46] LABS: Hematocrit 26.1 % (37.0-47.0)
[2024-10-11 18:05] LABS: Alanine Aminotransferase 19 U/L (12-78); Albumin Level 4.4 g/dl (3.5-5.0); Albumin/Globulin Ratio 1.8 (1.1-1.8); Alkaline Phosphatase 132 U/L (38-126); Anion Gap 13.2 mEq/L (5-15); Aspartate Amino Transferase 22 U/L (14-36); Bilirubin,Total 0.5 mg/dl (0.2-1.3); Blood Urea Nitrogen 16 mg/dl (7-17); Carbon Dioxide 27 mmol/L (22.0-30.0); Chloride 105 mmol/L (98-107); Estimated Glomerular Filt Rate 84 ml/min (>60); GFR (African American) 102 ML/MIN (>60); Globulin 2.4 g/dL (1.3-3.2); Glucose 175 mg/dl (74-100); Potassium 4.2 mmoL/L (3.5-5.1); Sodium 141 mmol/L (136-145); Total Protein,Serum 6.8 g/dl (6.3-8.2)
== END 2024-10-11 23:59 | disposition home or self-care (01) ==
LOC: LAB.DROPOF 10-12 10:21
PROVIDERS: PCP Family Medicine; Visit Provider Family Medicine
DX: Z86.2 Personal history of diseases of the blood and blood-forming organs and certain disorders involving the immune mechanism (principal)
CPT/HCPCS: 80053; 85025

== ENCOUNTER 2024-11-09 13:25 | Outpatient (CLI) | payer BC, SELFPAY ==
--- OUTSIDE RECORDS SUMMARY | 2024-09-16 08:30 | XMS_ITS | Encounter Summary ---
Author Organization [facility] Address 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 Role Phone Ryan Marques MD Unavailable Unavailab le Ryan Marques MD Primary Care Provider Rhina vailable Reason for Referral * Imaging (Routine) - Closed Specialty Diagnoses / Procedures Referred By Tiago t Referred To Contact Radiology Diagnoses Carcinosarcoma (CMS/HCC) Procedures CT Abdomen Pelvis w IV Contrast Lilia Alexandra MD [address] [facility] [address] [address] Phone: tel: fax: Referral ID Status Reason Start Date Expiration Date Visits Re quested Visits Authorized [id number] Closed 09/16/2024 03/18/2026 1 1 * Imaging (Routine) - Closed Specialty Diagnoses / Procedures Referred By Tiago rogel Referred To Contact Radiology Diagnoses Carcinosarcoma (CMS/HCC) Procedures CT Chest w IV Contrast Lilia Alexandra MD [address] [facility] [address] [place] [address] Phone: tel: fax: Referral ID Status Reason Start Date Expiration Date Visits Re quested Visits Authorized [id number] Closed 09/16/2024 03/18/2026 1 1 Reason for Visit * Reason Comments Chemotherapy Encounter Details Date Type Department Care Team (Late st Contact Info) Description 09/16/2024 8:30 AM EDT Office Visit [facility] [address] [place] [address] Lilia Alexandra MD [address] [place] [address] Carcinosarcoma (CMS/HCC) (Primary Dx); Malignant ascites; Encounter for antineoplastic chemotherapy; Type 2 diabetes mellitus without complication, with long-term current use of insulin; Primary hypertension; Current severe episode of major depressive disorder without psychotic features, unspecified whether recurrent (CMS/HCC); Anxiety; Coronary artery disease involving [place] coronary artery of [place] heart without angina pectoris; Chronic right-sided heart failure (CMS/HCC) Social History Tobacco Use Types Packs/Day Years Used Date Smoking Tobacco: Never Passive Smoke Exposure: Never Smokeless Tobacco: Never Alcohol Use Standard Drinks/Week Comments Never 0 (1 standard drink = 0.6 oz pur e alcohol) PHQ-2 Answer Date Recorded Patient Health Questionnaire-2 Score 0 09/16/2024 PHQ-9 Answer Date Recorded Patient Health Questionnaire-9 Score 0 08/26/2024 Comments No Sex and Gender Information Value Date Recorded Sex Assigned at Not on file Legal Sex Female 8:21 PM EDT Gender Identity Not on file Sexual Orientation Not on file documented as of this encounter Last Filed Vital Signs Vital Sign Reading Time Taken Comments Blood Pressure 111/71 09/16/2024 8:43 AM EDT Pulse 80 09/16/2024 8:43 AM EDT Temperature 36.7 C (98 F) 09/16/2024 8:43 AM EDT Respiratory Rate 16 09/16/2024 8:43 AM EDT Oxygen Saturation 98% 09/16/2024 8:43 AM EDT Inhaled Oxygen Concentration - - Weight 87.5 kg (192 lb 14.4 oz) 09/16/2024 8:43 AM EDT Height 175.3 cm (5' 9 ) 09/16/2024 8:43 AM EDT Body Mass Index 28.49 09/16/2024 8:43 AM EDT documented in this encounter Functional Status * Over the past 2 weeks, how often have you been bothered by any of the following problems? Question Answer Date of Assessment Author Little interest or pleasure in doing things Not at all 09/16/2024 8:46 AM EDT Roxana Queen Feeling down, depressed, or hopeless Not at all 06/2024 8:46 AM EDT Roxana Queen Patient Health Questionnaire-2 Score 0 06/2024 8:46 AM EDT Roxana Queen documented as of this encounter Miscellaneous Notes * Progress Notes - Ashley Alberto, PharmD - 09/16/2024 8:30 AM EDT Pharmacy Hematology/Oncology Treatment Note Jennie Lezama is a 64 y.o. female with ovarian cancer Cancer Staging No matching staging information was found for the patient. . Study Patient: no Treatment Plan reviewed for Carboplatin every 21 days. [x] Follow-Up Clinical Review for Cycle 8 Day 1 [] Follow-Up Clinical Review for Continuous Oral Therapy Interval History: After completion of cycle 2 patient reported SOB and was noted to be in HF (EF 25%). 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 Therefore will continue carboplatin monotherapy. Planning for 3 additional cycles post- operatively -- then scan and surveillance. Today's Wt: Wt Readings from Last 1 Encounters: 08/26/24 86.2 kg (190 lb 0.6 oz) Dosing Wt: 92.8 kg Dosing Ht: 152.4 cm DosingBSA: 1.88 m2 Recent Labs: Lab Results Component Value Date WBC 5.25 08/26/2024 HGB 9.0 (L) 08/26/2024 HCT 26.6 (L) 08/26/2024 MCV 96 08/26/2024 PLT 260 08/26/2024 Lab Results Component Value Date GLUCOSE 139 (H) 08/26/2024 CALCIUM 8.5 (L) 08/26/2024 NA 142 08/26/2024 K 4.3 08/26/2024 CO2 21 (L) 08/26/2024 CL 109 (H) 08/26/2024 BUN 19 08/26/2024 CREATININE 0.68 08/26/2024 Lab Results Component Value Date ALT 18 08/26/2024 AST 16 08/26/2024 ALKPHOS 132 08/26/2024 BILITOT 0.2 08/26/2024 Lab Results Component Value Date NEUTROABS 3.42 08/26/2024 Lab Results Component Value Date MG 1.5 (L) 08/26/2024 No results found for: TSH No results found for: URINEPRO Vitals: There were no vitals taken for this visit. Other Relevant Monitoring: None Treatment/Therapy Plan: Carboplatin AUC 5 (TBD) IV Q21 days [x] Dose adjustments made to paclitaxel/carboplatin at baseline due to predicted tolerability. Current Treatment Plan History: /Carbo Cycle 1: 01/08/24 Cycle 2: 02/05/24 Cycle 3: 03/11/24 (held paclitaxel) Cycle 4: 04/01/24 (held paclitaxel) Cycle 5: 04/22/24 (held paclitaxel) Cycle 6: 07/22/24 (delayed d/t surgery; held paclitaxel) Cycle 7: 08/26/24 Cycle 8: 09/16/24 Prior Treatment History: none Plan: Patient will return to clinic in 3 weeks. Will follow-up at that time. Pharmacist Attestation: Clinical Pharmacist Ashley Alberto, PharmD, BCPS * Progress Notes - Lilia Alexandra MD - 09/16/2024 8:30 AM EDT Patient ID: Jennie Lezama is a 64 y.o. female. Referring Physician: No referring provider defined for this encounter. Primary Care Provider: Ryan Marques MD History of Present Illness: Chief Complaint: carcinosarcoma Jennie Lezama is a 64 y.o. female seen in consultation for a newly diagnosed pelvic mass, ascites at the request of Dr. Ryan Marques. She reports she thought she had been gaining weight so she changed her diet but her abdomen kept getting bigger. She saw a Dr who ordered an US that showed the ascites and pelvic mass. She reports pelvic and back pain. She has had diarrhea this past week but she thinks it is because of nerves. She reports she is walker but hasn't really been walking the past3 weeks due eo the distention and lack of energy. Appetite still good. Bowels/bladder normal other than the diarrhea this past week. No discharge or bleeding. S/p Paracentesis 6L bloody ascites, cytology negative 12/11/23 S/p paracentesis 5L bloody ascites, cytology negative 12/25/23 S/p IR biopsy 12/30/23, pathology pending Carbo/taxol x2 with acute heart failure, intubation and stents x2 S/p CHANDA/BSO/OMX and resection of mesenteric mass RO resection on 06/16/24. Interval History: She presents today for consderation of chemo. Plan for today is cycle #3/3 carbo post-surgery. She has been doing ok, this cycle was better than the last. She is excited to be finishing chemo. No issues with eating/drinking/bowel/bladder. 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 HENT: Negative. Eyes: Negative. Respiratory: Negative. Gastrointestinal: Positive for abdominal distention, abdominal pain and diarrhea. Genitourinary: Positive for pelvic pain. Negative for dysuria, vaginal bleeding and vaginal discharge. Musculoskeletal: Positive for back pain. Skin: Negative. Neurological: Negative. Hematological: Negative. Psychiatric/Behavioral: Positive for depression. The patient is nervous/anxious. Cancer Staging No matching staging information was found for the patient. Treatment Details Treatment goal [No plan goal] Plan Name PACLitaxel (Cycle 1-2 only) / CARBOplatin Every 21 Days Status Active Start Date 01/08/2024 End Date 09/16/2024 Provider Lilia Alexandra MD Chemotherapy CARBOplatin (Paraplatin) 560 mg in sodium chloride 0.9 % 250 mL chemo IVPB, 500 mg, Intravenous, Once, 8 of 8 cycles Administration: 560 mg (01/08/2024), 600 mg (02/05/2024), 570 mg (03/11/2024), 600 mg (04/01/2024), 590 mg (04/22/2024), 570 mg (08/01/2024), 600 mg (08/26/2024), 580 mg (09/16/2024) PACLitaxel (Taxol) 276 mg in sodium chloride 0.9 % 500 mL chemo IVPB, 135 mg/m2 = 252 mg, Intravenous, Once, 2 of 2 cycles Administration: 276 mg (01/08/2024), 276 mg (02/05/2024) aprepitant (Cinvanti) 130 MG/18ML IV 130 mg, 130 mg, Intravenous, Once, 8 of 8 cycles Administration: 130 mg (01/08/2024), 130 mg (02/05/2024), 130 mg (03/11/2024), 130 mg (04/01/2024), 130 mg (04/22/2024), 130 mg (08/01/2024), 130 mg (08/26/2024), 130 mg (09/16/2024) Treatment Details Treatment goal [No plan goal] Plan Name (ONC) Med Onc Outpatient Electrolyte Replacement Protocol Status Active Start Date 04/22/2024 End Date Until discontinued Provider Lilia Alexandra MD Chemotherapy [No matching medication found in this treatment plan] Subjective History: Past Medical History: Diagnosis Date Diabetes (CMS/HCC) HLD (hyperlipidemia) Hx of thyroid disease Hypertension PE (pulmonary thromboembolism) (CMS/HCC) No Known Allergies Current Outpatient Medications: acetaminophen (Tylenol) 500 MG tablet, Take 2 tablets (1,000 mg) by mouth every 8 (eight) hours., Disp: 60 tablet, Rfl: 0 atorvastatin (Lipitor) 40 MG tablet, Take 1 tablet (40 mg) by mouth 1 (one) time each day., Disp: ,Rfl: carvedilol (Coreg) 6.25 MG tablet, Take 1 tablet (6.25 mg) by mouth 2 (two) times a day with meals., Disp: , Rfl: clopidogrel (Plavix) 75 MG tablet, Take 1 tablet (75 mg) by mouth 1 (one) time each day., Disp: , Rfl: Cyanocobalamin 5000 MCG capsule, Take by mouth every other day., Disp: , Rfl: dexamethasone (Decadron) 4 MG tablet, Take 2 tablets by mouth daily. Starting day after chemo for 3days., Disp: 36 tablet, Rfl: 0 Farxiga 10 MG tablet, Take 1 tablet (10 mg) by mouth 1 (one) time each day., Disp: , Rfl: insulin degludec (Tresiba FlexTouch) 100 UNIT/ML injection pen, 18 Units 1 (one) time each day in the morning., Disp: , Rfl: insulin glargine (Lantus SoloStar) 100 UNIT/ML injection pen, Inject 18 Units under the skin 1 (one) time each day in the morning., Disp: 15 mL, Rfl: 0 insulin glargine-yfgn 100 UNIT/ML injection vial, Inject 0.18 mL (18 Units) under the skin 1 (one) time each day., Disp: 10 mL, Rfl: 3 levothyroxine (Synthroid, Levoxyl) 50 MCG tablet, Take 1 tablet (50 mcg) by mouth 1 (one) time eachday., Disp: , Rfl: magnesium oxide (Mag-Ox) 400 MG tablet, Take 1 tablet (400 mg) by mouth 1 (one) time each day., Disp: 30 tablet, Rfl: 1 methocarbamol (Robaxin) 500 MG tablet, Take 1 tablet (500 mg) by mouth 4 (four) times a day., Disp:60 tablet, Rfl: 0 ondansetron (Zofran) 4 MG tablet, Take 1 tablet (4 mg) by mouth every 8 (eight) hours if needed fornausea or vomiting., Disp: 20 tablet, Rfl: 0 ondansetron ODT (Zofran-ODT) 4 MG disintegrating tablet, Take 1 tablet (4 mg) by mouth every 6 (six) hours if needed for nausea or vomiting., Disp: 20 tablet, Rfl: 0 pen needle, diabetic 31G X 5 MM misc, Use as directed with insulin pen., Disp: 100 each, Rfl: 11 potassium chloride CR (Klor-Con M20) 20 MEQ ER tablet, Take 1 tablet (20 mEq) by mouth 1 (one) timeeach day., Disp: , Rfl: prochlorperazine (Compazine) 10 MG tablet, Take 0.5 tablets (5 mg) by mouth every 6 (six) hours if needed for nausea or vomiting., Disp: 30 tablet, Rfl: 5 sacubitril-valsartan (Entresto) 24-26 MG tablet, Take 1 tablet by mouth 2 (two) times a day. FOR 30DAYS, Disp: , Rfl: semaglutide (Rybelsus) 14 MG tablet, Take 14 mg by mouth 1 (one) time each day before breakfast., Disp: , Rfl: spironolactone (Aldactone) 12.5 MG split tablet, Take by mouth 1 (one) time each day., Disp: , Rfl: traMADol (Ultram) 50 MG tablet, Take 1 tablet (50 mg) by mouth every 6 (six) hours if needed for severe pain., Disp: 30 tablet, Rfl: 0 venlafaxine (Effexor) 37.5 MG tablet, Take 1 tablet (37.5 mg) by mouth 1 (one) time each day., Disp: , Rfl: polyethylene glycol (Miralax) 17 g packet, Take 17 g by mouth 1 (one) time each day. Use one time daily if you have not had a bowel movement by POD#5 (end of day on 06/21). (Patient not taking: Reported on 09/16/2024), Disp: 5 packet, Rfl: 0 Family History Problem Relation Name Age of Onset Anesthesia problems Neg Hx Malig Hyperthermia Neg Hx Tobacco Use: Low Risk (09/16/2024) Patient History Smoking Tobacco Use: Never Smokeless Tobacco Use: Never Passive Exposure: Never Social History Substance and Sexual Activity Alcohol Use Never Social History Substance and Sexual Activity Drug Use Never Social Connections: Unknown (02/25/2023) Received from [facility] Family and Community Support Help with Day-to-Day Activities: Not on file Lonely or Isolated: Not on file Objective Physical Exam: Vital Signs for this encounter: BSA: 2.06 meters squared Visit Vitals BP 111/71 Pulse 80 Temp 36.7 ??C (98 ??F) (Temporal) Resp 16 Ht 1.753 m (5' 9 ) Wt 87.5 kg (192 lb 14.4 oz) LMP 12/10/2010 (Approximate) SpO2 98% BMI 28.49 kg/m?? OB Status Postmenopausal Smoking Status Never BSA 2.06 m?? Physical Exam Vitals reviewed. Constitutional: Appearance: Normal appearance. She is well-developed. She is obese. HENT: Head: Normocephalic and atraumatic. Eyes: Pupils: Pupils are equal, round, and reactive to light. Cardiovascular: Rate and Rhythm: Normal rate and regular rhythm. Pulmonary: Effort: Pulmonary effort is normal. No respiratory distress. Abdominal: General: There is no distension. Palpations: Abdomen is soft. There is no mass. Tenderness: There is no abdominal tenderness. Comments: Incision healing well Genitourinary: Comments: deferred Musculoskeletal: Cervical back: Normal range of motion. Skin: General: Skin is dry. Neurological: General: No focal deficit present. Mental Status: She is alert. Mental status is at baseline. Psychiatric: Mood and Affect: Mood normal. Behavior: Behavior normal. Performance Status: Asymptomatic Pain Scale: 0 Results: WBC Count (10*3/uL) Date/Time Value 09/16/2024 0854 3.58 (L) HGB (g/dL) Date/Time Value 09/16/2024 0854 8.8 (L) HCT (%) Date/Time Value 09/16/2024 0854 26.3 (L) Platelet Count (10*3/uL) Date/Time Value 09/16/2024 0854 180 Creatinine, Plasma (mg/dL) Date/Time Value 09/16/2024 0854 0.74 AST, Plasma (U/L) Date/Time Value 09/16/2024 0854 20 CA 125 (U/mL) Date/Time Value 09/16/2024 0854 6.62 08/26/2024 0911 6.10 08/01/2024 1410 6.42 04/22/2024 1240 8.79 04/01/2024 0943 11.00 03/11/2024 0822 16.70 02/05/2024 0934 214.00 (H) 12/31/2023 1116 369.00 (H) 12/11/2023 1137 567.00 (H) CEA, Serum (ng/mL) Date/Time Value 12/11/2023 1137 <1.8 CA 19.9 (U/mL) Date/Time Value 12/11/[address] ABDOMEN PELVIS W IV CONTRAST authorized by: Lilia Alexandra MD Study Result Narrative & Impression CLINICAL INDICATION: Carcinosarcoma TECHNIQUE: Multiple axial CT images were obtained from thoracic inlet through pubic symphysis following administration of IV contrast, Omnipaque 300, 100 mL. Reformatted images of the abdomen and pelvis in the coronal and sagittal planes were generated from the axial data set to facilitate diagnostic accuracy. Total DLP (Dose-Length Product): 846.71 mGy.cm. Please note: The reported value represents the total of one or more individual components during the CT acquisition on this date and at this time, and as such, the same value may appear in more than one CT report depending on the interpreting/reporting physicians. COMPARISON: December 18, 2023. FINDINGS: Chest: Lymph Nodes and Mediastinum: No lymphadenopathy by CT size criteria. No mediastinal mass lesions. No suspicious thyroid findings. Cardiovascular: The heart is normal in caliber. Thoracic great vessels are patent. Coronary artery calcification. Lungs and Pleura: Previously described bilateral pulmonary nodules are unchanged from comparison, including left lower lobe 6 mm nodule (series 3 image 297). Right lung bases 5 mm nodule (series 3 image 363). No new suspicious pulmonary nodules. No pleural effusions or suspicious thickening. Musculoskeletal and Body Wall: No clearly aggressive bone lesions. Abdomen/Pelvis: Solid Abdominal Organs: Homogenous hepatic enhancement without suspicious liver lesion. Unremarkable gallbladder. No biliary ductal dilatation. Unremarkable spleen, pancreas, left adrenal gland. Unchanged right adrenal gland 13 mm nodule. Bilateral renal cortical scarring and peripelvic cysts. No hy dronephrosis. GI Tract/Mesentery/Peritoneum: Stomach is within normal limits. The large and small bowel are normal in caliber. Normal appendix. Decreased mesenteric edema and omental stranding. Central mesenteric mass measures up to 3 cm on coronal, previously 3 cm (series 4 image 53 and series 3 image 226). No new suspicious mesenteric findings. Pelvic Viscera: Distended bladder without gross abnormality. Cystocele. Interval decrease in size of complex solid/cystic mass measuring 7 x 4.2 x 4 cm, previously 13 cm in the right adnexa (series 3image 242 and series 4 image 62). Lymph Nodes/Vasculature: No lymphadenopathy by CT size criteria. The aortoiliac vasculature is patent and normal in caliber. Free Fluid: Trace free fluid in the pelvis. Musculoskeletal and Body Wall: No aggressive or suspicious findings. IMPRESSION: Chest: No evidence of disease progression. Stable bilateral pulmonary nodules. Abdomen/Pelvis: Interval decrease in size of complex pelvic mass. Mesenteric mass in the lower abdomen remains unchanged. Decreased omental nodularity and ascites. Component Final Diagnosis A. PELVIC MASS, CT GUIDED CORE BIOPSY WITH TOUCH PREPS: - POSITIVE FOR MALIGNANCY, CARCINOSARCOMA. at 1034 Component Final Diagnosis A. SPECIMEN SUBMITTED MESENTERIC MASS , EXCISION: - PREDOMINANTLY HYALINIZED AND CALCIFIED TISSUE WITH A RIM OF OVARIAN STROMA, SUGGESTIVE OF OVARY REMNANT WITH EXTENSIVE THERAPY RELATED CHANGES - NO VIABLE TUMOR SEEN B. APPENDIX, FALLOPIAN TUBE, AND OVARY, APPENDECTOMY AND RIGHT SALPINGO-OOPHORECTOMY: - MICROSCOPIC FOCI OF RESIDUAL HIGH GRADE CARCINOMA ADMIXED WITH ABUNDANT THERAPY RELATED EFFECT (STATUS/POST CHEMOTHERAPY FOR CARCINOSARCOMA), OVARY - NO PATHOLOGIC ABNORMALITY, APPENDIX - NO PATHOLOGIC ABNORMALITY, FALLOPIAN TUBE - FINAL POST-THERAPY STAGE: FIGO STAGE IA - SEE CHECKLIST C. UTERUS, CERVIX, FALLOPIAN TUBE AND OVARY, TOTAL ABDOMINAL HYSTERECTOMY AND LEFT SALPINGO-OOPHORECTOMY: - BENIGN ENDOMETRIAL POLYP ARISING IN ATROPHIC ENDOMETRIUM - LEIOMYOMA (3.9 CM) AND ADENOMYOSIS - BENIGN ENDOCERVICAL POLYP - NO PATHOLOGIC ABNORMALITY, FALLOPIAN TUBE AND OVARY D. SPECIMEN SUBMITTED RIGHT POSTERIOR, CUL-DE-SAC NODULE , EXCISION: - FIBROTIC TISSUE WITH EXTENSIVE NECROSIS; NO VIABLE TUMOR SEEN E. SPECIMEN SUBMITTED SIGMOID NODULE , EXCISION: - FAT NECROSIS; NO VIABLE TUMOR SEEN F. OMENTUM, OMENTECTOMY: - BENIGN FIBROFATTY SOFT TISSUE; NO VIABLE TUMOR SEEN at 1003 Assessment/Plan Pap Smear was collected today. Problem 1: Metastatic carcinosarcoma Assessment and plan 1: Cytology negative from paracentesis x2. Elevated CA [address] shows large complex pelvic mass, peritoneal thickening c/w carcinomatosis, moderate ascites and nonspecific pulmonary nodules. S/p IR biopsy 12/30/23, pathology consistent with carcinosarcoma We will continue to see how she improves from a cardiac standpoint. Proceed with Carbo only today. CT after 4 cycles with decrease in size of pelvic mass but stable 3cm mesenteric mass. S/p Exlap/CHANDA/BSO/OMX/resection of mesenteric mass - R0 resection 06/16/24 -healing well postop, continue pelvic rest x 2 months -ready to start back on chemo. Will continue single agent carbo for an additional 3 cycles. CARIS PDL1+, MMRP, ER/TX-, FOLR1-, HER2-, [id number]- CT after this cycle ~ 1 month. Will likely transition to surveillance after next visit. Eigth cycle (3 of 3 postop) of chemo today Discussed the agents to be administered (Carboplatin), including route of administration (IV), expected side effects and potential toxicities (including butnot limited to cytopenias, alopecia, renal and liver toxicity, neurotoxicity, hypersensitivity reaction, and nausea/vomiting) and frequency of administration (q21 days). Also discussed supportive medications and prn medications. Discussed planned weekly intensive hematologic and electrolyte monitoring schedule. All questions answered. The selection, dosing and administration of anti-cancer agents and the management of associated toxicities requires complex medical decision making and intensive monitoring for toxicity. Modifications of drug dose and schedule as well as the initiation of supportive care interventions are often necessary because of expected toxicities. This varies individually based on patient tolerability, priortreatments and comorbidities/risk status. Monitoring typically entails labs, imaging and/or other diagnostics, utilizing a healthcare delivery team experienced in the use of anticancer agents and themanagement of associated toxicities in patients with cancer. Problem 2: DM Assessment and plan 2: dapagliflozin, semaglutide Problem 3: HTN Assessment and plan 3: amlodipine, carvedilol, lisinopril Problem: depression, anxiety Assessment and plan: mood greatly improved, on effexor. Anxious about surgery. Problem: heart failure Assessment and plan: continue care with cardiology, lasix, entresto, spironolactone. Flash pulmonary edema requiring intubation after cycle #2 carbo/taxol Problem: CAD, 95% blockages with 2 recent stents Assessment and plan: News Clerk Dr. Bruce Rutherford in [place]. Recommends no further cardiac testing 45 minutes was spent on this encounter; including preparing to see the patient, which involved review/interpretation of diagnostics and reports; obtaining and/or reviewing separately obtained history; performing appropriate physical exam; ordering/scheduling medications, tests or procedures; communicating findings and counseling/educating the patient, family and/or caregiver; documentation in EMR; and care coordination. Team based care includes nurse intake, review of prior documentation, history, physical exam, discussion of plan of care, appointment scheduling, lab orders, phlebotomy, and documentation. MD SERG Fierro [facility] GYNECOLOGY [address] [facility] [address] Dept: [phone] Dept Loc: [phone] documented in this encounter Plan of Treatment Upcoming Encounters Date Type Department Care Team (Late st Contact Info) Description 01/13/2025 10:15 AM EDT Office Visit [facility] Gynecology [address] [place] [id number] Lilia Alexandra MD [address] [place] [id number] documented as of this encounter Procedures Procedure Name Priority Date/Time Associated Diagnosis Comments CBC WITH AUTO DIFFERENTIAL Routine 09/16/2024 8:54 AM EDT Malignant ascites CA 125 Routine 09/16/2024 8:54 AM EDT Malignant ascites MAGNESIUM, PLASMA STAT 09/16/2024 8:5 4 AM EDT Malignant ascites COMPREHENSIVE METABOLIC PANEL, PLASMA Routine 09/16/2024 8:54 AM EDT Malignant ascites documented in this encounter Results * CT Abdomen Pelvis w IV Contrast (10/14/2024 12:41 PM EDT) Anatomical Region Laterality Modality Abdomen, Pelvis Computed Tomogra phy Impressions 10/14/2024 1:03 PM EDT Abdomen/pelvis: Interval removal or resolution of the previously noted solid and cystic mass along the right adnexa as well as the soft tissue mesenteric mass along the midline of the upper pelvis. Remainder the abdomen and pelvis is unremarkable. No evidence of metastatic disease. CHEST: No evidence of disease progression or metastatic disease with stable bilateral pulmonary nodules present. CRITICAL RESULT: No. COMMUNICATION: Per this written report. Drafted by Shanice Arellano MD on 10/14/2024 12:54 PM Final report signed by Shanice Arellano MD on 10/14/2024 1:03 PM Narrative 10/14/2024 1:03 PM EDT CLINICAL INDICATION: Carcinosarcoma TECHNIQUE: Multiple axial CT images were obtained from thoracic inlet through pubic symphysis following administration of IV contrast, Omnipaque 300, 100 mL. Reformatted images of the abdomen and pelvis in the coronal and sagittal planes were generated from the axial data set to facilitate diagnostic accuracy. Total DLP (Dose-Length Product): 648.64 mGy.cm (accession [id number]), 648.64 mGy.cm (accession [id number]). Please note: The reported value represents the total of one or more individual components during the CT acquisition on this date and at this time, and as such, the same value may appear in more than one CT report depending on the interpreting/reporting physicians. COMPARISON: 04/20/2024 FINDINGS: Chest: Mediastinum: Thyroid is homogeneous in appearance. No mediastinal mass or adenopathy. Some vascular calcification seen within the thoracic aorta. Extensive coronary artery calcification present. Cardiac chambers are within normal limits. Calcification seen in the hilar lymph nodes on the right. Lungs/pleura: Stable pulmonary nodules identified in the lower lung olivera bilaterally. There is a stable 6 mm nodule identified within the left lower lobe and smaller 4 mm nodule within the left lower lobe. Stable 4 mm nodule identified in the right lower lobe. There is no superimposed acute , disease. No pleural effusion or pneumothorax. Musculoskeletal and Body Wall: No acute or aggressive osseous abnormality. Minimal multilevel degenerative changes identified diffusely throughout the spine. There is no acute chest wall abnormality. Abdomen/Pelvis: Solid abdominal organs: The liver is homogeneous in appearance. No underlying mass or lesion. Gallbladder is without stones. Pancreas is homogeneous in appearance. Spleen is unremarkable. Both adrenal glands are within normal limits. Symmetric enhancement of the renal parenchyma. There is some thinning of the cortex along the right and left kidney to suggest areas of scarring. Parapelvic cysts within the kidneys bilaterally. Lymph Nodes: No abdominal or retroperitoneal lymphadenopathy. No pelvic adenopathy. Vasculature: Minimal atherosclerotic disease diffusely throughout the abdominal aorta and iliac vessels. No pelvic adenopathy. GI Tract: Stomach is unremarkable. No wall thickening. Small bowel is within normal limits. No mucosal abnormality. Some stool scattered throughout the colon. No signs of obvious obstruction or obstructing lesion. Mesentery/Peritoneum: Previously noted soft tissue mass inferiorly within the mesentery is no longer visualized on today's examination. Surgical clips identified adjacent to the cecum which may be related to interval appendectomy. Clinical correlation is needed. No suspicious mesenteric or peritoneal abnormality. Previously visualized complex solid and cystic mass along the right adnexa is no longer visualized. Pelvic Viscera: The bladder is incompletely distended. The uterus has been surgically removed. Free Fluid: None Musculoskeletal and Body Wall: Bony structures reveal degenerative changes identified diffusely throughout the spine and pelvis. There is postsurgical changes from prior midline incision. Procedure Note Shanice Arellano MD - 10/14/2024 CLINICAL INDICATION: Carcinosarcoma TECHNIQUE: Multiple axial CT images were obtained from thoracic inlet through pubicsymphysis following administration of IV contrast, Omnipaque 300, 100 mL.Reformatted images of the abdomen and pelvis in the coronal and sagittalplanes were generated from the axial data set to facilitate diagnosticaccuracy. Total DLP (Dose-Length Product): 648.64 mGy.cm (accession [id number]),648.64 mGy.cm (accession [id number]). Please note: The reported valuerepresents the total of one or more individual components during the CTacquisition on this date and at this time, and as such, the same value mayappear in more than one CT report depending on the interpreting/reportingphysicians. COMPARISON: 04/20/2024 FINDINGS: Chest: Mediastinum: Thyroid is homogeneous in appearance. No mediastinal mass oradenopathy. Some vascular calcification seen within the thoracic aorta.Extensive coronary artery calcification present. Cardiac chambers arewithin normal limits. Calcification seen in the hilar lymph nodes on theright. Lungs/pleura: Stable pulmonary nodules identified in the lower lung fieldsbilaterally. There is a stable 6 mm nodule identified within the leftlower lobe and smaller 4 mm nodule within the left lower lobe. Stable 4 mmnodule identified in the right lower lobe. There is no superimposed acutepregnancy, disease. No pleural effusion or pneumothorax. Musculoskeletal and Body Wall: No acute or aggressive osseous abnormality.Minimal multilevel degenerative changes identified diffusely throughoutthe spine. There is no acute chest wall abnormality. Abdomen/Pelvis: Solid abdominal organs: The liver is homogeneous in appearance. Nounderlying mass or lesion. Gallbladder is without stones. Pancreas ishomogeneous in appearance. Spleen is unremarkable. Both adrenal glands arewithin normal limits. Symmetric enhancement of the renal parenchyma. Thereis some thinning of the cortex along the right and left kidney to suggestareas of scarring. Parapelvic cysts within the kidneys bilaterally. Lymph Nodes: No abdominal or retroperitoneal lymphadenopathy. No pelvicadenopathy. Vasculature: Minimal atherosclerotic disease diffusely throughout theabdominal aorta and iliac vessels. No pelvic adenopathy. GI Tract: Stomach is unremarkable. No wall thickening. Small bowel iswithin normal limits. No mucosal abnormality. Some stool scatteredthroughout the colon. No signs of obvious obstruction or obstructinglesion. Mesentery/Peritoneum: Previously noted soft tissue mass inferiorly withinthe mesentery is no longer visualized on today's examination. Surgicalclips identified adjacent to the cecum which may be related to intervalappendectomy. Clinical correlation is needed. No suspicious mesenteric orperitoneal abnormality. Previously visualized complex solid and cysticmass along the right adnexa is no longer visualized. Pelvic Viscera: The bladder is incompletely distended. The uterus has beensurgically removed. Free Fluid: None Musculoskeletal and Body Wall: Bony structures reveal degenerative changesidentified diffusely throughout the spine and pelvis. There ispostsurgical changes from prior midline incision. IMPRESSION: Abdomen/pelvis: Interval removal or resolution of the previously notedsolid and cystic mass along the right adnexa as well as the soft tissuemesenteric mass along the midline of the upper pelvis. Remainder theabdomen and pelvis is unremarkable. No evidence of metastatic disease. CHEST: No evidence of disease progression or metastatic disease withstable bilateral pulmonary nodules present. CRITICAL RESULT: No. COMMUNICATION: Per this written report. Drafted by Shanice Arellano MD on 10/14/2024 12:54 PM Final report signed by Shanice Arellano MD on 10/14/2024 1:03 PM Lilia Alexandra MD IMG CT PROCEDURES Final R esult * CT Chest w IV Contrast (10/14/2024 12:41 PM EDT) Anatomical Region Laterality Modality Chest Computed Tomogra phy Impressions 10/14/2024 1:03 PM EDT Abdomen/pelvis: Interval removal or resolution of the previously noted solid and cystic mass along the right adnexa as well as the soft tissue mesenteric mass along the midline of the upper pelvis. Remainder the abdomen and pelvis is unremarkable. No evidence of metastatic disease. CHEST: No evidence of disease progression or metastatic disease with stable bilateral pulmonary nodules present. CRITICAL RESULT: No. COMMUNICATION: Per this written report. Drafted by Shanice Arellano MD on 10/14/2024 12:54 PM Final report signed by Shanice Arellano MD on 10/14/2024 1:03 PM Narrative 10/14/2024 1:03 PM EDT CLINICAL INDICATION: Carcinosarcoma TECHNIQUE: Multiple axial CT images were obtained from thoracic inlet through pubic symphysis following administration of IV contrast, Omnipaque 300, 100 mL. Reformatted images of the abdomen and pelvis in the coronal and sagittal planes were generated from the axial data set to facilitate diagnostic accuracy. Total DLP (Dose-Length Product): 648.64 mGy.cm (accession [id number]), 648.64 mGy.cm (accession [id number]). Please note: The reported value represents the total of one or more individual components during the CT acquisition on this date and at this time, and as such, the same value may appear in more than one CT report depending on the interpreting/reporting physicians. COMPARISON: 04/20/2024 FINDINGS: Chest: Mediastinum: Thyroid is homogeneous in appearance. No mediastinal mass or adenopathy. Some vascular calcification seen within the thoracic aorta. Extensive coronary artery calcification present. Cardiac chambers are within normal limits. Calcification seen in the hilar lymph nodes on the right. Lungs/pleura: Stable pulmonary nodules identified in the lower lung olivera bilaterally. There is a stable 6 mm nodule identified within the left lower lobe and smaller 4 mm nodule within the left lower lobe. Stable 4 mm nodule identified in the right lower lobe. There is no superimposed acute , disease. No pleural effusion or pneumothorax. Musculoskeletal and Body Wall: No acute or aggressive osseous abnormality. Minimal multilevel degenerative changes identified diffusely throughout the spine. There is no acute chest wall abnormality. Abdomen/Pelvis: Solid abdominal organs: The liver is homogeneous in appearance. No underlying mass or lesion. Gallbladder is without stones. Pancreas is homogeneous in appearance. Spleen is unremarkable. Both adrenal glands are within normal limits. Symmetric enhancement of the renal parenchyma. There is some thinning of the cortex along the right and left kidney to suggest areas of scarring. Parapelvic cysts within the kidneys bilaterally. Lymph Nodes: No abdominal or retroperitoneal lymphadenopathy. No pelvic adenopathy. Vasculature: Minimal atherosclerotic disease diffusely throughout the abdominal aorta and iliac vessels. No pelvic adenopathy. GI Tract: Stomach is unremarkable. No wall thickening. Small bowel is within normal limits. No mucosal abnormality. Some stool scattered throughout the colon. No signs of obvious obstruction or obstructing lesion. Mesentery/Peritoneum: Previously noted soft tissue mass inferiorly within the mesentery is no longer visualized on today's examination. Surgical clips identified adjacent to the cecum which may be related to interval appendectomy. Clinical correlation is needed. No suspicious mesenteric or peritoneal abnormality. Previously visualized complex solid and cystic mass along the right adnexa is no longer visualized. Pelvic Viscera: The bladder is incompletely distended. The uterus has been surgically removed. Free Fluid: None Musculoskeletal and Body Wall: Bony structures reveal degenerative changes identified diffusely throughout the spine and pelvis. There is postsurgical changes from prior midline incision. Procedure Note Shanice Arellano MD - 10/14/2024 CLINICAL INDICATION: Carcinosarcoma TECHNIQUE: Multiple axial CT images were obtained from thoracic inlet through pubicsymphysis following administration of IV contrast, Omnipaque 300, 100 mL.Reformatted images of the abdomen and pelvis in the coronal and sagittalplanes were generated from the axial data set to facilitate diagnosticaccuracy. Total DLP (Dose-Length Product): 648.64 mGy.cm (accession [id number]),648.64 mGy.cm (accession [id number]). Please note: The reported valuerepresents the total of one or more individual components during the CTacquisition on this date and at this time, and as such, the same value mayappear in more than one CT report depending on the interpreting/reportingphysicians. COMPARISON: 04/20/2024 FINDINGS: Chest: Mediastinum: Thyroid is homogeneous in appearance. No mediastinal mass oradenopathy. Some vascular calcification seen within the thoracic aorta.Extensive coronary artery calcification present. Cardiac chambers arewithin normal limits. Calcification seen in the hilar lymph nodes on theright. Lungs/pleura: Stable pulmonary nodules identified in the lower lung fieldsbilaterally. There is a stable 6 mm nodule identified within the leftlower lobe and smaller 4 mm nodule within the left lower lobe. Stable 4 mmnodule identified in the right lower lobe. There is no superimposed acutepregnancy, disease. No pleural effusion or pneumothorax. Musculoskeletal and Body Wall: No acute or aggressive osseous abnormality.Minimal multilevel degenerative changes identified diffusely throughoutthe spine. There is no acute chest wall abnormality. Abdomen/Pelvis: Solid abdominal organs: The liver is homogeneous in appearance. Nounderlying mass or lesion. Gallbladder is without stones. Pancreas ishomogeneous in appearance. Spleen is unremarkable. Both adrenal glands arewithin normal limits. Symmetric enhancement of the renal parenchyma. Thereis some thinning of the cortex along the right and left kidney to suggestareas of scarring. Parapelvic cysts within the kidneys bilaterally. Lymph Nodes: No abdominal or retroperitoneal lymphadenopathy. No pelvicadenopathy. Vasculature: Minimal atherosclerotic disease diffusely throughout theabdominal aorta and iliac vessels. No pelvic adenopathy. GI Tract: Stomach is unremarkable. No wall thickening. Small bowel iswithin normal limits. No mucosal abnormality. Some stool scatteredthroughout the colon. No signs of obvious obstruction or obstructinglesion. Mesentery/Peritoneum: Previously noted soft tissue mass inferiorly withinthe mesentery is no longer visualized on today's examination. Surgicalclips identified adjacent to the cecum which may be related to intervalappendectomy. Clinical correlation is needed. No suspicious mesenteric orperitoneal abnormality. Previously visualized complex solid and cysticmass along the right adnexa is no longer visualized. Pelvic Viscera: The bladder is incompletely distended. The uterus has beensurgically removed. Free Fluid: None Musculoskeletal and Body Wall: Bony structures reveal degenerative changesidentified diffusely throughout the spine and pelvis. There ispostsurgical changes from prior midline incision. IMPRESSION: Abdomen/pelvis: Interval removal or resolution of the previously notedsolid and cystic mass along the right adnexa as well as the soft tissuemesenteric mass along the midline of the upper pelvis. Remainder theabdomen and pelvis is unremarkable. No evidence of metastatic disease. CHEST: No evidence of disease progression or metastatic disease withstable bilateral pulmonary nodules present. CRITICAL RESULT: No. COMMUNICATION: Per this written report. Drafted by Shanice Arellano MD on 10/14/2024 12:54 PM Final report signed by Shanice Arellano MD on 10/14/2024 1:03 PM us Lilia Alexandra MD IMG CT PROCEDURES Final R esult * (ABNORMAL) Magnesium (09/16/2024 8:54 AM EDT) Magnesium, Plasma 1.5(L) 1.9 - 2.4 mg/dL 09/16/2024 10:09 AM EDT [facility] Blood Venous blood specimen / Unknown Venipuncture / Unknown 09/16/2024 8:54 AM EDT 09/16/2024 9:33 AM EDT us Lilia Alexandra MD LAB BLOOD ORDERABLES Kathy l Result Performing Organization Address City/[facility]/ZIP Co de Phone Number [facility] [address] [place] [address] * CA 125 (09/16/2024 8:54 AM EDT) CA 125 6.62 <=38.00 U/mL 09/16/2024 10:40 AM EDT [facility] Blood Venous blood specimen / Unknown Venipuncture / Unknown 09/16/2024 8:54 AM EDT 09/16/2024 9:33 AM EDT Narrative [facility] - 09/16/2024 10:40 AM EDT Performed by Edg[employer] electrochemiluminescent immunoassay. Results obtained with different test methods or kits cannot be used interchangeably. us Lilia Alexandra MD LAB BLOOD ORDERABLES Kathy l Result [facility] [address] [place] [address] * (ABNORMAL) Comprehensive metabolic panel (09/16/2024 8:54 AM EDT) Glucose, Plasma 171(H) 74 - 99 mg/dL 09/16/2024 10:09 AM EDT [facility] BUN, Plasma 16 8 - 23 mg/dL 09/16/2024 10:09 AM EDT [facility] Creatinine, Plasma 0.74 0.60 - 1.10 mg/dL 09/16/2024 10:09 AM EDT [facility] BUN/Creatinine Ratio 22 09/16/2024 10:09 AM EDT [facility] Sodium, Plasma 141 136 - 145 mmol/L 09/16/2024 10:09 AM EDT [facility] Potassium, Plasma 4.5 3.6 - 4.9 mmol/L 09/16/2024 10:09 AM EDT [facility] Chloride, Plasma 106 97 - 107 mmol/L 09/16/2024 10:09 AM EDT [facility] CO2, Plasma 22 22 - 29 mmol/L 09/16/2024 10:09 AM EDT [facility] Anion Gap 13 6 - 16 mmol/L 09/16/2024 10:09 AM EDT [facility] Total Calcium, Plasma 9.1 8.9 - 10.2 mg/dL 09/16/2024 10:09 AM EDT [facility] Total Protein 6.9 6.3 - 7.9 g/dL 09/16/2024 10:09 AM EDT [facility] Albumin, Plasma 4.2 3.5 - 5.2 g/dL 09/16/2024 10:09 AM EDT [facility] AST, Plasma 20 10 - 35 U/L 09/16/2024 10:09 AM EDT [facility] Comment:Hemolyzed, result ma y be falsely increased. ALT, Plasma 16 10 - 35 U/L 09/16/2024 10:09 AM EDT [facility] Alkaline Phosphatase, Plasma 120 46 - 142 U/L 09/16/2024 10:09 AM EDT [facility] Total Bilirubin, Plasma 0.4 0.2 - 1.1 mg/dL 09/16/2024 10:09 AM EDT [facility] eGFRcr 89.9 mL/min/1.7 3m*2 09/16/2024 10:09 AM EDT [facility] Comment:Reported eGFRcr in m L/min/1.73m2 is based the CKD-EPI 2020 equation that does not use a race coefficient. Blood Venous blood specimen / Unknown Venipuncture / Unknown 09/16/2024 8:54 AM EDT 09/16/2024 9:33 AM EDT Lilia Alexandra MD LAB BLOOD ORDERABLES Kathy duque Result [facility] [address] [place] [address] * (ABNORMAL) CBC and differential (09/16/2024 8:54 AM EDT) [facility] WBC Count 3.58(L) 3.70 - 10.30 10*3/uL LAB HEMATOLOGY METHOD 09/16/2024 9:26 AM EDT [facility] RBC Count 2.63(L) 3.90 - 5.20 10*6/uL LAB HEMATOLOGY METHOD 09/16/2024 9:26 AM EDT [facility] HGB 8.8(L) 11.2 - 15.7 g/dL LAB HEMATOLOGY METHOD 09/16/2024 9:26 AM EDT [facility] HCT 26.3(L) 34.0 - 45.0 % LAB HEMATOLOGY METHOD 09/16/2024 9:26 AM EDT [facility] Platelet Count 180 155 - 369 10*3/uL LAB HEMATOLOGY METHOD 09/16/2024 9:26 AM EDT [facility] MCV 100(H) 79 - 98 fL LAB HEMATOLOGY METHOD 09/16/2024 9:26 AM EDT [facility] MCH 33.5(H) 26.0 - 32.0 pg LAB HEMATOLOGY METHOD 09/16/2024 9:26 AM EDT [facility] MCHC 33.5 30.7 - 35.5 g/dL LAB HEMATOLOGY METHOD 09/16/2024 9:26 AM EDT [facility] RDW 17.7(H) 11.5 - 14.5 % LAB HEMATOLOGY METHOD 09/16/2024 9:26 AM EDT [facility] MPV 10.7 8.8 - 12.5 fL LAB HEMATOLOGY METHOD 09/16/2024 9:26 AM EDT [facility] nRBC 0.0 <=0.0 per 100 WBCs LAB HEMATOLOGY METHOD 09/16/2024 9:26 AM EDT [facility] Differential Type Automated LAB HEMATOLOGY METHOD 09/16/2024 9:26 AM EDT [facility] Neutrophils % 58 % LAB HEMATOLOGY METHOD 09/16/2024 9:26 AM EDT [facility] Lymphocytes % 26 % LAB HEMATOLOGY METHOD 09/16/2024 9:26 AM EDT [facility] Monocytes % 15 % LAB HEMATOLOGY METHOD 09/16/2024 9:26 AM EDT [facility] Eosinophils % 0 % LAB HEMATOLOGY METHOD 09/16/2024 9:26 AM EDT [facility] Basophils % 0 % LAB HEMATOLOGY METHOD 09/16/2024 9:26 AM EDT [facility] Immature Granulocytes % 1 % LAB HEMATOLOGY METHOD 09/16/2024 9:26 AM EDT [facility] Neutrophils Absolute 2.07 1.60 - 6.10 10*3/uL LAB HEMATOLOGY METHOD 09/16/2024 9:26 AM EDT [facility] Lymphocytes Absolute 0.94(L) 1.20 - 3.90 10*3/uL LAB HEMATOLOGY METHOD 09/16/2024 9:26 AM EDT [facility] Monocytes Absolute 0.53 0.30 - 0.90 10*3/uL LAB HEMATOLOGY METHOD 09/16/2024 9:26 AM EDT [facility] Eosinophils Absolute 0.01 0.00 - 0.50 10*3/uL LAB HEMATOLOGY METHOD 09/16/2024 9:26 AM EDT [facility] Basophils Absolute 0.01 0.00 - 0.10 10*3/uL LAB HEMATOLOGY METHOD 09/16/2024 9:26 AM EDT [facility] Immature Granulocytes Absolute 0.02 0.00 - 0.06 10*3/uL LAB HEMATOLOGY METHOD 09/16/2024 9:26 AM EDT [facility] Blood Venous blood specimen / Unknown Venipuncture / Unknown 09/16/2024 8:54 AM EDT 09/16/2024 9:22 AM EDT Narrative [facility] - 09/16/2024 9:26 AM EDT Therapeutic decision making should be based on absolute values, rather than percentages. 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 Malignant ascites Encounter for antineoplastic chemotherapy Type 2 diabetes mellitus without complication, with long-term current use of insulin Primary hypertension Unspecified essential hypertension Current severe episode of major depressive disorder without psychotic features, unspecified whether recurrent (CMS/HCC) Anxiety Anxiety state, unspecified Coronary artery disease involving [place] coronary artery of [place] heart without angina pectoris Chronic right-sided heart failure (CMS/HCC) Congestive heart failure, unspecified Carcinosarcoma (CMS/HCC) Other malignant neoplasm of unspecified site documented in this encounter Additional Health Concerns Assessment Noted Time PHQ-9 Depression Total Score: 0 08/27/19 25 9:03 AM EDT A fall risk assessment has been complete d for the patient 09/16/2024 10:23 AM EDT A Body Mass Index follow-up plan has been documented for the patient 08/26/2024 12:52 PM EDT documented as of this encounter Care Teams [employer] Relationship Specialty Start Date End Date Ryan Marques MD PCP - General Family Medicine 12/11/23 Ryan Marques MD Family Medicine 12/08/23 documented as of this encounter
--- OUTSIDE RECORDS SUMMARY | 2024-09-16 10:00 | XMS_ITS | Encounter Summary ---
Author Organization Healthcare Address [address] [place] [address] Care Team Providers Care Professor Of English Name Role Phone Ryan Marques MD Unavailable Unavailab le Ryan Marques MD Primary Care Provider Rhina vailable Reason for Visit * Imaging (Routine) - Closed Specialty Diagnoses / Procedures Referred By Contac t Referred To Contact Radiology Diagnoses Carcinosarcoma (CMS/HCC) Procedures US Guided IV Insertion Consult to Interventional Radiology Lilia Alexandra MD [address] [place] [address] Phone: tel: fax: Referral ID Status Reason Start Date Expiration Date Visits Re quested Visits Authorized [id number] Closed 08/26/2024 02/25/2026 1 1 Encounter Details Date Type Department Care Team (Latest Contact Info) Description 09/16/2024 10:00 AM EDT Ancillary Procedure IV TEAM [address] [facility], 2nd Floor, [address] [place] [address] Carcinosarcoma (CMS/HCC) Social History Tobacco Use Types Packs/Day [...] on file documented as of this encounter Functional Status * Over the [...] as of this encounter Miscellaneous Notes * Procedures - Hetal Bates RN - 09/16/2024 10:00 AM EDTAssociated Order(s): Insert peripheral IV Post-Procedure Diagnose(s): Carcinosarcoma (CMS/HCC) Insert peripheral IV Performed by: Hetal Bates RN Authorized by: Lilia Alexandra MD Hand hygiene: Hand hygiene performed prior to insertion Inserted using aseptic techniques: Yes Preparation: Skin prepped with chg Orientation: Left Location: Forearm Catheter placed: Peripheral IV Catheter size: 20g/2.00in Line Technique: Ultrasound Guidance Number of attempts: 1 IV flushes: Without difficulty and positive blood return noted and IV luer locked Patient tolerance: Patient tolerated the procedure well and there were no complications IV site covered with: Transparent semipermeable dressing Education provided to: Patient Comments: Pertinent ultrasound and/or 3CG images sent to PACS. documented in this encounter Plan of Treatment Upcoming Encounters Date Type Department Care Team (Late st Contact Info) Description 01/13/2025 10:15 AM EDT Office Visit [facility] [address] [place] [address] Lilia Alexandra MD [address] [place] [address] documented as of this encounter Procedures Procedure Name Priority Date/Time Associated Diagnosis Comments INSERT PERIPHERAL IV Routine 09/16/2024 10:00 AM EDT Carcinosarcoma (CMS/HCC) US GUIDED IV INSERTION Routine 09/16/2024 9:20 AM EDT Carcinosarcoma (CMS/HCC) documented in this encounter Results * PERIPHERAL IV (SMARTFORM LINK) (09/16/2024 10:00 AM EDT) Narrative Hetal Bates RN - 09/16/2024 10:00 AM EDT Hetal Bates RN 09/16/2024 10:41 AM Insert peripheral IV Performed by: Hetal Bates RN Authorized by: Lilia Alexandra MD Hand hygiene: Hand hygiene performed prior to insertion Inserted using aseptic techniques: Yes Preparation: Skin prepped with chg Orientation: Left Location: Forearm Catheter placed: Peripheral IV Catheter size: 20g/2.00in Line Technique: Ultrasound Guidance Number of attempts: 1 IV flushes: Without difficulty and positive blood return noted and IV luer locked Patient tolerance: Patient tolerated the procedure well and there were no complications IV site covered with: Transparent semipermeable dressing Education provided to: Patient Comments: Pertinent ultrasound and/or 3CG images sent to PACS. us Lilia Alexandra MD IV THERAPY ORDERABLES Fin al Result * US Guided IV Insertion (09/16/2024 9:20 AM EDT) Narrative IMAGING - 09/16/2024 9:20 AM EDT These images were captured for the placement of an US-guided IV or PICC line placement. us Lilia Alexandra MD IMG US PROCEDURES Final R esult IMAGING documented in this encounter Visit Diagnoses Diagnosis Carcinosarcoma (CMS/HCC) Other malignant neoplasm of unspecified [...] documented as of this encounter Care Teams Professor Of English Relationship Specialty Start Date End Date Ryan Marques MD PCP - General Family Medicine 12/11/23 Ryan Marques MD Family Medicine 12/08/23 documented as of this encounter
--- OUTSIDE RECORDS SUMMARY | 2024-09-16 10:21 | XMS_ITS | Encounter Summary ---
Author Organization [facility] Address [id number] Care Team Providers Care Financial Compliance Manager Name Role Phone Ryan Marques MD Unavailable Unavailab le Ryan Marques MD Primary Care Provider Rhina vailable Reason for Referral * Imaging (Routine) - Closed Specialty Diagnoses / Procedures Referred By Tiago rogel Referred To Contact Radiology Diagnoses Carcinosarcoma (CMS/HCC) Procedures US Guided IV Insertion Consult to Interventional Radiology Lilia Alexandra MD [address] [facility] [address] [address] Phone: tel: fax: Referral ID Status Reason Start Date Expiration Date Visits Re quested Visits Authorized [id number] Closed 08/26/2024 02/25/2026 1 1 Reason for Visit * Episode Based Medications (Routine) - Closed Specialty Diagnoses / Procedures Referred By Tiago rogel Referred To Contact Diagnoses Malignant ascites Procedures PACLitaxel / CARBOplatin Every 21 Days Lilia Alexandra MD [address] [facility] [address] [address] Phone: tel: fax: [facility] Infusion Clinic [address] [place] [address] Phone: tel: Referral ID Status Reason Start Date Expiration Date Visits Re quested Visits Authorized [id number] Closed 12/31/2023 07/01/2025 1 36 Encounter Details Date Type Department Care Team (Latest Contact Info) Description 09/16/2024 10:21 AM EDT - 09/16/2024 11:59 PM EDT Hospital Encounter [facility] Infusion Clinic [address] [place] [phone] Carcinosarcoma (CMS/HCC) (Primary Dx); Malignant ascites Discharge Disposition: Home or Self Care Social History Tobacco Use Types Packs/Day Years [...] Sign Reading Time Taken Comments Blood Pressure 120/79 09/16/2024 10:23 AM EDT Pulse 74 09/16/2024 10:23 AM EDT Temperature 36.6 C (97.8 F) 09/16/2024 10:23 AM EDT Respiratory Rate 18 09/16/2024 10:23 AM EDT Oxygen Saturation 100% 09/16/2024 10:23 AM EDT Inhaled Oxygen Concentration - - Weight 87.6 kg (193 lb 2 oz) 09/16/2024 10:23 AM EDT Height 175.3 cm (5' 9 ) 09/16/2024 10:23 AM EDT Body Mass Index 28.52 09/16/2024 10:23 AM EDT documented in this encounter Functional [...] Roxana Queen documented as of this encounter Medications at Time of Discharge acetaminophen (Tylenol) 500 MG tablet Take 2 tablets (1,000 mg) by mouth every 8 (eight) hours. 60 tablet 06/19/2024 atorvastatin (Lipitor) 40 MG tablet Take 1 tablet (40 mg) by mouth 1 (one) time each day. carvedilol (Coreg) 6.25 MG tablet Take 1 tablet (6.25 mg) by mouth 2 (two) times a day with meals. 03/08/2024 clopidogrel (Plavix) 75 MG tablet Take 1 tablet (75 mg) by mouth 1 (one) time each day. Cyanocobalamin 5000 MCG capsule Take by mouth every other day. Farxiga 10 MG tablet Take 1 tablet (10 mg) by mouth 1 (one) time each day. insulin degludec (Tresiba FlexTouch) 100 UNIT/ML injection pen 18 Units 1 (one) time each day in the morning. 03/30/2024 insulin glargine-yfgn 100 UNIT/ML injection vial Inject 0.18 mL (18 Units) under the skin 1 (one) time each day. 10 mL 3 06/20/2024 levothyroxine (Synthroid, Levoxyl) 50 MCG tablet Take 1 tablet (50 mcg) by mouth 1 (one) time each day. 09/28/2023 magnesium oxide (Mag-Ox) 400 MG tabletIndications:En counter for antineoplastic chemotherapy Take 1 tablet (400 mg) by mouth 1 (one) time each day. 30 tablet 1 04/22/2024 ondansetron (Zofran) 4 MG tablet Take 1 tablet (4 mg) by mouth every 8 (eight) hours if needed for nausea or vomiting. 20 tablet 12/18/2023 ondansetron ODT (Zofran-ODT) 4 MG disintegrating tablet Take 1 tablet (4 mg) by mouth every 6 (six) hours if needed for nausea or vomiting. 20 tablet 06/19/2024 pen needle, diabetic 31G X 5 MM misc Use as directed with insulin pen. 100 each 11 06/19/2024 polyethylene glycol (Miralax) 17 g packet Take 17 g by mouth 1 (one) time each day. Use one time daily if you have not had a bowel movement by POD#5 (end of day on 06/21). 5 packet 06/19/2024 potassium chloride CR (Klor-Con M20) 20 MEQ ER tablet Take 1 tablet (20 mEq) by mouth 1 (one) time each day. 02/14/2024 prochlorperazine (Compazine) 10 MG tabletIndications:Ma lignant ascites Take 0.5 tablets (5 mg) by mouth every 6 (six) hours if needed for nausea or vomiting. 30 tablet 5 01/08/2024 sacubitril-valsartan (Entresto) 24-26 MG tablet Take 1 tablet by mouth 2 (two) times a day. FOR 30 DAYS semaglutide (Rybelsus) 14 MG tablet Take 14 mg by mouth 1 (one) time each day before breakfast. spironolactone (Aldactone) 12.5 MG split tablet Take by mouth 1 (one) time each day. traMADol (Ultram) 50 MG tablet Take 1 tablet (50 mg) by mouth every 6 (six) hours if needed for severe pain. 30 tablet 12/31/2023 venlafaxine (Effexor) 37.5 MG tablet Take 1 tablet (37.5 mg) by mouth 1 (one) time each day. dexamethasone (Decadron) 4 MG tabletIndications:Ma lignant ascites Take 2 tablets by mouth daily. Starting day after chemo for 3 days. 36 tablet 08/26/2024 docusate sodium 100 MG capsule Take 100 mg by mouth 2 (two) times a day. 60 capsule 1 06/19/2024 5 documented as of this encounter Plan of Treatment Upcoming Encounters Date Type Department Care Team (Late st Contact Info) Description 01/13/2025 10:15 AM EDT Office Visit [facility] [address] [place] [address] Lilia Alexandra MD [address] [place] [address] documented as of this encounter Results * US Guided IV Insertion (09/16/2024 9:20 AM EDT) Narrative IMAGING - 09/16/2024 9:20 AM EDT These images were captured for the placement of an US-guided IV or PICC line placement. us Lilia Alexandra MD IMG US PROCEDURES Final R esult IMAGING documented in this encounter Visit Diagnoses Diagnosis Carcinosarcoma (CMS/HCC)- Primary Other malignant neoplasm of unspecified site Malignant ascites Carcinosarcoma (CMS/HCC) Other malignant neoplasm of unspecified site documented in this encounter Administered Medications Inactive Administered Medications - up to 3 most recent administrations Medication Order MAR Action Action Date Dose Rate Site aprepitant (Cinvanti) 130 MG/18ML IV 130 mg 130 mg, Intravenous, Once, 1 dose, On Thu09/16/24 at 1045, RoutineIndications:Carcinosarc willa (CMS/HCC),Malignant ascites New Bag 09/16/2024 10:36 AM EDT 130 mg CARBOplatin (Paraplatin) 580 mg in sodium chloride 0.9 % 250 mL IVPB 580 mg (rounded from 576 mg, Target AUC = 5), Intravenous, at 706 mL/hr, Administer over 30 Minutes, Once, Hazardous Drug-Tier 1 Precautions. Dispose in BLACK Hazardous Waste Container. Chemotherapy: refer to [id number]., On Thu09/16/24 at 1115, For 1 doseIndications:Carcinosarcoma (CMS/HCC),Malignant ascites New Bag 09/16/2024 11:07 AM EDT 580 mg 706 mL/hr dexamethasone (Decadron) tablet 12 mg 12 mg, Oral, Once, 1 dose, On Thu09/16/24 at 1045, RoutineIndications:Carcinosarc willa (CMS/HCC),Malignant ascites Given 09/16/2024 10:36 AM EDT 12 mg magnesium oxide (Mag-Ox) tablet 400 mg 400 mg, Oral, Once as needed, 1 dose, Starting on Thu09/16/24 at 1027, Until Thu09/16/24 at 1035, Routine, For magnesium value 1.5 to 1.8 and patient having LESS THAN or EQUAL to 3 loose stools per dayIndications:Carcinosarcoma (CMS/HCC) Given 09/16/2024 10:35 AM EDT 400 mg ondansetron ODT (Zofran-ODT) disintegrating tablet 16 mg 16 mg, Oral, Once, 1 dose, On Thu09/16/24 at 1045, RoutineIndications:Carcinosarc willa (CMS/HCC),Malignant ascites Given 09/16/2024 10:35 AM EDT 16 mg documented in this encounter Additional Health Concerns Assessment Noted Time PHQ-9 Depression Total Score: 0 08/27/19 9:03 AM EDT A fall risk assessment has been complete d for the patient 09/16/2024 10:23 AM EDT A Body Mass Index follow-up plan has been documented for the patient 08/26/2024 12:52 PM EDT documented as of this encounter Care Teams Financial Compliance Manager Relationship Specialty Start Date End Date Ryan Marques MD PCP - General Family Medicine 12/11/23 Ryan Marques MD Family Medicine 12/08/23 documented as of this encounter
--- OUTSIDE RECORDS SUMMARY | 2024-10-14 11:28 | XMS_ITS | Encounter Summary ---
Author Organization [facility] Address [address] [id number] Care Team Providers Care Ruling Machine Set Up Operator Name Role Phone Ryan Marques MD Unavailable Unavailab le Ryan Marques MD Primary Care Provider Rhina vailable Reason for Referral * Imaging (Routine) - Closed Specialty Diagnoses / Procedures Referred By Tiago t Referred To Contact Radiology Diagnoses Carcinosarcoma (CMS/HCC) Procedures CT Abdomen Pelvis w IV Contrast Lilia Alexandra MD [address] [address] Phone: tel: fax: Referral ID Status Reason Start Date Expiration Date Visits Re quested Visits Authorized [id number] Closed 09/16/2024 03/18/2026 1 1 * Imaging (Routine) - Closed Specialty Diagnoses / Procedures Referred By Tiago t Referred To Contact Radiology Diagnoses Carcinosarcoma (CMS/HCC) Procedures CT Chest w IV Contrast Lilia Alexandra MD [address] [facility] [address] [place] [address] Phone: tel: fax: Referral ID Status Reason Start Date Expiration Date Visits Re quested Visits Authorized [id number] Closed 09/16/2024 03/18/2026 1 1 Reason for Visit * Imaging (Routine) - Closed Specialty Diagnoses / Procedures Referred By Contac t Referred To Contact Radiology Diagnoses Carcinosarcoma (CMS/HCC) Procedures CT Abdomen Pelvis w IV Contrast Lilia Alexandra MD [address] [place] [facility] [address] [place] [address] Phone: tel: fax: Referral ID Status Reason Start Date Expiration Date Visits Re quested Visits Authorized [id number] Closed 09/16/2024 03/18/2026 1 1 Encounter Details Date Type Department Care Team (Latest Contact Info) Description 10/14/2024 11:28 AM EDT - 10/14/2024 11:59 PM EDT Hospital Encounter [facility] Radiology [address] [place] [id number] Carcinosarcoma (CMS/HCC) Discharge Disposition: Home or Self [...] Gynecology [address] [place] [address] Lilia Alexandra MD [address] [place] [address] documented as of this encounter Procedures Procedure [...] Per this written report. Drafted by Shanice rAellano MD on 10/14/2024 12:54 PM Final report [...] Total DLP (Dose-Length Product): 648.64 mGy.cm (accession [id number]), 648.64 mGy.cm (accession [id number]). Please note: The reported value represents the [...] Total DLP (Dose-Length Product): 648.64 mGy.cm (accession [id number]),648.64 mGy.cm (accession [id number]). Please note: The reported valuerepresents the total [...] Total DLP (Dose-Length Product): 648.64 mGy.cm (accession [id number]), 648.64 mGy.cm (accession [id number]). Please note: The reported value represents the [...] Total DLP (Dose-Length Product): 648.64 mGy.cm (accession [id number]),648.64 mGy.cm (accession [id number]). Please note: The reported valuerepresents the total [...] documented as of this encounter Care Teams Ruling Machine Set Up Operator Relationship Specialty Start Date End Date Ryan Marques MD PCP - General Family Medicine 12/11/23 Ryan Marques MD Family Medicine 12/08/23 documented as of this encounter
--- OUTSIDE RECORDS SUMMARY | 2024-10-14 14:30 | XMS_ITS | Encounter Summary ---
Author Organization [facility] Address [address] [id number] Care Team Providers Care Lining Maker Name Role Phone Ryan Marques MD Unavailable Unavailab le Ryan Marques MD Primary Care Provider Rhina vailable Encounter Details Date Type Department Care Team (Late st Contact Info) Description 10/14/2024 2:30 PM EDT Office Visit [facility] Gynecology [address] [place] [address] Lilia Alexandra MD [address] [facility] [address] [place] [address] Carcinosarcoma (CMS/HCC) (Primary Dx); Type 2 diabetes mellitus without complication, with long-term current use of insulin; Current severe episode of major depressive disorder without psychotic features, unspecified whether recurrent (CMS/HCC); Primary hypertension; Anxiety; Coronary artery disease involving [place] coronary artery of [place] heart without angina pectoris; Chronic right-sided heart [...] Aller: NKMA SocHx: -T/E/D 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 Recommends no further cardiac testing 45 minutes [...] and discussed w/ Dr. Ibrahima Maxwell MD [facility] Fellow Wilda Maxwell MD [facility] GYNECOLOGY [address] [facility] [address] Dept: [phone] Dept Loc: [phone] Cosigned by Lilia Alexandra MD at 10/17/2024 [...] [address] [place] [address] Lilia Alexandra MD [address] [place] [address] documented as of this encounter Visit Diagnoses Diagnosis Carcinosarcoma (CMS/HCC)- Primary Other malignant neoplasm of unspecified site Type 2 diabetes mellitus without complication, with long-term current use of insulin Current severe episode of major depressive disorder without psychotic features, unspecified whether recurrent (CMS/HCC) Primary hypertension Unspecified essential hypertension Anxiety Anxiety state, unspecified Coronary artery disease involving [place] coronary artery of [place] heart without angina pectoris Chronic right-sided heart [...] documented as of this encounter Care Teams Lining Maker Relationship Specialty Start Date End Date Ryan Marques MD PCP - General Family Medicine 12/11/23 Ryan Marques MD Family Medicine 12/08/23 documented as of this encounter
--- OUTSIDE RECORDS SUMMARY | 2024-10-26 10:00 | XMS_ITS | Encounter Summary ---
Author Organization [facility] [place] [address] Care Team Providers Care Oncology Social Work Name Role Phone Nanci Knight APRN Primary Care Provider Unava ilable Reason for Visit * Reason Comments Hyperlipidemia Diabetes Type 2 Encounter Details Date Type Department Care Team (Latest Contact Info) Description 10/26/2024 10:00 AM EDT Office Visit [facility] Diabetes [place] [address] [facility] [address] [place] [phone] Alan Rabago MD [address] [id number] Type 2 diabetes mellitus with hyperglycemia, without [...] 1.27 07/18/2024 Lab Results Component Value Date [id number] 37.0 03/11/2021 Lab Results Component Value Date [id number] 1,259 03/11/2021 Vitals: 10/26/24 1004 BP: 115/67 [...] Description 04/27/2025 11:15 AM EST Office Visit [facility] [address] [phone] Alan Rabago MD [address] [place] [address] Scheduled Orders Name Type Priority Associated Diagnoses [...] documented as of this encounter Care Teams Oncology Social Work Relationship Specialty Start Date End Date Nanci Knight APRN PCP - General Nurse Practitioner-Family 03/20/20 documented as of this encounter
--- OUTSIDE RECORDS SUMMARY | 2024-11-09 13:30 | XMS_ITS | Encounter Summary ---
Author Organization Healthcare Address [address] [place] [address] Care Team Providers Care Research Attorney Name Role Phone Ryan Marques MD Unavailable Unavailab le Ryan Marques MD Primary Care Provider Rhina vailable Encounter Details Date Type Department Care Team (Latest Contact Info) Description 09/16/2024 Travel Social History Tobacco Use Types Packs/Day Years [...] Roxana Queen documented as of this encounter Plan of Treatment Upcoming Encounters Date Type Department Care Team (Late st Contact Info) Description 01/13/2025 10:15 AM EDT Office Visit [facility] [address] [place] [address] Lilia Alexandra MD [address] [place] [address] documented as of this encounter Visit Diagnoses Not on filedocumented in this encounter Additional Health Concerns Assessment Noted Time PHQ-9 Depression Total Score: 0 08/27/19 25 9:03 AM EDT A fall risk assessment has been complete d for the patient 09/16/2024 10:23 AM EDT A Body Mass Index follow-up plan has been documented for the patient 08/26/2024 12:52 PM EDT documented as of this encounter Care Teams Research Attorney Relationship Specialty Start Date End Date Ryan Marques MD PCP - General Family Medicine 12/11/23 Ryan Marques MD Family Medicine 12/08/23 documented as of this encounter
--- OUTSIDE RECORDS SUMMARY | 2024-11-09 13:30 | XMS_ITS | Clinical Summary ---
Author Organization [facility] Address [address] [place] [address] Care Team Providers Care Photographic Editor Name Role Phone Ryan Marques MD Unavailable Unavailab le Ryan Marques MD Primary Care Provider Rhina vailable Allergies No known active allergies Medications levothyroxine (Synthroid, Levoxyl) 50 MCG tablet Take 1 tablet (50 mcg) by mouth 1 (one) time each day. 024 Active semaglutide (Rybelsus) 14 MG tablet Take 14 mg by mouth 1 (one) time each day before breakfast. Active Farxiga 10 MG tablet Take 1 tablet (10 mg) by mouth 1 (one) time each day. Active ondansetron (Zofran) 4 MG tablet Take 1 tablet (4 mg) by mouth every 8 (eight) hours if needed for nausea or vomiting. 20 tablet 024 Active Cyanocobalamin 5000 MCG capsule Take by mouth every other day. Active traMADol (Ultram) 50 MG tablet Take 1 tablet (50 mg) by mouth every 6 (six) hours if needed for severe pain. 30 tablet 024 Active venlafaxine (Effexor) 37.5 MG tablet Take 1 tablet (37.5 mg) by mouth 1 (one) time each day. Active prochlorperazine (Compazine) 10 MG tabletIndications :Malignant ascites Take 0.5 tablets (5 mg) by mouth every 6 (six) hours if needed for nausea or vomiting. 30 tablet 5 024 Active atorvastatin (Lipitor) 40 MG tablet Take 1 tablet (40 mg) by mouth 1 (one) time each day. Active clopidogrel (Plavix) 75 MG tablet Take 1 tablet (75 mg) by mouth 1 (one) time each day. Active sacubitril-valsar spencer (Entresto) 24-26 MG tablet Take 1 tablet by mouth 2 (two) times a day. FOR 30 DAYS Active carvedilol (Coreg) 6.25 MG tablet Take 1 tablet (6.25 mg) by mouth 2 (two) times a day with meals. 024 Active magnesium oxide (Mag-Ox) 400 MG tabletIndications :Encounter for antineoplastic chemotherapy Take 1 tablet (400 mg) by mouth 1 (one) time each day. 30 tablet 1 024 Active insulin degludec (Tresiba FlexTouch) 100 UNIT/ML injection pen 18 Units 1 (one) time each day in the morning. 024 Active potassium chloride CR (Klor-Con M20) 20 MEQ ER tablet Take 1 tablet (20 mEq) by mouth 1 (one) time each day. 024 Active spironolactone (Aldactone) 12.5 MG split tablet Take by mouth 1 (one) time each day. Active insulin glargine-yfgn 100 UNIT/ML injection vial Inject 0.18 mL (18 Units) under the skin 1 (one) time each day. 10 mL 3 025 Active pen needle, diabetic 31G X 5 MM misc Use as directed with insulin pen. 100 each 11 025 Active insulin glargine (Lantus SoloStar) 100 UNIT/ML injection pen Inject 18 Units under the skin 1 (one) time each day in the morning. 15 mL 025 Active acetaminophen (Tylenol) 500 MG tablet Take 2 tablets (1,000 mg) by mouth every 8 (eight) hours. 60 tablet 025 Active methocarbamol (Robaxin) 500 MG tablet Take 1 tablet (500 mg) by mouth 4 (four) times a day. 60 tablet 025 Active ondansetron ODT (Zofran-ODT) 4 MG disintegrating tablet Take 1 tablet (4 mg) by mouth every 6 (six) hours if needed for nausea or vomiting. 20 tablet 025 Active polyethylene glycol (Miralax) 17 g packet Take 17 g by mouth 1 (one) time each day. Use one time daily if you have not had a bowel movement by POD#5 (end of day on 06/21). 5 packet 025 Active Additional Information Patient not taking.Reported on 09/16/2024 dexamethasone (Decadron) 4 MG tabletIndications :Malignant ascites Take 2 tablets by mouth daily. Starting day after chemo for 3 days. 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 Discussed the agents to be administered (Carboplatin and Paclitaxel), including route of administration (IV), expected side effects and potential toxicities (including but not limited to cytopenias, alopecia, renal and liver [...] This varies individually based on patient tolerability, prior treatments and comorbidities/risk status. Monitoring typically entails labs, imaging and/or other diagnostics, utilizing a healthcare delivery team experienced in the use of anticancer agents and the management of associated toxicities in patients with cancer. An abdominal probe ultrasound is used to visualize an adequate pocket of ascites accessible through a lateral approach. The abdomen is prepped with chlorhexidine gluconate solution. The skin is anesthetized with 5ml of lidocaine with epinephrine. The skin is incised with a scalpel. A 10 mL syringe is attached to the paracentesis needle with overlying catheter. The catheter apparatus is inserted through the incision and carefully guided through the fascia. The syringe is aspirated as the catheter is advanced until the ascites fluid is seen. The catheter is further advanced and the insertion needle is removed. The catheter is attached to suction and the ascites is removed. The patient is periodically rolled to increase the amount of ascites drained. When completed the paracentesis catheter is disconnected from suction and removed from the abdominal cavity. The sharps and fluid are safely discarded. The puncture site is dressed. Special precautions are given to the patients. The patient is to call for any worsening abdominal symptoms, pain, or fever. - Paracentesis performed today - C1 carbo/taxol on 01/07 Severe obesity (BMI 35.0-39.9) with comorbidity 12/31/2023 Malignant ascites 12/31/2023 Encounters Date Type Department Care Team Description 10/14/2024 2:30 PM EDT Office Visit [facility] Gynecology [address] [place] [phone] Lilia Alexandra MD Carcinosarcoma (CMS/HCC) (Primary Dx); Type 2 diabetes mellitus without complication, with long-term current use of insulin; Current severe episode of major depressive disorder without psychotic features, unspecified whether recurrent (CMS/HCC); Primary hypertension; Anxiety; Coronary artery disease involving inupiat coronary artery of inupiat heart without angina pectoris; Chronic right-sided heart failure (CMS/HCC) 10/14/2024 11:28 AM EDT - 10/14/2024 11:59 PM EDT Hospital Encounter [facility] [address] [place] [phone] Carcinosarcoma (CMS/HCC) Discharge Disposition: Home or Self Care 10/14/2024 Results Follow-Up [facility] Gynecology [address] [place] [phone] Lilia Alexandra MD 10/14/2024 Travel 09/16/2024 10:21 AM EDT - 09/16/2024 11:59 PM EDT Hospital Encounter [facility] Infusion Clinic [address] [place] [phone] Carcinosarcoma (CMS/HCC) (Primary Dx); Malignant ascites Discharge Disposition: Home or Self Care 09/16/2024 10:00 AM EDT Ancillary Procedure IV TEAM [address] [place] [address] Carcinosarcoma (CMS/HCC) 09/16/2024 8:30 AM EDT Office Visit [facility] Gynecology [address] [place] [phone] Lilia Alexandra MD Carcinosarcoma (CMS/HCC) (Primary Dx); Malignant ascites; Encounter for antineoplastic chemotherapy; Type 2 diabetes mellitus without complication, with long-term current use of insulin; Primary hypertension; Current severe episode of major depressive disorder without psychotic features, unspecified whether recurrent (CMS/HCC); Anxiety; Coronary artery disease involving inupiat coronary artery of inupiat heart without angina pectoris; Chronic right-sided heart failure (CMS/HCC) 09/16/2024 Travel 08/26/2024 9:34 AM EDT - 08/26/2024 11:59 PM EDT Hospital Encounter [facility] Infusion Clinic [address] [place] [address] Carcinosarcoma (CMS/HCC) (Primary Dx); Malignant ascites Discharge Disposition: Home or Self Care 08/26/2024 9:15 AM EDT Office Visit [facility] Gynecology [address] [place] [address] Lilia Alexandra MD Carcinosarcoma (CMS/HCC) (Primary Dx); Malignant ascites; Type 2 diabetes mellitus without complication, with long-term current use of insulin; Primary hypertension; Anxiety; Current severe episode of major depressive disorder without psychotic features, unspecified whether recurrent (CMS/HCC); Encounter for antineoplastic chemotherapy; Coronary artery disease involving inupiat coronary artery of inupiat heart without angina pectoris; Chronic right-sided heart failure (CMS/HCC) 08/26/2024 8:30 AM EDT Ancillary Procedure IV TEAM [address] [place] [address] Carcinosarcoma (CMS/HCC) (Primary Dx) 08/26/2024 Travel 08/25/2024 Abstract [facility] [address] [place] [phone] Keyanna Corcoran RN 08/18/2024 Telephone [facility] [address] [place] [address] Claire Yuen LPN lab results from Last 3 Months Immunizations Immunization Administration Dates Next Due Influenza, injectable, MDCK, preservative free, quadrivalent 03/02/2020 Influenza, injectable, quadr ivalent, preservative free 02/14/2023,02/08/2022,03/11/2021 Moderna COVID-19 Vaccine (Re d Cap) 12+ years 12/20/2020 Td (adult), unspecified 08/26/2011 Family History Medical History Relation Name Comments Anesthesia problems Neg Hx Malig Hyperthermia Neg Hx Social History Tobacco Use Types Packs/Day Years Used Date Smoking Tobacco: Never Passive Smoke Exposure: Never Smokeless Tobacco: Never Tobacco Cessation:Counseling Given: [...] on file Sexual Orientation Not on file Last Filed Vital Signs Vital Sign Reading [...] Mass Index 29.04 10/14/2024 2:20 PM EDT Plan of Treatment Upcoming Encounters Date Type Department Care Team (Late st Contact Info) Description 01/13/2025 10:15 AM EDT Office Visit [facility]ne[facility] [address] [place] [address] Lilia Alexandra MD [address] [place] [address] Health Maintenance Due Date Last Done Comments [facility]-Bone Density Scan 1959 [facility]-Hepatitis C Screening 1959 [facility]-/Child/Adol SDOH Screenings 1959 Diabetes: Dental Exam 1969 [facility]- SDOH Screenings 1977 [facility]-Adult SDOH Screenings 1977 [facility]-Pneumococcal Vaccine: 50+ Years (1 of 2 - PCV) 1978 [facility]-Zoster Vaccines (1 of 2) 1978 CT Colonography 01/23/2004 FIT-DNA 01/23/2004 FIT 01/23/2004 FOBT 01/23/2004 Sigmoidoscopy 01/23/2004 [facility]-Breast Cancer Screening 2009 [facility]-DTaP,Tdap,and Td Vaccines (1 - Tdap) 08/27/2011 08/26/2011 [facility]-RSV Vaccine: 60+ Years or (1 - Risk 60-74 years 1-dose series) 2019 [id number] Vaccine ( season) 2024 01/17/2021, 12/20/2020, 07/19/2020 [facility]-Diabetes: Hemoglobin A1C 11/24/2024 05/27/2024 [facility]-Influenza Vaccine (Season Ended) 2025 02/14/2023, 02/08/2022, 03/11/2021, Additional history exists [facility]-Depression Screening 10/14/2025 10/14/2024, 0405/2024 [facility]-Pap Smear 12/10/2026 12/11/2023 [facility]-Cervical Cancer Screening 12/10/2028 [facility]-HPV/Cotest 12/10/2028 12/11/2023 Colonoscopy 06/13/2034 06/13/2024 [facility]-Colorectal Cancer Screening 06/13/2034 [facility]-Obesity Intervention Completed 025, 07/22/2024, 05/03/2024, Additional history exists HPV Vaccines Aged Out No longer eligi ble based on patient's age to complete this topic [facility]-HIB Vaccines Aged Out No longer e ligible based on patient's age to complete this topic [facility]-Hepatitis A Vaccines Aged Out No longer eligible based on patient's age to complete this topic [facility]-IPV Vaccines Aged Out No longer e ligible based on patient's age to complete this topic [facility]-Rotavirus Vaccines Aged Out No lo nger eligible based on patient's age to complete this topic Medical Devices Implanted Type Area Package [employer]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 Shelf Expiration Date Model / Serial / Lot Stent Stent N/A: Heart Procedures Procedure Name Priority Date/Time Associated Diagnosis Comments CT ABDOMEN PELVIS W IV CONTRAST Routine 10/14/2024 12:41 PM EDT Carcinosarcoma (CMS/HCC) CT CHEST W IV CONTRAST Routine 12:41 PM EDT Carcinosarcoma (CMS/HCC) INSERT PERIPHERAL IV Routine 09/16/2024 10:00 AM EDT Carcinosarcoma (CMS/HCC) US GUIDED IV INSERTION Routine 9:20 AM EDT Carcinosarcoma (CMS/HCC) MAGNESIUM, PLASMA STAT 09/16/2024 8:5 4 AM EDT Malignant ascites CA 125 Routine 09/16/2024 8:54 AM EDT Malignant ascites COMPREHENSIVE METABOLIC PANEL, PLASMA Routine 09/16/2024 8:54 AM EDT Malignant ascites CBC WITH AUTO DIFFERENTIAL Routine 09/16/2024 8:54 AM EDT Malignant ascites US GUIDED IV INSERTION Routine 5 10:27 AM EDT Carcinosarcoma (CMS/HCC) CBC WITH AUTO DIFFERENTIAL Routine 08/26/2024 9:11 AM EDT Malignant ascites COMPREHENSIVE METABOLIC PANEL, PLASMA Routine 08/26/2024 9:11 AM EDT Malignant ascites CA 125 Routine 08/26/2024 9:11 AM EDT Malignant ascites MAGNESIUM, PLASMA STAT 08/26/2024 9:1 1 AM EDT Malignant ascites INSERT PERIPHERAL IV Routine 08/26/2024 8:30 AM EDT Carcinosarcoma (CMS/HCC) COLONOSCOPY Routine 06/13/2024 11:48 AM EST Carcinosarcoma (CMS/HCC) HEMOGLOBIN A1C Routine 05/27/2024 10:32 AM EST Malignant ascites PAP TEST - CYTOLOGY Routine 12/11/2023 1 0:05 AM EDT Ovarian mass from Last 3 Months or Most Recently Relevant to Health Maintenance Results * CT Abdomen Pelvis w IV [...] Total DLP (Dose-Length Product): 648.64 mGy.cm (accession [id number]), 648.64 mGy.cm (accession [id number]). Please note: The reported value represents the [...] Total DLP (Dose-Length Product): 648.64 mGy.cm (accession [id number]),648.64 mGy.cm (accession [id number]). Please note: The reported valuerepresents the total [...] Total DLP (Dose-Length Product): 648.64 mGy.cm (accession [id number]), 648.64 mGy.cm (accession [id number]). Please note: The reported value represents the [...] Total DLP (Dose-Length Product): 648.64 mGy.cm (accession [id number]),648.64 mGy.cm (accession [id number]). Please note: The reported valuerepresents the total [...] IMG CT PROCEDURES Final R esult * PERIPHERAL IV (SMARTFORM LINK) (09/16/2024 10:00 AM EDT) Only the most recent of2 resultswithin the time period is included. Narrative Hetal Bates RN - 09/16/2024 10:00 AM EDT Hetal Bates RN 09/16/2024 10:41 AM Insert peripheral IV Performed by: Hetal Btaes RN Authorized by: Lilia Alexandra MD Hand [...] Guided IV Insertion (09/16/2024 9:20 AM EDT) Only the most recent of2 resultswithin the time period is included. Narrative IMAGING - 09/16/2024 9:20 AM EDT These images were captured for the placement of an US-guided IV or PICC line placement. us Lilia Alexandra MD IMG US PROCEDURES Final R esult IMAGING * (ABNORMAL) CBC and differential (09/16/2024 8:54 AM EDT) Only the most recent of2 resultswithin the time period is included. WBC Count 3.58(L) 3.70 - 10.30 10*3/uL LAB HEMATOLOGY METHOD 09/16/2024 9:26 AM EDT [facility] RBC Count 2.63(L) 3.90 - 5.20 10*6/uL LAB HEMATOLOGY METHOD 09/16/2024 9:26 AM EDT [facility] HGB 8.8(L) 11.2 - 15.7 g/dL LAB HEMATOLOGY METHOD 09/16/2024 9:26 AM EDT [facility] HCT 26.3(L) 34.0 - 45.0 % LAB HEMATOLOGY METHOD 09/16/2024 9:26 AM EDT [facility] Platelet Count 180 155 - 369 10*3/uL LAB HEMATOLOGY METHOD 09/16/2024 9:26 AM EDT [facility] MCV 100(H) 79 - 98 fL LAB HEMATOLOGY METHOD 09/16/2024 9:26 AM EDT [facility] MCH 33.5(H) 26.0 - 32.0 pg LAB HEMATOLOGY METHOD 09/16/2024 9:26 AM EDT [facility] MCHC 33.5 30.7 - 35.5 g/dL LAB HEMATOLOGY METHOD 09/16/2024 9:26 AM EDT [facility] RDW 17.7(H) 11.5 - 14.5 % LAB HEMATOLOGY METHOD 09/16/2024 9:26 AM EDT [facility] MPV 10.7 8.8 - 12.5 fL LAB HEMATOLOGY METHOD 09/16/2024 9:26 AM EDT [facility] nRBC 0.0 <=0.0 per 100 WBCs LAB HEMATOLOGY METHOD 09/16/2024 9:26 AM EDT [facility] Differential Type Automated LAB HEMATOLOGY METHOD 09/16/2024 9:26 AM EDT [facility] Neutrophils % 58 % LAB HEMATOLOGY METHOD 09/16/2024 9:26 AM EDT [facility] Lymphocytes % 26 % LAB HEMATOLOGY METHOD 09/16/2024 9:26 AM EDT [facility] Monocytes % 15 % LAB HEMATOLOGY METHOD 09/16/2024 9:26 AM EDT [facility] Eosinophils % 0 % LAB HEMATOLOGY METHOD 09/16/2024 9:26 AM EDT [facility] Basophils % 0 % LAB HEMATOLOGY METHOD 09/16/2024 9:26 AM EDT [facility] Immature Granulocytes % 1 % LAB HEMATOLOGY METHOD 09/16/2024 9:26 AM EDT [facility] Neutrophils Absolute 2.07 1.60 - 6.10 10*3/uL LAB HEMATOLOGY METHOD 09/16/2024 9:26 AM EDT [facility] Lymphocytes Absolute 0.94(L) 1.20 - 3.90 10*3/uL LAB HEMATOLOGY METHOD 09/16/2024 9:26 AM EDT [facility] Monocytes Absolute 0.53 0.30 - 0.90 10*3/uL LAB HEMATOLOGY METHOD 09/16/2024 9:26 AM EDT [facility] Eosinophils Absolute 0.01 0.00 - 0.50 10*3/uL LAB HEMATOLOGY METHOD 09/16/2024 9:26 AM EDT [facility] Basophils Absolute 0.01 0.00 - 0.10 10*3/uL LAB HEMATOLOGY METHOD 09/16/2024 9:26 AM EDT [facility] Immature Granulocytes Absolute 0.02 0.00 - 0.06 10*3/uL LAB HEMATOLOGY METHOD 09/16/2024 9:26 AM EDT [facility] Blood Venous blood specimen / Unknown Venipuncture / Unknown 09/16/2024 8:54 AM EDT 09/16/2024 9:22 AM EDT Narrative [facility] - 09/16/2024 9:26 AM EDT Therapeutic decision making should be based on absolute values, rather than percentages. Lilia Alexandra MD LAB BLOOD ORDERABLES Kathy l Result Performing Organization Address City/[facility] Co de Phone Number [facility] [address] [place] [id number] * CA 125 (09/16/2024 8:54 AM EDT) Only the most recent of2 resultswithin the time period is included. CA 125 6.62 <=38.00 U/mL 09/16/2024 10:40 AM EDT [facility] Blood Venous blood specimen / Unknown Venipuncture / Unknown 09/16/2024 8:54 AM EDT 09/16/2024 9:33 AM EDT Narrative [facility] - 09/16/2024 10:40 AM EDT Performed by Edgardo electrochemiluminescent immunoassay. Results obtained with different test methods or kits cannot be used interchangeably. Lilia Alexandra MD LAB BLOOD ORDERABLES Kathy l Result Performing Organization Address City/[facility] Co de Phone Number [facility] [address] [place] [address] * (ABNORMAL) Magnesium (09/16/2024 8:54 AM EDT) Only the most recent of2 resultswithin the time period is included. Magnesium, Plasma 1.5(L) 1.9 - 2.4 mg/dL 09/16/2024 10:09 AM EDT [facility] Blood Venous blood specimen / Unknown Venipuncture / Unknown 09/16/2024 8:54 AM EDT 09/16/2024 9:33 AM EDT us Lilia Alexandra MD LAB BLOOD ORDERABLES Kathy l Result [facility] [address] [place] [address] * (ABNORMAL) Comprehensive metabolic panel (09/16/2024 8:54 AM EDT) Only the most recent of2 resultswithin the time period is included. Glucose, Plasma 171(H) 74 - 99 mg/dL 09/16/2024 10:09 AM EDT [facility] BUN, Plasma 16 8 - 23 mg/dL 09/16/2024 10:09 AM EDT [facility] Creatinine, Plasma 0.74 0.60 - 1.10 mg/dL 09/16/2024 10:09 AM EDT [facility] BUN/Creatinine Ratio 22 09/16/2024 10:09 AM EDT [facility] Sodium, Plasma 141 136 - 145 mmol/L 09/16/2024 10:09 AM EDT [facility] Potassium, Plasma 4.5 3.6 - 4.9 mmol/L 09/16/2024 10:09 AM EDT [facility] Chloride, Plasma 106 97 - 107 mmol/L 09/16/2024 10:09 AM EDT [facility] CO2, Plasma 22 22 - 29 mmol/L 09/16/2024 10:09 AM EDT [facility] Anion Gap 13 6 - 16 mmol/L 09/16/2024 10:09 AM EDT [facility] Total Calcium, Plasma 9.1 8.9 - 10.2 mg/dL 09/16/2024 10:09 AM EDT [facility] Total Protein 6.9 6.3 - 7.9 g/dL 09/16/2024 10:09 AM EDT [facility] Albumin, Plasma 4.2 3.5 - 5.2 g/dL 09/16/2024 10:09 AM EDT [facility] AST, Plasma 20 10 - 35 U/L 09/16/2024 10:09 AM EDT [facility] Comment:Hemolyzed, result ma y be falsely increased. ALT, Plasma 16 10 - 35 U/L 09/16/2024 10:09 AM EDT [facility] Alkaline Phosphatase, Plasma 120 46 - 142 U/L 09/16/2024 10:09 AM EDT [facility] Total Bilirubin, Plasma 0.4 0.2 - 1.1 mg/dL 09/16/2024 10:09 AM EDT [facility] eGFRcr 89.9 mL/min/1.7 3m*2 09/16/2024 10:09 AM EDT [facility] Comment:Reported eGFRcr in m L/min/1.73m2 is based the CKD-EPI 2020 equation that does not use a race coefficient. Blood Venous blood specimen / Unknown Venipuncture / Unknown 09/16/2024 8:54 AM EDT 09/16/2024 9:33 AM EDT us Lilia Alexandra MD LAB BLOOD ORDERABLES Kathy duque Result [facility] [address] [place] [address] * Colonoscopy (06/13/2024 11:48 AM EST) Anatomical Region Laterality Modality Endoscopy Narrative 06/13/2024 12:05 PM EST Table formatting from the original result was not included. Impression: Normal. Preoperative colonoscopy scheduled in the setting of mesenteric mass with planned exploratory laparotomy. Normal colonoscopy. No polyps, masses, or lesions. No evidence of any intrinsic or extrinsic compression contributing to obstruction. Recommendations Other Indication Order Indication: Carcinosarcoma (CMS/HCC) Medications See anesthesia record for anesthesia administered medications. Staff Staff Role Dashawn Cohen Endo Teacher Learning Disabled Lele Guy Endo Teacher Learning Disabled Rodrigo Winston RN Endo Nurse Hussain Tong MD Proceduralist Keyanna Ng CRNA CRNA Pierce, Jennifer G, MD Fellow Lucas Medina MD Anesthesiologist Preprocedure A history and physical has been performed, and patient medication allergies have been reviewed. The patient's tolerance of previous anesthesia has been reviewed. The risks and benefits of the procedure and the sedation options and risks were discussed with the patient. All questions were answered and informed consent obtained. Details of the Procedure The patient underwent monitored anesthesia care, which was administered by an anesthesia professional. The patient's blood pressure, heart rate, level of consciousness, respirations and oxygen were monitored throughout the procedure. A digital rectal exam was performed. A perianal exam was performed. The scope was introduced through the anus and advanced to the cecum. Retroflexion was performed in the rectum. The quality of bowel preparation was evaluated using the [place] Bowel Preparation Scale with scores of: right colon = 2, transverse colon = 2, left colon = 2. The total BBPS score was 6. Bowel prep was adequate. The patient experienced no blood loss. The procedure was not difficult. The patient tolerated the procedure well. There were no apparent adverse events. Attestation I personally performed the entire procedure Events Procedure Events Event Event Time ENDO SCOPE IN TIME 06/13/2024 11:24 AM ENDO SCOPE OUT TIME 06/13/2024 11:42 AM Specimens No specimens were documented in this log. Findings All observed locations appeared normal. Hussain Tong MD GI PROCEDURE ORDERABLES Final Result * (ABNORMAL) Hemoglobin A1c (05/27/2024 10:32 AM EST) Hemoglobin A1c 6.6(H) <5.7 % 05/27/2024 11:35 AM EST [facility] Blood Venous blood specimen / Unknown Venipuncture / Unknown 05/27/2024 10:32 AM EST 05/27/2024 11:10 AM EST Narrative [facility] - 05/27/2024 11:35 AM EST HA1C Interpretive Data: Diagnosis of Diabetes: Diabetic > or = 6.5% Pre-diabetic 5.7 to 6.4% Non-diabetic < or = 5.6% Glycemic Targets for Type I and Type II Diabetics: Non- Adults <7.0% Adults <6.0% Children and Adolescents <7.5% Source: [place] [employer]. Standards of medical care in diabetes,2017. Diabetes Care.2017:40 (suppl 1):S1-S135. HbA1c assay performed by an ion-exchange chromatography method that is certified traceable to the DCCT. us Lilia Alexandra MD LAB BLOOD ORDERABLES Kathy dunia Result [facility] [address] [place] [address] * Pap Test (12/11/2023 10:05 AM EDT) Case Report Cytology Case: [id number] Authorizing Provider: Lilia Alexandra MD Collected: 12/11/2023 1005 Ordering Location: [facility] Gynecology Received: 12/14/2023 0972 First Screen: Seema Maravilla Pathologist: Becky Claros MD Specimen: ThinPrep Pap Test, Liquid-Based Cervical/Vaginal 12/21/2023 4:56 PM EDT [facility] Interpretation NEGATIVE FOR INTRAEPITHELIAL LESION OR MALIGNANCY 12/21/2023 4:56 PM EDT [facility] at 1656 EDT Other Findings Reactive cellular changes. 12/21/2023 4:56 PM EDT [facility] Specimen Adequacy Satisfactory for evaluation; endocervical/wilder sformation zone component present. Slide imaged by the ThinPrep Imaging system and selected 22 olivera reviewed then full manual screening. 12/21/2023 4:56 PM EDT [facility] Cervical cytology is a screening test primarily for squamous cancers and precursors and has associated false negative and positive results. New technologies such as liquid based sampling may decrease but will not eliminate all false negative results. Regular screening and follow-up of unexplained clinical signs and symptoms are recommended to minimize false negative results. Please see the ASCCP website (www.asccp.org)fo r followup recommendations. If HPV testing was requested, correlation with the results is suggested (please call Microbiology at [phone] for results). 12/21/2023 4:56 PM EDT [facility] Menstrual Status Not Applicable 09/2023 4:56 PM EDT [facility] History of Hysterectomy Not Applicable 12/21/2023 4:56 PM EDT [facility] Contraceptive History Not Applicable 12/21/2023 4:56 PM EDT [facility] Screening Type Previous or Suspected Abnormality 12/21/2023 4:56 PM EDT [facility] HPV Testing Requested? Request HPV Testing Regardless of Pap Test Findings 12/21/2023 4:56 PM EDT [facility] Previous Cancer History No 12/21/2023 4:56 PM EDT [facility] Previous or Suspected Abnormality Other Parking Station Attendant symptoms (please specify): 12/21/2023 4:56 PM EDT [facility] Comment:ovarian mass Clinical Information N83.8 - Ovarian mass [ICD-10-CM] 12/21/2023 4:56 PM EDT [facility] Swab Vaginal and cervical cytologic material / Unknown Non-blood Collection / Unknown 12/11/2023 10:05 AM EDT 12/14/2023 9:45 AM EDT Lilia Alexandra MD LAB CYTOLOGY ORDERABLES F inal Result [facility] [address] [place] [address] from Last 3 Months or Most Recently Relevant to Health Maintenance Insurance [facility] MEDICARE Advance Directives * Full Code (Latest Code Status on File) Date Activated Date Inactivated Comments 06/16/2024 11:09 AM 06/19/2024 3:28 PM Question Answer Comments Patient has decision-making capacity? Yes Care Teams Photographic Editor Relationship Specialty Start Date End Date Ryan Marques MD PCP - General Family Medicine 12/11/23 Ryan Marques MD Family Medicine 12/08/23
--- OUTSIDE RECORDS SUMMARY | 2024-11-09 13:30 | XMS_ITS | Encounter Summary ---
Author Organization Healthcare Address [address] [place] [address] Care Team Providers Care Oss Architect Name Role Phone Ryan Marques MD Unavailable Unavailab le Ryan Marques MD Primary Care Provider Rhina vailable Encounter Details Date Type Department Care Team (Latest Contact Info) Description 10/14/2024 Travel Social History Tobacco Use Types Packs/Day [...] [address] [place] [address] Lilia Alexandra MD [address] [place] [address] documented as of this encounter [...] documented as of this encounter Care Teams Oss Architect Relationship Specialty Start Date End Date Ryan Marques MD PCP - General Family Medicine 12/11/23 Ryan Marques MD Family Medicine 12/08/23 documented as of this encounter
--- OUTSIDE RECORDS SUMMARY | 2024-11-09 13:30 | XMS_ITS ---
Author Organization [facility] Address [address] [place] [address] Care Team Providers Care Chief Of Staff Doctor Name Role Phone Ryan Marques MD Unavailable Unavailab le Ryan Marques MD Primary Care Provider Rhina vailable Active Problems Problem Noted Date Diagnosed Date History of percutaneous coronary intervention Type 2 diabetes mellitus wit hout complication, with long-term current use of insulin 03/14/2024 Anxiety 03/14/2024 Coronary artery disease invo lving [place] coronary artery of [place] heart without angina pectoris 03/14/2024 Current severe [...] 35.0-39.9) with comorbidity 12/31/2023 Malignant ascites 12/31/2023 Current Treatment and Therapy Plans (ONC) Med Onc Outpatient Electrolyte Replacement Protocol* Plan Start Date: 04/22/2024 Plan Provider:Lilia Alexandra MD Linked Problems Carcinosarcoma (CMS/HCC) Treatment Medications No medications scheduled. Past Treatment and Therapy Plans Lifetime Dose Tracking * Chemical Lifetime Dose Automatic Entry Manual Entr y CTDIvol 166 mGy 166 mGy 0 mGy Radiation (DLP) 770 mGy-cm 770 mGy-cm 0 mGy-cm
--- OUTSIDE RECORDS SUMMARY | 2024-11-09 13:30 | XMS_ITS | Clinical Summary ---
Author Organization [facility] Address [address] [place] [phone] Phone Care Team Providers Care Hazardous Materials Tanker Driver Name Role Phone Nanci Knight APRN Primary Care Provider Unava ilable Allergies No known active allergies Medications LISINOPRIL ORAL Take 12.5 mg by mouth. Active amLODIPine (NORVASC) 10 mg Oral Tablet Take 1 Tab by mouth daily. 08/24/19 21 Active cyanocobalamin , vitamin B-12, (VITAMIN B-12 ORAL) Take by mouth every other day. Active carvediloL (COREG) 12.5 mg Oral TabletIndicati ons:Type 2 diabetes mellitus with hyperglycemia, without long-term current use of insulin (HCC) Take 1 Tablet by mouth 2 times daily. 180 Tablet 1 09/28/19 24 Active Additional Information Patient not taking.Reported on 10/26/2024 aluminum & magnesium hydroxide-sydney thicone (MAALOX PLUS) 400-400-40 mg/5 mL Oral Suspension Take 5 mL by mouth every 6 hours as needed. Active ELIQUIS 5 mg Oral Tablet Take 5 mg by mouth 2 times daily. Active clopidogreL (PLAVIX) 75 mg Oral Tablet Take 75 mg by mouth daily. Active ondansetron (ZOFRAN-ODT) 4 mg Oral Tablet, Rapid Dissolve Take 4 mg by mouth every 8 hours as needed for Nausea. 01/15/20 24 Active potassium chloride (KLOR-CON M) 20 mEq Oral Tab Sust.Rel. Particle/Cryst al Take 20 mEq by mouth 2 times daily. 03/11/20 24 Active prochlorperazi ne (COMPAZINE) 10 mg Oral Tablet Take 5 mg by mouth every 6 hours as needed. 01/08/20 24 Active ENTRESTO 24-26 mg Oral Tablet Take 1 Tablet by mouth 2 times daily. Active spironolactone (ALDACTONE) 25 mg Oral Tablet Take 12.5 mg by mouth daily. Active Sulfacetamide Sodium-Sulfur 10-5 % (w/w) Top Cleanser USE TO WASH AFFECTED AREA 2 TIMES EACH DAY 06/18/19 Active traMADoL (ULTRAM) 50 mg Oral Tablet Take 50 mg by mouth every 6 hours as needed. 12/31/19 24 Active venlafaxine (EFFEXOR-XR) 37.5 mg Oral Capsule, Sust. Release 24 hr Take 37.5 mg by mouth daily. 02/01/20 24 Active Insulin [place], Disposable, (BD ULTRA-FINE MINI PEN NEEDLE) 31 gauge x 07/31 Misc Needle Use as directed daily with insulin pen. 100 Each 3 03/30/20 24 Active atorvastatin (LIPITOR) 40 mg Oral Tablet Take 40 mg by mouth nightly. 06/03/19 25 Active carvediloL (COREG) 6.25 mg Oral Tablet Take 6.25 mg by mouth 2 times daily. 06/20/19 25 Active LEVOthyroxine (SYNTHROID) 50 mcg Oral Tablet TAKE 1 TABLET ONCE A DAY IN THE MORNING ON AN EMPTY STOMACH. 90 Tablet 3 07/22/19 25 Active dapagliflozin propanediol (FARXIGA) 10 mg Oral TabletIndicati ons:Type 2 diabetes mellitus with hyperglycemia, without long-term current use of insulin (HCC) Take 1 Tablet by mouth daily. 90 Tablet 3 07/22/19 25 Active semaglutide (RYBELSUS) 14 mg Oral TabletIndicati ons:Type 2 diabetes mellitus with hyperglycemia, without long-term current use of insulin (HCC) Take 1 Tablet by mouth daily. 90 Tablet 3 07/22/19 25 Active insulin degludec (TRESIBA FLEXTOUCH U-100) 100 unit/mL (3 mL) SubQ Insulin Pen Inject 18 units every morning. 15 mL 11 10/27/19 25 Active dexAMETHasone (DECADRON) 4 mg Oral Tablet Take 8 mg by mouth daily. 01/08/20 24 2024 Discontinued(P atient Reported not taking medication) fUROsemide (LASIX) 40 mg Oral Tablet Take 40 mg by mouth daily. 2024 Discontinued(P atient Reported not taking medication) insulin degludec (TRESIBA FLEXTOUCH U-100) 100 unit/mL (3 mL) SubQ Insulin Pen Inject 14 units every morning. On the days you have chemotherapy with steroids inject 18 units every morning. 15 mL 11 06/30/19 25 2024 Discontinued Active Problems Problem Noted Date Diagnosed Date Malignant neoplasm of ovary 03/30/2024 Hyperlipidemia associated with type 2 diabetes m ellitus 09/20/2021 Primary hypothyroidism 09/20/2021 Type 2 diabetes mellitus wit h hyperglycemia, without long-term current use of insulin 03/20/2020 Hypertension associated with diabetes 03/20/2020 Encounters Date Type Department Care Team Description 10/26/2024 10:00 AM EDT Office Visit [facility] [place] [address] [facility] [address] [place] [address] Alan Rabago MD Type 2 diabetes mellitus with hyperglycemia, without long-term current use of insulin (HCC) (Primary Dx); Hyperlipidemia associated with type 2 diabetes mellitus (HCC); Primary hypothyroidism from Last 3 Months Immunizations Immunization Administration Dates Next Due Td, Unspecified Formulation 08/26/2011 Surgical History Surgery Date Site/Laterality Comments THYROID SURGERY Medical History Medical History Date Comments Diabetes mellitus (HCC) Hypertension Hyperlipidemia Malignant neoplasm of ovary (HCC) Family History Medical History Relation Name Comments Diabetes Mother High Blood Pressure Mother Relation Name Status Comments Mother Social History Tobacco Use Types Packs/Day Years [...] on file Sexual Orientation Not on file Obstetrics History Last Filed Vital Signs Vital Sign Reading Time Taken Comments Blood Pressure 115/67 10/26/2024 10:04 AM EDT Pulse 69 10/26/2024 10:04 AM EDT Temperature - - Respiratory Rate 15 07/21/2024 10:2 7 AM EST Oxygen Saturation 100% 08/26/2011 3:01 PM EDT Inhaled Oxygen Concentration - - Weight 89.8 kg (197 lb 14.4 oz) 025 10:04 AM EDT Height 172.7 cm (5' 8 ) 10/26/2024 10:0 4 AM EDT Body Mass Index 30.09 10/26/2024 10:04 AM EDT Plan of Treatment Upcoming Encounters Date Type Department Care Team (Late st Contact Info) Description 04/27/2025 11:15 AM EST [facility] [place] [address] [facility] [address] [place] [phone] Alan Rabago MD [address] [place] [address] Health Maintenance Due Date Last Done Comments Annual Wellness Exam 1962 Hepatitis C Screening 1977 Pneumococcal Vaccine 50+ (1 of 2 - PCV) 1978 HPV/Pap Cotest 1989 Breast Cancer Screening 1999 Cologuard 01/23/2004 FIT 01/23/2004 Sigmoidoscopy 01/23/2004 Virtual Colonography 01/23/2004 Zoster (1 of 2) 2009 DTaP/TDaP/Td (1 - Tdap) 08/27/2011 08/26/2011 RSV or 60+ (1 - Risk 60-74 years 1-dose series) 2019 COVID-19 Vaccine ( season) 2024 01/17/2021, 12/20/2020, 07/19/2020 Bone Density Screening 01/23/2024 Influenza Vaccine (Season Ended) 2025 02/14/2023, 02/08/2022, 03/11/2021, Additional history exists Hemoglobin A1c 04/27/2025 10/26/2024, 03/0 07/2024, 05/27/2024, Additional history exists Kidney Health: eGFR 07/18/2025 07/18/2024, 03/28/2024, 03/21/2024, Additional history exists Kidney Health: uACR 07/18/2025 07/18/2024, 03/28/2024, 03/11/2021, Additional history exists Lipids 07/18/2025 07/18/2024, 03/18, 03/24/2023, Additional history exists Diabetic Eye Exam 09/10/2025 09/11/2023 Cervical Cancer Screening 12/10/2026 Pap Smear 12/10/2026 12/11/2023, 12/11/2023 Colon Cancer Screening 06/13/2034 Colonoscopy 06/13/2034 06/13/2024 Hepatitis B Vaccine Aged Out No longe r eligible based on patient's age to complete this topic Meningococcal B Vaccine Aged Out No l onger eligible based on patient's age to complete this topic Procedures Procedure Name Priority Date/Time Associated Diagnosis Comments POCT GLYCATED HEMOGLOBIN, TOTAL Routine 10/26/2024 10:13 AM EDT Type 2 diabetes mellitus with hyperglycemia, without long-term current use of insulin (HCC) MICROALBUMIN/CREATININ E RATIO URINE Routine 07/18/2024 COMPREHENSIVE METABOLIC PANEL Routine 07/18/2024 LIPID PANEL REFLEX Routine 07/18/2024 HM DIABETES EYE EXAM Routine 09/11/2023 1:11 PM EDT from Last 3 Months or Most Recently Relevant to Health Maintenance Results * POCT GLYCATED HEMOGLOBIN, TOTAL (10/26/2024 10:13 AM EDT) Hemoglobin A1C 5.9 4 - 6 % SEP OFFICE Lot Number SEP OFFICE Expiration Date SEP OFFICE SeriAl # SEP OFFICE 10/26/2024 10:1 3 AM EDT us Alan Rabago MD POINT OF CARE TEST ORDERABLES Final Result SEP OFFICE * LIPID PANEL REFLEX (07/18/2024) Triglycerides 130 MG/DL SEP OFFICE Comment:30-150 Cholesterol 151 0 - 200 MG/DL SEP OFFICE Comment:140-200 LDL Direct 60 <=100 mg/dL SEP OFFICE Comment:100-129 VLDL 26 MG/DL SEP OFFICE Comment:0-40 HDL 57 >=40 MG/DL SEP OFFICE Comment:40-60 Chol/HDL Ratio 2.6 SEP OFFICE Comment:1-3.5 Alk Phos 122 25 - 125 IU/L SEP OFFICE Comment:38-126 Blood VENOUS BLOOD / Unknown 07/18/2024 Ryan Marques MD CHEMISTRY ORDERABLES Final R esult SEP OFFICE * MICROALBUMIN/CREATININE RATIO URINE (07/18/2024) Creatinine Urine 99 SEP OFFICE Microalb, Ur 23.900 <=31 MG/L SEP OFFICE Comment:0-16.7 Urine Microalb/Creat Ratio 24.1 MCG/MG CREAT. SEP OFFICE Comment:0-29 Urine STRUCTURE OF URINARY TRACT PROPER / Unknown 07/18/2024 Ryan Marques MD URINE ORDERABLES Final Resul t Performing Organization Address City/[facility]/ZIP Co de Phone Number SEP OFFICE * COMPREHENSIVE METABOLIC PANEL (07/18/2024) Sodium 140 137 - 147 MMOL/L SEP OFFICE Comment:136-145 Potassium 4.4 3.5 - 5.0 mmol/L SEP OFFICE Comment:3.5-5.1 Chloride 106 99 - 108 MMOL/L SEP OFFICE Comment:98-107 CO2 26 MMOL/L SEP OFFICE Comment:22.0-30.0 Anion Gap 12.4 MMOL/L SEP OFFICE Comment:5-15 BUN 16 4 - 21 MG/DL SEP OFFICE Comment:7-17 Creatinine 0.8 0.5 - 1.1 MG/DL SEP OFFICE Comment:0.52-1.04 GFR Afr Am 87 SEP OFFICE Comment:>60 GFR Non Afr Am 72 >=60 mL/min/1.7 3 m2 SEP OFFICE Comment:>60 Glucose Lvl 163 MG/DL SEP OFFICE Comment:74-100 Calcium 9.20 8.70 - 10.70 MG/DL SEP OFFICE Comment:8.4-10.2 Bilirubin,Total 0.4 MG/DL SEP OFFICE Comment:0.2-1.3 AST 21 U/L SEP OFFICE Comment:14-36 ALT 19 U/L SEP OFFICE Comment:12-78 Total Protein 6.5 6.4 - 8.2 GM/DL SEP OFFICE Comment:6.3-8.2 Albumin 4.4 GM/DL SEP OFFICE Comment:3.5-5.0 Globulin 2.1 G/DL SEP OFFICE Comment:1.3-3.2 Albumin/Globulin Ratio 2.1 SEP OFFICE Comment:1.1-1.8 Blood VENOUS BLOOD / Unknown 07/18/2024 Ryan Marques MD CHEMISTRY ORDERABLES Final R esult SEP OFFICE * DIABETES EYE EXAM (09/11/2023 1:11 PM EDT) Left Diabetic Retinopathy Not Present Present/Not Present SEP OFFICE Right Diabetic Retinopathy Not Present Present/Not Present SEP OFFICE Historical Provider HEALTH MAINTENANCE Edited Re sult - Final SEP OFFICE from Last 3 Months or Most Recently Relevant to Health Maintenance Insurance [facility] [facility] PPO Care Teams Hazardous Materials Tanker Driver Relationship Specialty Start Date End Date Nanci Knight APRN PCP - General Nurse Practitioner-Family 03/20/20
--- OUTSIDE RECORDS SUMMARY | 2024-11-09 13:30 | XMS_ITS | Encounter Summary ---
Author Organization Healthcare Address [address] [place] [id number] Care Team Providers Care Shoe Lining Fitter Name Role Phone Ryan Marques MD Unavailable Unavailab le Ryan Mraques MD Primary Care Provider Rhina vailable Encounter Details Date Type Department Care Team (Late st Contact Info) Description 10/14/2024 Results Follow-Up [facility]ne[facility] [address] [facility] [address] [place] [address] Lilia Alexandra MD [address] [facility] [address] [facility] [address] [place] [address] Social History Tobacco Use Types Packs/Day Years [...] [address] [place] [address] Lilia Alexandra MD [address] [place] [address] documented as of this encounter Visit Diagnoses [...] documented as of this encounter Care Teams Shoe Lining Fitter Relationship Specialty Start Date End Date Ryan Marques MD PCP - General Family Medicine 12/11/23 Ryan Marques MD Family Medicine 12/08/23 documented as of this encounter
[2024-11-09 14:07] LABS: Basophils % 0.3 % (0.1-2.0); Eosinophils # 0.1 Kmm3 (0.0-0.4); Eosinophils % 1.3 % (0.1-12.0); Hematocrit 29.6 % (37.0-47.0); Hemoglobin 9.5 g/dL (12.2-16.2); Immature Granulocytes # 0.03 10^3uL; Immature Granulocytes % 0.4 %; Lymphocytes # 1.7 K/mm3 (0.7-4.5); Mean Corpuscular HGB Conc 32.1 g/dL (31.8-35.4); Mean Corpuscular Hemoglobin 34.2 pg (27.0-31.2); Mean Corpuscular Volume 106.5 fl (81-99); Monocytes # 0.6 K/mm3 (0.1-1.0); Monocytes % 8.5 % (1.7-9.3); Neutrophils # 4.6 K/mm3 (1.8-7.8); Neutrophils % 65.5 % (37.0-80.0); Nucleated Red Blood Cells # 0 10^3/uL; Nucleated Red Blood Cells % 0 %; Platelet Count 192 K/mm3 (142-424); Red Blood Count 2.78 M/mm3 (4.20-5.40); Red Cell Distribution Width 14.6 % (11.5-17.5); Red Cell Distribution Width-SD 57.4 fL
[2024-11-09 15:13] LABS: Free T4 (Free Thyroxine) 1.14 ng/dl (0.78-2.19)
[2024-11-09 16:12] LABS: Alanine Aminotransferase 14 U/L (12-78); Alkaline Phosphatase 113 U/L (38-126); Anion Gap 12.3 mEq/L (5-15); Aspartate Amino Transferase 21 U/L (14-36); Bilirubin,Direct 0.2 mg/dl (0.0-0.4); Bilirubin,Indirect 0.4 mg/dL (0.0-0.9); Bilirubin,Total 0.6 mg/dl (0.2-1.3); Bilirubin,Unconjugated 0.4 mg/dL (0.0-1.1); Blood Urea Nitrogen 15 mg/dl (7-17); Calcium 9.6 mg/dl (8.4-10.2); Carbon Dioxide 27 mmol/L (22.0-30.0); Chloride 103 mmol/L (98-107); Chol/HDL Ratio 2.7 (1-3.5); Cholesterol 145 mg/dl (140-200); Estimated Glomerular Filt Rate 84 ml/min (>60); GFR (African American) 102 ML/MIN (>60); Glucose 120 mg/dl (74-100); HDL Cholesterol 53 mg/dl (40-60); Magnesium 1.5 mg/dl (1.6-2.3); Potassium 4.3 mmoL/L (3.5-5.1); Sodium 138 mmol/L (136-145); Total Protein,Serum 6.7 g/dl (6.3-8.2); Triglycerides 141 mg/dl (30-150); VLDL Cholesterol 28 mg/dL (0-40)
[2024-11-09 16:22] LABS: Direct LDL Cholesterol 52.14 mg/dL (100-129)
[2024-11-09 16:42] LABS: Thyroid Stimulating Hormone 0.72 uIU/mL (0.465-4.68)
== END 2024-11-09 23:59 | disposition home or self-care (01) ==
LOC: LAB 13:25
PROVIDERS: PCP Family Medicine; Visit Provider Internal Medicine
DX: I10 Essential (primary) hypertension (principal); R42 Dizziness and giddiness
CPT/HCPCS: 36415; 80048; 80061; 80076; 83735; 84439; 84443; 85025

== ENCOUNTER 2024-11-16 12:51 | Outpatient (CLI) | payer BC, SELFPAY ==
--- OUTSIDE RECORDS SUMMARY | 2024-09-16 10:21 | XMS_ITS | Encounter Summary ---
Author Organization [facility] Address [address] [place] [address] Care Team Providers Care Openstack Cloud Consulting Architect Name Role Phone Ryan Marques MD Unavailable Unavailab le Ryan Marques MD Primary Care Provider Rhina vailable Reason for Referral * Imaging (Routine) - Closed Specialty Diagnoses / Procedures Referred By Tiago rogel Referred To Contact Radiology Diagnoses Carcinosarcoma (CMS/HCC) Procedures US Guided IV Insertion Consult to Interventional Radiology Lilia Alexandra MD [address] [facility] [address] [address] Phone: tel: fax: Referral ID Status Reason Start Date Expiration Date Visits Re quested Visits Authorized [id number] Closed 08/26/2024 02/25/2026 1 1 Reason for Visit * Episode Based Medications (Routine) - Closed Specialty Diagnoses / Procedures Referred By Tiago rogel Referred To Contact Diagnoses Malignant ascites Procedures PACLitaxel / CARBOplatin Every 21 Days Lilia Alexandra MD [address] [facility] [address] [address] Phone: tel: fax: [facility] Infusion [facility] [address] [place] [address] Phone: tel: Referral ID Status Reason Start Date Expiration Date Visits Re quested Visits Authorized [id number] Closed 12/31/2023 07/01/2025 1 36 Encounter Details Date Type Department Care Team (Latest Contact Info) Description 09/16/2024 10:21 AM EDT - 09/16/2024 11:59 PM EDT Hospital Encounter [facility] Infusion [facility] [address] [place] [address] Carcinosarcoma (CMS/HCC) (Primary Dx); Malignant ascites Discharge [...] [address] [place] [address] Lilia Alexandra MD [address] [place] [address] documented as of this encounter [...] documented as of this encounter Care Teams Openstack Cloud Consulting Architect Relationship Specialty Start Date End Date Ryan Marques MD PCP - General Family Medicine 12/11/23 Ryan Marques MD Family Medicine 12/08/23 documented as of this encounter
--- OUTSIDE RECORDS SUMMARY | 2024-10-14 11:28 | XMS_ITS | Encounter Summary ---
Author Organization [facility] Address [address] [id number] Care Team Providers Care Block Stacker Name Role Phone Ryan Marques MD Unavailable Unavailab le Ryan Marques MD Primary Care Provider Rhina vailable Reason for Referral * Imaging (Routine) - Closed Specialty Diagnoses / Procedures Referred By Tiago t Referred To Contact Radiology Diagnoses Carcinosarcoma (CMS/HCC) Procedures CT Abdomen Pelvis w IV Contrast Lilia Alexandra MD [address] [address] Phone: tel: fax: Referral ID Status Reason Start Date Expiration Date Visits Re quested Visits Authorized [id number] Closed 09/16/2024 03/18/2026 1 1 * Imaging (Routine) - Closed Specialty Diagnoses / Procedures Referred By Tiago t Referred To Contact Radiology Diagnoses Carcinosarcoma (CMS/HCC) Procedures CT Chest w IV Contrast Lilia Alexandra MD [address] [facility] [address] [place] [address] Phone: tel: fax: Referral ID Status Reason Start Date Expiration Date Visits Re quested Visits Authorized [id number] Closed 09/16/2024 03/18/2026 1 1 Reason for Visit * Imaging (Routine) - Closed Specialty Diagnoses / Procedures Referred By Contac t Referred To Contact Radiology Diagnoses Carcinosarcoma (CMS/HCC) Procedures CT Abdomen Pelvis w IV Contrast Lilia Alexandra MD [address] [facility] [address] [place] [address] Phone: tel: fax: Referral ID Status Reason Start Date Expiration Date Visits Re quested Visits Authorized [id number] Closed 09/16/2024 03/18/2026 1 1 Encounter Details Date Type Department Care Team (Latest Contact Info) Description 10/14/2024 11:28 AM EDT - 10/14/2024 11:59 PM EDT Hospital Encounter [facility] [address] [place] [phone] Carcinosarcoma (CMS/HCC) Discharge Disposition: Home or Self Care Social History Tobacco Use Types Packs/Day Years Used Date Smoking Tobacco: Never Passive Smoke Exposure: Never Smokeless Tobacco: Never Alcohol Use Standard Drinks/Week Comments Never 0 (1 standard drink = 0.6 oz pur e alcohol) PHQ-2 Answer Date Recorded Patient Health Questionnaire-2 Score 0 10/14/2024 PHQ-9 Answer Date Recorded Patient Health Questionnaire-9 [...] pleasure in doing things Not at all 10/14/2024 2:21 PM EDT Roxana Queen Feeling down, depressed, or hopeless Not at all 09/17 2:21 PM EDT Roxana Queen Patient Health Questionnaire-2 Score 0 09/17 2:21 PM EDT Roxana Queen documented as of this [...] by mouth 1 (one) time each day. documented as of this encounter Miscellaneous Notes * Yamilet Garcia - 10/14/2024 11:32 AM EDT Images from the original note were not included. 1639 Caring for Yourself after Contrast Imaging If you had ORAL contrast: ?? You can go back to your normal diet and activities as tolerated. ?? Drink plenty of fluids, unless told otherwise. If you had IV contrast: ?? You can go back to your normal diet and activities as tolerated. ?? Drink plenty of fluids, unless told otherwise. ?? Leave a bandage on the site for 30 minutes (where the IV was inserted or blood was drawn). If you had Intravesical (bladder) contrast: ?? Return to normal diet and activity. What you need to know about delayed reaction to IV contrast What is IV Contrast? ?? Contrast is a dye that is put into your body through an IV. ?? It is used for imaging scans such as CT scans and MRIs. ?? The contrast makes blood vessels, organs and other parts of your body show up better on the scan. What do I need to do after IV contrast? ?? Drink lots of fluids. This will help flush the contrast out of your system. ?? Drink 2-3 extra glasses or bottles of water within 4 hours of your scan. What is a contrast reaction? ?? A contrast reaction is a bad side effect from the contrast dye. ?? It is rare but it does happen. ?? They can be mild - such as sneezing, itching, or hives. ?? They can be severe - such as trouble breathing, throat swelling, and irregular heart beat. When do these reactions happen? ?? They often happen right after the contrast is injected. ?? Some happen hours after going home. Go to the nearest Emergency Department right away if you have any of these symptoms after you leavethe clinic or hospital. ?? Sneezing ?? Itching in your mouth, throat, eyes, ears, or skin ?? Rash or hives ?? Throwing up or stomach sickness ?? High heart rate or ?racing? of your heart ?? Feeling dizzy or woozy ?? Feeling short of breath or like you can?t take a deep breath ?? Feeling very anxious for no other reason It is very important that these reactions be treated. Tell the doctor or nurse that you are having a reaction to IV contrast dye. Do not ignore any sign of a reaction! All reactions must be assessed by a doctor. Call 911 if you are alone and your reaction is more than mild sneezing or itching. If you have a mild reaction, call to speak with a Radiologist, explain that you havehad a contrast reaction, as this needs to be added to your medical record. documented in this encounter Plan of Treatment Upcoming Encounters Date Type Department Care Team (Late st Contact Info) Description 01/13/2025 10:15 AM EDT Office Visit [facility] [address] [place] [address] Lilia Alexandra MD [address] [place] [address] documented as of this encounter Procedures Procedure Name Priority Date/Time Associated Diagnosis Comments CT ABDOMEN PELVIS W IV CONTRAST Routine 10/14/2024 12:41 PM EDT Carcinosarcoma (CMS/HCC) CT CHEST W IV CONTRAST Routine 10/14/2024 12:41 PM EDT Carcinosarcoma (CMS/HCC) documented in this encounter Results * CT [...] Total DLP (Dose-Length Product): 648.64 mGy.cm (accession [id number]), 648.64 mGy.cm (accession [id number]). Please note: The reported value represents the [...] Total DLP (Dose-Length Product): 648.64 mGy.cm (accession [id number]),648.64 mGy.cm (accession [id number]). Please note: The reported valuerepresents the total [...] Total DLP (Dose-Length Product): 648.64 mGy.cm (accession [id number]), 648.64 mGy.cm (accession [id number]). Please note: The reported value represents the [...] Total DLP (Dose-Length Product): 648.64 mGy.cm (accession [id number]),648.64 mGy.cm (accession [id number]). Please note: The reported valuerepresents the total [...] MD IMG CT PROCEDURES Final R esult documented in this encounter Visit Diagnoses Diagnosis Carcinosarcoma (CMS/HCC) Other malignant neoplasm of unspecified site documented in this encounter Administered Medications Inactive Administered Medications - up to 3 most recent administrations Medication Order MAR Action Action Date Dose Rate Site barium sulfate (Readi-Cat 2) 2 % suspension 450 mL 450 mL, Oral, Once in imaging, 1 dose, Starting on Thu10/14/24 at 1132, Until Thu10/14/24 at 1253, Routine, Imaging Protocol Orders Given 10/14/2024 12:53 PM EDT 450 mL iohexol (OMNIPaque) 300 MG/ML injection 100 mL 100 mL, Intravenous, Once in imaging, 1 dose, Starting on Thu10/14/24 at 1132, Until Thu10/14/24 at 1252, Routine, Imaging Protocol Orders Given 10/14/2024 12:52 PM EDT 100 mL documented in this encounter Additional Health Concerns Assessment Noted Time PHQ-9 Depression Total Score: 0 08/27/19 25 9:03 AM EDT A fall risk assessment has been complete d for the patient 10/14/2024 2:21 PM EDT A Body Mass Index follow-up plan has been documented for the patient 08/26/2024 12:52 PM EDT documented as of this encounter Care Teams Block Stacker Relationship Specialty Start Date End Date Ryan Marques MD PCP - General Family Medicine 12/11/23 Ryan Marques MD Family Medicine 12/08/23 documented as of this encounter
--- OUTSIDE RECORDS SUMMARY | 2024-10-14 14:30 | XMS_ITS | Encounter Summary ---
Author Organization [facility] Address [address] [id number] Care Team Providers Care Pricing Manager Name Role Phone Ryan Marques MD Unavailable Unavailab le Ryan Marques MD Primary Care Provider Rhina vailable Encounter Details Date Type Department Care Team (Late st Contact Info) Description 10/14/2024 2:30 PM EDT Office Visit [facility]necology [address] [place] [address] Lilia Alexandra MD [address] [facility] [address] [place] [address] Carcinosarcoma (CMS/HCC) (Primary Dx); Type 2 diabetes mellitus without complication, with long-term current use of insulin; Current severe episode of major depressive disorder without psychotic features, unspecified whether recurrent (CMS/HCC); Primary hypertension; Anxiety; Coronary artery disease involving [place] coronary artery of [place] heart without angina pectoris; Chronic right-sided heart [...] Aller: NKMA SocHx: -T/E/D FamHx: no cancers 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 Recommends no further cardiac testing 45 minutes [...] and discussed w/ Dr. Ibrahima Maxwell MD [facility] Fellow Wilda Maxwell MD [facility] GYNECOLOGY [address] [facility] [address] Dept: [phone] Dept Loc: [phone] Cosigned by Lilia Alexandra MD at 10/17/2024 [...] [facility] Gynecology [address] [place] [address] Lilia Alexandra MD [address] [place] [address] documented as of this encounter Visit Diagnoses Diagnosis Carcinosarcoma (CMS/HCC)- Primary Other malignant neoplasm of unspecified site Type 2 diabetes mellitus without complication, with long-term current use of insulin Current severe episode of major depressive disorder without psychotic features, unspecified whether recurrent (CMS/HCC) Primary hypertension Unspecified essential hypertension Anxiety Anxiety state, unspecified Coronary artery disease involving [place] coronary artery of [place] heart without angina pectoris Chronic right-sided heart [...] documented as of this encounter Care Teams Pricing Manager Relationship Specialty Start Date End Date Ryan Marques MD PCP - General Family Medicine 12/11/23 Ryan Marques MD Family Medicine 12/08/23 documented as of this encounter
--- OUTSIDE RECORDS SUMMARY | 2024-10-26 10:00 | XMS_ITS | Encounter Summary ---
Author Organization [place] [address] Care Team Providers Care Silk Screen Printer Helper Name Role Phone Nanci Knight APRN Primary Care Provider Unava ilable Reason for Visit * Reason Comments Hyperlipidemia Diabetes Type 2 Encounter Details Date Type Department Care Team (Latest Contact Info) Description 10/26/2024 10:00 AM EDT Office Visit [facility] [place] [address] [facility] [address] [place] [phone] Alan Rabago MD [address] [id number] Type 2 diabetes mellitus with hyperglycemia, without long-term current use of insulin (HCC) (Primary Dx); Hyperlipidemia associated with type 2 diabetes mellitus (HCC); Primary hypothyroidism Social History Tobacco Use Types Packs/Day Years Used Date Smoking Tobacco: Never Smokeless Tobacco: Never Tobacco Cessation:Counseling Given: Not Answered Alcohol Use Standard Drinks/Week Comments Never 0 (1 standard drink = 0.6 oz pur e alcohol) AUDIT-C Answer Date Recorded Q1: How often do you have a drink containing alc ohol? Never 09/19/2020 Average Number of Drinks Not on file 021 Frequency of Binge Drinking Not on file 09/2020 Comments No Sex and Gender Information Value Date Recorded Sex Assigned at Not on file Legal Sex Female 4:09 AM EDT Gender Identity Not on file Sexual Orientation Not on file documented as of this encounter Last Filed Vital Signs Vital Sign Reading Time Taken Comments Blood Pressure 115/67 10/26/2024 10:04 AM EDT Pulse 69 10/26/2024 10:04 AM EDT Temperature - - Respiratory Rate - - Oxygen Saturation - - Inhaled Oxygen Concentration - - Weight 89.8 kg (197 lb 14.4 oz) 025 10:04 AM EDT Height 172.7 cm (5' 8 ) 10/26/2024 10:0 4 AM EDT Body Mass Index 30.09 10/26/2024 10:04 AM EDT documented in this encounter Ordered Prescriptions Prescription Sig Dispense Quantity Refills Last Filled Start Date End Date insulin degludec (TRESIBA FLEXTOUCH U-100) 100 unit/mL (3 mL) SubQ Insulin Pen Inject 18 units every morning. 15 mL 11 10/26/2024 documented in this encounter Progress Notes * Alan Rabago MD - 10/26/2024 10:00 AM EDT Subjective Subjective: Patient ID: Jennie Lezama is a 64 y.o. female. Chief Complaint Patient presents with Hyperlipidemia Diabetes Type 2 HPI: Jennie returns for follow up of type 2 diabetes. Since last visit she has completed her treatments and had follow up scan that showed she was in remission from her ovarian cancer. She has been following treatment plan well. She is not having any hypoglycemia. PMSFH: Past Medical History: Diagnosis Date Diabetes mellitus (HCC) Hyperlipidemia Hypertension Malignant neoplasm of ovary (HCC) Patients past medical, family and social histories were reviewed and updated. There were no changesexcept as noted. Review of Systems Objective Outpatient Medications Marked as Taking for the 10/26/24 encounter (Office Visit) with Alan Rabago MD Medication Sig Dispense Refill amLODIPine (NORVASC) 10 mg Oral Tablet Take 1 Tab by mouth daily. atorvastatin (LIPITOR) 40 mg Oral Tablet Take 40 mg by mouth nightly. carvediloL (COREG) 6.25 mg Oral Tablet Take 6.25 mg by mouth 2 times daily. clopidogreL (PLAVIX) 75 mg Oral Tablet Take 75 mg by mouth daily. cyanocobalamin, vitamin B-12, (VITAMIN B-12 ORAL) Take by mouth every other day. dapagliflozin propanediol (FARXIGA) 10 mg Oral Tablet Take 1 Tablet by mouth daily. 90 Tablet 3 [DISCONTINUED] dexAMETHasone (DECADRON) 4 mg Oral Tablet Take 8 mg by mouth daily. ELIQUIS 5 mg Oral Tablet Take 5 mg by mouth 2 times daily. ENTRESTO 24-26 mg Oral Tablet Take 1 Tablet by mouth 2 times daily. insulin degludec (TRESIBA FLEXTOUCH U-100) 100 unit/mL (3 mL) SubQ Insulin Pen Inject 18 units every morning. 15 mL 11 [DISCONTINUED] insulin degludec (TRESIBA FLEXTOUCH U-100) 100 unit/mL (3 mL) SubQ Insulin Pen Inject 14 units every morning. On the days you have chemotherapy with steroids inject 18 units every morning. 15 mL 11 LEVOthyroxine (SYNTHROID) 50 mcg Oral Tablet TAKE 1 TABLET ONCE A DAY IN THE MORNING ON AN EMPTY STOMACH. 90 Tablet 3 ondansetron (ZOFRAN-ODT) 4 mg Oral Tablet, Rapid Dissolve Take 4 mg by mouth every 8 hours as needed for Nausea. potassium chloride (KLOR-CON M) 20 mEq Oral Tab Sust.Rel. Particle/Crystal Take 20 mEq by mouth 2 times daily. prochlorperazine (COMPAZINE) 10 mg Oral Tablet Take 5 mg by mouth every 6 hours as needed. semaglutide (RYBELSUS) 14 mg Oral Tablet Take 1 Tablet by mouth daily. 90 Tablet 3 spironolactone (ALDACTONE) 25 mg Oral Tablet Take 12.5 mg by mouth daily. traMADoL (ULTRAM) 50 mg Oral Tablet Take 50 mg by mouth every 6 hours as needed. venlafaxine (EFFEXOR-XR) 37.5 mg Oral Capsule, Sust. Release 24 hr Take 37.5 mg by mouth daily. Objective: DATA REVIEW: LABS Recent and historical labs reviewed in chart, results discussed with patient. DIABETES SMBG Lab Results Component Value Date HGBA1C 5.9 10/26/2024 HGBA1C 5.7 07/18/2024 HGBA1C 7.6 (A) 03/30/2024 RENAL Lab Results Component Value Date CREATININE 0.8 07/18/2024 No results found for: MICROALBCR LIPIDS No components found for: LDL Lab Results Component Value Date LDLCALC 66 04/04/2020 Lab Results Component Value Date LDLDIRECT 60 07/18/2024 Lab Results Component Value Date HDL 57 07/18/2024 Lab Results Component Value Date TRIG 132 03/19/2022 Lab Results Component Value Date CHOLESTEROL 151 07/18/2024 OTHER Lab Results Component Value Date TSH 1.380 07/18/2024 FREET4 1.27 07/18/2024 Lab Results Component Value Date PDDV33MP 37.0 03/11/2021 Lab Results Component Value Date [id number] 1,259 03/11/2021 Vitals: 10/26/24 1004 BP: 115/67 BP Location: Left arm Patient Position: Sitting Pulse: 69 Weight: 197 lb 14.4 oz (89.8 kg) Height: 5' 8 (1.727 m) Body mass index is 30.09 kg/m??. Physical Exam Vitals and nursing note reviewed. Assessment and Plan: Diagnoses and all orders for this visit: Type 2 diabetes mellitus with hyperglycemia, without long-term current use of insulin (HCC) (Chronic) - POCT GLYCATED HEMOGLOBIN, TOTAL - MICROALBUMIN/CREATININE RATIO URINE; Future; Expected date: 03/28/2025 (Before Next Appt) - HEMOGLOBIN A1C; Future; Expected date: 03/28/2025 (Before Next Appt) - COMPREHENSIVE METABOLIC PANEL; Future; Expected date: 03/28/2025 (Before Next Appt) Hyperlipidemia associated with type 2 diabetes mellitus (HCC) (Chronic) - COMPREHENSIVE METABOLIC PANEL; Future; Expected date: 03/28/2025 (Before Next Appt) - LIPID PANEL REFLEX; Future; Expected date: 03/28/2025 (Before Next Appt) Primary hypothyroidism - T3 FREE; Future; Expected date: 03/28/2025 (Before Next Appt) - T4, FREE (THYROXINE); Future; Expected date: 03/28/2025 (Before Next Appt) - THYROID STIMULATING HORMONE; Future; Expected date: 03/28/2025 (Before Next Appt) Other orders - insulin degludec (TRESIBA FLEXTOUCH U-100) 100 unit/mL (3 mL) SubQ Insulin Pen; Inject 18 units every morning. Dispense: 15 mL; Refill: 11 Assessment and Recommendations: Type 2 diabetes with hyperglycemia at goal with HbA1c of 5.9% without hypoglycemia. I recommend shecontinue current plan of care including Tresiba 18 units. Hypertension controlled. Hypothyroidism controlled with levothyroxine 50 mcg daily. Her thyroid hormone levels are normal Hyperlipidemia controlled with lipitor 10 mg daily. Her LDL is at goal. Ovarian cancer now post op. She will restart chemotherapy soon with Dr. Alexandra. Return to office: Return in about 6 months (around 04/27/2025) for Type 2 diabetes. documented in this encounter Plan of Treatment Upcoming Encounters Date Type Department Care Team (Late st Contact Info) Description 04/27/2025 11:15 AM EST [facility] Visit [facility] [address] [phone] Alan Rabago MD [address] [place] [address] Scheduled Orders Name Type Priority Associated Diagnoses Orde r Schedule MICROALBUMIN/CREATININE RATIO URINE Lab Routine Type 2 diabetes mellitus with hyperglycemia, without long-term current use of insulin (HCC) Expected: 03/28/2025 (Approximate), Expires: 10/26/2025 HEMOGLOBIN A1C Lab Routine Type 2 diabetes mellitus with hyperglycemia, without long-term current use of insulin (HCC) Expected: 03/28/2025 (Approximate), Expires: 10/26/2025 COMPREHENSIVE METABOLIC PANEL Lab Routine Type 2 diabetes mellitus with hyperglycemia, without long-term current use of insulin (HCC) Hyperlipidemia associated with type 2 diabetes mellitus (HCC) Expected: 03/28/2025 (Approximate), Expires: 10/26/2025 LIPID PANEL REFLEX Lab Routine Hyperlipidemia associated with type 2 diabetes mellitus (HCC) Expected: 03/28/2025 (Approximate), Expires: 10/26/2025 T3 FREE Lab Routine Primary hypothyroidism Expected: 03/28/2025 (Approximate), Expires: 10/26/2025 T4, FREE (THYROXINE) Lab Routine Primary hypothyroidism Expected: 03/28/2025 (Approximate), Expires: 10/26/2025 THYROID STIMULATING HORMONE Lab Routine Primary hypothyroidism Expected: 03/28/2025 (Approximate), Expires: 10/26/2025 documented as of this encounter Procedures Procedure Name Priority Date/Time Associated Diagnosis Comments POCT GLYCATED HEMOGLOBIN, TOTAL Routine 10/26/2024 10:13 AM EDT Type 2 diabetes mellitus with hyperglycemia, without long-term current use of insulin (HCC) documented in this encounter Results * POCT GLYCATED HEMOGLOBIN, TOTAL (10/26/2024 10:13 AM EDT) Hemoglobin A1C 5.9 4 - 6 % SEP OFFICE Lot Number SEP OFFICE Expiration Date SEP OFFICE SeriAl # SEP OFFICE 10/26/2024 10:1 3 AM EDT us Alan Rabago MD POINT OF CARE TEST ORDERABLES Final Result SEP OFFICE documented in this encounter Visit Diagnoses Diagnosis Type 2 diabetes mellitus with hyperglycemia, without long-term current use of insulin (HCC)- Primary Hyperlipidemia associated with type 2 diabetes mellitus (HCC) Primary hypothyroidism Unspecified hypothyroidism documented in this encounter Discontinued Medications Medication Sig Discontinue Reason Start Date End Da dexAMETHasone (DECADRON) 4 mg Oral Tablet Take 8 mg by mouth daily. Patient Reported not taking medication 01/08/2024 10/26/2024 glimepiride (AMARYL) 4 mg Oral Tablet TAKE 1 TABLET 1 TIME EACH DAY Cancelled by 09/28/2023 10/26/2024 insulin degludec (TRESIBA FLEXTOUCH U-100) 100 unit/mL (3 mL) SubQ Insulin Pen Inject 14 units every morning. On the days you have chemotherapy with steroids inject 18 units every morning. 06/30/2024 10/26/2024 atorvastatin (LIPITOR) 10 mg Oral Tablet Take 1 Tab by mouth daily. Cancelled by 08/23/2020 10/26/2024 fUROsemide (LASIX) 40 mg Oral Tablet Take 40 mg by mouth daily. Patient Reported not taking medication 10/26/2024 documented as of this encounter Care Teams Silk Screen Printer Helper Relationship Specialty Start Date End Date Nanci Knight APRN PCP - General Nurse Practitioner-Family 03/20/20 documented as of this encounter
--- NOTE | 2024-11-16 12:52 | XR_ITS ---
PROCEDURE INFORMATION: Exam: XR Left Knee Exam date and time: 11/16/2024 1:00 PM Age: 64 years old Clinical indication: Pain; Knee; Left; Additional info: Left knee pain TECHNIQUE: Imaging protocol: Radiologic exam of the left knee. Views: 3 views. COMPARISON: No relevant prior studies available. FINDINGS: Bones/joints: No acute fracture. 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 Early osteoarthrosis of patellofemoral compartment. No dislocation. No significant joint effusion. Soft tissues: Unremarkable. IMPRESSION: No fracture. If pain persists, consider MRI for further evaluation.
--- OUTSIDE RECORDS SUMMARY | 2024-11-16 12:55 | XMS_ITS ---
Author Organization [facility] Address [address] [place] [address] Care Team Providers Care Estimating Manager Name Role Phone Ryan Marques MD Unavailable Unavailab le Ryan Marques MD Primary Care Provider Rhina vailable Active Problems Problem Noted Date Diagnosed Date History of percutaneous coronary intervention Type 2 diabetes mellitus wit hout complication, with long-term current use of insulin 03/14/2024 Anxiety 03/14/2024 Coronary artery disease invo lving [place] coronary artery of [place] heart without angina pectoris 03/14/2024 Current severe [...]
--- OUTSIDE RECORDS SUMMARY | 2024-11-16 12:55 | XMS_ITS | Encounter Summary ---
Author Organization Healthcare Address [address] [place] [address] Care Team Providers Care Vulcanizing Machine Operator Name Role Phone Ryan Marques MD [...] [address] [place] [address] Lilia Alexandra MD [address] [place] [address] documented as of this encounter [...] documented as of this encounter Care Teams Vulcanizing Machine Operator Relationship Specialty Start Date End Date Ryan Marques MD PCP - General Family Medicine 12/11/23 Ryan Marques MD Family Medicine 12/08/23 documented as of this encounter
--- OUTSIDE RECORDS SUMMARY | 2024-11-16 12:55 | XMS_ITS | Clinical Summary ---
Author Organization [facility] Address [address] [place] [phone] Phone Care Team Providers Care Customer Account Executive Name Role Phone Nanci Knight APRN Primary [...] by mouth daily. 02/01/20 24 Active Insulin [place], Disposable, (BD ULTRA-FINE MINI PEN NEEDLE) 31 [...] Description 10/26/2024 10:00 AM EDT Office Visit [facility] [place] [address] [facility] [address] [place] [address] Alan Rabago MD Type 2 [...] Description 04/27/2025 11:15 AM EST [facility] [place] [address] [facility] [address] [place] [phone] Alan Rabago MD [address] [place] [address] Health Maintenance Due Date Last [...] ORDERABLES Final Resul t Performing Organization Address City/[facility]/ZIP Co de Phone Number SEP OFFICE * [...] to Health Maintenance Insurance [facility] PPO Care Teams Customer Account Executive Relationship Specialty Start Date End Date Nanci Knight APRN PCP - General Nurse Practitioner-Family 03/20/20
--- OUTSIDE RECORDS SUMMARY | 2024-11-16 12:55 | XMS_ITS | Encounter Summary ---
Author Organization Healthcare Address [address] [place] [phone] Care Team Providers Care Electronic Controls Repairer Supervisor Name Role Phone Ryan Marques MD Unavailable Unavailab le Ryan Marques MD Primary Care Provider Rhina vailable Encounter Details Date Type Department Care Team (Late st Contact Info) Description 10/14/2024 Results Follow-Up [facility] [address] [facility] [address] [place] [address] Lilia Alexandra MD [address] [facility] [address] [facility] [address] [place] [address] Social History Tobacco Use Types Packs/Day Years [...] [address] [place] [address] Lilia Alexandra MD [address] [place] [address] documented as of this encounter Visit Diagnoses [...] documented as of this encounter Care Teams Electronic Controls Repairer Supervisor Relationship Specialty Start Date End Date Ryan Marques MD PCP - General Family Medicine 12/11/23 Ryan Marques MD Family Medicine 12/08/23 documented as of this encounter
--- OUTSIDE RECORDS SUMMARY | 2024-11-16 12:55 | XMS_ITS | Clinical Summary ---
Author Organization [facility] Address [address] [place] [address] Care Team Providers Care Keeper Head Name Role Phone Ryan Marques MD Unavailable Unavailab le Ryan Marques MD Primary Care Provider Rhina vailable Allergies No known active allergies Medications levothyroxine (Synthroid, Levoxyl) 50 MCG tablet Take 1 tablet (50 mcg) by mouth 1 (one) time each day. 09/28/19 24 Active semaglutide (Rybelsus) 14 MG tablet Take 14 mg by mouth 1 (one) time each day before breakfast. Active Farxiga 10 MG tablet Take 1 tablet (10 mg) by mouth 1 (one) time each day. Active ondansetron (Zofran) 4 MG tablet Take 1 tablet (4 mg) by mouth every 8 (eight) hours if needed for nausea or vomiting. 20 tablet 12/18/19 24 Active Cyanocobalamin 5000 MCG capsule Take by mouth every other day. Active traMADol (Ultram) 50 MG tablet Take 1 tablet (50 mg) by mouth every 6 (six) hours if needed for severe pain. 30 tablet 12/31/19 24 Active venlafaxine (Effexor) 37.5 MG tablet Take 1 tablet (37.5 mg) by mouth 1 (one) time each day. Active prochlorperazine (Compazine) 10 MG tabletIndications: Malignant ascites Take 0.5 tablets (5 mg) by mouth every 6 (six) hours if needed for nausea or vomiting. 30 tablet 5 01/08/20 24 Active atorvastatin (Lipitor) 40 MG tablet Take 1 tablet (40 mg) by mouth 1 (one) time each day. Active clopidogrel (Plavix) 75 MG tablet Take 1 tablet (75 mg) by mouth 1 (one) time each day. Active sacubitril-valsart an (Entresto) 24-26 MG tablet Take 1 tablet by mouth 2 (two) times a day. FOR 30 DAYS Active carvedilol (Coreg) 6.25 MG tablet Take 1 tablet (6.25 mg) by mouth 2 (two) times a day with meals. 03/08/20 24 Active magnesium oxide (Mag-Ox) 400 MG tabletIndications: Encounter for antineoplastic chemotherapy Take 1 tablet (400 mg) by mouth 1 (one) time each day. 30 tablet 1 04/22/20 24 Active insulin degludec (Tresiba FlexTouch) 100 UNIT/ML injection pen 18 Units 1 (one) time each day in the morning. 03/30/20 24 Active potassium chloride CR (Klor-Con M20) 20 MEQ ER tablet Take 1 tablet (20 mEq) by mouth 1 (one) time each day. 02/14/20 24 Active spironolactone (Aldactone) 12.5 MG split tablet Take by mouth 1 (one) time each day. Active insulin glargine-yfgn 100 UNIT/ML injection vial Inject 0.18 mL (18 Units) under the skin 1 (one) time each day. 10 mL 3 06/20/19 25 Active pen needle, diabetic 31G X 5 MM misc Use as directed with insulin pen. 100 each 11 06/19/19 25 Active insulin glargine (Lantus SoloStar) 100 UNIT/ML injection pen Inject 18 Units under the skin 1 (one) time each day in the morning. 15 mL 06/19/19 25 Active acetaminophen (Tylenol) 500 MG tablet Take 2 tablets (1,000 mg) by mouth every 8 (eight) hours. 60 tablet 06/19/19 25 Active methocarbamol (Robaxin) 500 MG tablet Take 1 tablet (500 mg) by mouth 4 (four) times a day. 60 tablet 06/19/19 25 Active ondansetron ODT (Zofran-ODT) 4 MG disintegrating tablet Take 1 tablet (4 mg) by mouth every 6 (six) hours if needed for nausea or vomiting. 20 tablet 06/19/19 25 Active polyethylene glycol (Miralax) 17 g packet Take 17 g by mouth 1 (one) time each day. Use one time daily if you have not had a bowel movement by POD#5 (end of day on 06/21). 5 packet 06/19/19 25 Active Additional Information Patient not taking.Reported on 09/16/2024 Active Problems Problem Noted Date Diagnosed Date History of percutaneous coronary intervention Type 2 diabetes mellitus wit hout complication, with long-term current use of insulin 03/14/2024 Anxiety 03/14/2024 Coronary artery disease invo lving torres martinez coronary artery of torres martinez heart without angina pectoris 03/14/2024 Current severe [...] Description 10/14/2024 2:30 PM EDT Office Visit [facility] Gynecology [address] [place] [address] Lilia Alexandra MD Carcinosarcoma (CMS/HCC) (Primary Dx); Type 2 diabetes mellitus without complication, with long-term current use of insulin; Current severe episode of major depressive disorder without psychotic features, unspecified whether recurrent (CMS/HCC); Primary hypertension; Anxiety; Coronary artery disease involving torres martinez coronary artery of torres martinez heart without angina pectoris; Chronic right-sided heart failure (CMS/HCC) 10/14/2024 11:28 AM EDT - 10/14/2024 11:59 PM EDT Hospital Encounter [facility] Radiology [address] [place] [address] Carcinosarcoma (CMS/HCC) Discharge Disposition: Home or Self Care 10/14/2024 Results Follow-Up [facility] Gynecology [address] [place] [address] Lilia Alexandra MD 10/14/2024 Travel 09/16/2024 10:21 AM EDT - 09/16/2024 11:59 PM EDT Hospital Encounter [facility] Infusion Clinic [address] [place] [address] Carcinosarcoma (CMS/HCC) (Primary Dx); Malignant ascites Discharge Disposition: Home or Self Care 09/16/2024 10:00 AM EDT Ancillary Procedure IV TEAM [address] [place] [address] Carcinosarcoma (CMS/HCC) 09/16/2024 8:30 AM EDT Office Visit [facility] Gynecology [address] [place] [address] Lilia Alexandra MD Carcinosarcoma (CMS/HCC) (Primary Dx); Malignant ascites; Encounter for antineoplastic chemotherapy; Type 2 diabetes mellitus without complication, with long-term current use of insulin; Primary hypertension; Current severe episode of major depressive disorder without psychotic features, unspecified whether recurrent (CMS/HCC); Anxiety; Coronary artery disease involving torres martinez coronary artery of torres martinez heart without angina pectoris; Chronic right-sided heart failure (CMS/HCC) 09/16/2024 Travel 08/26/2024 9:34 AM EDT - 08/26/2024 11:59 PM EDT Hospital Encounter [facility] Infusion Clinic [address] [place] [address] Carcinosarcoma (CMS/HCC) (Primary Dx); Malignant ascites Discharge Disposition: Home or Self Care 08/26/2024 9:15 AM EDT Office Visit [facility] Gynecology [address] [place] [address] Lilia Alexandra MD Carcinosarcoma (CMS/HCC) (Primary Dx); Malignant ascites; Type 2 diabetes mellitus without complication, with long-term current use of insulin; Primary hypertension; Anxiety; Current severe episode of major depressive disorder without psychotic features, unspecified whether recurrent (CMS/HCC); Encounter for antineoplastic chemotherapy; Coronary artery disease involving torres martinez coronary artery of torres martinez heart without angina pectoris; Chronic right-sided heart failure (CMS/HCC) 08/26/2024 8:30 AM EDT Ancillary Procedure IV TEAM [address] [place] [address] Carcinosarcoma (CMS/HCC) (Primary Dx) 08/26/2024 Travel 08/25/2024 Abstract [facility] [address] [place] [address] Keyanna Corcoran RN 08/18/2024 Telephone [facility] [address] [place] [address] Claire Yuen LPN lab results from Last [...] [address] [place] [address] Lilia Alexandra MD [address] [facility] [address] [place] [address] Health Maintenance Due Date Last Done Comments [facility]-Bone Density Scan 1959 [facility]-Hepatitis C Screening 1959 [facility]-Infant/Child/Adol SDOH Screenings 1959 Diabetes: Dental Exam 1969 [...] - Risk 60-74 years 1-dose series) 2019 [id number] Vaccine ( - season) 2024 01/17/2021, 12/20/2020, 07/19/2020 [facility]-Diabetes: Hemoglobin A1C 11/24/2024 05/27/2024 [facility]-Influenza Vaccine (Season Ended) 2025 02/14/2023, 02/08/2022, 03/11/2021, Additional history exists [facility]-Depression Screening 10/14/2025 10/14/2024, 08/16 [facility]-Pap Smear 12/10/2026 12/11/2023 [facility]-Cervical Cancer Screening [...] this topic Medical Devices Implanted Type Area Journal Entry Audit Clerk Device Identifier Shelf Expiration Date Model / [...] Malignant ascites US GUIDED IV INSERTION Routine 10:27 AM EDT Carcinosarcoma (CMS/HCC) CBC WITH [...] Total DLP (Dose-Length Product): 648.64 mGy.cm (accession [id number]), 648.64 mGy.cm (accession [id number]). Please note: The reported value represents the [...] Total DLP (Dose-Length Product): 648.64 mGy.cm (accession [id number]),648.64 mGy.cm (accession [id number]). Please note: The reported valuerepresents the total [...] Total DLP (Dose-Length Product): 648.64 mGy.cm (accession [id number]), 648.64 mGy.cm (accession [id number]). Please note: The reported value represents the [...] Total DLP (Dose-Length Product): 648.64 mGy.cm (accession [id number]),648.64 mGy.cm (accession [id number]). Please note: The reported valuerepresents the total [...] LAB HEMATOLOGY METHOD 09/16/2024 9:26 AM EDT [facility] RBC Count 2.63(L) 3.90 - 5.20 10*6/uL LAB HEMATOLOGY METHOD 09/16/2024 9:26 AM EDT [facility] HGB 8.8(L) 11.2 - 15.7 g/dL LAB HEMATOLOGY METHOD 09/16/2024 9:26 AM EDT [facility] HCT 26.3(L) 34.0 - 45.0 % LAB HEMATOLOGY METHOD 09/16/2024 9:26 AM EDT [facility] Platelet Count 180 155 - 369 10*3/uL LAB HEMATOLOGY METHOD 09/16/2024 9:26 AM EDT [facility] MCV 100(H) 79 - 98 fL LAB HEMATOLOGY METHOD 09/16/2024 9:26 AM EDT [facility] MCH 33.5(H) 26.0 - 32.0 pg LAB HEMATOLOGY METHOD 09/16/2024 9:26 AM EDT [facility] MCHC 33.5 30.7 - 35.5 g/dL LAB HEMATOLOGY METHOD 09/16/2024 9:26 AM EDT [facility] RDW 17.7(H) 11.5 - 14.5 % LAB HEMATOLOGY METHOD 09/16/2024 9:26 AM EDT [facility] MPV 10.7 8.8 - 12.5 fL LAB HEMATOLOGY METHOD 09/16/2024 9:26 AM EDT [facility] nRBC 0.0 <=0.0 per 100 WBCs LAB HEMATOLOGY METHOD 09/16/2024 9:26 AM EDT [facility] Differential Type Automated LAB HEMATOLOGY METHOD 09/16/2024 9:26 AM EDT [facility] Neutrophils % 58 % LAB HEMATOLOGY METHOD 09/16/2024 9:26 AM EDT [facility] Lymphocytes % 26 % LAB HEMATOLOGY METHOD 09/16/2024 9:26 AM EDT [facility] Monocytes % 15 % LAB HEMATOLOGY METHOD 09/16/2024 9:26 AM EDT [facility] Eosinophils % 0 % LAB HEMATOLOGY METHOD 09/16/2024 9:26 AM EDT [facility] Basophils % 0 % LAB HEMATOLOGY METHOD 09/16/2024 9:26 AM EDT [facility] Immature Granulocytes % 1 % LAB HEMATOLOGY METHOD 09/16/2024 9:26 AM EDT [facility] Neutrophils Absolute 2.07 1.60 - 6.10 10*3/uL LAB HEMATOLOGY METHOD 09/16/2024 9:26 AM EDT [facility] Lymphocytes Absolute 0.94(L) 1.20 - 3.90 10*3/uL LAB HEMATOLOGY METHOD 09/16/2024 9:26 AM EDT [facility] Monocytes Absolute 0.53 0.30 - 0.90 10*3/uL LAB HEMATOLOGY METHOD 09/16/2024 9:26 AM EDT [facility] Eosinophils Absolute 0.01 0.00 - 0.50 10*3/uL LAB HEMATOLOGY METHOD 09/16/2024 9:26 AM EDT [facility] Basophils Absolute 0.01 0.00 - 0.10 10*3/uL LAB HEMATOLOGY METHOD 09/16/2024 9:26 AM EDT [facility] Immature Granulocytes Absolute 0.02 0.00 - 0.06 10*3/uL LAB HEMATOLOGY METHOD 09/16/2024 9:26 AM EDT [facility] Blood Venous blood specimen / Unknown Venipuncture / Unknown 09/16/2024 8:54 AM EDT 09/16/2024 9:22 AM EDT Narrative [facility] - 09/16/2024 9:26 AM EDT Therapeutic decision making should be based on absolute values, rather than percentages. Lilia Alexandra MD LAB BLOOD ORDERABLES Kathy l Result Performing Organization Address [facility] Co de Phone Number [facility] [address] [place] [address] * CA 125 (09/16/2024 8:54 AM EDT) Only the most recent of2 resultswithin the time period is included. CA 125 6.62 <=38.00 U/mL 09/16/2024 10:40 AM EDT [facility] Blood Venous blood specimen / Unknown Venipuncture / Unknown 09/16/2024 8:54 AM EDT 09/16/2024 9:33 AM EDT Narrative [facility] - 09/16/2024 10:40 AM EDT Performed by Edgardo electrochemiluminescent immunoassay. Results obtained with different test methods or kits cannot be used interchangeably. Lilia Alexandra MD LAB BLOOD ORDERABLES Kathy l Result Performing Organization Address City/[facility]/ZIP Co de Phone Number [facility] [address] [place] [address] * (ABNORMAL) Magnesium (09/16/2024 8:54 AM EDT) Only the most recent of2 resultswithin the time period is included. Magnesium, Plasma 1.5(L) 1.9 - 2.4 mg/dL 09/16/2024 10:09 AM EDT [facility] Blood Venous blood specimen / Unknown Venipuncture / Unknown 09/16/2024 8:54 AM EDT 09/16/2024 9:33 AM EDT us Lilia Alexandra MD LAB BLOOD ORDERABLES Kathy duque Result [facility] [address] [place] [address] * (ABNORMAL) Comprehensive metabolic panel (09/16/2024 8:54 AM EDT) Only the most recent of2 resultswithin the time period is included. Glucose, Plasma 171(H) 74 - 99 mg/dL 09/16/2024 10:09 AM EDT [facility] BUN, Plasma 16 8 - 23 mg/dL 09/16/2024 10:09 AM EDT [facility] Creatinine, Plasma 0.74 0.60 - 1.10 mg/dL 09/16/2024 10:09 AM EDT [facility] BUN/Creatinine Ratio 22 09/16/2024 10:09 AM EDT [facility] Sodium, Plasma 141 136 - 145 mmol/L 09/16/2024 10:09 AM EDT [facility] Potassium, Plasma 4.5 3.6 - 4.9 mmol/L 09/16/2024 10:09 AM EDT [facility] Chloride, Plasma 106 97 - 107 mmol/L 09/16/2024 10:09 AM EDT [facility] CO2, Plasma 22 22 - 29 mmol/L 09/16/2024 10:09 AM EDT [facility] Anion Gap 13 6 - 16 mmol/L 09/16/2024 10:09 AM EDT [facility] Total Calcium, Plasma 9.1 8.9 - 10.2 mg/dL 09/16/2024 10:09 AM EDT [facility] Total Protein 6.9 6.3 - 7.9 g/dL 09/16/2024 10:09 AM EDT [facility] Albumin, Plasma 4.2 3.5 - 5.2 g/dL 09/16/2024 10:09 AM EDT [facility] AST, Plasma 20 10 - 35 U/L 09/16/2024 10:09 AM EDT [facility] Comment:Hemolyzed, result ma y be falsely increased. ALT, Plasma 16 10 - 35 U/L 09/16/2024 10:09 AM EDT [facility] Alkaline Phosphatase, Plasma 120 46 - 142 U/L 09/16/2024 10:09 AM EDT [facility] Total Bilirubin, Plasma 0.4 0.2 - 1.1 mg/dL 09/16/2024 10:09 AM EDT [facility] eGFRcr 89.9 mL/min/1.7 3m*2 09/16/2024 10:09 AM EDT [facility] Comment:Reported eGFRcr in m L/min/1.73m2 is based the CKD-EPI 2020 equation that does not use a race coefficient. Blood Venous blood specimen / Unknown Venipuncture / Unknown 09/16/2024 8:54 AM EDT 09/16/2024 9:33 AM EDT Lilia Alexandra MD LAB BLOOD ORDERABLES Kathy duque Result [facility] [address] [place] [address] * Colonoscopy (06/13/2024 11:48 AM EST) Anatomical [...] medications. Staff Staff Role Dashawn Cohen Endo Charging Plug Placer Lele Guy Endo Charging Plug PlacerRodrigo Calle RN Endo Nurse Hussain Tong MD Proceduralist [...] of bowel preparation was evaluated using the [place] Bowel Preparation Scale with scores of: right [...] log. Findings All observed locations appeared normal. us Hussain Tong MD GI PROCEDURE ORDERABLES Final Result * (ABNORMAL) Hemoglobin A1c (05/27/2024 10:32 AM EST) Hemoglobin A1c 6.6(H) <5.7 % 05/27/2024 11:35 AM EST [facility] Blood Venous blood specimen / Unknown Venipuncture / Unknown 05/27/2024 10:32 AM EST 05/27/2024 11:10 AM EST Narrative [facility] - 05/27/2024 11:35 AM EST HA1C Interpretive Data: Diagnosis of Diabetes: Diabetic > or = 6.5% Pre-diabetic 5.7 to 6.4% Non-diabetic < or = 5.6% Glycemic Targets for Type I and Type II Diabetics: Non- Adults <7.0% Adults <6.0% Children and Adolescents <7.5% Source: [place] [employer]. Standards of medical care in diabetes,2017. Diabetes Care.2017:40 (suppl 1):S1-S135. HbA1c assay performed by an ion-exchange chromatography method that is certified traceable to the DCCT. us Lilia Alexandra MD LAB BLOOD ORDERABLES Kathy dunia Result [facility] [address] [place] [address] * Pap Test (12/11/2023 10:05 AM EDT) Case Report Cytology Case: [id number] Authorizing Provider: Lilia Alexandra MD Collected: 12/11/2023 1005 Ordering Location: [facility] Gynecology Received: 12/14/2023 0968 First Screen: Seema Maravilla Pathologist: Becky Claros MD Specimen: ThinPrep Pap Test, Liquid-Based Cervical/Vaginal 12/21/2023 4:56 PM EDT [facility] Interpretation NEGATIVE FOR INTRAEPITHELIAL LESION OR MALIGNANCY 12/21/2023 4:56 PM EDT [facility] at 1656 EDT Other Findings Reactive cellular changes. 12/21/2023 4:56 PM EDT [facility] Specimen Adequacy Satisfactory for evaluation; endocervical/wilder sformation zone component present. Slide imaged by the ThinPrep Imaging system and selected 22 olivera reviewed then full manual screening. 12/21/2023 4:56 PM EDT [facility] Cervical cytology is a [...] results is suggested (please call Microbiology at [phone] for results). 12/21/2023 4:56 PM EDT [facility] Menstrual Status Not Applicable 09/2023 4:56 PM EDT [facility] History of Hysterectomy Not Applicable 12/21/2023 4:56 PM EDT [facility] Contraceptive History Not Applicable 12/21/2023 4:56 PM EDT [facility] Screening Type Previous or Suspected Abnormality 12/21/2023 4:56 PM EDT [facility] HPV Testing Requested? Request HPV Testing Regardless of Pap Test Findings 12/21/2023 4:56 PM EDT [facility] Previous Cancer History No 12/21/2023 4:56 PM EDT [facility] Previous or Suspected Abnormality Other Mobile Sales Assistant symptoms (please specify): 12/21/2023 4:56 PM EDT [facility] Comment:ovarian mass Clinical Information N83.8 - Ovarian mass [ICD-10-CM] 12/21/2023 4:56 PM EDT [facility] Swab Vaginal and cervical cytologic material / Unknown Non-blood Collection / Unknown 12/11/2023 10:05 AM EDT 12/14/2023 9:45 AM EDT Lilia Alexandra MD LAB CYTOLOGY ORDERABLES F inal [facility] [address] [place] [phone] from Last 3 Months or Most Recently Relevant to Health Maintenance Insurance [facility] MEDICARE Advance Directives * Full Code (Latest Code Status on File) Date Activated Date Inactivated Comments 06/16/2024 11:09 AM 06/19/2024 3:28 PM Question Answer Comments Patient has decision-making capacity? Yes Care Teams Keeper Head Relationship Specialty Start Date End Date Ryan Marques MD PCP - General Family Medicine 12/11/23 Ryan Marques MD Family Medicine 12/08/23
== END 2024-11-16 23:59 | disposition home or self-care (01) ==
LOC: RAD 12:52
PROVIDERS: PCP Family Medicine; Visit Provider Physician Assistant
DX: M25.562 Pain in left knee (principal)
CPT/HCPCS: 73562

== ENCOUNTER 2024-11-21 14:18 | Outpatient (CLI) | payer BC, SELFPAY ==
--- OUTSIDE RECORDS SUMMARY | 2024-10-14 11:28 | XMS_ITS | Encounter Summary ---
Author Organization [facility] Address [address] [id number] Care Team Providers Care Painter Sign Maintenance Name Role Phone Ryan Marques MD Unavailable Unavailab le Ryan Marques MD Primary Care Provider Rhina vailable Reason for Referral * Imaging (Routine) - Closed Specialty Diagnoses / Procedures Referred By Tiago t Referred To Contact Radiology Diagnoses Carcinosarcoma (CMS/HCC) Procedures CT Abdomen Pelvis w IV Contrast Lilia Alexandra MD [address] [address] Phone: tel: fax: Referral ID Status Reason Start Date Expiration Date Visits Re quested Visits Authorized [id number] Closed 09/16/2024 03/18/2026 1 1 * Imaging (Routine) - Closed Specialty Diagnoses / Procedures Referred By Tiago t Referred To Contact Radiology Diagnoses Carcinosarcoma (CMS/HCC) Procedures CT Chest w IV Contrast Lilia Alexandra MD [address] [facility] [address] [place] [address] Phone: tel: fax: Referral ID Status Reason Start Date Expiration Date Visits Re quested Visits Authorized [id number] Closed 09/16/2024 03/18/2026 1 1 Reason for Visit * Imaging (Routine) - Closed Specialty Diagnoses / Procedures Referred By Contac t Referred To Contact Radiology Diagnoses Carcinosarcoma (CMS/HCC) Procedures CT Abdomen Pelvis w IV Contrast Lilia Alexandra MD [address] Davis [facility] [address] [place] [address] Phone: tel: fax: Referral ID Status Reason Start Date Expiration Date Visits Re quested Visits Authorized [id number] Closed 09/16/2024 03/18/2026 1 1 Encounter Details Date Type Department Care Team (Latest Contact Info) Description 10/14/2024 11:28 AM EDT - 10/14/2024 11:59 PM EDT Hospital Encounter [facility] Radiology [address] [place] [phone] Carcinosarcoma (CMS/HCC) Discharge Disposition: Home or Self [...] Gynecology [address] [place] [address] Lilia Alexandra MD [address] [place] [address] documented as of this encounter Procedures Procedure [...] Total DLP (Dose-Length Product): 648.64 mGy.cm (accession [id number]), 648.64 mGy.cm (accession [id number]). Please note: The reported value represents the [...] Total DLP (Dose-Length Product): 648.64 mGy.cm (accession [id number]),648.64 mGy.cm (accession [id number]). Please note: The reported valuerepresents the total [...] Total DLP (Dose-Length Product): 648.64 mGy.cm (accession [id number]), 648.64 mGy.cm (accession [id number]). Please note: The reported value represents the [...] Total DLP (Dose-Length Product): 648.64 mGy.cm (accession [id number]),648.64 mGy.cm (accession [id number]). Please note: The reported valuerepresents the total [...] documented as of this encounter Care Teams Painter Sign Maintenance Relationship Specialty Start Date End Date Ryan Marques MD PCP - General Family Medicine 12/11/23 Ryan Marques MD Family Medicine 12/08/23 documented as of this encounter
--- OUTSIDE RECORDS SUMMARY | 2024-10-14 14:30 | XMS_ITS | Encounter Summary ---
Author Organization [facility] Address [address] [id number] Care Team Providers Care Pad Tufter Name Role Phone Ryan Marques MD Unavailable Unavailab le Ryan Marques MD Primary Care Provider Rhina vailable Encounter Details Date Type Department Care Team (Late st Contact Info) Description 10/14/2024 2:30 PM EDT Office Visit [facility] Gynecology [address] [place] [address] Lilia Alexandra MD [address] [facility] [address] [place] [address] Carcinosarcoma (CMS/HCC) (Primary Dx); Type 2 diabetes mellitus without complication, with long-term current use of insulin; Current severe episode of major depressive disorder without psychotic features, unspecified whether recurrent (CMS/HCC); Primary hypertension; Anxiety; Coronary artery disease involving [place] coronary artery of [place] heart without angina pectoris; Chronic right-sided heart [...] Sign Reading Time Taken Comments Blood Pressure 134/80 10/14/2024 2:20 PM EDT Pulse 109 10/14/2024 2:20 PM EDT Temperature 36.4 C (97.5 F) 10/14/2024 2:20 PM EDT Respiratory Rate 18 10/14/2024 2:20 PM EDT Oxygen Saturation 96% 10/14/2024 2:20 PM EDT Inhaled Oxygen Concentration - - Weight 89.2 kg (196 lb 10.4 oz) 10/14/2024 2:20 PM EDT Height 175.3 cm (5' 9 ) 10/14/2024 2:20 PM EDT Body Mass Index 29.04 10/14/2024 2:20 PM EDT documented in this encounter Functional Status [...] encounter Miscellaneous Notes * Progress Notes - Wilda Maxwell MD - 10/14/2024 2:30 PM EDT Patient ID: Jennie Lezama is a [...] 06/16/24. Interval History: She presents today for post-treatment CT. She is s/p cycle #3/3 carbo post-surgery. She is doing great, recovering from last cycle. No issues with eating/drinking/bowel/bladder. 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 HENT: Negative. Eyes: Negative. Respiratory: Negative. Gastrointestinal: Negative for abdominal distention, abdominal pain and diarrhea. Genitourinary: Negative for dysuria, pelvic pain, vaginal bleeding and vaginal discharge. Musculoskeletal: Negative for back pain. Skin: Negative. Neurological: Negative. [...] in the morning., Disp: , Rfl: insulin glargine-yfgn 100 UNIT/ML injection vial, Inject [...] each day., Disp: 30 tablet, Rfl: 1 pen needle, diabetic 31G X 5 MM misc, Use as directed with insulin pen., Disp: 100 each, Rfl: 11 potassium chloride CR (Klor-Con M20) 20 MEQ ER tablet, Take 1 tablet (20 mEq) by mouth 1 (one) timeeach day., Disp: , Rfl: sacubitril-valsartan (Entresto) 24-26 MG tablet, Take 1 tablet by mouth 2 (two) times a day. FOR 30DAYS, Disp: , Rfl: semaglutide (Rybelsus) 14 MG tablet, Take 14 mg by mouth 1 (one) time each day before breakfast., Disp: , Rfl: spironolactone (Aldactone) 12.5 MG split tablet, Take by mouth 1 (one) time each day., Disp: , Rfl: venlafaxine (Effexor) 37.5 MG tablet, Take 1 tablet (37.5 mg) by mouth 1 (one) time each day., Disp: , Rfl: insulin glargine (Lantus SoloStar) 100 UNIT/ML injection pen, Inject 18 Units under the skin 1 (one) time each day in the morning., Disp: 15 mL, Rfl: 0 methocarbamol (Robaxin) 500 MG tablet, Take 1 [...] or vomiting., Disp: 20 tablet, Rfl: 0 polyethylene glycol (Miralax) 17 g packet, Take 17 g by mouth 1 (one) time each day. Use one time daily if you have not had a bowel movement by POD#5 (end of day on 06/21). (Patient not taking: Reported on 09/16/2024), Disp: 5 packet, Rfl: 0 prochlorperazine (Compazine) 10 MG tablet, Take 0.5 tablets (5 mg) by mouth every 6 (six) hours if needed for nausea or vomiting., Disp: 30 tablet, Rfl: 5 traMADol (Ultram) 50 MG tablet, Take 1 tablet (50 mg) by mouth every 6 (six) hours if needed for severe pain., Disp: 30 tablet, Rfl: 0 No current facility-administered medications for this visit. Family History Problem Relation Name Age of Onset Anesthesia problems Neg Hx Malig Hyperthermia Neg Hx Tobacco Use: Low Risk (10/14/2024) Patient History Smoking Tobacco Use: Never Smokeless Tobacco Use: Never Passive Exposure: Never Social History Substance and Sexual Activity Alcohol Use Never Social History Substance and Sexual Activity Drug Use Never Social Connections: Unknown (02/25/2023) Received from [facility] Family and Community Support Help with Day-to-Day Activities: Not on file Lonely or Isolated: Not on file Objective Physical Exam: Vital Signs for this encounter: BSA: 2.08 meters squared Visit Vitals BP 134/80 Pulse 109 Temp 36.4 ??C (97.5 ??F) (Temporal) Resp 18 Ht 1.753 m (5' 9 ) Wt 89.2 kg (196 lb 10.4 oz) LMP 12/10/2010 (Approximate) SpO2 96% BMI 29.04 kg/m?? OB Status Postmenopausal Smoking Status Never BSA 2.08 m?? Physical Exam Vitals reviewed. 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 Recommends no further cardiac testing 45 minutes [...] appointment scheduling, lab orders, phlebotomy, and documentation. Pt seen and discussed w/ Dr. Ibrahima Maxwell MD [facility] Fellow Wilda Maxwell MD [facility] GYNECOLOGY [address] [facility] [address] Dept: [phone] Dept Loc: [phone] Cosigned by Lilia Alexandra MD at 10/17/2024 1:46 PM EDT Associated attestation - Lilia Alexandra MD - 10/17/2024 1:46 PM EDT I saw and evaluated the patient with the resident/fellow. I discussed the case with the resident/fellow and agree with the findings and plan as documented. RETA on post-treatment CT. Very happy for her. RTC in 3 months for surveillance exams. Lilia Alexandra MD documented in this encounter Plan of Treatment Upcoming Encounters Date Type Department Care Team (Late st Contact Info) Description 01/13/2025 10:15 AM EDT Office Visit [facility] Gynecology [address] [place] [address] Lilia Alexandra MD [address] [place] [address] documented as of this encounter Visit Diagnoses Diagnosis Carcinosarcoma (CMS/HCC)- Primary Other malignant neoplasm of unspecified site Type 2 diabetes mellitus without complication, with long-term current use of insulin Current severe episode of major depressive disorder without psychotic features, unspecified whether recurrent (CMS/HCC) Primary hypertension Unspecified essential hypertension Anxiety Anxiety state, unspecified Coronary artery disease involving [place] coronary artery of [place] heart without angina pectoris Chronic right-sided heart failure (CMS/HCC) Congestive heart failure, unspecified documented in this encounter Additional Health Concerns Assessment Noted Time PHQ-9 Depression Total Score: 0 08/27/19 25 9:03 AM EDT A fall risk assessment has been complete d for the patient 10/14/2024 2:21 PM EDT A Body Mass Index follow-up plan has been documented for the patient 08/26/2024 12:52 PM EDT documented as of this encounter Care Teams Pad Tufter Relationship Specialty Start Date End Date Ryan Marques MD PCP - General Family Medicine 12/11/23 Ryan Marques MD Family Medicine 12/08/23 documented as of this encounter
--- OUTSIDE RECORDS SUMMARY | 2024-10-26 10:00 | XMS_ITS | Encounter Summary ---
Author Organization [facility] [address] Care Team Providers Care Brownfield Redevelopment Specialist Name Role Phone Nanci Knight APRN Primary Care Provider Unava ilable Reason for Visit * Reason Comments Hyperlipidemia Diabetes Type 2 Encounter Details Date Type Department Care Team (Latest Contact Info) Description 10/26/2024 10:00 AM EDT Office Visit [facility] Diabetes [place] [address] [facility] [address] [place] [phone] Alan Rabago MD [address] [place] [id number] Type 2 diabetes mellitus with hyperglycemia, without [...] 1.27 07/18/2024 Lab Results Component Value Date [id number] 37.0 03/11/2021 Lab Results Component Value Date [id number] 1,259 03/11/2021 Vitals: 10/26/24 1004 BP: 115/67 [...] Description 04/27/2025 11:15 AM EST Office Visit [facility] [address] [phone] Alan Rabago MD [address] [place] [address] Scheduled Orders Name Type Priority Associated Diagnoses [...] documented as of this encounter Care Teams Brownfield Redevelopment Specialist Relationship Specialty Start Date End Date Nanci Knight APRN PCP - General Nurse Practitioner-Family 03/20/20 documented as of this encounter
--- OUTSIDE RECORDS SUMMARY | 2024-11-21 14:22 | XMS_ITS | Encounter Summary ---
Author Organization Healthcare Address [address] [place] [address] Care Team Providers Care Potato Spotter Name Role Phone Ryan Marques MD Unavailable [...] [address] [place] [address] Lilia Alexandra MD [address] [place] [address] documented as of this encounter [...] documented as of this encounter Care Teams Potato Spotter Relationship Specialty Start Date End Date Ryan Marques MD PCP - General Family Medicine 12/11/23 Ryan Marques MD Family Medicine 12/08/23 documented as of this encounter
--- OUTSIDE RECORDS SUMMARY | 2024-11-21 14:22 | XMS_ITS ---
Author Organization [facility] Address [address] [place] [address] Care Team Providers Care Forest Technology Professor Name Role Phone Ryan Marques MD Unavailable Unavailab le Ryan Marques MD Primary Care Provider Rhina vailable Active Problems Problem Noted Date Diagnosed Date History of percutaneous coronary intervention Type 2 diabetes mellitus wit hout complication, with long-term current use of insulin 03/14/2024 Anxiety 03/14/2024 Coronary artery disease invo lving absentee-shawnee coronary artery of absentee-shawnee heart without angina pectoris 03/14/2024 Current severe [...]
--- OUTSIDE RECORDS SUMMARY | 2024-11-21 14:22 | XMS_ITS | Clinical Summary ---
Author Organization [facility] Address [address] [place] [phone] Phone Care Team Providers Care Bunch Trimmer Mold Name Role Phone Nanci Knight APRN Primary [...] by mouth daily. 02/01/20 24 Active Insulin [place], Disposable, (BD ULTRA-FINE MINI PEN NEEDLE) 31 [...] Description 10/26/2024 10:00 AM EDT Office Visit [facility] [place] [address] [facility] [address] [place] [address] Alan Rabago MD Type 2 [...] Description 04/27/2025 11:15 AM EST Office Visit [facility] [place] [address] [facility] [address] [place] [id number] Alan Rabago MD [address] [place] [address] Health Maintenance Due Date Last [...] 07/19/2020 Bone Density Screening 01/23/2024 Influenza Vaccine (#1) 2025 , 02/08/2022, 03/11/2021, Additional history exists Hemoglobin A1c [...] ORDERABLES Final Resul t Performing Organization Address City/[facility]/ZIP Co de Phone Number SEP OFFICE * [...] [facility] PPO Care Teams Bunch Trimmer Mold Relationship Specialty Start Date End Date Nanci Knight APRN PCP - General Nurse Practitioner-Family 03/20/20
--- OUTSIDE RECORDS SUMMARY | 2024-11-21 14:22 | XMS_ITS | Clinical Summary ---
Author Organization [facility] Address [address] [place] [address] Care Team Providers Care Best Second Jobs Name Role Phone Ryan Marques MD Unavailable [...] Anxiety 03/14/2024 Coronary artery disease invo lving united [place]urn coronary artery of united [place] heart without angina pectoris 03/14/2024 Current severe [...] Description 10/14/2024 2:30 PM EDT Office Visit [facility] Gynecology [address] [facility] [address] [place] [address] Lilia Alexandra MD Carcinosarcoma (CMS/HCC) (Primary Dx); Type 2 diabetes mellitus without complication, with long-term current use of insulin; Current severe episode of major depressive disorder without psychotic features, unspecified whether recurrent (CMS/HCC); Primary hypertension; Anxiety; Coronary artery disease involving united [place]urn coronary artery of united [place] heart without angina pectoris; Chronic right-sided heart failure (CMS/HCC) 10/14/2024 11:28 AM EDT - 10/14/2024 11:59 PM EDT Hospital Encounter [facility] Radiology [address] [place] [address] Carcinosarcoma (CMS/HCC) Discharge Disposition: Home or Self Care 10/14/2024 Results Follow-Up [facility] Gynecology [address] [facility] [address] [place] [address] Lilia Alexandra MD 10/14/2024 Travel 09/16/2024 10:21 AM EDT - 09/16/2024 11:59 PM EDT Hospital Encounter [facility] Infusion Clinic [address] [place] [address] Carcinosarcoma (CMS/HCC) (Primary Dx); Malignant ascites Discharge Disposition: Home or Self Care 09/16/2024 10:00 AM EDT Ancillary Procedure IV TEAM [address] [facility], 2nd Floor, [address] [place] [address] Carcinosarcoma (CMS/HCC) 09/16/2024 8:30 AM EDT Office Visit [facility] Gynecology [address] [place] [address] Lilia Alexandra MD Carcinosarcoma (CMS/HCC) (Primary Dx); Malignant ascites; Encounter for antineoplastic chemotherapy; Type 2 diabetes mellitus without complication, with long-term current use of insulin; Primary hypertension; Current severe episode of major depressive disorder without psychotic features, unspecified whether recurrent (CMS/HCC); Anxiety; Coronary artery disease involving united [place]urn coronary artery of united [place] heart without angina pectoris; Chronic right-sided heart failure (CMS/HCC) 09/16/2024 Travel 08/26/2024 9:34 AM EDT - 08/26/2024 11:59 PM EDT Hospital Encounter [facility] Infusion Clinic [address] [place] [address] Carcinosarcoma (CMS/HCC) (Primary Dx); Malignant ascites Discharge Disposition: Home or Self Care 08/26/2024 9:15 AM EDT Office Visit [facility] Gynecology [address] [place] [address] Lilia Alexandra MD Carcinosarcoma (CMS/HCC) (Primary Dx); Malignant ascites; Type 2 diabetes mellitus without complication, with long-term current use of insulin; Primary hypertension; Anxiety; Current severe episode of major depressive disorder without psychotic features, unspecified whether recurrent (CMS/HCC); Encounter for antineoplastic chemotherapy; Coronary artery disease involving united [place] coronary artery of united [place] heart without angina pectoris; Chronic right-sided heart failure (CMS/HCC) 08/26/2024 8:30 AM EDT Ancillary Procedure IV TEAM [address] [place] [address] Carcinosarcoma (CMS/HCC) (Primary Dx) 08/26/2024 Travel 08/25/2024 Abstract [facility] [address] [place] [address] Keyanna Corcoran RN from Last 3 Months Immunizations Immunization Administration [...] [facility] [address] [place] [address] Lilia Alexandra MD [address] [place] [address] Health Maintenance Due Date Last Done Comments [...] - Risk 60-74 years 1-dose series) 2019 [id number] Vaccine (4 - season) 2024 01/17/2021, 12/20/2020, 07/19/2020 [facility]-Diabetes: Hemoglobin A1C 11/24/2024 05/27/2024 [facility]-Influenza Vaccine (#1) 01/16/202502/14, 02/08/2022, 03/11/2021, Additional history exists [facility]-Depression Screening [...] this topic Medical Devices Implanted Type Area Guest Specialist Device Identifier Shelf Expiration Date Model / [...] Total DLP (Dose-Length Product): 648.64 mGy.cm (accession [id number]), 648.64 mGy.cm (accession [id number]). Please note: The reported value represents the [...] Total DLP (Dose-Length Product): 648.64 mGy.cm (accession [id number]),648.64 mGy.cm (accession [id number]). Please note: The reported valuerepresents the total [...] Total DLP (Dose-Length Product): 648.64 mGy.cm (accession [id number]), 648.64 mGy.cm (accession [id number]). Please note: The reported value represents the [...] Total DLP (Dose-Length Product): 648.64 mGy.cm (accession [id number]),648.64 mGy.cm (accession [id number]). Please note: The reported valuerepresents the total [...] LAB HEMATOLOGY METHOD 09/16/2024 9:26 AM EDT [facility] RBC Count 2.63(L) 3.90 - 5.20 10*6/uL LAB HEMATOLOGY METHOD 09/16/2024 9:26 AM EDT [facility] HGB 8.8(L) 11.2 - 15.7 g/dL LAB HEMATOLOGY METHOD 09/16/2024 9:26 AM EDT [facility] HCT 26.3(L) 34.0 - 45.0 % LAB HEMATOLOGY METHOD 09/16/2024 9:26 AM EDT [facility] Platelet Count 180 155 - 369 10*3/uL LAB HEMATOLOGY METHOD 09/16/2024 9:26 AM EDT [facility] MCV 100(H) 79 - 98 fL LAB HEMATOLOGY METHOD 09/16/2024 9:26 AM EDT [facility] MCH 33.5(H) 26.0 - 32.0 pg LAB HEMATOLOGY METHOD 09/16/2024 9:26 AM EDT [facility] MCHC 33.5 30.7 - 35.5 g/dL LAB HEMATOLOGY METHOD 09/16/2024 9:26 AM EDT [facility] RDW 17.7(H) 11.5 - 14.5 % LAB HEMATOLOGY METHOD 09/16/2024 9:26 AM EDT [facility] MPV 10.7 8.8 - 12.5 fL LAB HEMATOLOGY METHOD 09/16/2024 9:26 AM EDT [facility] nRBC 0.0 <=0.0 per 100 WBCs LAB HEMATOLOGY METHOD 09/16/2024 9:26 AM EDT [facility] Differential Type Automated LAB HEMATOLOGY METHOD 09/16/2024 9:26 AM EDT [facility] Neutrophils % 58 % LAB HEMATOLOGY METHOD 09/16/2024 9:26 AM EDT [facility] Lymphocytes % 26 % LAB HEMATOLOGY METHOD 09/16/2024 9:26 AM EDT [facility] Monocytes % 15 % LAB HEMATOLOGY METHOD 09/16/2024 9:26 AM EDT [facility] Eosinophils % 0 % LAB HEMATOLOGY METHOD 09/16/2024 9:26 AM EDT [facility] Basophils % 0 % LAB HEMATOLOGY METHOD 09/16/2024 9:26 AM EDT [facility] Immature Granulocytes % 1 % LAB HEMATOLOGY METHOD 09/16/2024 9:26 AM EDT [facility] Neutrophils Absolute 2.07 1.60 - 6.10 10*3/uL LAB HEMATOLOGY METHOD 09/16/2024 9:26 AM EDT [facility] Lymphocytes Absolute 0.94(L) 1.20 - 3.90 10*3/uL LAB HEMATOLOGY METHOD 09/16/2024 9:26 AM EDT [facility] Monocytes Absolute 0.53 0.30 - 0.90 10*3/uL LAB HEMATOLOGY METHOD 09/16/2024 9:26 AM EDT [facility] Eosinophils Absolute 0.01 0.00 - 0.50 10*3/uL LAB HEMATOLOGY METHOD 09/16/2024 9:26 AM EDT [facility] Basophils Absolute 0.01 0.00 - 0.10 10*3/uL LAB HEMATOLOGY METHOD 09/16/2024 9:26 AM EDT [facility] Immature Granulocytes Absolute 0.02 0.00 - 0.06 10*3/uL LAB HEMATOLOGY METHOD 09/16/2024 9:26 AM EDT [facility] Blood Venous blood specimen / Unknown Venipuncture / Unknown 09/16/2024 8:54 AM EDT 09/16/2024 9:22 AM EDT Narrative [facility] - 09/16/2024 9:26 AM EDT Therapeutic decision making should be based on absolute values, rather than percentages. Lilia Alexandra MD LAB BLOOD ORDERABLES Kathy l Result Performing Organization Address [facility] de Phone Number [facility] [address] [place] [address] * CA 125 (09/16/2024 8:54 AM EDT) Only the most recent of2 resultswithin the time period is included. CA 125 6.62 <=38.00 U/mL 09/16/2024 10:40 AM EDT [facility] Blood Venous blood specimen / Unknown Venipuncture / Unknown 09/16/2024 8:54 AM EDT 09/16/2024 9:33 AM EDT Narrative [facility] - 09/16/2024 10:40 AM EDT Performed by Edgardo electrochemiluminescent immunoassay. Results obtained with different test methods or kits cannot be used interchangeably. Lilia Alexandra MD LAB BLOOD ORDERABLES Kathy l Result Performing Organization Address [facility] [place] [address] * (ABNORMAL) Magnesium (09/16/2024 8:54 AM EDT) Only the most recent of2 resultswithin the time period is included. Magnesium, Plasma 1.5(L) 1.9 - 2.4 mg/dL 09/16/2024 10:09 AM EDT [facility] Blood Venous blood specimen / Unknown Venipuncture / Unknown 09/16/2024 8:54 AM EDT 09/16/2024 9:33 AM EDT Lilia Alexandra MD LAB BLOOD ORDERABLES Kathy dunia Result [facility] [address] [place] [address] * (ABNORMAL) Comprehensive metabolic panel (09/16/2024 8:54 AM EDT) Only the most recent of2 resultswithin the time period is included. Glucose, Plasma 171(H) 74 - 99 mg/dL 09/16/2024 10:09 AM EDT [facility] BUN, Plasma 16 8 - 23 mg/dL 09/16/2024 10:09 AM EDT [facility] Creatinine, Plasma 0.74 0.60 - 1.10 mg/dL 09/16/2024 10:09 AM EDT [facility] BUN/Creatinine Ratio 22 09/16/2024 10:09 AM EDT [facility] Sodium, Plasma 141 136 - 145 mmol/L 09/16/2024 10:09 AM EDT [facility] Potassium, Plasma 4.5 3.6 - 4.9 mmol/L 09/16/2024 10:09 AM EDT [facility] Chloride, Plasma 106 97 - 107 mmol/L 09/16/2024 10:09 AM EDT [facility] CO2, Plasma 22 22 - 29 mmol/L 09/16/2024 10:09 AM EDT [facility] Anion Gap 13 6 - 16 mmol/L 09/16/2024 10:09 AM EDT [facility] Total Calcium, Plasma 9.1 8.9 - 10.2 mg/dL 09/16/2024 10:09 AM EDT [facility] Total Protein 6.9 6.3 - 7.9 g/dL 09/16/2024 10:09 AM EDT [facility] Albumin, Plasma 4.2 3.5 - 5.2 g/dL 09/16/2024 10:09 AM EDT [facility] AST, Plasma 20 10 - 35 U/L 09/16/2024 10:09 AM EDT [facility] Comment:Hemolyzed, result ma y be falsely increased. ALT, Plasma 16 10 - 35 U/L 09/16/2024 10:09 AM EDT [facility] Alkaline Phosphatase, Plasma 120 46 - 142 U/L 09/16/2024 10:09 AM EDT [facility] Total Bilirubin, Plasma 0.4 0.2 - 1.1 mg/dL 09/16/2024 10:09 AM EDT [facility] eGFRcr 89.9 mL/min/1.7 3m*2 09/16/2024 10:09 AM EDT [facility] Comment:Reported eGFRcr in m L/min/1.73m2 is based the CKD-EPI 2020 equation that does not use a race coefficient. Blood Venous blood specimen / Unknown Venipuncture / Unknown 09/16/2024 8:54 AM EDT 09/16/2024 9:33 AM EDT us Lilia Alexandra MD LAB BLOOD ORDERABLES Kathy l Result [facility] [address] [place] [address] * Colonoscopy (06/13/2024 11:48 AM EST) Anatomical [...] medications. Staff Staff Role Dashawn Cohen Endo [employer]aler [employer] Lele Guy [employer] Se[employer] Rodrigo Winston RN Endo Nurse Hussain Tong [...] of bowel preparation was evaluated using the [place] Bowel Preparation Scale with scores of: right [...] 6.6(H) <5.7 % 05/27/2024 11:35 AM EST [facility] Blood Venous blood specimen / Unknown Venipuncture / Unknown 05/27/2024 10:32 AM EST 05/27/2024 11:10 AM EST Narrative [facility] - 05/27/2024 11:35 AM EST HA1C Interpretive Data: Diagnosis of Diabetes: Diabetic > or = 6.5% Pre-diabetic 5.7 to 6.4% Non-diabetic < or = 5.6% Glycemic Targets for Type I and Type II Diabetics: Non- Adults <7.0% Adults <6.0% Children and Adolescents <7.5% Source: [place] [employer]. Standards of medical care in diabetes,2017. Diabetes Care.2017:40 (suppl 1):S1-S135. HbA1c assay performed by an ion-exchange chromatography method that is certified traceable to the DCCT. Lilia Alexandra MD LAB BLOOD ORDERABLES Kathy duque Result [facility] [address] [place] [address] * Pap Test (12/11/2023 10:05 AM EDT) Case Report Cytology Case: [id number] Authorizing Provider: Lilia Alexandra MD Collected: 12/11/2023 1005 Ordering Location: [facility] Gynecology Received: 12/14/2023 0927 First Screen: Seema Maravilla Pathologist: Becky Claros MD Specimen: ThinPrep Pap Test, Liquid-Based Cervical/Vaginal 12/21/2023 4:56 PM EDT [facility] Interpretation NEGATIVE FOR INTRAEPITHELIAL LESION OR MALIGNANCY 12/21/2023 4:56 PM EDT [facility] at 1656 EDT Other Findings Reactive cellular changes. 12/21/2023 4:56 PM EDT [facility] Specimen Adequacy Satisfactory for evaluation; endocervical/wilder sformation zone component present. Slide imaged by the ThinPrep Imaging system and selected 22 olivera reviewed then full manual screening. 12/21/2023 4:56 PM EDT [facility] Cervical cytology is a screening test [...] results is suggested (please call Microbiology at [phone] for results). 12/21/2023 4:56 PM EDT [facility] Menstrual Status Not Applicable 09/2023 4:56 PM EDT [facility] History of Hysterectomy Not Applicable 12/21/2023 4:56 PM EDT [facility] Contraceptive History Not Applicable 12/21/2023 4:56 PM EDT [facility] Screening Type Previous or Suspected Abnormality 12/21/2023 4:56 PM EDT [facility] HPV Testing Requested? Request HPV Testing Regardless of Pap Test Findings 12/21/2023 4:56 PM EDT [facility] Previous Cancer History No 12/21/2023 4:56 PM EDT [facility] Previous or Suspected Abnormality Other Plastics Scientist symptoms (please specify): 12/21/2023 4:56 PM EDT [facility] Comment:ovarian mass Clinical Information N83.8 - Ovarian mass [ICD-10-CM] 12/21/2023 4:56 PM EDT [facility] Swab Vaginal and cervical cytologic material / Unknown Non-blood Collection / Unknown 12/11/2023 10:05 AM EDT 12/14/2023 9:45 AM EDT us Lilia Alexandra MD LAB CYTOLOGY ORDERABLES F inal Result [facility] [address] [place] [id number] from Last 3 Months or Most Recently Relevant to Health Maintenance Insurance [facility] [place] [address] Advance Directives * Full Code (Latest Code Status on File) Date Activated Date Inactivated Comments 06/16/2024 11:09 AM 06/19/2024 3:28 PM Question Answer Comments Patient has decision-making capacity? Yes Care Teams Best Second Jobs Relationship Specialty Start Date End Date Ryan Marques MD PCP - General Family Medicine 12/11/23 Ryan Marques MD Family Medicine 12/08/23
--- OUTSIDE RECORDS SUMMARY | 2024-11-21 14:22 | XMS_ITS | Encounter Summary ---
Author Organization Healthcare Address [address] [id number] Care Team Providers Care Electromechanical Assembly Technician Name Role Phone Ryan Marques MD Unavailable Unavailab le Ryan Marques MD Primary Care Provider Rhina vailable Encounter Details Date Type Department Care Team (Late st Contact Info) Description 10/14/2024 Results Follow-Up [facility] [address] [facility] [address] [place] [address] Lilia Alexandra MD [address] [facility] [address] [place] [facility] [address] [place] [address] Social History Tobacco Use Types Packs/Day Years [...] [address] [place] [address] Lilia Alexandra MD [address] [place] [address] documented as of this encounter Visit Diagnoses [...] documented as of this encounter Care Teams Electromechanical Assembly Technician Relationship Specialty Start Date End Date Ryan Marques MD PCP - General Family Medicine 12/11/23 Ryan Marques MD Family Medicine 12/08/23 documented as of this encounter
--- NOTE | 2024-11-21 14:30 | CA_ITS ---
APPROVED REPORT EXAM: Comprehensive 2D, Doppler, and color-flow Echocardiogram Technical Support Assistant: Erica Leos CRT Ht: 5 ft 10 in Wt: 200lbs BSA: 2.09 BP: 117/61 mmHg Indications: History of chemotherapy cardiotoxicity 2D Dimensions LA Volume 41.30 mL LA Volume Index 19.30 mL/m2 (M/F) 16-34 M-Mode Dimensions RVDd 2.18 cm (0.9-2.6) LA Diam 3.13 cm (1.9-4.0) LVDd 5.67 cm (3.5-5.7) LVDs 4.32 cm (3.5-5.7) IVSd 1.38 cm (0.6-1.1) PWd 0.99 cm (0.6-1.1) EF (Teich) 46.90% FS 23.80% EDV (Teich) 158.10 mL TAPSE 2.26 (<1.7) ESV (Teich) 84.00 mL LV Diastology E Decel Time 237 (160-240 msec) E/A Ratio 0.78 MED A' 11.70 cm/s LAT A' 12.90 cm/s Aortic Valve AO Peak GR. 8.20 mmHg Mitral Valve MV E Max Raza. 81.0 (40-130 cm/s) MV A Velocity 104.0 (40-130 cm/s) E/A Ratio 0.78 MV PHT 69.0 ms Pulmonary Valve PV Peak Velocity 85.0 (50-150 cm/s) Tricuspid Valve TR P. Velocity 193.00 cm/s RAP Estimate 10.00 mmHg RVSP 25.00 mmHg Left Ventricle The left ventricle is normal size. The left ventricular systolic function is normal. The left ventricular ejection fraction is within the normal range. There is increased LV wall thickness. There is normal LV segmental wall motion. The left ventricular diastolic function is normal. LVEF is 55-60%. Right Ventricle The right ventricle is normal size. The right ventricular systolic function is normal. Atria The left atrium size is normal. The right atrium size is normal. There is no Doppler evidence of interatrial shunt. Aortic Valve The aortic valve is mildly thickened. There is no aortic valvular stenosis. Trace aortic regurgitation. Mitral Valve The mitral valve is normal in structure. No evidence of mitral valve stenosis. Trace mitral regurgitation. Tricuspid Valve Tricuspid valve is grossly normal in structure and function. Mild tricuspid regurgitation. RVSP is normal. Pulmonic Valve The pulmonary valve is normal in structure. Trace pulmonic regurgitation. Great Vessels The aortic root is normal in size. IVC is normal in size and collapses >50% with inspiration. Pericardium There is no pericardial effusion. Other Information Study Quality: Fair Conclusion Normal biventricular systolic function. Mild TR. Compared to prior study from 03/29/2024, the LV systolic function has further improved and is now normal. Electronically signed by : Frances Rutherford MD 11/23/2024 00:00:47
== END 2024-11-21 23:59 | disposition home or self-care (01) ==
LOC: RT 14:20
PROVIDERS: PCP Family Medicine; Visit Provider Internal Medicine
DX: I07.1 Rheumatic tricuspid insufficiency (principal); I11.0 Hypertensive heart disease with heart failure; I50.20 Unspecified systolic (congestive) heart failure; I25.10 Atherosclerotic heart disease of native coronary artery without angina pectoris; I26.99 Other pulmonary embolism without acute cor pulmonale; J90 Pleural effusion, not elsewhere classified; Z92.21 Personal history of antineoplastic chemotherapy; Z87.898 Personal history of other specified conditions
CPT/HCPCS: 93306

== ENCOUNTER 2025-04-24 19:11 | Outpatient (CLI) | payer BC, SELFPAY ==
[2025-04-24 20:58] LABS: Alanine Aminotransferase 20 U/L (12-78); Albumin Level 4.3 g/dl (3.5-5.0); Albumin/Globulin Ratio 1.6 (1.1-1.8); Alkaline Phosphatase 150 U/L (38-126); Anion Gap 19.3 mEq/L (5-15); Aspartate Amino Transferase 22 U/L (14-36); Bilirubin,Total 0.6 mg/dl (0.2-1.3); Blood Urea Nitrogen 19 mg/dl (7-17); Calcium 9.1 mg/dl (8.4-10.2); Carbon Dioxide 19 mmol/L (22.0-30.0); Chloride 106 mmol/L (98-107); Cholesterol 139 mg/dl (140-200); Creatinine,Serum 0.80 mg/dl (0.52-1.04); Estimated Glomerular Filt Rate 72 ml/min (>60); GFR (African American) 87 ML/MIN (>60); Globulin 2.7 g/dL (1.3-3.2); Glucose 184 mg/dl (74-100); HDL Cholesterol 54 mg/dl (40-60); Potassium 4.3 mmoL/L (3.5-5.1); Sodium 140 mmol/L (136-145); Total Protein,Serum 7.0 g/dl (6.3-8.2); Triglycerides 172 mg/dl (30-150)
[2025-04-24 21:15] LABS: Free T4 (Free Thyroxine) 1.21 ng/dl (0.78-2.19)
[2025-04-24 21:30] LABS: Thyroid Stimulating Hormone 0.58 uIU/mL (0.465-4.68)
[2025-04-24 21:51] LABS: Hemoglobin A1C 7.0 % (4.0-6.0)
[2025-04-25 08:55] LABS: Hematocrit 35.7 % (37.0-47.0); Hemoglobin 11.0 g/dL (12.2-16.2); Immature Granulocytes % 0.2 %; Mean Corpuscular HGB Conc 30.8 g/dL (31.8-35.4); Mean Corpuscular Hemoglobin 31.3 pg (27.0-31.2); Mean Corpuscular Volume 101.7 fl (81-99); Nucleated Red Blood Cells % 0 %; Platelet Count 193 K/mm3 (142-424); Red Blood Count 3.51 M/mm3 (4.20-5.40); Red Cell Distribution Width-SD 54.1 fL; White Blood Count 8.4 K/mm3 (4.8-10.8)
[2025-04-26 11:12] LABS: Triiodothyronine (T3) Free 3.6 pg/mL (2.0-4.4)
== END 2025-04-24 23:59 | disposition home or self-care (01) ==
LOC: LAB.DROPOF 19:12
PROVIDERS: PCP Family Medicine; Visit Provider Internal Medicine Endocrinology, Diabetes & Metabolism
DX: E11.65 Type 2 diabetes mellitus with hyperglycemia (principal); E11.69 Type 2 diabetes mellitus with other specified complication; E78.5 Hyperlipidemia, unspecified; E03.9 Hypothyroidism, unspecified; N83.8 Other noninflammatory disorders of ovary, fallopian tube and broad ligament
CPT/HCPCS: 80053; 80061; 82043; 82570; 83036; 84439; 84443; 84481; 85025